=== PATIENT | female | born 1945 | race Caucasian/White ===

== ENCOUNTER 2017-02-03 17:14 | Emergency (ER) | payer OTHER ==
[2017-02-03 17:37] VITALS: BP 121/49; BMI 25.2
[2017-02-03] MEDS ORDERED: NS 1000 ML 500 ML IV ONE (19:00)
--- NOTE | 2017-02-03 19:04 | DR.GIBLEED ---
HPI - Time Seen Time seen: 19:00 - Primary Care Physician Primary Care Physician: jennifer - HPI Comment HPI Comment: Patient had copy of AM labs: Hgb 8.6/24.8/ plts 199;Iron 82 Folate> 20 Ferritin 1047 Transferrin 233 - Complaints Chief Complaint Doctors Comments: Patient denies blood in stool. She is followed by Dr Peace for GI bleed. She reports that she is tired and needs some fluids so she can follow up with Dr Peace tomorrow. She denies blood in stool. Chief Complaint:: weakness, fatique, hgb 8.7 this am, blood in stool Self Treatment fo Chief Complaint: hx of gi bleed - Source History Provided: Patient - Mode of Arrival Mode of Arrival: Ambulatory - Timing Onset of Chief Complaint: 02/02/17 PMH - PMH Past Medical History: Yes Past Medical History: Anemia, Arthritis, Coronary Artery Disease, CVA, Diabetes , Dyslipidemia, GERD, Hypertension, Hypothyroidism, Seizures Past Surgical History: Yes Surgical History: Angioplasty/Stents, CABG/Valve Surgery, Cholecystectomy, Hysterectomy, Tonsillectomy - Family History History of Family Medical Conditions: No Family Medical History: Diabetes Mellitus, Cancer, [place], Coronary Artery Disease, Hypertension - Social History Does patient currently use any type of tobacco product: Yes Have you used tobacco products in the last 12 months: Yes Type of Tobacco Use: Cigarettes How many years tobacco product used: 60 Does any household member use tobacco: No Alcohol Use: Occasionally Do you use any recreational Drugs:: No Lives With: Alone Lives Where: Home - infectious screening In the last 2 months have you had wt loss of >10#?: NO Have you had fever, night sweats or hemotysis?: No Have you traveled outside the country in the last 6 months?: No Isolation: Standard ROS - Review of Systems Eyes: No Symptoms Reported ENTM: No Symptoms Reported Respiratoy: No Symptoms Reported Cardiovascular: No Symptoms Reported Gastrointestinal/Abdominal: No Symptoms Reported Genitourinary: No Symptoms Reported Neurological: No Symptoms Reported Musculoskeletal: No Symptoms Reported Integumentary: No Symptoms Reported Hematologic/Lymphatic: No Symptoms Reported Endocrine: No Symptoms Reported Psychiatric: No Symptoms Reported All Other Systems: Reviewed and Negative PE - Vital Signs Vitals: Temperature 97.8 F Pulse Rate 109 Respiratory Rate 20 Blood Pressure [Right Arm] 130/81 Blood Pressure [Left Arm] 136/49 Blood Pressure [Left Arm] 124/56 Blood Pressure [Right Arm] 128/58 Blood Pressure 121/49 - General Limitations: No Limitations General Appearance: Alert, In No Apparent Distress - Head Head Exam: Normal Inspection, Atraumatic - Eyes Eye exam: Normal Appearance, PERRL, EOMI - ENT ENT Exam: Normal Exam, Normal Oropharynx - Neck Neck Exam: Normal Inspection, Full ROM - Chest Chest Inspection: Normal Inspection - Respiratory Respiratory Exam: Normal Lung Sounds Bilat Respiratory Exam: Bilateral Clear to Auscultation - Cardiovascular Cardiovascular Exam: Regular Rate, Normal Rhythm - Abdominal Exam Abdominal Exam: Normal Inspection, Normal Bowel Sounds Abdominal Tenderness: negative: RUQ, RLQ, LUQ, LLQ, Epigastrium, Suprapubic, Diffuse, Mild, Moderate, Severe, Other - Rectal Rectal Exam: Deferred - Extremities Extremities Exam: Normal Inspection - Back Back Exam: Normal Inspection - Neurologic Neurological Exam: Alert, Oriented X3, CN II-XII Intact - Psychiatric Psychiatric Exam: Normal Affect, Normal Mood - Skin Skin Exam: Warm, Dry, Intact - Diagnosis Discharge Problem: History of anemia - Discharge Plan Condition: Stable - Follow ups/Referrals Follow ups/Referrals: Shayne Tavares [Primary Care Provider] - 3 days - Instructions
[2017-02-03] MEDS ORDERED: NS 1000 ML 1,000 ML ONE (19:07)
== END 2017-02-03 20:43 | disposition home or self-care (01) ==
LOC: ER 17:24
DX: R53.1 Weakness (principal); Z87.19 Personal history of other diseases of the digestive system; D64.9 Anemia, unspecified
CPT/HCPCS: 36415; 82607; 82728; 82746; 83540; 84466; 85025; 96365; 96367; 99282; 99283

== ENCOUNTER → 2017-02-03 | Outpatient (CLI) | payer OTHER ==
[2015-05-04 10:26] VITALS: BP 147/60
[2017-02-03 14:11] LABS: BASOPHILS % (AUTO) 0.6 % (0.2-1.0); EOSINOPHILS # (AUTO) 0.2 x10^3/uL (0.0-0.2); EOSINOPHILS % (AUTO) 2.2 % (0.9-2.9); HEMATOCRIT 24.8 % (36.0-47.0); HEMOGLOBIN 8.6 g/dL (12.0-16.0); LYMPHOCYTES # (AUTO) 2.5 X10^3/uL (1.3-2.9); LYMPHOCYTES % (AUTO) 28.4 % (21.0-51.0); MEAN CORPUSCULAR HEMOGLOBIN 35.4 pg (27.0-34.0); MEAN CORPUSCULAR HGB CONC 34.6 g/dL (33.0-35.0); MEAN CORPUSCULAR VOLUME 102.4 fL (80.0-100.0); MEAN PLATELET VOLUME 8.7 fL (7.4-11.0); MONOCYTES # (AUTO) 0.5 x10^3/uL (0.3-0.8); MONOCYTES % (AUTO) 5.8 % (0.0-13.0); NEUTROPHILS # (AUTO) 5.5 x10^3/uL (2.2-4.8); PLATELET COUNT 199 X10^3/uL (150.0-450.0); RED BLOOD COUNT 2.43 X10^6/uL (3.5-5.4); RED CELL DISTRIBUTION WIDTH 14.4 % (11.6-16.5); WHITE BLOOD COUNT 8.7 X10^3/uL (3.6-10.0)
[2017-02-03 14:52] LABS: IRON 82 ug/dL (50-175); TRANSFERRIN 233 mg/dL (202-364)
== END ==
LOC: LAB 13:23
PROVIDERS: ATTEND Nurse Practitioner Family
DX: D64.9 Anemia, unspecified (principal)
CPT/HCPCS: 36415; 82607; 82728; 82746; 83540; 84466; 85025

== ENCOUNTER 2017-06-03 10:55 | Inpatient (IN) | payer OTHER ==
[2017-06-03] MEDS ORDERED: TUSSIONEX PENNKINETIC SUSP PO PRN (18:01)
[2017-06-03] MEDS ORDERED: LEVAQUIN PREMIX IV 750 MG 750 MG/150 ML BAG IV SCH (18:01)
[2017-06-03 18:37] LABS: BASOPHILS % (AUTO) 0.3 % (0.2-1.0); EOSINOPHILS # (AUTO) 0.1 x10^3/uL (0.0-0.2); EOSINOPHILS % (AUTO) 0.7 % (0.9-2.9); HEMATOCRIT 38.1 % (36.0-47.0); HEMOGLOBIN 12.4 g/dL (12.0-16.0); LYMPHOCYTES # (AUTO) 1.1 X10^3/uL (1.3-2.9); LYMPHOCYTES % (AUTO) 10.5 % (21.0-51.0); MEAN CORPUSCULAR HEMOGLOBIN 29.9 pg (27.0-34.0); MEAN CORPUSCULAR HGB CONC 32.7 g/dL (33.0-35.0); MEAN CORPUSCULAR VOLUME 91.4 fL (80.0-100.0); MEAN PLATELET VOLUME 9.4 fL (7.4-11.0); MONOCYTES # (AUTO) 0.5 x10^3/uL (0.3-0.8); MONOCYTES % (AUTO) 4.4 % (0.0-13.0); NEUTROPHILS # (AUTO) 8.7 x10^3/uL (2.2-4.8); NEUTROPHILS % (AUTO) 84.1 % (42.0-75.0); PLATELET COUNT 170 X10^3/uL (150.0-450.0); RED BLOOD COUNT 4.16 X10^6/uL (3.5-5.4); RED CELL DISTRIBUTION WIDTH 18.6 % (11.6-16.5); WHITE BLOOD COUNT 10.4 X10^3/uL (3.6-10.0)
[2017-06-03 19:38] LABS: ALANINE AMINOTRANSFERASE 15 Units/L (12-78); ALBUMIN 3.8 g/dL (3.4-5.0); ALKALINE PHOSPHATASE 73 Units/L (46-116); ASPARTATE AMINO TRANSFERASE 18 Units/L (15-37); BLOOD UREA NITROGEN 59 mg/dL (7-18); CALCIUM 8.6 mg/dL (8.5-10.1); CARBON DIOXIDE 27.6 mmol/L (21-32); CHLORIDE 100 mmol/L (98-107); COR NA(FOR HYPERGLY) 139 mmol/L (136-145); CREATININE 2.39 mg/dL (0.55-1.02); SODIUM 137 mmol/L (136-145); TOTAL PROTEIN 7.8 g/dL (6.4-8.2); eGFR BLACK RACES 26 (>60); eGFR NON BLACK RACES 21 (>60)
[2017-06-03] MEDS ORDERED: NS 1/2 1000 ML IV 1,000 ML IV ONE (20:16)
[2017-06-03] MEDS: NS 1/2 1000 ML IV 1,000 ML IV SCH (20:22)
[2017-06-03] MEDS: LEVAQUIN PREMIX IV 750 MG 750 MG/150 ML BAG IV SCH (20:23)
[2017-06-03] MEDS: ROBITUSSIN DM PO SCH (20:23)
[2017-06-03] MEDS: TAMIFLU PO SCH (20:23)
[2017-06-03] MEDS: DUONEB 0.5 MG/3 MG NEB SCH (20:32)
[2017-06-03] MEDS ORDERED: TAMIFLU PO SCH (21:00)
--- NOTE | 2017-06-03 22:07 | RAD ---
Chest, PA and lateral Indication: Pneumonia, cough Comparison: 03/04/2014 Findings: Cardiac silhouette size is within normal limits. Postoperative changes of previous CABG are noted with multiple fractured sternal wires. There are mild chronic interstitial changes of the lung s without dense infiltrate or pleural effusion. Impression: No acute chest process. Reported By:
[2017-06-03 23:54] VITALS: BMI 26.7
[2017-06-04] MEDS: DUONEB 0.5 MG/3 MG NEB SCH ×6 (00:35→21:27)
[2017-06-04 06:35] LABS: BASOPHILS % (AUTO) 0.2 % (0.2-1.0); EOSINOPHILS # (AUTO) 0.2 x10^3/uL (0.0-0.2); HEMATOCRIT 33.7 % (36.0-47.0); HEMOGLOBIN 11.2 g/dL (12.0-16.0); LYMPHOCYTES # (AUTO) 1.6 X10^3/uL (1.3-2.9); LYMPHOCYTES % (AUTO) 20.6 % (21.0-51.0); MEAN CORPUSCULAR HEMOGLOBIN 30.2 pg (27.0-34.0); MEAN CORPUSCULAR HGB CONC 33.2 g/dL (33.0-35.0); MEAN PLATELET VOLUME 9.3 fL (7.4-11.0); MONOCYTES # (AUTO) 0.6 x10^3/uL (0.3-0.8); MONOCYTES % (AUTO) 8.2 % (0.0-13.0); NEUTROPHILS # (AUTO) 5.4 x10^3/uL (2.2-4.8); PLATELET COUNT 143 X10^3/uL (150.0-450.0); RED CELL DISTRIBUTION WIDTH 18.9 % (11.6-16.5); WHITE BLOOD COUNT 7.8 X10^3/uL (3.6-10.0)
[2017-06-04 07:21] LABS: CALCIUM 8.1 mg/dL (8.5-10.1); CARBON DIOXIDE 27.8 mmol/L (21-32); COR CA(FOR HYPOALB) 8.9 mg/dL (8.5-10.1); CREATININE 1.81 mg/dL (0.55-1.02); TOTAL PROTEIN 6.6 g/dL (6.4-8.2)
--- NOTE | 2017-06-04 07:22 | RAD ---
HISTORY: Cough Study: Chest AP portable Comparison: 06/03/2017 Findings: The patient is status post median sternotomy and CABG. The heart is upper limits normal in size. No c ongestive heart failure is noted. No acute alveolar infiltrates are identified. Mild chronic intersti tial lung changes are stable. There is some subsegmental atelectasis peripherally in the left lower l obe. IMPRESSION: No acute infiltrates Stable interstitial lung changes Reported By:
[2017-06-04] MEDS: ROBITUSSIN DM PO SCH ×4 (09:46→21:26)
[2017-06-04] MEDS ORDERED: NS 1/2 1000 ML IV 1,000 ML IV ONE ×2 (09:49→23:44)
[2017-06-04] MEDS: NS 1/2 1000 ML IV 1,000 ML IV SCH (10:03)
--- NOTE | 2017-06-04 10:36 | DR.UPDATE ---
H&P Update History and Physical Update: WAS SEEN IN THE OFFICE ON 06/03/16. A H&P WAS COMPLETED PRIOR TO ADMISSION. PATIENT HAS BEEN SEEN AND EXAMINED WITH NO CHANGES NOTED TO H&P. Changes noted: NO Yes with the following:
[2017-06-04] MEDS ORDERED: XANAX PO PRN (11:51)
[2017-06-04] MEDS ORDERED: PATIENT'S HOME MEDICATION (Acetaminophen With Codeine [Acetaminophen-Cod #4 Tablet] 1 TAB) PO PRN (11:51)
[2017-06-04] MEDS ORDERED: AMBIEN PO PRN (11:51)
[2017-06-04] MEDS ORDERED: PATIENT'S HOME MEDICATION (Ropinirole Hcl [Requip] 0.5 MG) PO SCH (12:00)
[2017-06-04] MEDS ORDERED: [UNRECOGNIZED DRUG - OTHER] PO SCH (12:00)
[2017-06-04] MEDS ORDERED: POTASSIUM CHLORIDE 10 MEQ PO SCH (12:00)
[2017-06-04] MEDS ORDERED: VALSARTAN PO SCH (12:00)
[2017-06-04] MEDS ORDERED: CALCIUM CARBONATE PO SCH (12:00)
[2017-06-04] MEDS ORDERED: HYDROCHLOROTHIAZIDE PO SCH (12:00)
[2017-06-04] MEDS ORDERED: PATIENT'S HOME MEDICATION (Folic Acid [Folic Acid] 1 TAB) PO SCH (12:00)
[2017-06-04] MEDS ORDERED: FOLIC ACID PO SCH (12:00)
[2017-06-04] MEDS ORDERED: [UNRECOGNIZED DRUG - OTHER] PO SCH (12:00)
[2017-06-04] MEDS ORDERED: METHYLCELLULOSE PO SCH (12:00)
[2017-06-04] MEDS ORDERED: HumuLIN R SUBCUT PRN (12:01)
[2017-06-04] MEDS ORDERED: ZOLOFT PO ONE (13:43)
[2017-06-04] MEDS: ASPIRIN EC 81 MG PO SCH (14:00)
[2017-06-04] MEDS: COREG TAB 6.25 MG PO SCH ×2 (14:00→21:26)
[2017-06-04] MEDS: PLAVIX PO SCH (14:02)
[2017-06-04] MEDS: MAG-OX TAB PO SCH (14:02)
[2017-06-04] MEDS: NEURONTIN CAP 100 MG PO SCH (14:02)
[2017-06-04] MEDS: ZOLOFT PO SCH (14:03)
[2017-06-04] MEDS: PriLOSEC PO SCH (14:04)
[2017-06-04] MEDS ORDERED: TYLENOL #3 TAB (W/CODEINE) PO PRN (14:26)
[2017-06-04] MEDS: ESTRACE PO SCH (18:05)
[2017-06-04] MEDS: TAB-A-VITE PO SCH (18:05)
[2017-06-04] MEDS: SYNTHROID 112 mcg TAB PO SCH (18:06)
[2017-06-04] MEDS ORDERED: NEURONTIN CAP 100 MG PO SCH (21:00)
[2017-06-04] MEDS: SNACK - Diabetic Appropriate PO SCH (21:24)
[2017-06-04] MEDS: BENADRYL CAP 50 MG PO SCH (21:24)
[2017-06-04] MEDS: CRESTOR TAB 10 MG PO SCH (21:25)
[2017-06-04] MEDS: REQUIP PO SCH (21:25)
[2017-06-04] MEDS: TAMIFLU PO SCH (21:25)
[2017-06-04] MEDS: NEURONTIN CAP 300 MG PO SCH (21:26)
[2017-06-04] MEDS: LEVEMIR SC SCH (21:27)
[2017-06-05] MEDS ORDERED: DUONEB 0.5 MG/3 MG ONE (00:03)
[2017-06-05] MEDS: DUONEB 0.5 MG/3 MG NEB SCH ×6 (00:10→21:35)
[2017-06-05 06:15] LABS: BASOPHILS % (AUTO) 0.3 % (0.2-1.0); EOSINOPHILS # (AUTO) 0.2 x10^3/uL (0.0-0.2); EOSINOPHILS % (AUTO) 3.8 % (0.9-2.9); HEMATOCRIT 34.8 % (36.0-47.0); HEMOGLOBIN 11.6 g/dL (12.0-16.0); LYMPHOCYTES # (AUTO) 1.4 X10^3/uL (1.3-2.9); LYMPHOCYTES % (AUTO) 26.4 % (21.0-51.0); MEAN CORPUSCULAR HGB CONC 33.3 g/dL (33.0-35.0); MEAN CORPUSCULAR VOLUME 90.2 fL (80.0-100.0); MEAN PLATELET VOLUME 9.2 fL (7.4-11.0); MONOCYTES # (AUTO) 0.6 x10^3/uL (0.3-0.8); MONOCYTES % (AUTO) 12.1 % (0.0-13.0); NEUTROPHILS % (AUTO) 57.4 % (42.0-75.0); PLATELET COUNT 143 X10^3/uL (150.0-450.0); RED BLOOD COUNT 3.86 X10^6/uL (3.5-5.4); RED CELL DISTRIBUTION WIDTH 18.1 % (11.6-16.5); WHITE BLOOD COUNT 5.3 X10^3/uL (3.6-10.0)
[2017-06-05 06:19] LABS: ALANINE AMINOTRANSFERASE 14 Units/L (12-78); ALKALINE PHOSPHATASE 59 Units/L (46-116); ASPARTATE AMINO TRANSFERASE 18 Units/L (15-37); BLOOD UREA NITROGEN 29 mg/dL (7-18); CALCIUM 8.7 mg/dL (8.5-10.1); CARBON DIOXIDE 25.5 mmol/L (21-32); CHLORIDE 106 mmol/L (98-107); COR CA(FOR HYPOALB) 9.5 mg/dL (8.5-10.1); SODIUM 138 mmol/L (136-145); TOTAL PROTEIN 6.7 g/dL (6.4-8.2); eGFR BLACK RACES > 60 (>60); eGFR NON BLACK RACES 52 (>60)
--- NOTE | 2017-06-05 07:33 | RAD ---
HISTORY: Cough, pneumonia Study: Chest AP portable Comparison: 06/04/2017 Findings: The patient is status post median sternotomy and CABG. The heart is upper limits normal in size. No c ongestive heart failure is noted. No acute alveolar infiltrates are identified. Minimal chronic inter stitial lung changes are present. There is minimal subsegmental atelectasis peripherally in the left lung base. No pleural effusions are identified. The bony thorax is unremarkable. IMPRESSION: No acute infiltrates Minimal interstitial lung changes, stable Reported By:
[2017-06-05] MEDS ORDERED: ZOLOFT PO ONE (08:41)
[2017-06-05] MEDS: COREG TAB 6.25 MG PO SCH ×2 (08:47→21:07)
[2017-06-05] MEDS: ZOLOFT PO SCH (08:47)
[2017-06-05] MEDS: ASPIRIN EC 81 MG PO SCH (08:47)
[2017-06-05] MEDS: SYNTHROID 112 mcg TAB PO SCH (08:47)
[2017-06-05] MEDS: PriLOSEC PO SCH (08:47)
[2017-06-05] MEDS: FOLIC ACID TAB 1 MG PO SCH (08:47)
[2017-06-05] MEDS: HYDROCHLOROTHIAZIDE 25 MG TAB PO SCH (08:48)
[2017-06-05] MEDS: TAB-A-VITE PO SCH (08:48)
[2017-06-05] MEDS: NEURONTIN CAP 100 MG PO SCH (08:48)
[2017-06-05] MEDS: PLAVIX PO SCH (08:48)
[2017-06-05] MEDS: OSCAL+D or CALTRATE+D PO SCH (08:48)
[2017-06-05] MEDS: ESTRACE PO SCH (08:49)
[2017-06-05] MEDS: DIOVAN TAB 160 MG PO SCH (08:49)
[2017-06-05] MEDS: HEMOCYTE-PLUS PO SCH (08:50)
[2017-06-05] MEDS: ROBITUSSIN DM PO SCH ×4 (08:51→21:13)
[2017-06-05] MEDS: MAG-OX TAB PO SCH (08:57)
[2017-06-05] MEDS ORDERED: MICRO K EXTEN CAP 10 MEQ PO SCH (09:00)
[2017-06-05] MEDS: REQUIP PO SCH ×2 (10:50→21:07)
[2017-06-05] MEDS: NS 1/2 1000 ML IV 1,000 ML IV SCH ×2 (12:56)
--- NOTE | 2017-06-05 19:32 | PCM.PROG ---
Progress Note - Progress Note for Day of Date: 06/04/17 - Subjective Subjective: WAS ADMITTED ON 06/03/2017. SHE IS BEING TREATED FOR BRONCHOPNEUMONIA AND INFLUENZA. TODAY, HE IS ALERT AND ORIENTED, LYING IN BED ON MORNING ROUNDS. TODAY, SHE IS NOTED WITH COMPLAINTS OF SHORNTESS OF BREATH AND PRODUCTIVE COUGH. SHE ALSO COMPLAINS OF PAIN TO THE SECOND DIGIT OF THE LEFT HAND. ON EXAMINATION, SECOND DIGIT OF THE LEFT HAND IS NOTED WITH ERYTHEM AND NOTED TO BE SWOLLEN. NO WOUND OR DRAINAGE NOTED. HEART IS REGULAR IN RATE AND RHYTHM. BIALTERAL LUNGS ARE NOTED WITH EXPIRATORY WHEEZING AND RHONCHI THROUGHOUT. SHE IS CURRENTLY UTILIZING OXYGEN AT 2L/MIN. ABDOMEN IS ROUND, SOFT , AND NON-TENDER WITH NORMAL BOWEL SOUNDS NOTED IN ALL QUADRANTS. THERE IS NORMAL RANGE OF MOTION NOTED TO ALL EXTREMITIES. HER VITALS THIS MORNING ARE 98.3-73-20-93%-141/64. SHE WAS AFEBRILE THROUGHOUT THE NIGHT. LABS WERE OBTAINED. ABNORMAL LAB VALUES INCLUDE THE FOLLOWING: WBC 11.2, HCT 33.7, PLT COUNT 143, BUN 47, CREATININE 1.81, GLUCOSE 111, CALCIUM 8.1, ALBUMIN 3.0. BLOOD AND SPUTUM CULTURES ARE PENDING. CHEST XRAY REPORTS STABLE INTERSTITIAL LUNG CHANGES. SHE CONTINUES ON IV ANTIBIOTICS AND RESPIRATORY TREATMENTS. WE WILL CONTINUE WITH CURRENT PLAN OF CARE TODAY. WE PLAN TO FOLLOW UP WITH AM LABS AND CONTINUE TO MONITOR PATIENT. - Past Medical Family Social History Past Med/Fam/Surg Hx: No changes since H&P Allergies: Allergies Penicillins Allergy (Verified 02/03/17 18:45) - Review of Systems ROS: No change since H&P - Vital Signs and I&O's Vital Signs: Temperature 97.6 F Pulse Rate [Right Brachial] 64 Pulse Rate [Left Brachial] 76 Pulse Rate 70 Respiratory Rate 18 Blood Pressure [Right Arm] 160/58 Blood Pressure [Left Arm] 187/78 Blood Pressure [Left Arm] 124/56 Blood Pressure [Right Arm] 128/58 Blood Pressure 121/49 O2 Sat by Pulse Oximetry 95 Intake and Output: Intake & Output 06/03/17 06/04/17 06/05/17 06/06/17 11:59 11:59 11:59 11:59 Intake Total 2149 2038 1300 Balance 2149 2038 1300 - Physical Exam Oriented: Normal Eyes: Normal. negative: Blurred Vision, Diplopia, Discharge, Pain, Redness, Photophobia, Other Ear: Normal. negative: Right, Left, Swelling, Ecchymosis, Hemotypanum, Abrasion , Laceration Nose: Normal Throat: Normal Respiratory: Right, Left, Generalized, Wheezes, Rhonchi Cardiovascular: Normal. negative: S3, S4, Murmur : Normal Auscultation: Bowel Sounds: Normal Palpation: Normal Tenderness: Normal. negative: Rebound, Guarding, Rigidity Skin: Normal Musculoskeletal: Normal Psychiatric: Normal. negative: Anxiety, Depression, Agitation, Other Mood Description: Calm Affect: Normal Speech Pattern: Clear, Appropriate - Laboratory and Diagnostics Result Diagrams: 06/05/17 05:38 06/05/17 05:38 Labs: 06/03/17 18:24 Blood Blood Culture - Preliminary 06/03/17 18:11 Blood Blood Culture - Preliminary 06/03/17 18:42 Sputum - Expectorated Sputum Sputum Culture - Preliminary 06/03/17 18:42 Sputum - Expectorated Sputum - Final Laboratory WBC 5.3 X10^3/uL (3.6-10.0) 06/05/17 05:38 RBC 3.86 X10^6/uL (3.5-5.4) 06/05/17 05:38 Hgb 11.6 g/dL (12.0-16.0) L 06/05/17 05:38 Hct 34.8 % (36.0-47.0) L 06/05/17 05:38 MCV 90.2 fL (80.0-100.0) 06/05/17 05:38 MCH 30.0 pg (27.0-34.0) 06/05/17 05:38 MCHC 33.3 g/dL (33.0-35.0) 06/05/17 05:38 RDW 18.1 % (11.6-16.5) H 06/05/17 05:38 Plt Count 143 X10^3/uL (150.0-450.0) L 06/05/17 05:38 MPV 9.2 fL (7.4-11.0) 06/05/17 05:38 Neut % 57.4 % (42.0-75.0) 06/05/17 05:38 Lymph % 26.4 % (21.0-51.0) 06/05/17 05:38 [place] % 12.1 % (0.0-13.0) 06/05/17 05:38 Eos % 3.8 % (0.9-2.9) H 06/05/17 05:38 Baso % 0.3 % (0.2-1.0) 06/05/17 05:38 Neut # 3.0 x10^3/uL (2.2-4.8) 06/05/17 05:38 Lymph # 1.4 X10^3/uL (1.3-2.9) 06/05/17 05:38 [place] # 0.6 x10^3/uL (0.3-0.8) 06/05/17 05:38 Eos # 0.2 x10^3/uL (0.0-0.2) 06/05/17 05:38 Baso # 0.0 X10^3/uL (0.0-0.1) 06/05/17 05:38 Absolute Nucleated RBC 0.1 /100WBC 06/05/17 05:38 Sodium 138 mmol/L (136-145) 06/05/17 05:38 Corrected Sodium TNP 06/05/17 05:38 Potassium 4.6 mmol/L (3.5-5.1) 06/05/17 05:38 Chloride 106 mmol/L (98-107) 06/05/17 05:38 Carbon Dioxide 25.5 mmol/L (21-32) 06/05/17 05:38 BUN 29 mg/dL (7-18) H 06/05/17 05:38 Creatinine 1.10 mg/dL (0.55-1.02) H 06/05/17 05:38 Est GFR (MDRD) Af Amer > 60 (>60) 06/05/17 05:38 Est GFR (MDRD) Non-Af 52 (>60) L 06/05/17 05:38 Glucose 100 mg/dL (65-99) H 06/05/17 05:38 POC Glucose (mg/dL) 156 mg/dL (65-99) H 06/05/17 16:44 Calcium 8.7 mg/dL (8.5-10.1) 06/05/17 05:38 Corrected Calcium 9.5 mg/dL (8.5-10.1) 06/05/17 05:38 Total Bilirubin 0.20 mg/dL (0.2-1.0) 06/05/17 05:38 AST 18 Units/L (15-37) 06/05/17 05:38 ALT 14 Units/L (12-78) 06/05/17 05:38 Alkaline Phosphatase 59 Units/L (46-116) 06/05/17 05:38 Total Protein 6.7 g/dL (6.4-8.2) 06/05/17 05:38 Albumin 3.0 g/dL (3.4-5.0) L 06/05/17 05:38 Globulin 3.7 g/dL (2.5-4.5) 06/05/17 05:38 Albumin/Globulin Ratio 0.8 Ratio (1.1-2.1) L 06/05/17 05:38 Influenza Type A (PCR) Negative (NEGATIVE) 06/03/17 18:42 Influenza Type B (PCR) Negative (NEGATIVE) 06/03/17 18:42 - Plan (1) CAP (community acquired pneumonia) Status: Acute Qualifiers: Laterality: unspecified laterality Qualified Code(s): J18.9 - Pneumonia, unspecified organism Plan: PNEUMONIA PROTOCOL, LEVAQUIN 750MG IV Q48H, RESPIRATORY TX, SUPPLEMENTAL OXYGEN, CONTINUE TO MONITOR (2) Influenza Status: Acute Plan: TAMIFLU 75MG PO BID, CONTINUE TO MONITOR
[2017-06-05] MEDS: LEVAQUIN PREMIX IV 750 MG 750 MG/150 ML BAG IV SCH (21:05)
[2017-06-05] MEDS: SNACK - Diabetic Appropriate PO SCH (21:05)
[2017-06-05] MEDS: LEVEMIR SC SCH (21:05)
[2017-06-05] MEDS: NEURONTIN CAP 300 MG PO SCH (21:06)
[2017-06-05] MEDS: TAMIFLU PO SCH (21:07)
[2017-06-05] MEDS: CRESTOR TAB 10 MG PO SCH (21:07)
[2017-06-05] MEDS: BENADRYL CAP 50 MG PO SCH (21:07)
[2017-06-06] MEDS: DUONEB 0.5 MG/3 MG NEB SCH ×4 (01:38→12:20)
[2017-06-06] MEDS ORDERED: NS 1/2 1000 ML IV 1,000 ML IV ONE (02:08)
[2017-06-06] MEDS: NS 1/2 1000 ML IV 1,000 ML IV SCH (02:19)
[2017-06-06 04:24] LABS: BASOPHILS % (AUTO) 0.5 % (0.2-1.0); EOSINOPHILS # (AUTO) 0.1 x10^3/uL (0.0-0.2); HEMOGLOBIN 11.7 g/dL (12.0-16.0); LYMPHOCYTES # (AUTO) 1.2 X10^3/uL (1.3-2.9); LYMPHOCYTES % (AUTO) 24.5 % (21.0-51.0); MEAN CORPUSCULAR HEMOGLOBIN 29.7 pg (27.0-34.0); MEAN CORPUSCULAR HGB CONC 32.5 g/dL (33.0-35.0); MEAN CORPUSCULAR VOLUME 91.4 fL (80.0-100.0); MEAN PLATELET VOLUME 8.8 fL (7.4-11.0); MONOCYTES # (AUTO) 0.5 x10^3/uL (0.3-0.8); MONOCYTES % (AUTO) 10.4 % (0.0-13.0); NEUTROPHILS # (AUTO) 2.9 x10^3/uL (2.2-4.8); NEUTROPHILS % (AUTO) 61.6 % (42.0-75.0); PLATELET COUNT 155 X10^3/uL (150.0-450.0); RED BLOOD COUNT 3.94 X10^6/uL (3.5-5.4); RED CELL DISTRIBUTION WIDTH 18.3 % (11.6-16.5); WHITE BLOOD COUNT 4.7 X10^3/uL (3.6-10.0)
[2017-06-06 04:35] LABS: ALANINE AMINOTRANSFERASE 14 Units/L (12-78); ALBUMIN 2.8 g/dL (3.4-5.0); ALKALINE PHOSPHATASE 53 Units/L (46-116); ASPARTATE AMINO TRANSFERASE 13 Units/L (15-37); BLOOD UREA NITROGEN 21 mg/dL (7-18); CALCIUM 8.6 mg/dL (8.5-10.1); CARBON DIOXIDE 25.8 mmol/L (21-32); CHLORIDE 105 mmol/L (98-107); COR CA(FOR HYPOALB) 9.6 mg/dL (8.5-10.1); CREATININE 0.98 mg/dL (0.55-1.02); SODIUM 136 mmol/L (136-145); TOTAL PROTEIN 6.6 g/dL (6.4-8.2); eGFR BLACK RACES > 60 (>60); eGFR NON BLACK RACES 59 (>60)
--- NOTE | 2017-06-06 07:39 | RAD ---
Examination: AP chest History: Cough and pneumonia Comparison June 05, 2017 Findings: Continued normal heart size with stable linear fibrosis left mid lung. No evidence for pneu monia or pneumothorax. Sternal wires are present, many of them broken with displacement of fragments. Nonacute fracture deformity proximal left humerus. Impression: No change or acute process. See above. Broken and displaced sternal wires are usually ins ignificant but may be associated with mediastinal vascular complication. Reported By:
[2017-06-06] MEDS ORDERED: ZOLOFT PO ONE (09:19)
[2017-06-06] MEDS: ZOLOFT PO SCH ×2 (09:26→09:31)
[2017-06-06] MEDS: ROBITUSSIN DM PO SCH (09:26)
[2017-06-06] MEDS: ASPIRIN EC 81 MG PO SCH (09:27)
[2017-06-06] MEDS: SYNTHROID 112 mcg TAB PO SCH (09:27)
[2017-06-06] MEDS: FOLIC ACID TAB 1 MG PO SCH (09:27)
[2017-06-06] MEDS: NEURONTIN CAP 100 MG PO SCH (09:27)
[2017-06-06] MEDS: PLAVIX PO SCH (09:27)
[2017-06-06] MEDS: COREG TAB 6.25 MG PO SCH (09:27)
[2017-06-06] MEDS: PriLOSEC PO SCH (09:27)
[2017-06-06] MEDS: HYDROCHLOROTHIAZIDE 25 MG TAB PO SCH (09:28)
[2017-06-06] MEDS: DIOVAN TAB 160 MG PO SCH (09:28)
[2017-06-06] MEDS: TAB-A-VITE PO SCH (09:28)
[2017-06-06] MEDS: HEMOCYTE-PLUS PO SCH (09:28)
[2017-06-06] MEDS: OSCAL+D or CALTRATE+D PO SCH (09:28)
[2017-06-06] MEDS: MAG-OX TAB PO SCH (09:31)
[2017-06-06 10:39] VITALS: BP 148/66
[2017-06-06] MEDS: ESTRACE PO SCH (11:00)
[2017-06-06] MEDS: REQUIP PO SCH (11:00)
--- NOTE | 2017-06-08 20:53 | PCM.PROG ---
Progress Note - Progress Note for Day of Date: 06/05/17 - Subjective Subjective: WAS ADMITTED ON 06/03/2017. SHE IS BEING TREATED FOR BRONCHOPNEUMONIA AND INFLUENZA. TODAY, HE IS ALERT AND ORIENTED, LYING IN BED ON MORNING ROUNDS. TODAY, SHE IS NOTED WITH COMPLAINTS OF SHORNTESS OF BREATH AND PRODUCTIVE COUGH. SHE ALSO COMPLAINS OF PAIN TO THE SECOND DIGIT OF THE LEFT HAND. ON EXAMINATION, SECOND DIGIT OF THE LEFT HAND IS NOTED WITH ERYTHEM AND NOTED TO BE SWOLLEN. NO WOUND OR DRAINAGE NOTED. HEART IS REGULAR IN RATE AND RHYTHM. BIALTERAL LUNGS ARE NOTED WITH EXPIRATORY WHEEZING AND RHONCHI THROUGHOUT. SHE IS CURRENTLY UTILIZING OXYGEN AT 2L/MIN. ABDOMEN IS ROUND, SOFT , AND NON-TENDER WITH NORMAL BOWEL SOUNDS NOTED IN ALL QUADRANTS. THERE IS NORMAL RANGE OF MOTION NOTED TO ALL EXTREMITIES. HER VITALS THIS MORNING ARE 98.3-73-20-93%-141/64. SHE WAS AFEBRILE THROUGHOUT THE NIGHT. LABS WERE OBTAINED. ABNORMAL LAB VALUES INCLUDE THE FOLLOWING: WBC 11.2, HCT 33.7, PLT COUNT 143, BUN 47, CREATININE 1.81, GLUCOSE 111, CALCIUM 8.1, ALBUMIN 3.0. BLOOD AND SPUTUM CULTURES ARE PENDING. CHEST XRAY REPORTS STABLE INTERSTITIAL LUNG CHANGES. SHE CONTINUES ON IV ANTIBIOTICS AND RESPIRATORY TREATMENTS. WE WILL CONTINUE WITH CURRENT PLAN OF CARE TODAY. WE PLAN TO FOLLOW UP WITH AM LABS AND CONTINUE TO MONITOR PATIENT. - Past Medical Family Social History Past Med/Fam/Surg Hx: No changes since H&P Allergies: Allergies Penicillins Allergy (Verified 02/03/17 18:45) - Review of Systems ROS: No change since H&P - Vital Signs and I&O's Vital Signs: Temperature 97.3 F Pulse Rate [Right Brachial] 68 Pulse Rate [Left Brachial] 76 Pulse Rate 69 Respiratory Rate 20 Blood Pressure [Right Arm] 148/66 Blood Pressure [Left Arm] 187/78 Blood Pressure [Left Arm] 124/56 Blood Pressure [Right Arm] 128/58 Blood Pressure 121/49 O2 Sat by Pulse Oximetry 100 Intake and Output: Intake & Output 06/06/17 06/07/17 06/08/17 06/09/17 11:59 11:59 11:59 11:59 Intake Total 2893 Balance 2893 - Physical Exam Oriented: Normal Eyes: Normal. negative: Blurred Vision, Diplopia, Discharge, Pain, Redness, Photophobia, Other Ear: Normal. negative: Right, Left, Swelling, Ecchymosis, Hemotypanum, Abrasion , Laceration Nose: Normal Throat: Normal Respiratory: Right, Left, Generalized, Wheezes, Rhonchi Cardiovascular: Normal. negative: S3, S4, Murmur : Normal Auscultation: Bowel Sounds: Normal Palpation: Normal Tenderness: Normal. negative: Rebound, Guarding, Rigidity Skin: Normal Musculoskeletal: Normal Psychiatric: Normal. negative: Anxiety, Depression, Agitation, Other Mood Description: Calm Affect: Normal Speech Pattern: Clear, Appropriate - Laboratory and Diagnostics Result Diagrams: 06/06/17 03:58 06/06/17 03:58 Labs: 06/03/17 18:42 Sputum - Expectorated Sputum Sputum Culture - Final 06/03/17 18:42 Sputum - Expectorated Sputum - Final 06/03/17 18:24 Blood Blood Culture - Preliminary 06/03/17 18:11 Blood Blood Culture - Preliminary Laboratory WBC 4.7 X10^3/uL (3.6-10.0) 06/06/17 03:58 RBC 3.94 X10^6/uL (3.5-5.4) 06/06/17 03:58 Hgb 11.7 g/dL (12.0-16.0) L 06/06/17 03:58 Hct 36.0 % (36.0-47.0) 06/06/17 03:58 MCV 91.4 fL (80.0-100.0) 06/06/17 03:58 MCH 29.7 pg (27.0-34.0) 06/06/17 03:58 MCHC 32.5 g/dL (33.0-35.0) L 06/06/17 03:58 RDW 18.3 % (11.6-16.5) H 06/06/17 03:58 Plt Count 155 X10^3/uL (150.0-450.0) 06/06/17 03:58 MPV 8.8 fL (7.4-11.0) 06/06/17 03:58 Neut % 61.6 % (42.0-75.0) 06/06/17 03:58 Lymph % 24.5 % (21.0-51.0) 06/06/17 03:58 [place] % 10.4 % (0.0-13.0) 06/06/17 03:58 Eos % 3.0 % (0.9-2.9) H 06/06/17 03:58 Baso % 0.5 % (0.2-1.0) 06/06/17 03:58 Neut # 2.9 x10^3/uL (2.2-4.8) 06/06/17 03:58 Lymph # 1.2 X10^3/uL (1.3-2.9) L 06/06/17 03:58 [place] # 0.5 x10^3/uL (0.3-0.8) 06/06/17 03:58 Eos # 0.1 x10^3/uL (0.0-0.2) 06/06/17 03:58 Baso # 0.0 X10^3/uL (0.0-0.1) 06/06/17 03:58 Absolute Nucleated RBC 0.1 /100WBC 06/06/17 03:58 Sodium 136 mmol/L (136-145) 06/06/17 03:58 Corrected Sodium TNP 06/06/17 03:58 Potassium 4.9 mmol/L (3.5-5.1) 06/06/17 03:58 Chloride 105 mmol/L (98-107) 06/06/17 03:58 Carbon Dioxide 25.8 mmol/L (21-32) 06/06/17 03:58 BUN 21 mg/dL (7-18) H 06/06/17 03:58 Creatinine 0.98 mg/dL (0.55-1.02) 06/06/17 03:58 Est GFR (MDRD) Af Amer > 60 (>60) 06/06/17 03:58 Est GFR (MDRD) Non-Af 59 (>60) 06/06/17 03:58 Glucose 109 mg/dL (65-99) H 06/06/17 03:58 POC Glucose (mg/dL) 123 mg/dL (65-99) H 06/06/17 11:22 Calcium 8.6 mg/dL (8.5-10.1) 06/06/17 03:58 Corrected Calcium 9.6 mg/dL (8.5-10.1) 06/06/17 03:58 Total Bilirubin 0.10 mg/dL (0.2-1.0) L 06/06/17 03:58 AST 13 Units/L (15-37) L 06/06/17 03:58 ALT 14 Units/L (12-78) 06/06/17 03:58 Alkaline Phosphatase 53 Units/L (46-116) 06/06/17 03:58 Total Protein 6.6 g/dL (6.4-8.2) 06/06/17 03:58 Albumin 2.8 g/dL (3.4-5.0) L 06/06/17 03:58 Globulin 3.8 g/dL (2.5-4.5) 06/06/17 03:58 Albumin/Globulin Ratio 0.7 Ratio (1.1-2.1) L 06/06/17 03:58 Influenza Type A (PCR) Negative (NEGATIVE) 06/03/17 18:42 Influenza Type B (PCR) Negative (NEGATIVE) 06/03/17 18:42 - Plan (1) CAP (community acquired pneumonia) Status: Acute Qualifiers: Laterality: unspecified laterality Qualified Code(s): J18.9 - Pneumonia, unspecified organism Plan: PNEUMONIA PROTOCOL, LEVAQUIN 750MG IV Q48H, RESPIRATORY TX, SUPPLEMENTAL OXYGEN, CONTINUE TO MONITOR (2) Influenza Status: Acute Plan: TAMIFLU 75MG PO BID, CONTINUE TO MONITOR
== END 2017-06-06 12:15 | disposition home or self-care (01) | DRG 194 ==
LOC: OBS 10:55
PROVIDERS: ADMIT Internal Medicine; ATTEND Internal Medicine
DX: J18.0 Bronchopneumonia, unspecified organism (principal); J11.1 Influenza due to unidentified influenza virus with other respiratory manifestations; E11.65 Type 2 diabetes mellitus with hyperglycemia; E78.2 Mixed hyperlipidemia; I25.10 Atherosclerotic heart disease of native coronary artery without angina pectoris; N18.4 Chronic kidney disease, stage 4 (severe); I12.9 Hypertensive chronic kidney disease with stage 1 through stage 4 chronic kidney disease, or unspecified chronic kidney disease; R06.02 Shortness of breath
CPT/HCPCS: 36415; 71045; 71046; 80053; 85025; 87040; 87070; 87205; 87502; 94640; 94760; A4222; G9035; 1956; J1815; J1956; J7620

== ENCOUNTER 2017-07-02 10:39 | Inpatient (IN) | payer OTHER ==
[2017-07-02 12:28] VITALS: BMI 24.6
[2017-07-02 14:34] LABS: EOSINOPHILS # (AUTO) 0.1 x10^3/uL (0.0-0.2); LYMPHOCYTES % (AUTO) 22.7 % (21.0-51.0); MONOCYTES # (AUTO) 0.4 x10^3/uL (0.3-0.8)
[2017-07-02 14:38] LABS: BASOPHILS % (AUTO) 0.3 % (0.2-1.0); EOSINOPHILS % (AUTO) 1.5 % (0.9-2.9); LYMPHOCYTES # (AUTO) 1.9 X10^3/uL (1.3-2.9); MEAN CORPUSCULAR HEMOGLOBIN 31.8 pg (27.0-34.0); MEAN CORPUSCULAR HGB CONC 33.8 g/dL (33.0-35.0); MEAN CORPUSCULAR VOLUME 94.1 fL (80.0-100.0); MEAN PLATELET VOLUME 8.7 fL (7.4-11.0); MONOCYTES % (AUTO) 4.6 % (0.0-13.0); NEUTROPHILS % (AUTO) 70.9 % (42.0-75.0); PLATELET COUNT 167 X10^3/uL (150.0-450.0); RED BLOOD COUNT 1.76 X10^6/uL (3.5-5.4); RED CELL DISTRIBUTION WIDTH 18.9 % (11.6-16.5); WHITE BLOOD COUNT 8.5 X10^3/uL (3.6-10.0)
[2017-07-02 14:40] LABS: HEMATOCRIT 16.6 % (36.0-47.0); HEMOGLOBIN 5.6 g/dL (12.0-16.0)
[2017-07-02 14:48] LABS: CALCIUM 8.5 mg/dL (8.5-10.1); CARBON DIOXIDE 23.2 mmol/L (21-32); COR CA(FOR HYPOALB) 9.3 mg/dL (8.5-10.1); CREATININE 2.13 mg/dL (0.55-1.02)
[2017-07-02] MEDS: PROTONIX INJ 40 MG VIAL IVP SCH (15:07)
[2017-07-02] MEDS: NS 1000 ML 1,000 ML IV SCH (15:07)
[2017-07-02] MEDS: NS 500 ML IV 500 ML IV ONE (15:08)
[2017-07-02] MEDS: PEPCID 20 MG IV PREMIX* 20 MG/50 ML BAG IV SCH (15:08)
--- NOTE | 2017-07-02 18:37 | DR.CONSULT ---
Consult - Consultation for Day of: Date: 07/02/17 - Chief Complaint Chief Complaint: Patient referred for GI Bleed. Patient with complaints of melena. - Allergies Allergies/Adverse Reactions: Allergies Allergy/AdvReac Type Severity Reaction Status Date / Time Penicillins Allergy Verified 02/03/17 18:45 prednisone Allergy Verified 07/02/17 10:35 - History of Present Illness History of Present Illness: Patient is a 72yo female who was referred for GI Bleed. Patient with complaints of melena and diarrhea that has been going on for weeks. She denies dysphagia, dyspepsia, nausea, vomiting, abdominal pain, constipation, and hematochezia. Last EGD was 02/10/17 which showed erosive gastritis and small hiatal hernia. Last colon was 01/07/13 which showed extensive sigmoid diverticulosis with acute appearing erosiond and internal hemorrhoids. Hgb is 5.6, Hct 16.6, BUN 115, Creatinine 2.13 - Past Medical History Past Medical History: Anemia, Arthritis, Coronary Artery Disease, CVA, Diabetes , Dyslipidemia, GERD, Hypertension, Hypothyroidism, Seizures Additional Medical History: PVD, AVM - Past Surgical History Surgical History: Cholecystectomy, Ortho Surgery, Tonsillectomy Additional Surgical History: Sling on bladder - Family History Family Medical History: Diabetes Mellitus, Cancer, [place], Sudden Cardiac , Hypertension - Social History Does patient currently use any type of tobacco product: Yes Have you used tobacco products in the last 12 months: Yes Type of Tobacco Use: Cigarettes How many years tobacco product used: 12 Alcohol Use: Occasionally Drug Use: None - Review of Systems Constitutional: No Symptoms Reported Eyes: No Symptoms Reported ENT: No Symptoms Reported Respiratory: No Symptoms Reported Cardiovascular: No Symptoms Reported Gastrointestinal: See HPI, Diarrhea, Melena Genitourinary: No Symptoms Reported Musculoskeletal: No Symptoms Reported Skin: No Symptoms Reported Neurological: No Symptoms Reported - Physical Exam Vital Signs: Temperature 98.2 F Pulse Rate [Apical] 71 Respiratory Rate 20 Blood Pressure [Right Arm] 148/66 Blood Pressure [Left Arm] 93/39 Blood Pressure [Left Arm] 124/56 Blood Pressure [Right Arm] 128/58 Blood Pressure 148/66 O2 Sat by Pulse Oximetry 94 Oriented: Normal Eyes: Normal Ear: Normal Nose: Normal Throat: Normal Respiratory: Clear Throughout Cardiovascular: Normal : Normal Auscultation: Bowel Sounds: Normal Palpation: Normal, Other (no distention). negative: Spleen Enlarged, Liver Enlarged, Mass Pulsatile Tenderness: Normal Skin: Normal Musculoskeletal: Normal Psychiatric: Normal Mood Description: Calm Affect: Normal Speech Pattern: Clear - Plan Plan: Assessment. 1. Anemia, Melena r/o GI Bleed. Plan. 1. Cont protonix IV, Monitor Hgb, Hemoccult stool EGD in AM. Plan reviewed with Dr. Peace
[2017-07-03] MEDS: NS 1000 ML 1,000 ML IV SCH ×2 (03:00→16:55)
[2017-07-03] MEDS: PROTONIX INJ 40 MG VIAL IVP SCH ×3 (05:15→21:41)
[2017-07-03] MEDS: PEPCID 20 MG IV PREMIX* 20 MG/50 ML BAG IV SCH ×4 (05:20→21:41)
[2017-07-03 06:53] LABS: ALBUMIN 2.9 g/dL (3.4-5.0); CALCIUM 8.4 mg/dL (8.5-10.1); CARBON DIOXIDE 22.6 mmol/L (21-32); COR CA(FOR HYPOALB) 9.3 mg/dL (8.5-10.1); CREATININE 1.68 mg/dL (0.55-1.02); TOTAL PROTEIN 5.7 g/dL (6.4-8.2)
[2017-07-03 07:17] LABS: BASOPHILS % (AUTO) 0.4 % (0.2-1.0); EOSINOPHILS # (AUTO) 0.1 x10^3/uL (0.0-0.2); EOSINOPHILS % (AUTO) 1.5 % (0.9-2.9); LYMPHOCYTES # (AUTO) 1.4 X10^3/uL (1.3-2.9); LYMPHOCYTES % (AUTO) 24.9 % (21.0-51.0); MEAN CORPUSCULAR HEMOGLOBIN 31.8 pg (27.0-34.0); MEAN CORPUSCULAR HGB CONC 33.5 g/dL (33.0-35.0); MEAN CORPUSCULAR VOLUME 94.9 fL (80.0-100.0); MEAN PLATELET VOLUME 8.7 fL (7.4-11.0); MONOCYTES # (AUTO) 0.4 x10^3/uL (0.3-0.8); MONOCYTES % (AUTO) 7.5 % (0.0-13.0); NEUTROPHILS # (AUTO) 3.7 x10^3/uL (2.2-4.8); NEUTROPHILS % (AUTO) 65.7 % (42.0-75.0); PLATELET COUNT 143 X10^3/uL (150.0-450.0); RED BLOOD COUNT 1.59 X10^6/uL (3.5-5.4); RED CELL DISTRIBUTION WIDTH 19.6 % (11.6-16.5); WHITE BLOOD COUNT 5.7 X10^3/uL (3.6-10.0)
[2017-07-03 07:20] LABS: HEMATOCRIT 15.1 % (36.0-47.0)
[2017-07-03] MEDS ORDERED: PROCRIT or EPOGEN SC NR (09:33)
[2017-07-03 10:23] LABS: BILIRUBIN,URINE NEGATIVE (NEGATIVE); BLOOD/HEMOGLOBIN,URINE NEGATIVE (NEGATIVE); GLUCOSE, URINE NEGATIVE (NEGATIVE); KETONES,URINE NEGATIVE (NEGATIVE); LEUKOCYTE ESTERASE ,URINE NEGATIVE (NEGATIVE); NITRITES,URINE NEGATIVE (NEGATIVE); PROTEIN,URINE NEGATIVE (NEGATIVE); UROBILINOGEN,URINE NORMAL (NORMAL)
[2017-07-03 10:38] LABS: APPEARANCE,URINE CLEAR (CLEAR); BACTERIA,URINE NEGATIVE /HPF (NEGATIVE); COLOR,URINE YELLOW (YELLOW); RBC,URINE 0-2 /HPF (NONE SEEN); SQUAMOUS EPITHELIAL CELL,UR NEGATIVE /HPF (NEGATIVE)
[2017-07-03] MEDS ORDERED: TUSSIONEX PENNKINETIC SUSP PO PRN (10:48)
[2017-07-03] MEDS ORDERED: AMBIEN PO PRN (10:48)
[2017-07-03] MEDS ORDERED: INSULIN LISPRO 1 UNIT SC PRN (10:48)
[2017-07-03] MEDS ORDERED: PATIENT'S HOME MEDICATION (Acetaminophen With Codeine [Acetaminophen-Cod #4 Tablet] 1 TAB) PO PRN (10:48)
[2017-07-03] MEDS ORDERED: XANAX PO PRN (10:48)
[2017-07-03] MEDS ORDERED: TESSALON PERLES PO PRN (10:48)
[2017-07-03] MEDS ORDERED: FOLIC ACID PO SCH (11:00)
[2017-07-03] MEDS ORDERED: PATIENT'S HOME MEDICATION (Ropinirole Hcl [Requip] 0.5 MG) PO SCH (11:00)
[2017-07-03] MEDS ORDERED: PATIENT'S HOME MEDICATION (Folic Acid [Folic Acid] 1 TAB) PO SCH (11:00)
[2017-07-03] MEDS ORDERED: CALCIUM CARBONATE PO SCH (11:00)
[2017-07-03] MEDS ORDERED: [UNRECOGNIZED DRUG - OTHER] PO SCH (11:00)
[2017-07-03] MEDS ORDERED: METHYLCELLULOSE PO SCH (11:00)
--- NOTE | 2017-07-03 12:02 | RAD ---
STUDY: CHEST, ONE VIEW History: Central line placement Comparison: June 06, 2017. Findings: The trachea is midline. The lungs are clear of consolidation, significant infiltrate, effusion, or pn eumothorax. There is a left subclavian central venous catheter in place, tip of which projects over t he right atrium near the cavoatrial junction. Multiple surgical clips are identified overlying the ca rdiac silhouette. The mediastinum and osseous structures are unremarkable. IMPRESSION: 1. New left-sided subclavian central venous catheter in place, the tip of which projects over the ri ght atrium near the cavoatrial junction. Reported By:
[2017-07-03 12:19] LABS: HEMOGLOBIN 4.4 g/dL (12.0-16.0)
--- NOTE | 2017-07-03 12:51 | DR.H&P ---
H&P - History & Physical for Day of: H&P Date: 07/02/17 - Chief Complaint Chief Complaint: GENERALIZED WEAKNESS, UNSTEADY GAIT, ANEMIA - Allergies Allergies/Adverse Reactions: Allergies Allergy/AdvReac Type Severity Reaction Status Date / Time Penicillins Allergy Verified 02/03/17 18:45 prednisone Allergy Verified 07/02/17 10:35 - History of Present Illness History of Present Illness: IS A 72 YEAR OLD PATIENT OF OURS WHO PRESENTED A DIRECT ADMISSION. PATIENT PRESENTED TO [facility] ER TODAY FOR GENERALIZED WEAKNESS AND UNSTEADY GAIT. PATIENT ADMITS TO [facility] FOR SEVERAL DAYS WELL DARK STOOLS. SHE WAS FOUND TO HAVE A HEMOGLOBIN OF 5.9 AND A HEMATOCRIT OF 18.6. PATIENT REFUSED ADMISSION TO [facility]. PATIENT WAS TRANSFERRED TO OUR FACILITY VIA EMS PER PATIENTS REQUEST FOR ADMITTANCE TO THE INTENSIVE CARE UNIT. ON ARRIVAL TO THE INTENSIVE CARE UNIT, VITALS WERE 98.0-94-14-97%-119/57. LABS WERE OBTAINED. ABNORMAL LAB VALUES INCLUDE THE FOLLOWING: RBC 1.76, HGB 5.6, HCT 16.6, BUN 115, CREATININE 2.13, GFR 24, GLUCOSE 276, TOTAL BILI 0.10, AST 12, ALT 10, ALK PHOS 33, TOTAL PROTEIN 6.0, ALBUMIN 3.0. STOOL FOR OCCULT BLOOD IS POSITIVE. BUN/CREATININE IS SIGNIFICANTLY INCREASED COMPARED TO HER PREVIOUS HOSPITALIZATION. IT WAS NOTED TO BE 21/0.98 ON 06/06/2017. WE ORDERED FOR A TYPE AND SCREEN WELL CROSSMATCHED TWO UNITS OF PACKED RED BLOOD CELLS TO BE TRANSFUSED SLOWLY WHEN AVAILABLE. PATIENT WAS STARTED ON PEPCID 20MG IV Q12H AND PROTONIX 40MG IV BID. WE CONSULTED GASTROENTEROLOGY TO EVALUATED PATIENT. WE PLAN TO FOLLOW UP WITH AM LABS AND CONTINUE TO MONITOR PATIENT. - Past Medical History Past Medical History: Anemia, Arthritis, CHF, Coronary Artery Disease, CVA, Depression, Diabetes, Dyslipidemia, GERD, Hypertension, Hypothyroidism, PUD, Seizures Additional Medical History: PVD, AVM, TIA, HX CERVICAL CANCER - Past Surgical History Surgical History: Cholecystectomy, Ortho Surgery, Tonsillectomy Additional Surgical History: Sling on bladder, LEFT ARM AND LEFT LEG STENT, OPEN HEART SURGERY WITH 5 BYPASSES, RIGHT WRIST SURGERY - Family History Family Medical History: Diabetes Mellitus, Cancer, [place], Sudden Cardiac , Hypertension - Social History Does patient currently use any type of tobacco product: Yes Have you used tobacco products in the last 12 months: Yes Type of Tobacco Use: Cigarettes How many years tobacco product used: 12 Alcohol Use: Occasionally Drug Use: None - Review of Systems Constitutional: Weakness Eyes: No Symptoms Reported. denies: See HPI, Pain, Vision Change, Conjunctivae Inflammation, Eyelid Inflammation, Redness, Other ENT: No Symptoms Reported. denies: See HPI, Ear Pain, Ear Discharge, Nose Pain , Nose Discharge, Nose Congestion, Mouth Pain, Mouth Swelling, Throat Pain, Throat Swelling, Other Respiratory: Shortness of Breath. denies: No Symptoms Reported, See HPI, Cough , Dry, Hemoptysis, SOB with Excertion, Pleuritic Pain, Sputum, Wheezing, Other Cardiovascular: Light Headedness Gastrointestinal: See HPI, Abdominal Pain, Melena Genitourinary: No Symptoms Reported. denies: See HPI, Dysuria, Frequency, Incontinence, Hematuria, Retention, Other Musculoskeletal: No Symptoms Reported. denies: See HPI, Shoulder Pain, Arm Pain , Back Pain, Hand Pain, Leg Pain, Foot Pain, Neck Pain, Other Skin: Other (PALE ) Neurological: Weakness - Physical Exam Vital Signs: Temperature 97.8 F Pulse Rate [Apical] 100 Respiratory Rate 15 Blood Pressure [Right Arm] 148/66 Blood Pressure [Left Arm] 118/58 Blood Pressure [Left Arm] 124/56 Blood Pressure [Right Arm] 128/58 Blood Pressure 148/66 O2 Sat by Pulse Oximetry 99 Oriented: Normal Eyes: Normal. negative: Blurred Vision, Diplopia, Discharge, Pain, Redness, Photophobia, Other Ear: Normal. negative: Right, Left, Swelling, Ecchymosis, Hemotypanum, Abrasion , Laceration Nose: Normal. negative: Injected, Discharge, Blood, Other Throat: Normal. negative: Tonsillar Hypertrophy, Red, Exudate, Dry, Other Respiratory: Clear Throughout Cardiovascular: Normal. negative: S3, S4, Murmur : Normal. negative: Dysuria, Hematuria, Frequency, Discharge, Testicular Pain , Bleeding, , Other Auscultation: Bowel Sounds: Normal. negative: Bruit, Absent, Increased, Decreased, High Pitched, Other Palpation: Normal. negative: Spleen Enlarged, Liver Enlarged, Mass Pulsatile, Other Tenderness: Diffuse, Mild. 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
[2017-07-03] MEDS: ZOLOFT PO SCH (14:08)
[2017-07-03] MEDS: ESTRACE PO SCH (14:08)
[2017-07-03] MEDS ORDERED: DIPRIVAN VIAL 0 ML ONE (14:12)
[2017-07-03] MEDS: HumuLIN R SUBCUT PRN ×2 (16:19→21:42)
[2017-07-03] MEDS: NEURONTIN CAP 100 MG PO SCH ×2 (16:20→21:39)
[2017-07-03] MEDS: SYNTHROID 112 mcg TAB PO SCH (16:20)
[2017-07-03] MEDS: TAB-A-VITE PO SCH (16:20)
[2017-07-03 18:25] LABS: HEMOGLOBIN 3.8 g/dL (12.0-16.0)
[2017-07-03 18:26] LABS: HEMATOCRIT 11.3 % (36.0-47.0)
[2017-07-03] MEDS: BENADRYL INJ 50 MG VIAL IVP PRN (18:27)
[2017-07-03] MEDS: TYLENOL 325 MG TAB PO PRN (18:27)
[2017-07-03] MEDS ORDERED: NS 500 ML IV 500 ML IV ONE (18:33)
[2017-07-03] MEDS: NS 500 ML IV 500 ML IV ONE (18:50)
[2017-07-03] MEDS: SNACK - Diabetic Appropriate PO SCH (20:30)
[2017-07-03] MEDS ORDERED: LEVEMIR SC SCH (21:00)
[2017-07-03] MEDS: BENADRYL CAP 50 MG PO SCH (21:39)
[2017-07-03] MEDS: CRESTOR TAB 10 MG PO SCH (21:39)
[2017-07-03] MEDS: REQUIP PO SCH (21:41)
[2017-07-04 02:01] LABS: HEMATOCRIT 21.6 % (36.0-47.0); HEMOGLOBIN 7.5 g/dL (12.0-16.0)
[2017-07-04] MEDS ORDERED: NS 500 ML IV 500 ML IV ONE (02:25)
[2017-07-04] MEDS: TYLENOL 325 MG TAB PO PRN ×2 (06:07→10:50)
[2017-07-04] MEDS: TYLENOL #3 TAB (W/CODEINE) PO PRN (06:20)
[2017-07-04] MEDS: NS 1000 ML 1,000 ML IV SCH ×2 (07:24→18:32)
[2017-07-04 07:30] LABS: BASOPHILS % (AUTO) 0.3 % (0.2-1.0); EOSINOPHILS # (AUTO) 0.2 x10^3/uL (0.0-0.2); EOSINOPHILS % (AUTO) 3.3 % (0.9-2.9); HEMATOCRIT 24.2 % (36.0-47.0); HEMOGLOBIN 8.4 g/dL (12.0-16.0); LYMPHOCYTES # (AUTO) 1.9 X10^3/uL (1.3-2.9); LYMPHOCYTES % (AUTO) 25.5 % (21.0-51.0); MEAN CORPUSCULAR HEMOGLOBIN 29.7 pg (27.0-34.0); MEAN CORPUSCULAR HGB CONC 34.9 g/dL (33.0-35.0); MEAN CORPUSCULAR VOLUME 84.9 fL (80.0-100.0); MEAN PLATELET VOLUME 8.5 fL (7.4-11.0); MONOCYTES # (AUTO) 0.6 x10^3/uL (0.3-0.8); MONOCYTES % (AUTO) 8.7 % (0.0-13.0); NEUTROPHILS # (AUTO) 4.6 x10^3/uL (2.2-4.8); NEUTROPHILS % (AUTO) 62.2 % (42.0-75.0); PLATELET COUNT 101 X10^3/uL (150.0-450.0); RED BLOOD COUNT 2.84 X10^6/uL (3.5-5.4); RED CELL DISTRIBUTION WIDTH 16.2 % (11.6-16.5); WHITE BLOOD COUNT 7.4 X10^3/uL (3.6-10.0)
[2017-07-04 07:53] LABS: ALBUMIN 2.5 g/dL (3.4-5.0); CALCIUM 7.4 mg/dL (8.5-10.1); CARBON DIOXIDE 22.3 mmol/L (21-32); COR CA(FOR HYPOALB) 8.6 mg/dL (8.5-10.1); CREATININE 1.15 mg/dL (0.55-1.02); TOTAL PROTEIN 4.8 g/dL (6.4-8.2)
[2017-07-04] MEDS ORDERED: ZOLOFT PO ONE (08:11)
[2017-07-04] MEDS: OSCAL+D or CALTRATE+D PO SCH (08:20)
[2017-07-04] MEDS: PROTONIX INJ 40 MG VIAL IVP SCH ×2 (08:20→20:42)
[2017-07-04] MEDS: HEMOCYTE-PLUS PO SCH (08:20)
[2017-07-04] MEDS: ESTRACE PO SCH (08:20)
[2017-07-04] MEDS: PEPCID 20 MG IV PREMIX* 20 MG/50 ML BAG IV SCH ×2 (08:20→20:42)
[2017-07-04] MEDS: FOLIC ACID TAB 1 MG PO SCH (08:21)
[2017-07-04] MEDS: NEURONTIN CAP 100 MG PO SCH ×2 (08:21→20:42)
[2017-07-04] MEDS: REQUIP PO SCH ×2 (08:21→20:42)
[2017-07-04] MEDS: ZOLOFT PO SCH (08:21)
[2017-07-04] MEDS: TAB-A-VITE PO SCH (08:21)
[2017-07-04] MEDS: SYNTHROID 112 mcg TAB PO SCH (08:21)
[2017-07-04] MEDS: BENADRYL INJ 50 MG VIAL IVP PRN (10:50)
[2017-07-04] MEDS: HumuLIN R SUBCUT PRN ×2 (12:16→20:42)
[2017-07-04 15:32] LABS: HEMATOCRIT 25.7 % (36.0-47.0); HEMOGLOBIN 8.9 g/dL (12.0-16.0)
[2017-07-04] MEDS: SNACK - Diabetic Appropriate PO SCH (20:25)
[2017-07-04] MEDS: BENADRYL CAP 50 MG PO SCH (20:41)
[2017-07-04] MEDS: CRESTOR TAB 10 MG PO SCH (20:42)
[2017-07-05] MEDS: NS 1000 ML 1,000 ML IV SCH ×3 (04:41→23:47)
[2017-07-05 06:00] LABS: BASOPHILS % (AUTO) 0.2 % (0.2-1.0); EOSINOPHILS # (AUTO) 0.2 x10^3/uL (0.0-0.2); EOSINOPHILS % (AUTO) 2.9 % (0.9-2.9); HEMATOCRIT 23.7 % (36.0-47.0); HEMOGLOBIN 8.3 g/dL (12.0-16.0); LYMPHOCYTES # (AUTO) 1.7 X10^3/uL (1.3-2.9); LYMPHOCYTES % (AUTO) 20.1 % (21.0-51.0); MEAN CORPUSCULAR HEMOGLOBIN 29.2 pg (27.0-34.0); MEAN CORPUSCULAR VOLUME 83.2 fL (80.0-100.0); MEAN PLATELET VOLUME 8.2 fL (7.4-11.0); MONOCYTES # (AUTO) 0.7 x10^3/uL (0.3-0.8); MONOCYTES % (AUTO) 7.9 % (0.0-13.0); NEUTROPHILS # (AUTO) 5.8 x10^3/uL (2.2-4.8); NEUTROPHILS % (AUTO) 68.9 % (42.0-75.0); PLATELET COUNT 93 X10^3/uL (150.0-450.0); RED BLOOD COUNT 2.85 X10^6/uL (3.5-5.4); RED CELL DISTRIBUTION WIDTH 16.8 % (11.6-16.5); WHITE BLOOD COUNT 8.3 X10^3/uL (3.6-10.0)
[2017-07-05 06:16] LABS: ALANINE AMINOTRANSFERASE 14 Units/L (12-78); ALBUMIN 2.4 g/dL (3.4-5.0); ALKALINE PHOSPHATASE 24 Units/L (46-116); ASPARTATE AMINO TRANSFERASE 13 Units/L (15-37); BLOOD UREA NITROGEN 34 mg/dL (7-18); CALCIUM 7.7 mg/dL (8.5-10.1); CARBON DIOXIDE 22.5 mmol/L (21-32); CHLORIDE 111 mmol/L (98-107); COR NA(FOR HYPERGLY) 143 mmol/L (136-145); CREATININE 0.85 mg/dL (0.55-1.02); SODIUM 142 mmol/L (136-145); TOTAL PROTEIN 4.9 g/dL (6.4-8.2); eGFR BLACK RACES > 60 (>60); eGFR NON BLACK RACES > 60 (>60)
[2017-07-05] MEDS ORDERED: ZOLOFT PO ONE (09:22)
[2017-07-05] MEDS: FOLIC ACID TAB 1 MG PO SCH (09:27)
[2017-07-05] MEDS: REQUIP PO SCH ×2 (09:27→21:18)
[2017-07-05] MEDS: SYNTHROID 112 mcg TAB PO SCH ×2 (09:27→09:42)
[2017-07-05] MEDS: OSCAL+D or CALTRATE+D PO SCH (09:27)
[2017-07-05] MEDS: HEMOCYTE-PLUS PO SCH (09:27)
[2017-07-05] MEDS: NEURONTIN CAP 100 MG PO SCH ×2 (09:27→21:17)
[2017-07-05] MEDS: TAB-A-VITE PO SCH (09:27)
[2017-07-05] MEDS: ESTRACE PO SCH (09:27)
[2017-07-05] MEDS: ZOLOFT PO SCH (09:28)
[2017-07-05] MEDS: PROTONIX INJ 40 MG VIAL IVP SCH ×2 (09:28→21:19)
[2017-07-05] MEDS: PEPCID 20 MG IV PREMIX* 20 MG/50 ML BAG IV SCH ×2 (09:28→21:26)
[2017-07-05] MEDS ORDERED: NS 500 ML IV 500 ML IV ONE (10:59)
[2017-07-05] MEDS: TYLENOL #3 TAB (W/CODEINE) PO PRN (14:59)
[2017-07-05 19:33] LABS: HEMATOCRIT 33.2 % (36.0-47.0)
[2017-07-05 19:35] LABS: HEMOGLOBIN 11.4 g/dL (12.0-16.0)
[2017-07-05] MEDS: SNACK - Diabetic Appropriate PO SCH (21:16)
[2017-07-05] MEDS: BENADRYL CAP 50 MG PO SCH (21:16)
[2017-07-05] MEDS: CRESTOR TAB 10 MG PO SCH (21:17)
[2017-07-05] MEDS: HumuLIN R SUBCUT PRN (21:18)
[2017-07-06] MEDS: TYLENOL #3 TAB (W/CODEINE) PO PRN (06:16)
[2017-07-06] MEDS: HumuLIN R SUBCUT PRN ×2 (06:20→21:31)
[2017-07-06 06:42] LABS: BASOPHILS % (AUTO) 0.2 % (0.2-1.0); EOSINOPHILS # (AUTO) 0.3 x10^3/uL (0.0-0.2); EOSINOPHILS % (AUTO) 2.6 % (0.9-2.9); HEMATOCRIT 32.8 % (36.0-47.0); HEMOGLOBIN 11.3 g/dL (12.0-16.0); LYMPHOCYTES # (AUTO) 1.9 X10^3/uL (1.3-2.9); LYMPHOCYTES % (AUTO) 19.1 % (21.0-51.0); MEAN CORPUSCULAR HEMOGLOBIN 27.9 pg (27.0-34.0); MEAN CORPUSCULAR HGB CONC 34.5 g/dL (33.0-35.0); MEAN CORPUSCULAR VOLUME 80.9 fL (80.0-100.0); MEAN PLATELET VOLUME 8.2 fL (7.4-11.0); MONOCYTES # (AUTO) 0.8 x10^3/uL (0.3-0.8); MONOCYTES % (AUTO) 7.7 % (0.0-13.0); NEUTROPHILS # (AUTO) 6.9 x10^3/uL (2.2-4.8); NEUTROPHILS % (AUTO) 70.4 % (42.0-75.0); PLATELET COUNT 93 X10^3/uL (150.0-450.0); RED BLOOD COUNT 4.06 X10^6/uL (3.5-5.4); RED CELL DISTRIBUTION WIDTH 19.4 % (11.6-16.5); WHITE BLOOD COUNT 9.8 X10^3/uL (3.6-10.0)
[2017-07-06 06:53] LABS: ALANINE AMINOTRANSFERASE 15 Units/L (12-78); ALBUMIN 2.7 g/dL (3.4-5.0); ALKALINE PHOSPHATASE 27 Units/L (46-116); ASPARTATE AMINO TRANSFERASE 15 Units/L (15-37); BLOOD UREA NITROGEN 28 mg/dL (7-18); CALCIUM 8.2 mg/dL (8.5-10.1); CARBON DIOXIDE 21.8 mmol/L (21-32); CHLORIDE 108 mmol/L (98-107); COR CA(FOR HYPOALB) 9.2 mg/dL (8.5-10.1); COR NA(FOR HYPERGLY) 143 mmol/L (136-145); CREATININE 0.78 mg/dL (0.55-1.02); SODIUM 141 mmol/L (136-145); TOTAL PROTEIN 5.4 g/dL (6.4-8.2); eGFR BLACK RACES > 60 (>60); eGFR NON BLACK RACES > 60 (>60)
[2017-07-06] MEDS: ESTRACE PO SCH (10:24)
[2017-07-06] MEDS: FOLIC ACID TAB 1 MG PO SCH (10:24)
[2017-07-06] MEDS: OSCAL+D or CALTRATE+D PO SCH (10:25)
[2017-07-06] MEDS: HEMOCYTE-PLUS PO SCH (10:25)
[2017-07-06] MEDS: NEURONTIN CAP 100 MG PO SCH ×2 (10:25→21:14)
[2017-07-06] MEDS: PEPCID 20 MG IV PREMIX* 20 MG/50 ML BAG IV SCH (10:25)
[2017-07-06] MEDS: TAB-A-VITE PO SCH (10:26)
[2017-07-06] MEDS: PROTONIX INJ 40 MG VIAL IVP SCH ×2 (10:26→21:10)
[2017-07-06] MEDS: REQUIP PO SCH ×2 (10:26→21:17)
[2017-07-06] MEDS: SYNTHROID 112 mcg TAB PO SCH (10:26)
[2017-07-06] MEDS: ZOLOFT PO SCH (10:27)
[2017-07-06] MEDS: NS 1000 ML 1,000 ML IV SCH ×2 (16:58→21:06)
[2017-07-06] MEDS: SNACK - Diabetic Appropriate PO SCH (20:30)
[2017-07-06] MEDS: BENADRYL CAP 50 MG PO SCH (21:14)
[2017-07-06] MEDS: CRESTOR TAB 10 MG PO SCH (21:15)
--- NOTE | 2017-07-07 06:15 | PCM.PROG ---
Progress Note - Progress Note for Day of Date: 07/03/17 - Subjective Subjective: IS BEING TREATED FOR ANEMIA AND GI BLEED. TODAY, SHE IS ALERT AND ORIENTED, LYING IN BED ON MORNING ROUNDS. SHE REPORTS SEVERE, GENERALIZED WEAKNESS. SHE ALSO REPORTS THAT SHE CONTINUES WITH DARK, TARRY STOOLS. ON EXAMINATION, HEART IS REGULAR IN RATE AND RHYTHM. BILATERAL LUNGS ARE NOTED WITH DIMINISHED LUNG SOUNDS THROUGHOUT. ABDOMEN IS ROUND, SOFT, AND NOTED WITH MILD, DIFFUSE TENDERNESS. NORMAL BOWEL SOUNDS NOTED IN ALL QUADRANTS. THERE IS NORMAL RANGE OF MOTION NOTED TO ALL EXTREMITIES. HER VITALS THIS MORNING ARE 97.8-93-17-95%-110/50. LABS WERE OBTAINED THIS MORNING. ABNORMAL LAB VALUES INCLUDE THE FOLLOWING: RBC 1.59, HGB 5.0, HCT 15.1, BUN 101 , CRFR 32, GLUCOSE 244, CALCIUM 8.4, AST 11, CREATININE 1.68, GLUCOSE 244, CALCIUM 8.4, AST 11, ALK PHOS 29, TOTAL PROTEIN 5.7, ALBUMIN 2.9. PATIENT IS POSITIVE FOR ANTIBIODIES IN BLOOD. WE ARE AWAITING 4 UNITS OF PRBC TO ARRIVE. WHEN BLOOD ARRIVES, WE WILL SLOWLY TRANSFUSE 4 UNITS. WE CONSULTED GASTROENTEROLOGY. THEY PLAN FOR AN EGD. WE ARE IN AGREEMENT WITH PLAN. OTHERWISE , WE WILL CONTINUE TO MONITOR H&H UNTIL BLOOD ARRIVES. WE WILL FOLLOW UP WITH AM LABS AND CONTINUE TO MONITOR PATIENT. - Past Medical Family Social History Past Med/Fam/Surg Hx: No changes since H&P Allergies: Allergies Penicillins Allergy (Verified 02/03/17 18:45) prednisone Allergy (Verified 07/02/17 10:35) - Review of Systems ROS: No change since H&P - Vital Signs and I&O's Vital Signs: Temperature 99.3 F Pulse Rate [Apical] 80 Respiratory Rate 25 Blood Pressure [Right Arm] 129/60 Blood Pressure [Left Arm] 181/80 Blood Pressure [Left Arm] 124/56 Blood Pressure [Right Arm] 128/58 Blood Pressure 148/66 O2 Sat by Pulse Oximetry 99 Intake and Output: Intake & Output 07/04/17 07/05/17 07/06/17 07/07/17 11:59 11:59 11:59 11:59 Intake Total 3241 3664 3880 2046 Output Total 2550 2900 2650 1700 Balance 371 450 5546 346 - Physical Exam Oriented: Normal Eyes: Normal. negative: Blurred Vision, Diplopia, Discharge, Pain, Redness, Photophobia, Other Ear: Normal. negative: Right, Left, Swelling, Ecchymosis, Hemotypanum, Abrasion , Laceration Nose: Normal. negative: Injected, Discharge, Blood, Other Throat: Normal. negative: Tonsillar Hypertrophy, Red, Exudate, Dry, Other Respiratory: Generalized, Diminished Cardiovascular: Normal. negative: S3, S4, Murmur : Normal. negative: Dysuria, Hematuria, Frequency, Discharge, Testicular Pain , Bleeding, , Other Auscultation: Bowel Sounds: Normal. negative: Bruit, Absent, Increased, Decreased, High Pitched, Other Palpation: Normal Tenderness: Diffuse, Mild. negative: Rebound, Guarding, Rigidity Skin: Decreased Turgur Musculoskeletal: Normal Psychiatric: Normal Mood Description: Calm Affect: Normal Speech Pattern: Clear, Appropriate - Laboratory and Diagnostics Result Diagrams: 07/06/17 05:50 07/06/17 05:50 Labs: Laboratory WBC 9.8 X10^3/uL (3.6-10.0) 07/06/17 05:50 RBC 4.06 X10^6/uL (3.5-5.4) 07/06/17 05:50 Hgb 11.3 g/dL (12.0-16.0) L 07/06/17 05:50 Hct 32.8 % (36.0-47.0) L 07/06/17 05:50 MCV 80.9 fL (80.0-100.0) 07/06/17 05:50 MCH 27.9 pg (27.0-34.0) 07/06/17 05:50 MCHC 34.5 g/dL (33.0-35.0) 07/06/17 05:50 RDW 19.4 % (11.6-16.5) H 07/06/17 05:50 Plt Count 93 X10^3/uL (150.0-450.0) L 07/06/17 05:50 MPV 8.2 fL (7.4-11.0) 07/06/17 05:50 Neut % 70.4 % (42.0-75.0) 07/06/17 05:50 Lymph % 19.1 % (21.0-51.0) L 07/06/17 05:50 [place] % 7.7 % (0.0-13.0) 07/06/17 05:50 Eos % 2.6 % (0.9-2.9) 07/06/17 05:50 Baso % 0.2 % (0.2-1.0) 07/06/17 05:50 Neut # 6.9 x10^3/uL (2.2-4.8) H 07/06/17 05:50 Lymph # 1.9 X10^3/uL (1.3-2.9) 07/06/17 05:50 [place] # 0.8 x10^3/uL (0.3-0.8) 07/06/17 05:50 Eos # 0.3 x10^3/uL (0.0-0.2) H 07/06/17 05:50 Baso # 0.0 X10^3/uL (0.0-0.1) 07/06/17 05:50 Absolute Nucleated RBC 0.2 /100WBC 07/06/17 05:50 INR Target Range - 07/05/17 09:17 INR 1.14 (0.8-1.3) 07/05/17 09:17 PTT 25.6 SECONDS (22.9-36.5) 07/05/17 09:17 PTT Comment - 07/05/17 09:17 Sodium 141 mmol/L (136-145) 07/06/17 05:50 Corrected Sodium 143 mmol/L (136-145) 07/06/17 05:50 Potassium 3.5 mmol/L (3.5-5.1) 07/06/17 05:50 Chloride 108 mmol/L (98-107) H 07/06/17 05:50 Carbon Dioxide 21.8 mmol/L (21-32) 07/06/17 05:50 BUN 28 mg/dL (7-18) H 07/06/17 05:50 Creatinine 0.78 mg/dL (0.55-1.02) 07/06/17 05:50 Est GFR (MDRD) Af Amer > 60 (>60) 07/06/17 05:50 Est GFR (MDRD) Non-Af > 60 (>60) 07/06/17 05:50 Glucose 165 mg/dL (65-99) H 07/06/17 05:50 POC Glucose (mg/dL) 215 mg/dL (65-99) H 07/06/17 21:27 Calcium 8.2 mg/dL (8.5-10.1) L 07/06/17 05:50 Corrected Calcium 9.2 mg/dL (8.5-10.1) 07/06/17 05:50 Total Bilirubin 0.40 mg/dL (0.2-1.0) 07/06/17 05:50 AST 15 Units/L (15-37) 07/06/17 05:50 ALT 15 Units/L (12-78) 07/06/17 05:50 Alkaline Phosphatase 27 Units/L (46-116) L 07/06/17 05:50 Total Protein 5.4 g/dL (6.4-8.2) L 07/06/17 05:50 Albumin 2.7 g/dL (3.4-5.0) L 07/06/17 05:50 Globulin 2.7 g/dL (2.5-4.5) 07/06/17 05:50 Albumin/Globulin Ratio 1.0 Ratio (1.1-2.1) L 07/06/17 05:50 Specimen Type Catherized urine 07/03/17 10:12 Urine Color Yellow (YELLOW) 07/03/17 10:12 Urine Appearance Clear (CLEAR) 07/03/17 10:12 Urine pH 6.0 (5.0 - 8.0) 07/03/17 10:12 Ur Specific [place] 1.010 (1.000-1.030) 07/03/17 10:12 Urine Protein Negative (NEGATIVE) 07/03/17 10:12 Urine Glucose (UA) Negative (NEGATIVE) 07/03/17 10:12 Urine Ketones Negative (NEGATIVE) 07/03/17 10:12 Urine Occult Blood Negative (NEGATIVE) 07/03/17 10:12 Urine Nitrite Negative (NEGATIVE) 07/03/17 10:12 Urine Bilirubin Negative (NEGATIVE) 07/03/17 10:12 Urine Urobilinogen Normal (NORMAL) 07/03/17 10:12 Ur Leukocyte Esterase Negative (NEGATIVE) 07/03/17 10:12 Urine RBC 0-2 /HPF (NONE SEEN) 07/03/17 10:12 Urine WBC 0-2 /HPF (NONE SEEN) 07/03/17 10:12 Ur Squamous Epith Cells Negative /HPF (NEGATIVE) 07/03/17 10:12 Urine Bacteria Negative /HPF (NEGATIVE) 07/03/17 10:12 Ur Culture Indicated? No/not indicated 07/03/17 10:12 Stool Description 100g softformed blk 07/03/17 02:06 Stl Occult Blood (IFOB) Positive (NEGATIVE) A 07/03/17 02:06 Blood Type B POSITIVE 07/05/17 19:17 Antibody Screen Positive 07/05/17 19:17 Crossmatch See Detail 07/05/17 19:17 - Plan (1) Anemia Status: Acute Qualifiers: Anemia type: iron deficiency Iron deficiency anemia type: chronic blood loss Qualified Code(s): D50.0 - Iron deficiency anemia secondary to blood loss (chronic) Plan: TRANSFUSE 4 UNITS PRBC, MONITOR H&H (2) GI bleed Status: Acute Qualifiers: GI bleed type/associated pathology: melena Qualified Code(s): K92.1 - Melena Plan: CONSULT GASTROENTEROLOGY FOR POSSIBLE SCOPE, CONTINUE TO MONITOR
[2017-07-07 06:16] LABS: BASOPHILS % (AUTO) 0.3 % (0.2-1.0); EOSINOPHILS # (AUTO) 0.2 x10^3/uL (0.0-0.2); EOSINOPHILS % (AUTO) 2.4 % (0.9-2.9); HEMATOCRIT 24.3 % (36.0-47.0); LYMPHOCYTES # (AUTO) 1.5 X10^3/uL (1.3-2.9); LYMPHOCYTES % (AUTO) 16.7 % (21.0-51.0); MEAN CORPUSCULAR HEMOGLOBIN 28.6 pg (27.0-34.0); MEAN CORPUSCULAR HGB CONC 34.7 g/dL (33.0-35.0); MEAN CORPUSCULAR VOLUME 82.3 fL (80.0-100.0); MEAN PLATELET VOLUME 8.2 fL (7.4-11.0); MONOCYTES # (AUTO) 0.5 x10^3/uL (0.3-0.8); MONOCYTES % (AUTO) 5.7 % (0.0-13.0); NEUTROPHILS # (AUTO) 6.5 x10^3/uL (2.2-4.8); NEUTROPHILS % (AUTO) 74.9 % (42.0-75.0); PLATELET COUNT 91 X10^3/uL (150.0-450.0); RED BLOOD COUNT 2.95 X10^6/uL (3.5-5.4); RED CELL DISTRIBUTION WIDTH 19.4 % (11.6-16.5); WHITE BLOOD COUNT 8.7 X10^3/uL (3.6-10.0)
[2017-07-07] MEDS: PEPCID 20 MG IV PREMIX* 20 MG/50 ML BAG IV SCH (06:24)
[2017-07-07 06:31] LABS: ALANINE AMINOTRANSFERASE 13 Units/L (12-78); ALBUMIN 2.3 g/dL (3.4-5.0); ALKALINE PHOSPHATASE 24 Units/L (46-116); ASPARTATE AMINO TRANSFERASE 12 Units/L (15-37); BLOOD UREA NITROGEN 26 mg/dL (7-18); CALCIUM 7.9 mg/dL (8.5-10.1); CARBON DIOXIDE 22.4 mmol/L (21-32); CHLORIDE 110 mmol/L (98-107); COR CA(FOR HYPOALB) 9.3 mg/dL (8.5-10.1); COR NA(FOR HYPERGLY) 144 mmol/L (136-145); CREATININE 0.74 mg/dL (0.55-1.02); SODIUM 143 mmol/L (136-145); TOTAL PROTEIN 4.8 g/dL (6.4-8.2); eGFR BLACK RACES > 60 (>60); eGFR NON BLACK RACES > 60 (>60)
[2017-07-07 06:38] LABS: HEMOGLOBIN 8.4 g/dL (12.0-16.0)
[2017-07-07] MEDS ORDERED: POTASSIUM CHL 60 MEQ/NS 0.45% 500 ML IV PRN (06:57)
[2017-07-07] MEDS ORDERED: POTASSIUM CHLORIDE LIQ 20 MEQ UDC PO PRN (06:57)
[2017-07-07] MEDS ORDERED: MAGNESIUM SULFATE 1 GM/100 mL PREMIX 1 GM/100 ML BAG IV PRN (06:57)
[2017-07-07] MEDS ORDERED: K-RIDER 10 MEQ/NS 100 ML 10 MEQ/100 ML BAG IV PRN (06:57)
[2017-07-07] MEDS ORDERED: K-LYTE EFFERVESCENT PO PRN (06:57)
[2017-07-07] MEDS ORDERED: ZOLOFT PO ONE (08:44)
[2017-07-07] MEDS: PROTONIX INJ 40 MG VIAL IVP SCH ×2 (08:52→20:08)
[2017-07-07] MEDS: NS 1000 ML 1,000 ML IV SCH ×2 (08:53→11:22)
[2017-07-07] MEDS: REQUIP PO SCH ×2 (08:54→20:07)
[2017-07-07] MEDS: MAG-OX TAB PO PRN ×2 (08:54→13:15)
[2017-07-07] MEDS: HEMOCYTE-PLUS PO SCH (08:55)
[2017-07-07] MEDS: PEPCID TAB 20 MG PO SCH ×2 (08:55→20:07)
[2017-07-07] MEDS: OSCAL+D or CALTRATE+D PO SCH (08:55)
[2017-07-07] MEDS: SYNTHROID 112 mcg TAB PO SCH (08:56)
[2017-07-07] MEDS: NEURONTIN CAP 100 MG PO SCH ×2 (08:56→20:06)
[2017-07-07] MEDS: ESTRACE PO SCH (08:56)
[2017-07-07] MEDS: FOLIC ACID TAB 1 MG PO SCH (08:56)
[2017-07-07] MEDS: ZOLOFT PO SCH (08:57)
[2017-07-07] MEDS: TAB-A-VITE PO SCH (08:57)
[2017-07-07] MEDS: POTASSIUM CHL 40 MEQ/NS 0.45% 500 ML IV PRN (08:59)
[2017-07-07] MEDS: BENADRYL INJ 50 MG VIAL IVP PRN (10:36)
[2017-07-07] MEDS: TYLENOL 325 MG TAB PO PRN (10:37)
[2017-07-07] MEDS: NS 500 ML IV 500 ML IV SCH (11:15)
[2017-07-07] MEDS: HumuLIN R SUBCUT PRN (11:41)
--- NOTE | 2017-07-07 12:14 | PCM.PROG ---
Progress Note - Progress Note for Day of Date: 07/04/17 - Subjective Subjective: IS BEING TREATED FOR ANEMIA AND GI BLEED. HER HEMOGLOBIN DID FALL TO 3.8 YESTERDAY AFTERNOON. PATIENTS BLOOD ARRIVED LAST NIGHT AND SHE RECEIVED THREE UNITS OF PACKED RED BLOOD CELLS. TODAY, SHE IS ALERT AND ORIENTED , LYING IN BED ON MORNING ROUNDS. SHE CONTINUES WITH GENERALIZED WEAKNESS, BUT REPORTS IMPROVEMENT SINCE RECEIVING BLOOD. SHE ALSO REPORTS THAT SHE CONTINUES WITH DARK, TARRY STOOLS. ON EXAMINATION, HEART IS REGULAR IN RATE AND RHYTHM. BILATERAL LUNGS ARE NOTED WITH DIMINISHED LUNG SOUNDS THROUGHOUT. ABDOMEN IS ROUND, SOFT, AND NOTED WITH MILD, DIFFUSE TENDERNESS. NORMAL BOWEL SOUNDS NOTED IN ALL QUADRANTS. THERE IS NORMAL RANGE OF MOTION NOTED TO ALL EXTREMITIES. HER VITALS THIS MORNING ARE 98.5-72-19-97%-165/72. LABS WERE OBTAINED THIS MORNING. ABNORMAL LAB VALUES INCLUDE THE FOLLOWING: RBC 2.84, HGB 8.4, HCT 24.2, CHLORIDE 109, BUN 60, CREATININE 1.15, GLUCOSE 142, CALCIUM 7.4, AST 14, ALK PHOS 22, TOTAL PROTEIN 4.8, ALBUMIN 2.5. PATIENT IS TO RECEIVE ONE ADDITIONAL UNIT OF PACKED RED BLOOD CELLS TODAY. WE WILL ALSO CROSSMATCH TWO ADDITIONAL UNITS TO HAVE ON HAND. SHE RECEIVED PROCRIT 5,000 UNITS YESTERDAY. ALSO PLACED A CENTRAL LINE AT BEDSIDE.PATIENT TOLERATED WELL. WE OBTAINED AN ECHO YESTERDAY AND IT REPORTED AN EJECTION FRACTION OF 64% AND A PULMONARY ARTERY PRESSURE OF 24.6. CHOSE TO HOLD OFF ON SCOPING THE PATIENT YESTERDAY DUE TO NOT HAVING BLOOD ON HAND. TODAY, WE WILL CONTINUE TO MONITOR H& H AFTER SHE RECEIVES THE 4TH UNIT OF PRBC. WE WILL FOLLOW UP WITH AM LABS AND CONTINUE TO MONITOR PATIENT. - Past Medical Family Social History Past Med/Fam/Surg Hx: No changes since H&P Allergies: Allergies Penicillins Allergy (Verified 02/03/17 18:45) prednisone Allergy (Verified 07/02/17 10:35) - Review of Systems ROS: No change since H&P - Vital Signs and I&O's Vital Signs: Temperature 99.5 F Pulse Rate [Apical] 96 Respiratory Rate 12 Blood Pressure [Right Arm] 113/53 Blood Pressure [Left Arm] 181/80 Blood Pressure [Left Arm] 124/56 Blood Pressure [Right Arm] 128/58 Blood Pressure 148/66 O2 Sat by Pulse Oximetry 98 Intake and Output: Intake & Output 07/05/17 07/06/17 07/07/17 07/08/17 11:59 11:59 11:59 11:59 Intake Total 3664 3880 2916 Output Total 2900 2650 2450 Balance 764 1230 466 - Physical Exam Oriented: Normal Eyes: Normal. negative: Blurred Vision, Diplopia, Discharge, Pain, Redness, Photophobia, Other Ear: Normal. negative: Right, Left, Swelling, Ecchymosis, Hemotypanum, Abrasion , Laceration Nose: Normal. negative: Injected, Discharge, Blood, Other Throat: Normal. negative: Tonsillar Hypertrophy, Red, Exudate, Dry, Other Respiratory: Generalized, Diminished Cardiovascular: Normal. negative: S3, S4, Murmur : Normal. negative: Dysuria, Hematuria, Frequency, Discharge, Testicular Pain , Bleeding, , Other Auscultation: Bowel Sounds: Normal. negative: Bruit, Absent, Increased, Decreased, High Pitched, Other Palpation: Normal Tenderness: Diffuse, Mild. negative: Rebound, Guarding, Rigidity Skin: Decreased Turgur Musculoskeletal: Normal Psychiatric: Normal Mood Description: Calm Affect: Normal Speech Pattern: Clear, Appropriate - Laboratory and Diagnostics Result Diagrams: 07/07/17 05:40 07/07/17 05:40 Labs: Laboratory WBC 8.7 X10^3/uL (3.6-10.0) 07/07/17 05:40 RBC 2.95 X10^6/uL (3.5-5.4) L 07/07/17 05:40 Hgb 8.4 g/dL (12.0-16.0) L D 07/07/17 05:40 Hct 24.3 % (36.0-47.0) L 07/07/17 05:40 MCV 82.3 fL (80.0-100.0) 07/07/17 05:40 MCH 28.6 pg (27.0-34.0) 07/07/17 05:40 MCHC 34.7 g/dL (33.0-35.0) 07/07/17 05:40 RDW 19.4 % (11.6-16.5) H 03/05/18 05:40 Plt Count 91 X10^3/uL (150.0-450.0) L 07/07/17 05:40 MPV 8.2 fL (7.4-11.0) 07/07/17 05:40 Neut % 74.9 % (42.0-75.0) 07/07/17 05:40 Lymph % 16.7 % (21.0-51.0) L 07/07/17 05:40 [place] % 5.7 % (0.0-13.0) 07/07/17 05:40 Eos % 2.4 % (0.9-2.9) 07/07/17 05:40 Baso % 0.3 % (0.2-1.0) 07/07/17 05:40 Neut # 6.5 x10^3/uL (2.2-4.8) H 07/07/17 05:40 Lymph # 1.5 X10^3/uL (1.3-2.9) 07/07/17 05:40 [place] # 0.5 x10^3/uL (0.3-0.8) 07/07/17 05:40 Eos # 0.2 x10^3/uL (0.0-0.2) 07/07/17 05:40 Baso # 0.0 X10^3/uL (0.0-0.1) 07/07/17 05:40 Absolute Nucleated RBC 0.1 /100WBC 07/07/17 05:40 INR Target Range - 07/05/17 09:17 INR 1.14 (0.8-1.3) 07/05/17 09:17 PTT 25.6 SECONDS (22.9-36.5) 07/05/17 09:17 PTT Comment - 07/05/17 09:17 Sodium 143 mmol/L (136-145) 07/07/17 05:40 Corrected Sodium 144 mmol/L (136-145) 07/07/17 05:40 Potassium 3.3 mmol/L (3.5-5.1) L 07/07/17 05:40 Chloride 110 mmol/L (98-107) H 07/07/17 05:40 Carbon Dioxide 22.4 mmol/L (21-32) 07/07/17 05:40 BUN 26 mg/dL (7-18) H 07/07/17 05:40 Creatinine 0.74 mg/dL (0.55-1.02) 07/07/17 05:40 Est GFR (MDRD) Af Amer > 60 (>60) 07/07/17 05:40 Est GFR (MDRD) Non-Af > 60 (>60) 07/07/17 05:40 Glucose 124 mg/dL (65-99) H 07/07/17 05:40 POC Glucose (mg/dL) 180 mg/dL (65-99) H 07/07/17 11:30 Calcium 7.9 mg/dL (8.5-10.1) L 07/07/17 05:40 Corrected Calcium 9.3 mg/dL (8.5-10.1) 07/07/17 05:40 Magnesium 1.2 mg/dL (1.7-2.9) L 07/07/17 05:40 Total Bilirubin 0.30 mg/dL (0.2-1.0) 07/07/17 05:40 AST 12 Units/L (15-37) L 07/07/17 05:40 ALT 13 Units/L (12-78) 07/07/17 05:40 Alkaline Phosphatase 24 Units/L (46-116) L 07/07/17 05:40 Total Protein 4.8 g/dL (6.4-8.2) L 07/07/17 05:40 Albumin 2.3 g/dL (3.4-5.0) L 07/07/17 05:40 Globulin 2.5 g/dL (2.5-4.5) 07/07/17 05:40 Albumin/Globulin Ratio 0.9 Ratio (1.1-2.1) L 07/07/17 05:40 Specimen Type Catherized urine 07/03/17 10:12 Urine Color Yellow (YELLOW) 07/03/17 10:12 Urine Appearance Clear (CLEAR) 07/03/17 10:12 Urine pH 6.0 (5.0 - 8.0) 07/03/17 10:12 Ur Specific [place] 1.010 (1.000-1.030) 07/03/17 10:12 Urine Protein Negative (NEGATIVE) 07/03/17 10:12 Urine Glucose (UA) Negative (NEGATIVE) 07/03/17 10:12 Urine Ketones Negative (NEGATIVE) 07/03/17 10:12 Urine Occult Blood Negative (NEGATIVE) 07/03/17 10:12 Urine Nitrite Negative (NEGATIVE) 07/03/17 10:12 Urine Bilirubin Negative (NEGATIVE) 07/03/17 10:12 Urine Urobilinogen Normal (NORMAL) 07/03/17 10:12 Ur Leukocyte Esterase Negative (NEGATIVE) 07/03/17 10:12 Urine RBC 0-2 /HPF (NONE SEEN) 07/03/17 10:12 Urine WBC 0-2 /HPF (NONE SEEN) 07/03/17 10:12 Ur Squamous Epith Cells Negative /HPF (NEGATIVE) 07/03/17 10:12 Urine Bacteria Negative /HPF (NEGATIVE) 07/03/17 10:12 Ur Culture Indicated? No/not indicated 07/03/17 10:12 Stool Description 100g softformed blk 07/03/17 02:06 Stl Occult Blood (IFOB) Positive (NEGATIVE) A 07/03/17 02:06 Blood Type B POSITIVE 07/05/17 19:17 Antibody Screen Positive 07/05/17 19:17 Antibody Identification Anti-K 07/05/17 19:17 Crossmatch See Detail 07/05/17 19:17 - Plan (1) Anemia Status: Acute Qualifiers: Anemia type: iron deficiency Iron deficiency anemia type: chronic blood loss Qualified Code(s): D50.0 - Iron deficiency anemia secondary to blood loss (chronic) Plan: TRANSFUSE 4 UNITS PRBC, MONITOR H&H (2) GI bleed Status: Acute Qualifiers: GI bleed type/associated pathology: melena Qualified Code(s): K92.1 - Melena Plan: CONSULT GASTROENTEROLOGY FOR POSSIBLE SCOPE, CONTINUE TO MONITOR
[2017-07-07] MEDS: BENADRYL CAP 50 MG PO SCH (20:06)
[2017-07-07] MEDS: CRESTOR TAB 10 MG PO SCH (20:06)
[2017-07-07] MEDS: SNACK - Diabetic Appropriate PO SCH (20:07)
[2017-07-08] MEDS: NS 1000 ML 1,000 ML IV SCH ×2 (05:29→20:29)
[2017-07-08 06:14] LABS: BASOPHILS % (AUTO) 0.3 % (0.2-1.0); EOSINOPHILS # (AUTO) 0.3 x10^3/uL (0.0-0.2); EOSINOPHILS % (AUTO) 3.2 % (0.9-2.9); HEMATOCRIT 27.1 % (36.0-47.0); HEMOGLOBIN 9.4 g/dL (12.0-16.0); LYMPHOCYTES # (AUTO) 1.2 X10^3/uL (1.3-2.9); LYMPHOCYTES % (AUTO) 13.9 % (21.0-51.0); MEAN CORPUSCULAR HEMOGLOBIN 27.2 pg (27.0-34.0); MEAN CORPUSCULAR HGB CONC 34.5 g/dL (33.0-35.0); MEAN CORPUSCULAR VOLUME 78.8 fL (80.0-100.0); MEAN PLATELET VOLUME 8.7 fL (7.4-11.0); MONOCYTES # (AUTO) 0.5 x10^3/uL (0.3-0.8); MONOCYTES % (AUTO) 5.9 % (0.0-13.0); NEUTROPHILS # (AUTO) 6.5 x10^3/uL (2.2-4.8); NEUTROPHILS % (AUTO) 76.7 % (42.0-75.0); PLATELET COUNT 88 X10^3/uL (150.0-450.0); RED BLOOD COUNT 3.44 X10^6/uL (3.5-5.4); RED CELL DISTRIBUTION WIDTH 19.3 % (11.6-16.5); WHITE BLOOD COUNT 8.5 X10^3/uL (3.6-10.0)
[2017-07-08 06:27] LABS: ALANINE AMINOTRANSFERASE 15 Units/L (12-78); ALBUMIN 2.3 g/dL (3.4-5.0); ALKALINE PHOSPHATASE 30 Units/L (46-116); ASPARTATE AMINO TRANSFERASE 13 Units/L (15-37); BLOOD UREA NITROGEN 26 mg/dL (7-18); CALCIUM 7.8 mg/dL (8.5-10.1); CARBON DIOXIDE 22.6 mmol/L (21-32); CHLORIDE 111 mmol/L (98-107); COR CA(FOR HYPOALB) 9.2 mg/dL (8.5-10.1); COR NA(FOR HYPERGLY) 143 mmol/L (136-145); MAGNESIUM 1.5 mg/dL (1.7-2.9); SODIUM 142 mmol/L (136-145); TOTAL PROTEIN 4.8 g/dL (6.4-8.2); eGFR BLACK RACES > 60 (>60); eGFR NON BLACK RACES > 60 (>60)
[2017-07-08] MEDS ORDERED: ZOLOFT PO ONE (08:34)
[2017-07-08] MEDS: PROTONIX INJ 40 MG VIAL IVP SCH ×2 (08:41→20:28)
[2017-07-08] MEDS: FOLIC ACID TAB 1 MG PO SCH (08:42)
[2017-07-08] MEDS: REQUIP PO SCH ×2 (08:42→20:29)
[2017-07-08] MEDS: ESTRACE PO SCH (08:42)
[2017-07-08] MEDS: TAB-A-VITE PO SCH (08:42)
[2017-07-08] MEDS: OSCAL+D or CALTRATE+D PO SCH (08:42)
[2017-07-08] MEDS: SYNTHROID 112 mcg TAB PO SCH (08:43)
[2017-07-08] MEDS: HEMOCYTE-PLUS PO SCH (08:43)
[2017-07-08] MEDS: ZOLOFT PO SCH (08:43)
[2017-07-08] MEDS: PEPCID TAB 20 MG PO SCH ×2 (08:43→20:28)
[2017-07-08] MEDS: NEURONTIN CAP 100 MG PO SCH ×2 (08:43→20:28)
[2017-07-08] MEDS: NS 500 ML IV 500 ML IV SCH (10:22)
--- NOTE | 2017-07-08 12:44 | PCM.PROG ---
Progress Note - Progress Note for Day of Date: 07/05/17 - Subjective Subjective: IS BEING TREATED FOR ANEMIA AND GI BLEED. HER HEMOGLOBIN DID FALL TO 3.8 YESTERDAY AFTERNOON. PATIENTS HAS RECEIVED A TOTAL OF FOUR UNITS OF PACKED RED BLOOD CELLS. TODAY, SHE IS ALERT AND ORIENTED, LYING IN BED ON MORNING ROUNDS. SHE CONTINUES WITH GENERALIZED WEAKNESS AND DARK STOOLS. ON EXAMINATION, HEART IS REGULAR IN RATE AND RHYTHM. BILATERAL LUNGS ARE NOTED WITH DIMINISHED LUNG SOUNDS THROUGHOUT. ABDOMEN IS ROUND, SOFT, AND CONTINUES WITH MILD, DIFFUSE TENDERNESS. NORMAL BOWEL SOUNDS NOTED IN ALL QUADRANTS. THERE IS NORMAL RANGE OF MOTION NOTED TO ALL EXTREMITIES. HER VITALS THIS MORNING ARE 98.7-90-24-100%-179/77. LABS WERE OBTAINED THIS MORNING. ABNORMAL LAB VALUES INCLUDE THE FOLLOWING: RBC 2.85, HGB 8.3, HCT 23.7, PLT COUNT 93, CHLORIDE 111, BUN 34, GLUCOSE 143, CALCIUM 7.7, AST 13, ALK PHOS 24, TOTAL PROTEIN 4.9, ALBUMIN 2.4. DUE TO DROP IN HEMOGLOBIN FROM YESTERDAY MORNING DESPITE TRANSFUSION OF AN ADDITIONAL UNIT, WE WILL TRANSFUSE TWO ADDITIONAL UNITS OF PACKED RED BLOOD CELLS TODAY. TODAY, WE WILL CONTINUE TO MONITOR H&H. OTHERWISE, WE WILL FOLLOW UP WITH AM LABS AND CONTINUE TO MONITOR PATIENT. - Past Medical Family Social History Past Med/Fam/Surg Hx: No changes since H&P Allergies: Allergies Penicillins Allergy (Verified 02/03/17 18:45) prednisone Allergy (Verified 07/02/17 10:35) - Review of Systems ROS: No change since H&P - Vital Signs and I&O's Vital Signs: Temperature 98.0 F Pulse Rate [Apical] 63 Respiratory Rate 17 Blood Pressure [Right Arm] 157/64 Blood Pressure [Left Arm] 181/80 Blood Pressure [Left Arm] 124/56 Blood Pressure [Right Arm] 128/58 Blood Pressure 148/66 O2 Sat by Pulse Oximetry 99 Intake and Output: Intake & Output 07/06/17 07/07/17 07/08/17 07/09/17 11:59 11:59 11:59 11:59 Intake Total 3880 2916 3606 Output Total 2650 2450 1375 Balance 6041 879 5925 - Physical Exam Oriented: Normal Eyes: Normal. negative: Blurred Vision, Diplopia, Discharge, Pain, Redness, Photophobia, Other Ear: Normal. negative: Right, Left, Swelling, Ecchymosis, Hemotypanum, Abrasion , Laceration Nose: Normal. negative: Injected, Discharge, Blood, Other Throat: Normal. negative: Tonsillar Hypertrophy, Red, Exudate, Dry, Other Respiratory: Generalized, Diminished Cardiovascular: Normal. negative: S3, S4, Murmur : Normal. negative: Dysuria, Hematuria, Frequency, Discharge, Testicular Pain , Bleeding, , Other Auscultation: Bowel Sounds: Normal. negative: Bruit, Absent, Increased, Decreased, High Pitched, Other Palpation: Normal Tenderness: Diffuse, Mild. negative: Rebound, Guarding, Rigidity Skin: Decreased Turgur Musculoskeletal: Normal Psychiatric: Normal Mood Description: Calm Affect: Normal Speech Pattern: Clear, Appropriate - Laboratory and Diagnostics Result Diagrams: 07/08/17 05:20 07/08/17 05:20 Labs: Laboratory WBC 8.5 X10^3/uL (3.6-10.0) 07/08/17 05:20 RBC 3.44 X10^6/uL (3.5-5.4) L 07/08/17 05:20 Hgb 9.4 g/dL (12.0-16.0) L 07/08/17 05:20 Hct 27.1 % (36.0-47.0) L 07/08/17 05:20 MCV 78.8 fL (80.0-100.0) L 07/08/17 05:20 MCH 27.2 pg (27.0-34.0) 07/08/17 05:20 MCHC 34.5 g/dL (33.0-35.0) 07/08/17 05:20 RDW 19.3 % (11.6-16.5) H 07/08/17 05:20 Plt Count 88 X10^3/uL (150.0-450.0) L 07/08/17 05:20 MPV 8.7 fL (7.4-11.0) 07/08/17 05:20 Neut % 76.7 % (42.0-75.0) H 07/08/17 05:20 Lymph % 13.9 % (21.0-51.0) L 07/08/17 05:20 [place] % 5.9 % (0.0-13.0) 07/08/17 05:20 Eos % 3.2 % (0.9-2.9) H 07/08/17 05:20 Baso % 0.3 % (0.2-1.0) 07/08/17 05:20 Neut # 6.5 x10^3/uL (2.2-4.8) H 07/08/17 05:20 Lymph # 1.2 X10^3/uL (1.3-2.9) L 07/08/17 05:20 [place] # 0.5 x10^3/uL (0.3-0.8) 07/08/17 05:20 Eos # 0.3 x10^3/uL (0.0-0.2) H 07/08/17 05:20 Baso # 0.0 X10^3/uL (0.0-0.1) 07/08/17 05:20 Absolute Nucleated RBC 0.0 /100WBC 07/08/17 05:20 INR Target Range - 07/05/17 09:17 INR 1.14 (0.8-1.3) 07/05/17 09:17 PTT 25.6 SECONDS (22.9-36.5) 07/05/17 09:17 PTT Comment - 07/05/17 09:17 Sodium 142 mmol/L (136-145) 07/08/17 05:20 Corrected Sodium 143 mmol/L (136-145) 07/08/17 05:20 Potassium 3.8 mmol/L (3.5-5.1) 07/08/17 05:20 Chloride 111 mmol/L (98-107) H 07/08/17 05:20 Carbon Dioxide 22.6 mmol/L (21-32) 07/08/17 05:20 BUN 26 mg/dL (7-18) H 07/08/17 05:20 Creatinine 0.80 mg/dL (0.55-1.02) 07/08/17 05:20 Est GFR (MDRD) Af Amer > 60 (>60) 07/08/17 05:20 Est GFR (MDRD) Non-Af > 60 (>60) 07/08/17 05:20 Glucose 139 mg/dL (65-99) H 07/08/17 05:20 POC Glucose (mg/dL) 132 mg/dL (65-99) H 07/08/17 10:45 Calcium 7.8 mg/dL (8.5-10.1) L 07/08/17 05:20 Corrected Calcium 9.2 mg/dL (8.5-10.1) 07/08/17 05:20 Magnesium 1.5 mg/dL (1.7-2.9) L 07/08/17 05:20 Total Bilirubin 0.30 mg/dL (0.2-1.0) 07/08/17 05:20 AST 13 Units/L (15-37) L 07/08/17 05:20 ALT 15 Units/L (12-78) 07/08/17 05:20 Alkaline Phosphatase 30 Units/L (46-116) L 07/08/17 05:20 Total Protein 4.8 g/dL (6.4-8.2) L 07/08/17 05:20 Albumin 2.3 g/dL (3.4-5.0) L 07/08/17 05:20 Globulin 2.5 g/dL (2.5-4.5) 07/08/17 05:20 Albumin/Globulin Ratio 0.9 Ratio (1.1-2.1) L 07/08/17 05:20 Specimen Type Catherized urine 07/03/17 10:12 Urine Color Yellow (YELLOW) 07/03/17 10:12 Urine Appearance Clear (CLEAR) 07/03/17 10:12 Urine pH 6.0 (5.0 - 8.0) 07/03/17 10:12 Ur Specific [place] 1.010 (1.000-1.030) 07/03/17 10:12 Urine Protein Negative (NEGATIVE) 07/03/17 10:12 Urine Glucose (UA) Negative (NEGATIVE) 07/03/17 10:12 Urine Ketones Negative (NEGATIVE) 07/03/17 10:12 Urine Occult Blood Negative (NEGATIVE) 07/03/17 10:12 Urine Nitrite Negative (NEGATIVE) 07/03/17 10:12 Urine Bilirubin Negative (NEGATIVE) 07/03/17 10:12 Urine Urobilinogen Normal (NORMAL) 07/03/17 10:12 Ur Leukocyte Esterase Negative (NEGATIVE) 07/03/17 10:12 Urine RBC 0-2 /HPF (NONE SEEN) 07/03/17 10:12 Urine WBC 0-2 /HPF (NONE SEEN) 07/03/17 10:12 Ur Squamous Epith Cells Negative /HPF (NEGATIVE) 07/03/17 10:12 Urine Bacteria Negative /HPF (NEGATIVE) 07/03/17 10:12 Ur Culture Indicated? 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) Plan: TRANSFUSE 4 UNITS PRBC, MONITOR H&H (2) GI bleed Status: Acute Qualifiers: GI bleed type/associated pathology: melena Qualified Code(s): K92.1 - Melena Plan: CONSULT GASTROENTEROLOGY FOR POSSIBLE SCOPE, CONTINUE TO MONITOR (3) Anxiety Status: Chronic Plan: CONTINUE XANAX, CONTINUE TO MONITOR (4) Depression Status: Chronic Qualifiers: Depression Type: major depressive disorder Major depression recurrence: recurrent Active/Remission status: remission status unspecified Qualified Code(s): F33.9 - Major depressive disorder, recurrent, unspecified Plan: CONTINUE ZOLOFT, CONTINUE TO MONITOR (5) Gastroesophageal reflux disease Status: Chronic Plan: CONTINUE PEPCID, CONTINUE PROTONIX, CONTINUE TO MONITOR (6) Hyperlipidemia Status: Chronic Plan: CONTINUE CRESTOR (7) Hypothyroidism Status: Chronic Plan: CONTINUE SYNTHROID
--- NOTE | 2017-07-08 13:02 | PCM.PROG ---
Progress Note - Progress Note for Day of Date: 07/06/17 - Subjective Subjective: IS BEING TREATED FOR ANEMIA AND GI BLEED. PATIENTS HAS RECEIVED A TOTAL OF SIX UNITS OF PACKED RED BLOOD CELLS SINCE ADMISSION. TODAY, SHE IS ALERT AND ORIENTED, LYING IN BED ON MORNING ROUNDS. SHE CONTINUES WITH GENERALIZED WEAKNESS, BUT REPORTS MARKED IMPROVEMENT SINCE ADMISSION. ON EXAMINATION, HEART IS REGULAR IN RATE AND RHYTHM. BILATERAL LUNGS ARE NOTED WITH DIMINISHED LUNG SOUNDS THROUGHOUT. ABDOMEN IS ROUND, SOFT, AND CONTINUES WITH MILD, DIFFUSE TENDERNESS. NORMAL BOWEL SOUNDS NOTED IN ALL QUADRANTS. THERE IS NORMAL RANGE OF MOTION NOTED TO ALL EXTREMITIES. HER VITALS THIS MORNING ARE 98.4-80-22-97%-182/79. LABS WERE OBTAINED THIS MORNING. HGB HAS INCREASED TO 11.3, HCT 32.8, TOTAL PROTEIN 5.4, ALBUMIN 2.7. TODAY, WE WILL CONTINUE TO MONITOR H&H AND TRANSFUSE ADDITIONAL UNITS OF PRBC IF NECESSARY. OTHERWISE, WE WILL FOLLOW UP WITH AM LABS AND CONTINUE TO MONITOR PATIENT. - Past Medical Family Social History Past Med/Fam/Surg Hx: No changes since H&P Allergies: Allergies Penicillins Allergy (Verified 02/03/17 18:45) prednisone Allergy (Verified 07/02/17 10:35) - Review of Systems ROS: No change since H&P - Vital Signs and I&O's Vital Signs: Temperature 98.0 F Pulse Rate [Apical] 59 Respiratory Rate 17 Blood Pressure [Right Arm] 126/58 Blood Pressure [Left Arm] 181/80 Blood Pressure [Left Arm] 124/56 Blood Pressure [Right Arm] 128/58 Blood Pressure 148/66 O2 Sat by Pulse Oximetry 100 Intake and Output: Intake & Output 07/06/17 07/07/17 07/08/17 07/09/17 11:59 11:59 11:59 11:59 Intake Total 3880 2916 3606 Output Total 2650 2450 1375 Balance 9052 602 8185 - Physical Exam Oriented: Normal Eyes: Normal. negative: Blurred Vision, Diplopia, Discharge, Pain, Redness, Photophobia, Other Ear: Normal. negative: Right, Left, Swelling, Ecchymosis, Hemotypanum, Abrasion , Laceration Nose: Normal. negative: Injected, Discharge, Blood, Other Throat: Normal. negative: Tonsillar Hypertrophy, Red, Exudate, Dry, Other Respiratory: Generalized, Diminished Cardiovascular: Normal. negative: S3, S4, Murmur : Normal. negative: Dysuria, Hematuria, Frequency, Discharge, Testicular Pain , Bleeding, , Other Auscultation: Bowel Sounds: Normal. negative: Bruit, Absent, Increased, Decreased, High Pitched, Other Palpation: Normal Tenderness: Diffuse, Mild. negative: Rebound, Guarding, Rigidity Skin: Decreased Turgur Musculoskeletal: Normal Psychiatric: Normal Mood Description: Calm Affect: Normal Speech Pattern: Clear, Appropriate - Laboratory and Diagnostics Result Diagrams: 07/08/17 05:20 07/08/17 05:20 Labs: Laboratory WBC 8.5 X10^3/uL (3.6-10.0) 07/08/17 05:20 RBC 3.44 X10^6/uL (3.5-5.4) L 07/08/17 05:20 Hgb 9.4 g/dL (12.0-16.0) L 07/08/17 05:20 Hct 27.1 % (36.0-47.0) L 07/08/17 05:20 MCV 78.8 fL (80.0-100.0) L 07/08/17 05:20 MCH 27.2 pg (27.0-34.0) 07/08/17 05:20 MCHC 34.5 g/dL (33.0-35.0) 07/08/17 05:20 RDW 19.3 % (11.6-16.5) H 07/08/17 05:20 Plt Count 88 X10^3/uL (150.0-450.0) L 07/08/17 05:20 MPV 8.7 fL (7.4-11.0) 07/08/17 05:20 Neut % 76.7 % (42.0-75.0) H 07/08/17 05:20 Lymph % 13.9 % (21.0-51.0) L 07/08/17 05:20 [place] % 5.9 % (0.0-13.0) 07/08/17 05:20 Eos % 3.2 % (0.9-2.9) H 07/08/17 05:20 Baso % 0.3 % (0.2-1.0) 07/08/17 05:20 Neut # 6.5 x10^3/uL (2.2-4.8) H 07/08/17 05:20 Lymph # 1.2 X10^3/uL (1.3-2.9) L 07/08/17 05:20 [place] # 0.5 x10^3/uL (0.3-0.8) 07/08/17 05:20 Eos # 0.3 x10^3/uL (0.0-0.2) H 07/08/17 05:20 Baso # 0.0 X10^3/uL (0.0-0.1) 07/08/17 05:20 Absolute Nucleated RBC 0.0 /100WBC 07/08/17 05:20 INR Target Range - 07/05/17 09:17 INR 1.14 (0.8-1.3) 07/05/17 09:17 PTT 25.6 SECONDS (22.9-36.5) 07/05/17 09:17 PTT Comment - 07/05/17 09:17 Sodium 142 mmol/L (136-145) 07/08/17 05:20 Corrected Sodium 143 mmol/L (136-145) 07/08/17 05:20 Potassium 3.8 mmol/L (3.5-5.1) 07/08/17 05:20 Chloride 111 mmol/L (98-107) H 07/08/17 05:20 Carbon Dioxide 22.6 mmol/L (21-32) 07/08/17 05:20 BUN 26 mg/dL (7-18) H 07/08/17 05:20 Creatinine 0.80 mg/dL (0.55-1.02) 07/08/17 05:20 Est GFR (MDRD) Af Amer > 60 (>60) 07/08/17 05:20 Est GFR (MDRD) Non-Af > 60 (>60) 07/08/17 05:20 Glucose 139 mg/dL (65-99) H 07/08/17 05:20 POC Glucose (mg/dL) 132 mg/dL (65-99) H 07/08/17 10:45 Calcium 7.8 mg/dL (8.5-10.1) L 07/08/17 05:20 Corrected Calcium 9.2 mg/dL (8.5-10.1) 07/08/17 05:20 Magnesium 1.5 mg/dL (1.7-2.9) L 07/08/17 05:20 Total Bilirubin 0.30 mg/dL (0.2-1.0) 07/08/17 05:20 AST 13 Units/L (15-37) L 07/08/17 05:20 ALT 15 Units/L (12-78) 07/08/17 05:20 Alkaline Phosphatase 30 Units/L (46-116) L 07/08/17 05:20 Total Protein 4.8 g/dL (6.4-8.2) L 07/08/17 05:20 Albumin 2.3 g/dL (3.4-5.0) L 07/08/17 05:20 Globulin 2.5 g/dL (2.5-4.5) 07/08/17 05:20 Albumin/Globulin Ratio 0.9 Ratio (1.1-2.1) L 07/08/17 05:20 Specimen Type Catherized urine 07/03/17 10:12 Urine Color Yellow (YELLOW) 07/03/17 10:12 Urine Appearance Clear (CLEAR) 07/03/17 10:12 Urine pH 6.0 (5.0 - 8.0) 07/03/17 10:12 Ur Specific [place] 1.010 (1.000-1.030) 07/03/17 10:12 Urine Protein Negative (NEGATIVE) 07/03/17 10:12 Urine Glucose (UA) Negative (NEGATIVE) 07/03/17 10:12 Urine Ketones Negative (NEGATIVE) 07/03/17 10:12 Urine Occult Blood Negative (NEGATIVE) 07/03/17 10:12 Urine Nitrite Negative (NEGATIVE) 07/03/17 10:12 Urine Bilirubin Negative (NEGATIVE) 07/03/17 10:12 Urine Urobilinogen Normal (NORMAL) 07/03/17 10:12 Ur Leukocyte Esterase Negative (NEGATIVE) 07/03/17 10:12 Urine RBC 0-2 /HPF (NONE SEEN) 07/03/17 10:12 Urine WBC 0-2 /HPF (NONE SEEN) 07/03/17 10:12 Ur Squamous Epith Cells Negative /HPF (NEGATIVE) 07/03/17 10:12 Urine Bacteria Negative /HPF (NEGATIVE) 07/03/17 10:12 Ur Culture Indicated? 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) Plan: MONITOR H&H (2) GI bleed Status: Acute Qualifiers: GI bleed type/associated pathology: melena Qualified Code(s): K92.1 - Melena Plan: CONSULT GASTROENTEROLOGY FOR POSSIBLE SCOPE, CONTINUE TO MONITOR (3) Anxiety Status: Chronic Plan: CONTINUE XANAX, CONTINUE TO MONITOR (4) Depression Status: Chronic Qualifiers: Depression Type: major depressive disorder Major depression recurrence: recurrent Active/Remission status: remission status unspecified Qualified Code(s): F33.9 - Major depressive disorder, recurrent, unspecified Plan: CONTINUE ZOLOFT, CONTINUE TO MONITOR (5) Gastroesophageal reflux disease Status: Chronic Plan: CONTINUE PEPCID, CONTINUE PROTONIX, CONTINUE TO MONITOR (6) Hyperlipidemia Status: Chronic Plan: CONTINUE CRESTOR (7) Hypothyroidism Status: Chronic Plan: CONTINUE SYNTHROID
[2017-07-08] MEDS ORDERED: LR 1000 ML IV 1,000 ML IV ONE (13:12)
[2017-07-08] MEDS ORDERED: DIPRIVAN VIAL 20 ML ONE (13:31)
[2017-07-08] MEDS: BENADRYL CAP 50 MG PO SCH (20:28)
[2017-07-08] MEDS: CRESTOR TAB 10 MG PO SCH (20:28)
[2017-07-08] MEDS: SNACK - Diabetic Appropriate PO SCH (20:29)
[2017-07-09] MEDS: NS 1000 ML 1,000 ML IV SCH ×2 (05:10→19:00)
[2017-07-09 06:16] LABS: BASOPHILS % (AUTO) 0.5 % (0.2-1.0); EOSINOPHILS # (AUTO) 0.2 x10^3/uL (0.0-0.2); EOSINOPHILS % (AUTO) 3.9 % (0.9-2.9); HEMATOCRIT 27.4 % (36.0-47.0); HEMOGLOBIN 9.4 g/dL (12.0-16.0); LYMPHOCYTES % (AUTO) 15.5 % (21.0-51.0); MEAN CORPUSCULAR HEMOGLOBIN 27.5 pg (27.0-34.0); MEAN CORPUSCULAR HGB CONC 34.3 g/dL (33.0-35.0); MEAN CORPUSCULAR VOLUME 80.2 fL (80.0-100.0); MONOCYTES # (AUTO) 0.4 x10^3/uL (0.3-0.8); MONOCYTES % (AUTO) 6.4 % (0.0-13.0); NEUTROPHILS # (AUTO) 4.7 x10^3/uL (2.2-4.8); NEUTROPHILS % (AUTO) 73.7 % (42.0-75.0); PLATELET COUNT 99 X10^3/uL (150.0-450.0); RED BLOOD COUNT 3.42 X10^6/uL (3.5-5.4); RED CELL DISTRIBUTION WIDTH 19.9 % (11.6-16.5); WHITE BLOOD COUNT 6.4 X10^3/uL (3.6-10.0)
[2017-07-09 06:37] LABS: ALANINE AMINOTRANSFERASE 18 Units/L (12-78); ALBUMIN 2.5 g/dL (3.4-5.0); ALKALINE PHOSPHATASE 35 Units/L (46-116); ASPARTATE AMINO TRANSFERASE 16 Units/L (15-37); BLOOD UREA NITROGEN 12 mg/dL (7-18); CALCIUM 7.8 mg/dL (8.5-10.1); CARBON DIOXIDE 23.5 mmol/L (21-32); CHLORIDE 108 mmol/L (98-107); COR NA(FOR HYPERGLY) 143 mmol/L (136-145); CREATININE 0.68 mg/dL (0.55-1.02); SODIUM 141 mmol/L (136-145); TOTAL PROTEIN 5.1 g/dL (6.4-8.2); eGFR BLACK RACES > 60 (>60); eGFR NON BLACK RACES > 60 (>60)
[2017-07-09] MEDS: HEMOCYTE-PLUS PO SCH (08:38)
[2017-07-09] MEDS: TAB-A-VITE PO SCH (08:38)
[2017-07-09] MEDS: OSCAL+D or CALTRATE+D PO SCH (08:38)
[2017-07-09] MEDS: REQUIP PO SCH ×2 (08:38→21:30)
[2017-07-09] MEDS: PEPCID TAB 20 MG PO SCH ×2 (08:38→21:30)
[2017-07-09] MEDS: NEURONTIN CAP 100 MG PO SCH ×2 (08:38→21:29)
[2017-07-09] MEDS: PROTONIX INJ 40 MG VIAL IVP SCH ×2 (08:38→21:30)
[2017-07-09] MEDS: SYNTHROID 112 mcg TAB PO SCH (08:39)
[2017-07-09] MEDS: FOLIC ACID TAB 1 MG PO SCH (08:39)
[2017-07-09] MEDS: ZOLOFT PO SCH (08:39)
[2017-07-09] MEDS: ESTRACE PO SCH (08:39)
[2017-07-09] MEDS ORDERED: MIRALAX POWDER (255 GM BTL) PO NR (14:00)
[2017-07-09] MEDS ORDERED: DULCOLAX TAB EC 5 MG PO ONE (18:00)
[2017-07-09] MEDS: TYLENOL 325 MG TAB PO PRN (19:34)
[2017-07-09] MEDS: NS 500 ML IV 500 ML IV SCH (19:38)
[2017-07-09] MEDS: POTASSIUM CHL 40 MEQ/NS 0.45% 500 ML IV PRN (20:09)
--- NOTE | 2017-07-09 21:08 | PCM.PROG ---
Progress Note - Progress Note for Day of Date: 07/07/17 - Subjective Subjective: IS BEING TREATED FOR ANEMIA AND GI BLEED. TODAY, SHE IS ALERT AND ORIENTED, LYING IN BED ON MORNING ROUNDS. SHE REPORTS INCREASED GENERALIZED WEAKNESS SINCE YESTERDAY. ON EXAMINATION, SHE IS SLIGHTLY TACHYCARDIC WITH HEART RATE NOTED TO BE 102. BILATERAL LUNGS CONTINUE NOTED WITH DIMINISHED LUNG SOUNDS THROUGHOUT. ABDOMEN IS ROUND, SOFT, AND CONTINUES WITH MILD, DIFFUSE TENDERNESS. NORMAL BOWEL SOUNDS NOTED IN ALL QUADRANTS. THERE IS NORMAL RANGE OF MOTION NOTED TO ALL EXTREMITIES. HER VITALS THIS MORNING ARE 98.1-102-20-98%-146/64. LABS WERE OBTAINED THIS MORNING. HGB HAS DECREASED FROM 11.3 YESTERDAY TO 8.4 TODAY. HCT 24.3, POTASSIUM 3.3, CHLORIDE 110, BUN 26, GLUCOSE 124, CALCIUM 7.9, MAGNESIUM 1.2, AST 12, ALK PHOS 24, TOTAL PROTEIN 4.8, ALBUMIN 2.3. GASTROENTEROLOGY PLANS TO TAKE PATIENT TO OR FOR AN EGD TOMORROW. TODAY, WE WILL TRANSFUSE PATIENT WITH TWO UNITS OF PACKED RED BLOOD CELLS. WE WILL THEN CONTINUE TO MONITOR H&H. OTHERWISE, WE WILL FOLLOW UP WITH AM LABS AND CONTINUE TO MONITOR PATIENT. - Past Medical Family Social History Past Med/Fam/Surg Hx: No changes since H&P Allergies: Allergies Penicillins Allergy (Verified 02/03/17 18:45) prednisone Allergy (Verified 07/02/17 10:35) - Review of Systems ROS: No change since H&P - Vital Signs and I&O's Vital Signs: Temperature 97.9 F Pulse Rate [Apical] 59 Respiratory Rate 21 Blood Pressure [Right Arm] 164/71 Blood Pressure [Left Arm] 181/80 Blood Pressure [Left Arm] 124/56 Blood Pressure [Right Arm] 128/58 Blood Pressure 148/66 O2 Sat by Pulse Oximetry 100 Intake and Output: Intake & Output 07/07/17 07/08/17 07/09/17 07/10/17 11:59 11:59 11:59 11:59 Intake Total 2916 3606 1950 1360 Output Total 2450 1375 Balance 466 2231 1950 1360 - Physical Exam Oriented: Normal Eyes: Normal. negative: Blurred Vision, Diplopia, Discharge, Pain, Redness, Photophobia, Other Ear: Normal. negative: Right, Left, Swelling, Ecchymosis, Hemotypanum, Abrasion , Laceration Nose: Normal. negative: Injected, Discharge, Blood, Other Throat: Normal. negative: Tonsillar Hypertrophy, Red, Exudate, Dry, Other Respiratory: Generalized, Diminished Cardiovascular: Normal. negative: S3, S4, Murmur : Normal. negative: Dysuria, Hematuria, Frequency, Discharge, Testicular Pain , Bleeding, , Other Auscultation: Bowel Sounds: Normal. negative: Bruit, Absent, Increased, Decreased, High Pitched, Other Palpation: Normal Tenderness: Diffuse, Mild. negative: Rebound, Guarding, Rigidity Skin: Decreased Turgur Musculoskeletal: Normal Psychiatric: Normal Mood Description: Calm Affect: Normal Speech Pattern: Clear, Appropriate - Laboratory and Diagnostics Result Diagrams: 07/09/17 05:25 07/09/17 05:25 Labs: Laboratory WBC 6.4 X10^3/uL (3.6-10.0) 07/09/17 05:25 RBC 3.42 X10^6/uL (3.5-5.4) L 07/09/17 05:25 Hgb 9.4 g/dL (12.0-16.0) L 07/09/17 05:25 Hct 27.4 % (36.0-47.0) L 07/09/17 05:25 MCV 80.2 fL (80.0-100.0) 07/09/17 05:25 MCH 27.5 pg (27.0-34.0) 07/09/17 05:25 MCHC 34.3 g/dL (33.0-35.0) 07/09/17 05:25 RDW 19.9 % (11.6-16.5) H 07/09/17 05:25 Plt Count 99 X10^3/uL (150.0-450.0) L 07/09/17 05:25 MPV 9.0 fL (7.4-11.0) 07/09/17 05:25 Neut % 73.7 % (42.0-75.0) 07/09/17 05:25 Lymph % 15.5 % (21.0-51.0) L 07/09/17 05:25 [place] % 6.4 % (0.0-13.0) 07/09/17 05:25 Eos % 3.9 % (0.9-2.9) H 07/09/17 05:25 Baso % 0.5 % (0.2-1.0) 07/09/17 05:25 Neut # 4.7 x10^3/uL (2.2-4.8) 07/09/17 05:25 Lymph # 1.0 X10^3/uL (1.3-2.9) L 07/09/17 05:25 [place] # 0.4 x10^3/uL (0.3-0.8) 07/09/17 05:25 Eos # 0.2 x10^3/uL (0.0-0.2) 07/09/17 05:25 Baso # 0.0 X10^3/uL (0.0-0.1) 07/09/17 05:25 Absolute Nucleated RBC 0.0 /100WBC 07/09/17 05:25 INR Target Range - 07/05/17 09:17 INR 1.14 (0.8-1.3) 07/05/17 09:17 PTT 25.6 SECONDS (22.9-36.5) 07/05/17 09:17 PTT Comment - 07/05/17 09:17 Sodium 141 mmol/L (136-145) 07/09/17 05:25 Corrected Sodium 143 mmol/L (136-145) 07/09/17 05:25 Potassium 3.3 mmol/L (3.5-5.1) L 07/09/17 05:25 Chloride 108 mmol/L (98-107) H 07/09/17 05:25 Carbon Dioxide 23.5 mmol/L (21-32) 07/09/17 05:25 BUN 12 mg/dL (7-18) 07/09/17 05:25 Creatinine 0.68 mg/dL (0.55-1.02) 07/09/17 05:25 Est GFR (MDRD) Af Amer > 60 (>60) 07/09/17 05:25 Est GFR (MDRD) Non-Af > 60 (>60) 07/09/17 05:25 Glucose 192 mg/dL (65-99) H 07/09/17 05:25 POC Glucose (mg/dL) 129 mg/dL (65-99) H 07/09/17 20:36 Calcium 7.8 mg/dL (8.5-10.1) L 07/09/17 05:25 Corrected Calcium 9.0 mg/dL (8.5-10.1) 07/09/17 05:25 Magnesium 1.5 mg/dL (1.7-2.9) L 07/09/17 05:25 Total Bilirubin 0.40 mg/dL (0.2-1.0) 07/09/17 05:25 AST 16 Units/L (15-37) 07/09/17 05:25 ALT 18 Units/L (12-78) 07/09/17 05:25 Alkaline Phosphatase 35 Units/L (46-116) L 07/09/17 05:25 Total Protein 5.1 g/dL (6.4-8.2) L 07/09/17 05:25 Albumin 2.5 g/dL (3.4-5.0) L 07/09/17 05:25 Globulin 2.6 g/dL (2.5-4.5) 07/09/17 05:25 Albumin/Globulin Ratio 1.0 Ratio (1.1-2.1) L 07/09/17 05:25 Specimen Type Catherized urine 07/03/17 10:12 Urine Color Yellow (YELLOW) 07/03/17 10:12 Urine Appearance Clear (CLEAR) 07/03/17 10:12 Urine pH 6.0 (5.0 - 8.0) 07/03/17 10:12 Ur Specific [place] 1.010 (1.000-1.030) 07/03/17 10:12 Urine Protein Negative (NEGATIVE) 07/03/17 10:12 Urine Glucose (UA) Negative (NEGATIVE) 07/03/17 10:12 Urine Ketones Negative (NEGATIVE) 07/03/17 10:12 Urine Occult Blood Negative (NEGATIVE) 07/03/17 10:12 Urine Nitrite Negative (NEGATIVE) 07/03/17 10:12 Urine Bilirubin Negative (NEGATIVE) 07/03/17 10:12 Urine Urobilinogen Normal (NORMAL) 07/03/17 10:12 Ur Leukocyte Esterase Negative (NEGATIVE) 07/03/17 10:12 Urine RBC 0-2 /HPF (NONE SEEN) 07/03/17 10:12 Urine WBC 0-2 /HPF (NONE SEEN) 07/03/17 10:12 Ur Squamous Epith Cells Negative /HPF (NEGATIVE) 07/03/17 10:12 Urine Bacteria Negative /HPF (NEGATIVE) 07/03/17 10:12 Ur Culture Indicated? No/not indicated 07/03/17 10:12 Stool Description 100g softformed blk 07/03/17 02:06 Stl Occult Blood (IFOB) Positive (NEGATIVE) A 07/03/17 02:06 Tissue Pathology To follow 07/08/17 13:38 Blood Type B POSITIVE 07/08/17 09:45 Antibody Screen Positive 07/08/17 09:45 Antibody Identification Anti-K 07/08/17 09:45 Crossmatch See Detail 07/08/17 09:45 - Plan (1) Anemia Status: Acute Qualifiers: Anemia type: iron deficiency Iron deficiency anemia type: chronic blood loss Qualified Code(s): D50.0 - Iron deficiency anemia secondary to blood loss (chronic) Plan: TRANSFUSE 2 UNITS PACKED RED BLOOD CELLS, CONTINUE TO MONITOR H&H (2) GI bleed Status: Acute Qualifiers: GI bleed type/associated pathology: melena Qualified Code(s): K92.1 - Melena Plan: EGD TOMORROW, CONTINUE TO MONITOR (3) Anxiety Status: Chronic Plan: CONTINUE XANAX, CONTINUE TO MONITOR (4) Depression Status: Chronic Qualifiers: Depression Type: major depressive disorder Major depression recurrence: recurrent Active/Remission status: remission status unspecified Qualified Code(s): F33.9 - Major depressive disorder, recurrent, unspecified Plan: CONTINUE ZOLOFT, CONTINUE TO MONITOR (5) Gastroesophageal reflux disease Status: Chronic Plan: CONTINUE PEPCID, CONTINUE PROTONIX, CONTINUE TO MONITOR (6) Hyperlipidemia Status: Chronic Plan: CONTINUE CRESTOR (7) Hypothyroidism Status: Chronic Plan: CONTINUE SYNTHROID
[2017-07-09] MEDS: SNACK - Diabetic Appropriate PO SCH (21:27)
[2017-07-09] MEDS: BENADRYL CAP 50 MG PO SCH (21:29)
[2017-07-09] MEDS: CRESTOR TAB 10 MG PO SCH (21:29)
[2017-07-09] MEDS: MAG-OX TAB PO PRN (21:33)
[2017-07-09] MEDS: RESTORIL CAP 15 MG PO PRN (21:35)
[2017-07-10] MEDS: NS 1000 ML 1,000 ML IV SCH ×3 (04:10→18:13)
[2017-07-10 06:16] LABS: BASOPHILS % (AUTO) 0.6 % (0.2-1.0); EOSINOPHILS # (AUTO) 0.3 x10^3/uL (0.0-0.2); HEMATOCRIT 29.2 % (36.0-47.0); LYMPHOCYTES # (AUTO) 1.2 X10^3/uL (1.3-2.9); LYMPHOCYTES % (AUTO) 18.6 % (21.0-51.0); MEAN CORPUSCULAR HEMOGLOBIN 27.7 pg (27.0-34.0); MEAN CORPUSCULAR HGB CONC 34.1 g/dL (33.0-35.0); MEAN CORPUSCULAR VOLUME 81.1 fL (80.0-100.0); MONOCYTES # (AUTO) 0.5 x10^3/uL (0.3-0.8); MONOCYTES % (AUTO) 7.6 % (0.0-13.0); NEUTROPHILS # (AUTO) 4.6 x10^3/uL (2.2-4.8); NEUTROPHILS % (AUTO) 69.2 % (42.0-75.0); PLATELET COUNT 126 X10^3/uL (150.0-450.0); RED CELL DISTRIBUTION WIDTH 19.8 % (11.6-16.5); WHITE BLOOD COUNT 6.6 X10^3/uL (3.6-10.0)
[2017-07-10 06:26] LABS: ALANINE AMINOTRANSFERASE 27 Units/L (12-78); ALBUMIN 2.9 g/dL (3.4-5.0); ALKALINE PHOSPHATASE 47 Units/L (46-116); ASPARTATE AMINO TRANSFERASE 23 Units/L (15-37); BLOOD UREA NITROGEN 6 mg/dL (7-18); CALCIUM 8.3 mg/dL (8.5-10.1); CHLORIDE 107 mmol/L (98-107); COR CA(FOR HYPOALB) 9.2 mg/dL (8.5-10.1); SODIUM 139 mmol/L (136-145); TOTAL PROTEIN 5.9 g/dL (6.4-8.2); eGFR BLACK RACES > 60 (>60); eGFR NON BLACK RACES > 60 (>60)
[2017-07-10] MEDS ORDERED: DIPRIVAN VIAL 20 ML ONE (08:08)
[2017-07-10] MEDS ORDERED: DIPRIVAN VIAL 10 ML ONE (08:41)
[2017-07-10] MEDS: NEURONTIN CAP 100 MG PO SCH ×2 (09:53→21:12)
[2017-07-10] MEDS: SYNTHROID 112 mcg TAB PO SCH (09:53)
[2017-07-10] MEDS: PROTONIX INJ 40 MG VIAL IVP SCH ×2 (09:53→21:13)
[2017-07-10] MEDS: REQUIP PO SCH ×2 (09:53→21:13)
[2017-07-10] MEDS: OSCAL+D or CALTRATE+D PO SCH (09:53)
[2017-07-10] MEDS: PEPCID TAB 20 MG PO SCH ×2 (09:53→21:13)
[2017-07-10] MEDS: TAB-A-VITE PO SCH (09:53)
[2017-07-10] MEDS: HEMOCYTE-PLUS PO SCH (09:53)
[2017-07-10] MEDS: FOLIC ACID TAB 1 MG PO SCH (09:54)
[2017-07-10] MEDS: ESTRACE PO SCH (09:54)
[2017-07-10] MEDS: ZOLOFT PO SCH (09:54)
[2017-07-10 11:37] LABS: HEMATOCRIT 25.9 % (36.0-47.0); HEMOGLOBIN 8.9 g/dL (12.0-16.0)
[2017-07-10] MEDS: SNACK - Diabetic Appropriate PO SCH (20:05)
[2017-07-10] MEDS: BENADRYL CAP 50 MG PO SCH (21:11)
[2017-07-10] MEDS: CRESTOR TAB 10 MG PO SCH (21:12)
[2017-07-10] MEDS: RESTORIL CAP 15 MG PO PRN (21:13)
[2017-07-11] MEDS: NS 1000 ML 1,000 ML IV SCH (05:06)
[2017-07-11] MEDS: TYLENOL #3 TAB (W/CODEINE) PO PRN (05:22)
[2017-07-11 06:08] LABS: BASOPHILS % (AUTO) 0.5 % (0.2-1.0); EOSINOPHILS # (AUTO) 0.2 x10^3/uL (0.0-0.2); EOSINOPHILS % (AUTO) 2.9 % (0.9-2.9); HEMATOCRIT 25.7 % (36.0-47.0); HEMOGLOBIN 8.7 g/dL (12.0-16.0); LYMPHOCYTES % (AUTO) 19.2 % (21.0-51.0); MEAN CORPUSCULAR VOLUME 82.4 fL (80.0-100.0); MEAN PLATELET VOLUME 8.7 fL (7.4-11.0); MONOCYTES # (AUTO) 0.4 x10^3/uL (0.3-0.8); MONOCYTES % (AUTO) 7.9 % (0.0-13.0); NEUTROPHILS # (AUTO) 3.6 x10^3/uL (2.2-4.8); NEUTROPHILS % (AUTO) 69.5 % (42.0-75.0); PLATELET COUNT 127 X10^3/uL (150.0-450.0); RED BLOOD COUNT 3.12 X10^6/uL (3.5-5.4); RED CELL DISTRIBUTION WIDTH 21.1 % (11.6-16.5); WHITE BLOOD COUNT 5.2 X10^3/uL (3.6-10.0)
[2017-07-11 06:26] LABS: ALANINE AMINOTRANSFERASE 22 Units/L (12-78); ALBUMIN 2.5 g/dL (3.4-5.0); ALKALINE PHOSPHATASE 44 Units/L (46-116); ASPARTATE AMINO TRANSFERASE 13 Units/L (15-37); BLOOD UREA NITROGEN 5 mg/dL (7-18); CALCIUM 7.9 mg/dL (8.5-10.1); CARBON DIOXIDE 24.5 mmol/L (21-32); CHLORIDE 112 mmol/L (98-107); COR CA(FOR HYPOALB) 9.1 mg/dL (8.5-10.1); COR NA(FOR HYPERGLY) 146 mmol/L (136-145); CREATININE 0.81 mg/dL (0.55-1.02); MAGNESIUM 1.5 mg/dL (1.7-2.9); SODIUM 145 mmol/L (136-145); TOTAL PROTEIN 5.1 g/dL (6.4-8.2); eGFR BLACK RACES > 60 (>60); eGFR NON BLACK RACES > 60 (>60)
[2017-07-11 06:28] LABS: PLATELET MORPHOLOGY COMMENT NORMAL (NORMAL)
[2017-07-11 06:29] LABS: ANISOCYTOSIS 1+
[2017-07-11] MEDS: ESTRACE PO SCH (08:27)
[2017-07-11] MEDS: OSCAL+D or CALTRATE+D PO SCH (08:27)
[2017-07-11] MEDS: HEMOCYTE-PLUS PO SCH (08:28)
[2017-07-11] MEDS: NEURONTIN CAP 100 MG PO SCH (08:28)
[2017-07-11] MEDS: FOLIC ACID TAB 1 MG PO SCH (08:28)
[2017-07-11] MEDS: TAB-A-VITE PO SCH (08:29)
[2017-07-11] MEDS: SYNTHROID 112 mcg TAB PO SCH (08:29)
[2017-07-11] MEDS: PEPCID TAB 20 MG PO SCH (08:29)
[2017-07-11] MEDS: PROTONIX INJ 40 MG VIAL IVP SCH (08:30)
[2017-07-11] MEDS: ZOLOFT PO SCH (08:30)
[2017-07-11] MEDS: REQUIP PO SCH (08:30)
[2017-07-11 12:53] VITALS: BP 181/76
== END 2017-07-11 11:25 | disposition home or self-care (01) | DRG 812 ==
LOC: ICU 10:39
PROVIDERS: ADMIT Internal Medicine; ATTEND Internal Medicine
PROC: 05H633Z Insertion of Infusion Device into Left Subclavian Vein, Percutaneous Approach (ICD-10-PCS; 2017-07-03)
PROC: 30233N1 Transfusion of Nonautologous Red Blood Cells into Peripheral Vein, Percutaneous Approach (ICD-10-PCS; 2017-07-03)
PROC: 30233N1 Transfusion of Nonautologous Red Blood Cells into Peripheral Vein, Percutaneous Approach (ICD-10-PCS; 2017-07-03)
PROC: 30233N1 Transfusion of Nonautologous Red Blood Cells into Peripheral Vein, Percutaneous Approach (ICD-10-PCS; 2017-07-04)
PROC: 30233N1 Transfusion of Nonautologous Red Blood Cells into Peripheral Vein, Percutaneous Approach (ICD-10-PCS; 2017-07-04)
PROC: 30233N1 Transfusion of Nonautologous Red Blood Cells into Peripheral Vein, Percutaneous Approach (ICD-10-PCS; 2017-07-05)
PROC: 30233N1 Transfusion of Nonautologous Red Blood Cells into Peripheral Vein, Percutaneous Approach (ICD-10-PCS; 2017-07-05)
PROC: 30233N1 Transfusion of Nonautologous Red Blood Cells into Peripheral Vein, Percutaneous Approach (ICD-10-PCS; 2017-07-07)
PROC: 30233N1 Transfusion of Nonautologous Red Blood Cells into Peripheral Vein, Percutaneous Approach (ICD-10-PCS; 2017-07-07)
PROC: 0DB88ZX Excision of Small Intestine, Via Natural or Artificial Opening Endoscopic, Diagnostic (ICD-10-PCS; 2017-07-08)
PROC: 0DB68ZX Excision of Stomach, Via Natural or Artificial Opening Endoscopic, Diagnostic (ICD-10-PCS; principal; 2017-07-08 13:00)
PROC: 0DJD8ZZ Inspection of Lower Intestinal Tract, Via Natural or Artificial Opening Endoscopic (ICD-10-PCS; 2017-07-10)
PROC: 0DBL7ZX Excision of Transverse Colon, Via Natural or Artificial Opening, Diagnostic (ICD-10-PCS; 2017-07-10)
DX: D50.0 Iron deficiency anemia secondary to blood loss (chronic) (principal); K92.1 Melena; N17.8 Other acute kidney failure; R26.89 Other abnormalities of gait and mobility; R53.1 Weakness; R94.4 Abnormal results of kidney function studies; I25.10 Atherosclerotic heart disease of native coronary artery without angina pectoris; E78.2 Mixed hyperlipidemia; K21.9 Gastro-esophageal reflux disease without esophagitis; I12.9 Hypertensive chronic kidney disease with stage 1 through stage 4 chronic kidney disease, or unspecified chronic kidney disease; E03.8 Other specified hypothyroidism; E11.65 Type 2 diabetes mellitus with hyperglycemia; I73.89 Other specified peripheral vascular diseases; K29.60 Other gastritis without bleeding; K20.8 Other esophagitis; K44.9 Diaphragmatic hernia without obstruction or gangrene; K57.30 Diverticulosis of large intestine without perforation or abscess without bleeding; K64.8 Other hemorrhoids; Z86.010 Personal history of colon polyps
CPT/HCPCS: 36415; 36430; 36556; 71045; 80053; 81001; 82274; 83735; 85014; 85018; 85025; 85610; 85730; 86850; 86870; 86880; 86885; 86900; 86901; 86902; 86906; 86921; 86922; 86970; 88305; 88342; 93306; 99100; A4216; A4222; C9113; P9016; S0028; A4217; J0885; J1200; J1815; J3490; J7120

== ENCOUNTER → 2017-07-31 | Outpatient (CLI) | payer OTHER ==
[2017-07-11 12:53] VITALS: BP 181/76
--- NOTE | 2017-07-31 10:56 | CT ---
HISTORY: Cerebral infarction. Study: CT brain without contrast. Comparison: 05/21/2016. Technique: Multiple axial images of the brain were obtained from the skull base to the vertex without administra tion of IV contrast. Findings: Encephalomalacia of the right frontal lobe compatible with an old large right frontal lobe infarct is unchanged. No acute intraparenchymal hemorrhage or mass can be identified. No extra-axia l fluid collections are seen. No alteration in the attenuation of the brain parenchyma can be identi fied to suggest acute or subacute ischemic change. The ventricular system is symmetric and nondilate d. The extracranial structures are grossly unremarkable. IMPRESSION: Old right frontal lobe infarct without acute intracranial process or concerning change compared with 05/21/2016. Reported By:
== END ==
LOC: RAD 10:07
PROVIDERS: ATTEND Internal Medicine
DX: I63.8 Other cerebral infarction (principal)
CPT/HCPCS: 70450

== ENCOUNTER 2017-09-02 11:09 | Inpatient (IN) | payer OTHER ==
[2017-09-02] MEDS ORDERED: NS 500 ML IV 500 ML IV ONE (12:35)
[2017-09-02 13:18] LABS: BASOPHILS # (AUTO) 0.1 X10^3/uL (0.0-0.1); BASOPHILS % (AUTO) 0.9 % (0.2-1.0); EOSINOPHILS # (AUTO) 0.2 x10^3/uL (0.0-0.2); EOSINOPHILS % (AUTO) 2.6 % (0.9-2.9); LYMPHOCYTES # (AUTO) 0.9 X10^3/uL (1.3-2.9); LYMPHOCYTES % (AUTO) 12.5 % (21.0-51.0); MEAN CORPUSCULAR HEMOGLOBIN 26.1 pg (27.0-34.0); MEAN CORPUSCULAR HGB CONC 31.3 g/dL (33.0-35.0); MEAN CORPUSCULAR VOLUME 83.5 fL (80.0-100.0); MEAN PLATELET VOLUME 8.4 fL (7.4-11.0); MONOCYTES # (AUTO) 0.4 x10^3/uL (0.3-0.8); MONOCYTES % (AUTO) 5.1 % (0.0-13.0); NEUTROPHILS # (AUTO) 5.8 x10^3/uL (2.2-4.8); NEUTROPHILS % (AUTO) 78.9 % (42.0-75.0); PLATELET COUNT 209 X10^3/uL (150.0-450.0); RED BLOOD COUNT 2.52 X10^6/uL (3.5-5.4); RED CELL DISTRIBUTION WIDTH 21.5 % (11.6-16.5); WHITE BLOOD COUNT 7.4 X10^3/uL (3.6-10.0)
[2017-09-02 13:24] LABS: ALANINE AMINOTRANSFERASE 15 Units/L (12-78); ALBUMIN 3.6 g/dL (3.4-5.0); ALKALINE PHOSPHATASE 62 Units/L (46-116); ASPARTATE AMINO TRANSFERASE 10 Units/L (15-37); BLOOD UREA NITROGEN 41 mg/dL (7-18); CALCIUM 8.6 mg/dL (8.5-10.1); CARBON DIOXIDE 28.3 mmol/L (21-32); CHLORIDE 99 mmol/L (98-107); COR NA(FOR HYPERGLY) 140 mmol/L (136-145); CREATININE 1.99 mg/dL (0.55-1.02); SODIUM 135 mmol/L (136-145); TOTAL PROTEIN 7.1 g/dL (6.4-8.2); eGFR BLACK RACES 32 (>60); eGFR NON BLACK RACES 26 (>60)
[2017-09-02 13:26] LABS: HEMOGLOBIN 6.6 g/dL (12.0-16.0)
[2017-09-02] MEDS: PROTONIX INJ 40 MG VIAL IVP SCH ×2 (13:34→20:48)
[2017-09-02] MEDS: NS 1000 ML 1,000 ML IV SCH (13:34)
[2017-09-02] MEDS: PEPCID 20 MG IV PREMIX* 20 MG/50 ML BAG IV SCH ×2 (13:35→20:48)
[2017-09-02 13:45] LABS: PLATELET MORPHOLOGY COMMENT NORMAL (NORMAL)
[2017-09-02 13:46] LABS: ANISOCYTOSIS 2+; HYPOCHROMASIA SLIGHT; MICROCYTOSIS SLIGHT
[2017-09-02 13:55] LABS: IRON 19 ug/dL (50-175); TOTAL IRON BINDING CAPACITY 376 ug/dL (250-450)
[2017-09-02 14:24] VITALS: BMI 23.8
[2017-09-02] MEDS ORDERED: MILK OF MAGNESIA PO PRN (15:02)
[2017-09-02] MEDS: COLACE CAP 100 MG PO SCH ×2 (15:34→20:48)
[2017-09-02] MEDS: NORCO 10/325 TAB PO PRN (15:42)
[2017-09-03] MEDS: NS 1000 ML 1,000 ML IV SCH ×3 (02:24→14:49)
[2017-09-03 06:04] LABS: ALBUMIN 2.8 g/dL (3.4-5.0); CALCIUM 7.9 mg/dL (8.5-10.1); CARBON DIOXIDE 26.3 mmol/L (21-32); COR CA(FOR HYPOALB) 8.9 mg/dL (8.5-10.1); CREATININE 1.29 mg/dL (0.55-1.02)
[2017-09-03 07:10] LABS: BASOPHILS % (AUTO) 0.7 % (0.2-1.0); EOSINOPHILS # (AUTO) 0.1 x10^3/uL (0.0-0.2); EOSINOPHILS % (AUTO) 1.8 % (0.9-2.9); LYMPHOCYTES # (AUTO) 1.3 X10^3/uL (1.3-2.9); LYMPHOCYTES % (AUTO) 23.9 % (21.0-51.0); MEAN CORPUSCULAR HEMOGLOBIN 25.9 pg (27.0-34.0); MEAN CORPUSCULAR HGB CONC 31.7 g/dL (33.0-35.0); MEAN CORPUSCULAR VOLUME 81.7 fL (80.0-100.0); MEAN PLATELET VOLUME 8.2 fL (7.4-11.0); MONOCYTES # (AUTO) 0.4 x10^3/uL (0.3-0.8); MONOCYTES % (AUTO) 7.6 % (0.0-13.0); NEUTROPHILS # (AUTO) 3.6 x10^3/uL (2.2-4.8); PLATELET COUNT 169 X10^3/uL (150.0-450.0); RED BLOOD COUNT 2.31 X10^6/uL (3.5-5.4); WHITE BLOOD COUNT 5.5 X10^3/uL (3.6-10.0)
[2017-09-03 07:14] LABS: HEMATOCRIT 18.9 % (36.0-47.0)
[2017-09-03] MEDS: PROTONIX INJ 40 MG VIAL IVP SCH ×2 (08:37→20:58)
[2017-09-03] MEDS: PEPCID 20 MG IV PREMIX* 20 MG/50 ML BAG IV SCH ×2 (08:37→20:58)
--- NOTE | 2017-09-03 17:30 | PCM.PROG ---
Progress Note - Progress Note for Day of Date: 09/03/17 - Subjective Subjective: WAS ADMITTED FOR ANEMIA AND GENERALIZED WEAKNESS. TODAY, SHE IS ALERT AND ORIENTED, LYING IN BED ON MORNING ROUNDS. SHE CONTINUES WITH COMPLAINTS OF GENERALIZED WEAKNESS. HER VITALS THIS MORNING ARE 98.8-67-20-94%- 144/62. LABS WERE OBTAINED. ABNORMAL LAB VALUES INCLUDE THE FOLLOWING: RBC 2.31 , HGB 6.0, HCT 18.9, BUN 34, CREATININE 1.29, GLUCOSE 199, CALCIUM 7.9, TOTAL BILI 0.10, TOTAL PROTEIN 6.0, ALBUMIN 2.8. STOOLS ARE NEGATIVE FOR OCCULT BLOOD. PATIENTS BLOOD WAS POSITIVE FOR ANTIBODIES. TODAY, WE WILL CROSSMATCH TWO ADDITIONAL UNITS AND TRANSFUSE A TOTAL OF FOUR UNITS WHEN AVAILABLE. OTHERWISE, WE WILL CONTINUE WITH CURRENT PLAN OF CARE AND CONTINUE TO MONITOR PATIENT. - Past Medical Family Social History Past Med/Fam/Surg Hx: No changes since H&P Allergies: Allergies Penicillins Allergy (Verified 02/03/17 18:45) prednisone Allergy (Verified 07/02/17 10:35) - Review of Systems ROS: No change since H&P - Vital Signs and I&O's Vital Signs: Temperature 98.5 F Pulse Rate [Right Brachial] 68 Respiratory Rate 20 Blood Pressure [Right Arm] 184/76 Blood Pressure [Left Arm] 142/65 Blood Pressure [Left Arm] 124/56 Blood Pressure [Right Arm] 128/58 Blood Pressure 181/76 O2 Sat by Pulse Oximetry 97 Intake and Output: Intake & Output 09/01/17 09/02/17 09/03/17 09/04/17 11:59 11:59 11:59 11:59 Intake Total 1931 1120 Balance 1931 1120 - Physical Exam Oriented: Normal Eyes: Normal Ear: Normal Nose: Normal Throat: Normal Respiratory: Normal Cardiovascular: Normal : Normal Auscultation: Bowel Sounds: Normal Palpation: Normal Tenderness: Normal Skin: Normal Musculoskeletal: Normal Psychiatric: Normal Mood Description: Calm Affect: Normal Speech Pattern: Clear, Appropriate - Laboratory and Diagnostics Result Diagrams: 09/03/17 06:58 09/03/17 05:17 Labs: Laboratory WBC 5.5 X10^3/uL (3.6-10.0) 09/03/17 06:58 RBC 2.31 X10^6/uL (3.5-5.4) L 09/03/17 06:58 Hgb 6.0 g/dL (12.0-16.0) L* 09/03/17 06:58 Hct 18.9 % (36.0-47.0) L* 09/03/17 06:58 MCV 81.7 fL (80.0-100.0) 09/03/17 06:58 MCH 25.9 pg (27.0-34.0) L 09/03/17 06:58 MCHC 31.7 g/dL (33.0-35.0) L 09/03/17 06:58 RDW 21.0 % (11.6-16.5) H 09/03/17 06:58 Plt Count 169 X10^3/uL (150.0-450.0) 09/03/17 06:58 Plt Count Comment Adequate (ADEQUATE) 09/02/17 12:55 MPV 8.2 fL (7.4-11.0) 09/03/17 06:58 Neut % (Auto) 66.0 % (42.0-75.0) 09/03/17 06:58 Lymph % (Auto) 23.9 % (21.0-51.0) 09/03/17 06:58 [place] % (Auto) 7.6 % (0.0-13.0) 09/03/17 06:58 Eos % (Auto) 1.8 % (0.9-2.9) 09/03/17 06:58 Baso % (Auto) 0.7 % (0.2-1.0) 09/03/17 06:58 Neut # (Auto) 3.6 x10^3/uL (2.2-4.8) 09/03/17 06:58 Lymph # (Auto) 1.3 X10^3/uL (1.3-2.9) 09/03/17 06:58 [place] # (Auto) 0.4 x10^3/uL (0.3-0.8) 09/03/17 06:58 Eos # (Auto) 0.1 x10^3/uL (0.0-0.2) 09/03/17 06:58 Baso # (Auto) 0.0 X10^3/uL (0.0-0.1) 09/03/17 06:58 Absolute Nucleated RBC 0.0 /100WBC 09/03/17 06:58 Plt Morphology Comment Normal (NORMAL) 09/02/17 12:55 RBC Morphology Abnormal (NORMAL) A 09/02/17 12:55 Hypochromasia Slight A 09/02/17 12:55 Anisocytosis 2+ A 09/02/17 12:55 Microcytosis Slight A 09/02/17 12:55 Sodium 138 mmol/L (136-145) 09/03/17 05:17 Corrected Sodium 140 mmol/L (136-145) 09/03/17 05:17 Potassium 4.5 mmol/L (3.5-5.1) 09/03/17 05:17 Chloride 106 mmol/L (98-107) 09/03/17 05:17 Carbon Dioxide 26.3 mmol/L (21-32) 09/03/17 05:17 BUN 34 mg/dL (7-18) H 09/03/17 05:17 Creatinine 1.29 mg/dL (0.55-1.02) H 09/03/17 05:17 Est GFR (MDRD) Af Amer 52 (>60) L 09/03/17 05:17 Est GFR (MDRD) Non-Af 43 (>60) L 09/03/17 05:17 Glucose 199 mg/dL (65-99) H 09/03/17 05:17 Calcium 7.9 mg/dL (8.5-10.1) L 09/03/17 05:17 Corrected Calcium 8.9 mg/dL (8.5-10.1) 09/03/17 05:17 Iron 19 ug/dL (50-175) L 09/02/17 12:55 TIBC 376 ug/dL (250-450) 09/02/17 12:55 Total Bilirubin 0.10 mg/dL (0.2-1.0) L 09/03/17 05:17 AST 16 Units/L (15-37) 09/03/17 05:17 ALT 14 Units/L (12-78) 09/03/17 05:17 Alkaline Phosphatase 51 Units/L (46-116) 09/03/17 05:17 Total Protein 6.0 g/dL (6.4-8.2) L 09/03/17 05:17 Albumin 2.8 g/dL (3.4-5.0) L 09/03/17 05:17 Globulin 3.2 g/dL (2.5-4.5) 09/03/17 05:17 Albumin/Globulin Ratio 0.9 Ratio (1.1-2.1) L 09/03/17 05:17 Vitamin B12 1094 pg/mL (193-986) H 09/02/17 12:55 Folate > 20.0 ng/mL (>8.6) 09/02/17 12:55 Stool Description Fob tube 09/03/17 11:52 Stl Occult Blood (IFOB) Negative (NEGATIVE) 09/03/17 11:52 Blood Type B POSITIVE 09/02/17 12:55 Antibody Screen Positive 09/02/17 12:55 Crossmatch See Detail 09/02/17 12:55 - Plan (1) Anemia Status: Acute Qualifiers: Iron deficiency anemia type: chronic blood loss Plan: TRANSFUSE 4 UNITS PACKED RED BLOOD CELLS WHEN AVAILABLE, CONTINUE TO MONITOR
[2017-09-03 18:03] LABS: HEMOGLOBIN 6.7 g/dL (12.0-16.0)
[2017-09-03 18:06] LABS: HEMATOCRIT 21.1 % (36.0-47.0)
[2017-09-03] MEDS: COLACE CAP 100 MG PO SCH (20:59)
[2017-09-03] MEDS: NORCO 10/325 TAB PO PRN (20:59)
[2017-09-03] MEDS: RESTORIL CAP 15 MG PO PRN (21:28)
[2017-09-04] MEDS: NS 1000 ML 1,000 ML IV SCH ×2 (03:02→15:37)
[2017-09-04 07:21] LABS: ALANINE AMINOTRANSFERASE 12 Units/L (12-78); ALBUMIN 2.8 g/dL (3.4-5.0); ALKALINE PHOSPHATASE 50 Units/L (46-116); ASPARTATE AMINO TRANSFERASE 12 Units/L (15-37); BLOOD UREA NITROGEN 18 mg/dL (7-18); CALCIUM 8.1 mg/dL (8.5-10.1); CARBON DIOXIDE 23.8 mmol/L (21-32); CHLORIDE 108 mmol/L (98-107); COR CA(FOR HYPOALB) 9.1 mg/dL (8.5-10.1); COR NA(FOR HYPERGLY) 142 mmol/L (136-145); SODIUM 141 mmol/L (136-145); TOTAL PROTEIN 5.9 g/dL (6.4-8.2); eGFR BLACK RACES > 60 (>60); eGFR NON BLACK RACES > 60 (>60)
[2017-09-04 08:13] LABS: BASOPHILS % (AUTO) 0.4 % (0.2-1.0); EOSINOPHILS # (AUTO) 0.1 x10^3/uL (0.0-0.2); EOSINOPHILS % (AUTO) 1.5 % (0.9-2.9); LYMPHOCYTES % (AUTO) 13.2 % (21.0-51.0); MEAN CORPUSCULAR HEMOGLOBIN 26.1 pg (27.0-34.0); MEAN CORPUSCULAR HGB CONC 32.1 g/dL (33.0-35.0); MEAN CORPUSCULAR VOLUME 81.3 fL (80.0-100.0); MEAN PLATELET VOLUME 8.6 fL (7.4-11.0); MONOCYTES # (AUTO) 0.5 x10^3/uL (0.3-0.8); NEUTROPHILS # (AUTO) 6.1 x10^3/uL (2.2-4.8); NEUTROPHILS % (AUTO) 78.9 % (42.0-75.0); PLATELET COUNT 172 X10^3/uL (150.0-450.0); RED BLOOD COUNT 2.39 X10^6/uL (3.5-5.4); RED CELL DISTRIBUTION WIDTH 21.2 % (11.6-16.5); WHITE BLOOD COUNT 7.7 X10^3/uL (3.6-10.0)
[2017-09-04 08:16] LABS: HEMOGLOBIN 6.2 g/dL (12.0-16.0)
[2017-09-04 08:17] LABS: HEMATOCRIT 19.4 % (36.0-47.0)
[2017-09-04] MEDS: PEPCID 20 MG IV PREMIX* 20 MG/50 ML BAG IV SCH ×2 (08:52→21:06)
[2017-09-04] MEDS: PROTONIX INJ 40 MG VIAL IVP SCH ×2 (08:52→21:06)
--- NOTE | 2017-09-04 09:51 | DR.UPDATE ---
H&P Update History and Physical Update: WAS SEEN IN THE OFFICE ON 08/28/2017 FOR GENERALIZED WEAKNESS. SHE RETURNED THE FOLLOWING DAY FOR ROUTINE LABS TO BE DRAWN. UPON REVIEW OF THE LABS , HER HEMOGLOBIN WAS NOTED TO DECREASED AT 7.3 g/dL. PATIENT WAS ADMITTED TO TRANSFUSE PACKED RED BLOOD CELLS. A H&P WAS COMPLETED PRIOR TO ADMISSION. PATIENT HAS BEEN SEEN AND EXAMINED. WITH NO OTHER CHANGES NOTED TO H&P. Changes noted: NO Yes with the following:
[2017-09-04] MEDS: SYNTHROID 100 mcg TAB PO SCH (15:33)
[2017-09-04] MEDS: XANAX PO SCH (15:33)
[2017-09-04] MEDS: NICOTINE PATCH TD SCH (15:45)
[2017-09-04] MEDS: TYLENOL 325 MG TAB PO PRN (17:56)
[2017-09-04] MEDS: BENADRYL INJ 50 MG VIAL IVP PRN (17:56)
[2017-09-04] MEDS ORDERED: NS 500 ML IV 500 ML IV ONE (17:59)
[2017-09-04] MEDS: CHECK PATCH XX SCH (21:06)
[2017-09-04] MEDS: COLACE CAP 100 MG PO SCH (21:06)
[2017-09-05] MEDS: XANAX PO SCH ×3 (00:28→21:41)
[2017-09-05 00:39] LABS: BILIRUBIN,URINE NEGATIVE (NEGATIVE); BLOOD/HEMOGLOBIN,URINE NEGATIVE (NEGATIVE); GLUCOSE, URINE 4+ (NEGATIVE); KETONES,URINE NEGATIVE (NEGATIVE); LEUKOCYTE ESTERASE ,URINE NEGATIVE (NEGATIVE); NITRITES,URINE NEGATIVE (NEGATIVE); PROTEIN,URINE 1+ (NEGATIVE); UROBILINOGEN,URINE NORMAL (NORMAL)
[2017-09-05 00:57] LABS: APPEARANCE,URINE HAZY (CLEAR); BACTERIA,URINE 1+ /HPF (NEGATIVE); COLOR,URINE YELLOW (YELLOW); RBC,URINE 0-2 /HPF (NONE SEEN); SQUAMOUS EPITHELIAL CELL,UR NUMEROUS /HPF (NEGATIVE)
[2017-09-05 06:23] LABS: BASOPHILS % (AUTO) 0.7 % (0.2-1.0); EOSINOPHILS # (AUTO) 0.1 x10^3/uL (0.0-0.2); EOSINOPHILS % (AUTO) 2.5 % (0.9-2.9); LYMPHOCYTES # (AUTO) 1.3 X10^3/uL (1.3-2.9); LYMPHOCYTES % (AUTO) 28.1 % (21.0-51.0); MEAN CORPUSCULAR VOLUME 81.9 fL (80.0-100.0); MEAN PLATELET VOLUME 8.8 fL (7.4-11.0); MONOCYTES # (AUTO) 0.4 x10^3/uL (0.3-0.8); MONOCYTES % (AUTO) 8.3 % (0.0-13.0); NEUTROPHILS # (AUTO) 2.7 x10^3/uL (2.2-4.8); NEUTROPHILS % (AUTO) 60.4 % (42.0-75.0); PLATELET COUNT 154 X10^3/uL (150.0-450.0); RED BLOOD COUNT 2.38 X10^6/uL (3.5-5.4); RED CELL DISTRIBUTION WIDTH 19.3 % (11.6-16.5); WHITE BLOOD COUNT 4.5 X10^3/uL (3.6-10.0)
[2017-09-05 06:35] LABS: HEMOGLOBIN 6.4 g/dL (12.0-16.0)
[2017-09-05 06:37] LABS: HEMATOCRIT 19.5 % (36.0-47.0)
[2017-09-05 06:43] LABS: ALANINE AMINOTRANSFERASE 13 Units/L (12-78); ALBUMIN 2.7 g/dL (3.4-5.0); ALKALINE PHOSPHATASE 51 Units/L (46-116); ASPARTATE AMINO TRANSFERASE 14 Units/L (15-37); BLOOD UREA NITROGEN 14 mg/dL (7-18); CARBON DIOXIDE 20.8 mmol/L (21-32); CHLORIDE 107 mmol/L (98-107); COR NA(FOR HYPERGLY) 140 mmol/L (136-145); CREATININE 0.79 mg/dL (0.55-1.02); SODIUM 138 mmol/L (136-145); eGFR BLACK RACES > 60 (>60); eGFR NON BLACK RACES > 60 (>60)
[2017-09-05] MEDS: NICOTINE PATCH TD SCH (09:33)
[2017-09-05] MEDS: PEPCID 20 MG IV PREMIX* 20 MG/50 ML BAG IV SCH ×2 (09:34→21:41)
[2017-09-05] MEDS: PROTONIX INJ 40 MG VIAL IVP SCH ×2 (09:34→21:41)
[2017-09-05] MEDS: SYNTHROID 100 mcg TAB PO SCH (09:34)
[2017-09-05] MEDS: HEMOCYTE-PLUS PO SCH (09:34)
[2017-09-05] MEDS: CHECK PATCH XX SCH ×2 (09:35→21:41)
[2017-09-05] MEDS ORDERED: NS 250 ML IV 250 ML IV ONE (10:35)
[2017-09-05] MEDS: TYLENOL 325 MG TAB PO PRN (10:38)
[2017-09-05] MEDS: BENADRYL INJ 50 MG VIAL IVP PRN (10:39)
[2017-09-05] MEDS: RESTORIL CAP 15 MG PO PRN (21:41)
[2017-09-05] MEDS: COLACE CAP 100 MG PO SCH (21:41)
[2017-09-06] MEDS: NS 1000 ML 1,000 ML IV SCH (00:09)
[2017-09-06] MEDS: NORCO 10/325 TAB PO PRN (04:37)
[2017-09-06 06:06] LABS: BASOPHILS % (AUTO) 0.6 % (0.2-1.0); EOSINOPHILS # (AUTO) 0.2 x10^3/uL (0.0-0.2); EOSINOPHILS % (AUTO) 2.5 % (0.9-2.9); HEMATOCRIT 29.6 % (36.0-47.0); HEMOGLOBIN 9.9 g/dL (12.0-16.0); LYMPHOCYTES # (AUTO) 1.3 X10^3/uL (1.3-2.9); LYMPHOCYTES % (AUTO) 20.8 % (21.0-51.0); MEAN CORPUSCULAR HEMOGLOBIN 27.1 pg (27.0-34.0); MEAN CORPUSCULAR HGB CONC 33.5 g/dL (33.0-35.0); MONOCYTES # (AUTO) 0.4 x10^3/uL (0.3-0.8); MONOCYTES % (AUTO) 6.9 % (0.0-13.0); NEUTROPHILS # (AUTO) 4.3 x10^3/uL (2.2-4.8); NEUTROPHILS % (AUTO) 69.2 % (42.0-75.0); PLATELET COUNT 160 X10^3/uL (150.0-450.0); RED BLOOD COUNT 3.66 X10^6/uL (3.5-5.4); RED CELL DISTRIBUTION WIDTH 17.7 % (11.6-16.5); WHITE BLOOD COUNT 6.2 X10^3/uL (3.6-10.0)
[2017-09-06 06:20] LABS: ALANINE AMINOTRANSFERASE 15 Units/L (12-78); ALBUMIN 2.7 g/dL (3.4-5.0); ALKALINE PHOSPHATASE 54 Units/L (46-116); ASPARTATE AMINO TRANSFERASE 12 Units/L (15-37); BLOOD UREA NITROGEN 16 mg/dL (7-18); CALCIUM 8.4 mg/dL (8.5-10.1); CARBON DIOXIDE 21.5 mmol/L (21-32); CHLORIDE 109 mmol/L (98-107); COR CA(FOR HYPOALB) 9.4 mg/dL (8.5-10.1); COR NA(FOR HYPERGLY) 142 mmol/L (136-145); CREATININE 0.84 mg/dL (0.55-1.02); SODIUM 140 mmol/L (136-145); TOTAL PROTEIN 6.2 g/dL (6.4-8.2); eGFR BLACK RACES > 60 (>60); eGFR NON BLACK RACES > 60 (>60)
[2017-09-06] MEDS: XANAX PO SCH ×2 (09:55→09:56)
[2017-09-06] MEDS: CHECK PATCH XX SCH (09:56)
[2017-09-06] MEDS: PROTONIX INJ 40 MG VIAL IVP SCH (09:56)
[2017-09-06] MEDS: SYNTHROID 100 mcg TAB PO SCH (09:56)
[2017-09-06] MEDS: PEPCID 20 MG IV PREMIX* 20 MG/50 ML BAG IV SCH (09:56)
[2017-09-06] MEDS: HEMOCYTE-PLUS PO SCH (09:57)
[2017-09-06] MEDS: NICOTINE PATCH TD SCH (09:57)
[2017-09-06] MEDS ORDERED: ROBITUSSIN DM PO PRN (10:05)
[2017-09-06 12:10] VITALS: BP 170/70
--- NOTE | 2017-09-09 13:17 | PCM.PROG ---
Progress Note - Progress Note for Day of Date: 09/04/17 - Subjective Subjective: WAS ADMITTED FOR ANEMIA AND GENERALIZED WEAKNESS. TODAY, SHE IS ALERT AND ORIENTED, LYING IN BED ON MORNING ROUNDS. SHE CONTINUES WITH COMPLAINTS OF GENERALIZED WEAKNESS. HER VITALS THIS MORNING ARE 98.8-78-18-92%- 146/65. LABS WERE OBTAINED. HER HEMOGLOBIN HAS FELL TO 6.2, HCT 19.4 TODAY, OTHERWISE, SHE IS HEMODYNAMICALLY STABLE. STOOLS ARE NEGATIVE FOR OCCULT BLOOD. PATIENTS BLOOD WAS POSITIVE FOR ANTIBODIES. WE ARE AWAITING HER BLOOD TODAY AND PLAN TO TRANSFUSE WHEN IT ARRIVES. OTHERWISE, WE WILL CONTINUE WITH CURRENT PLAN OF CARE AND CONTINUE TO MONITOR PATIENT. - Past Medical Family Social History Past Med/Fam/Surg Hx: No changes since H&P Allergies: Allergies Penicillins Allergy (Verified 02/03/17 18:45) prednisone Allergy (Verified 07/02/17 10:35) - Review of Systems ROS: No change since H&P - Vital Signs and I&O's Vital Signs: Temperature 97.7 F Pulse Rate [Right Posterior 58 Tibial] Pulse Rate [Right Brachial] 66 Respiratory Rate 20 Blood Pressure [Right Calf] 170/70 Blood Pressure [Right Arm] 150/65 Blood Pressure [Left Arm] 142/65 Blood Pressure [Left Arm] 124/56 Blood Pressure [Right Arm] 128/58 Blood Pressure 181/76 O2 Sat by Pulse Oximetry 94 - Physical Exam Oriented: Normal Eyes: Normal Ear: Normal Nose: Normal Throat: Normal Respiratory: Normal Cardiovascular: Normal : Normal Auscultation: Bowel Sounds: Normal Palpation: Normal Tenderness: Normal Skin: Normal Musculoskeletal: Normal Psychiatric: Normal Mood Description: Calm Affect: Normal Speech Pattern: Clear, Appropriate - Laboratory and Diagnostics Result Diagrams: 09/06/17 04:40 09/06/17 04:40 Labs: Laboratory WBC 6.2 X10^3/uL (3.6-10.0) 09/06/17 04:40 RBC 3.66 X10^6/uL (3.5-5.4) 09/06/17 04:40 Hgb 9.9 g/dL (12.0-16.0) L D 09/06/17 04:40 Hct 29.6 % (36.0-47.0) L 09/06/17 04:40 MCV 81.0 fL (80.0-100.0) 09/06/17 04:40 MCH 27.1 pg (27.0-34.0) 09/06/17 04:40 MCHC 33.5 g/dL (33.0-35.0) 09/06/17 04:40 RDW 17.7 % (11.6-16.5) H 09/06/17 04:40 Plt Count 160 X10^3/uL (150.0-450.0) 09/06/17 04:40 Plt Count Comment Adequate (ADEQUATE) 09/02/17 12:55 MPV 9.0 fL (7.4-11.0) 09/06/17 04:40 Neut % (Auto) 69.2 % (42.0-75.0) 09/06/17 04:40 Lymph % (Auto) 20.8 % (21.0-51.0) L 09/06/17 04:40 [place] % (Auto) 6.9 % (0.0-13.0) 09/06/17 04:40 Eos % (Auto) 2.5 % (0.9-2.9) 09/06/17 04:40 Baso % (Auto) 0.6 % (0.2-1.0) 09/06/17 04:40 Neut # (Auto) 4.3 x10^3/uL (2.2-4.8) 09/06/17 04:40 Lymph # (Auto) 1.3 X10^3/uL (1.3-2.9) 09/06/17 04:40 [place] # (Auto) 0.4 x10^3/uL (0.3-0.8) 09/06/17 04:40 Eos # (Auto) 0.2 x10^3/uL (0.0-0.2) 09/06/17 04:40 Baso # (Auto) 0.0 X10^3/uL (0.0-0.1) 09/06/17 04:40 Absolute Nucleated RBC 0.0 /100WBC 09/06/17 04:40 Plt Morphology Comment Normal (NORMAL) 09/02/17 12:55 RBC Morphology Abnormal (NORMAL) A 09/02/17 12:55 Hypochromasia Slight A 05/01/18 12:55 Anisocytosis 2+ A 09/02/17 12:55 Microcytosis Slight A 09/02/17 12:55 Sodium 140 mmol/L (136-145) 09/06/17 04:40 Corrected Sodium 142 mmol/L (136-145) 09/06/17 04:40 Potassium 3.6 mmol/L (3.5-5.1) 09/06/17 04:40 Chloride 109 mmol/L (98-107) H 09/06/17 04:40 Carbon Dioxide 21.5 mmol/L (21-32) 09/06/17 04:40 BUN 16 mg/dL (7-18) 09/06/17 04:40 Creatinine 0.84 mg/dL (0.55-1.02) 09/06/17 04:40 Est GFR (MDRD) Af Amer > 60 (>60) 09/06/17 04:40 Est GFR (MDRD) Non-Af > 60 (>60) 09/06/17 04:40 Glucose 182 mg/dL (65-99) H 09/06/17 04:40 Calcium 8.4 mg/dL (8.5-10.1) L 09/06/17 04:40 Corrected Calcium 9.4 mg/dL (8.5-10.1) 09/06/17 04:40 Iron 19 ug/dL (50-175) L 09/02/17 12:55 TIBC 376 ug/dL (250-450) 09/02/17 12:55 Total Bilirubin 0.50 mg/dL (0.2-1.0) 09/06/17 04:40 AST 12 Units/L (15-37) L 09/06/17 04:40 ALT 15 Units/L (12-78) 09/06/17 04:40 Alkaline Phosphatase 54 Units/L (46-116) 09/06/17 04:40 Total Protein 6.2 g/dL (6.4-8.2) L 09/06/17 04:40 Albumin 2.7 g/dL (3.4-5.0) L 09/06/17 04:40 Globulin 3.5 g/dL (2.5-4.5) 09/06/17 04:40 Albumin/Globulin Ratio 0.8 Ratio (1.1-2.1) L 09/06/17 04:40 Vitamin B12 1094 pg/mL (193-986) H 09/02/17 12:55 Folate > 20.0 ng/mL (>8.6) 09/02/17 12:55 Specimen Type Clean catch urine 09/05/17 00:15 Urine Color Yellow (YELLOW) 09/05/17 00:15 Urine Appearance Hazy (CLEAR) 09/05/17 00:15 Urine pH 6.0 (5.0 - 8.0) 09/05/17 00:15 Ur Specific [place] 1.015 (1.000-1.030) 09/05/17 00:15 Urine Protein 1+ (NEGATIVE) 09/05/17 00:15 Urine Glucose (UA) 4+ (NEGATIVE) 09/05/17 00:15 Urine Ketones Negative (NEGATIVE) 09/05/17 00:15 Urine Occult Blood Negative (NEGATIVE) 09/05/17 00:15 Urine Nitrite Negative (NEGATIVE) 09/05/17 00:15 Urine Bilirubin Negative (NEGATIVE) 09/05/17 00:15 Urine Urobilinogen Normal (NORMAL) 09/05/17 00:15 Ur Leukocyte Esterase Negative (NEGATIVE) 09/05/17 00:15 Urine RBC 0-2 /HPF (NONE SEEN) 09/05/17 00:15 Urine WBC 0-2 /HPF (NONE SEEN) 09/05/17 00:15 Ur Squamous Epith Cells Numerous /HPF (NEGATIVE) 09/05/17 00:15 Urine Bacteria 1+ /HPF (NEGATIVE) 09/05/17 00:15 Ur Culture Indicated? No/not indicated 09/05/17 00:15 Stool Description Fob tube 09/03/17 11:52 Stl Occult Blood (IFOB) Negative (NEGATIVE) 09/03/17 11:52 Blood Type B POSITIVE 09/04/17 20:47 Antibody Screen Positive 09/02/17 12:55 Antibody Identification Anti-K 09/02/17 12:55 Crossmatch See Detail 09/02/17 12:55 Tx React Prelim Eval No evidence of htr 09/04/17 20:47 Tx React Symptoms Change in bp 09/04/17 20:47 Reaction Path Interpret No evidence of htr 09/04/17 20:47 Reaction Pathol Consult Elbert pennington md 09/04/17 20:47 Blood Bank Comment Halinadahlia valadez P2 09/04/17 20:47 - Plan (1) Anemia Status: Acute Qualifiers: Iron deficiency anemia type: chronic blood loss Plan: TRANSFUSE 4 UNITS PACKED RED BLOOD CELLS WHEN AVAILABLE, CONTINUE TO MONITOR
--- NOTE | 2017-09-09 13:21 | PCM.PROG ---
Progress Note - Progress Note for Day of Date: 09/05/17 - Subjective Subjective: WAS ADMITTED FOR ANEMIA AND GENERALIZED WEAKNESS. BLOOD PRODUCTS ARRIVED YESTERDAY. PATIENT STARTED RECEIVING 1ST UNIT OF PACKED RED BLOOD CELLS, HOWEVER, TRANSFUSION WAS STOPPED DUE TO POSSIBLE TRANSFUSION REACTION. TODAY, SHE IS ALERT AND ORIENTED, LYING IN BED ON MORNING ROUNDS. SHE CONTINUES WITH COMPLAINTS OF GENERALIZED WEAKNESS. HER VITALS THIS MORNING ARE 98.5-87-20-98%-145/56. LABS WERE OBTAINED. HER HEMOGLOBIN HAS IS 6.4, HCT 19.5. OTHERWISE, SHE IS HEMODYNAMICALLY STABLE. AFTER RECEIVING CLEARANCE FROM THE LAB , WE WILL TRANSFUSE ADDITIONAL UNITS OF PACKED RED BLOOD CELLS. OTHERWISE, WE WILL CONTINUE WITH CURRENT PLAN OF CARE AND CONTINUE TO MONITOR PATIENT. - Past Medical Family Social History Past Med/Fam/Surg Hx: No changes since H&P Allergies: Allergies Penicillins Allergy (Verified 02/03/17 18:45) prednisone Allergy (Verified 07/02/17 10:35) - Review of Systems ROS: No change since H&P - Vital Signs and I&O's Vital Signs: Temperature 97.7 F Pulse Rate [Right Posterior 58 Tibial] Pulse Rate [Right Brachial] 66 Respiratory Rate 20 Blood Pressure [Right Calf] 170/70 Blood Pressure [Right Arm] 150/65 Blood Pressure [Left Arm] 142/65 Blood Pressure [Left Arm] 124/56 Blood Pressure [Right Arm] 128/58 Blood Pressure 181/76 O2 Sat by Pulse Oximetry 94 - Physical Exam Oriented: Normal Eyes: Normal Ear: Normal Nose: Normal Throat: Normal Respiratory: Normal Cardiovascular: Normal : Normal Auscultation: Bowel Sounds: Normal Palpation: Normal Tenderness: Normal Skin: Normal Musculoskeletal: Normal Psychiatric: Normal Mood Description: Calm Affect: Normal Speech Pattern: Clear, Appropriate - Laboratory and Diagnostics Result Diagrams: 09/06/17 04:40 09/06/17 04:40 Labs: Laboratory WBC 6.2 X10^3/uL (3.6-10.0) 09/06/17 04:40 RBC 3.66 X10^6/uL (3.5-5.4) 09/06/17 04:40 Hgb 9.9 g/dL (12.0-16.0) L D 09/06/17 04:40 Hct 29.6 % (36.0-47.0) L 09/06/17 04:40 MCV 81.0 fL (80.0-100.0) 09/06/17 04:40 MCH 27.1 pg (27.0-34.0) 09/06/17 04:40 MCHC 33.5 g/dL (33.0-35.0) 09/06/17 04:40 RDW 17.7 % (11.6-16.5) H 09/06/17 04:40 Plt Count 160 X10^3/uL (150.0-450.0) 09/06/17 04:40 Plt Count Comment Adequate (ADEQUATE) 09/02/17 12:55 MPV 9.0 fL (7.4-11.0) 09/06/17 04:40 Neut % (Auto) 69.2 % (42.0-75.0) 09/06/17 04:40 Lymph % (Auto) 20.8 % (21.0-51.0) L 09/06/17 04:40 [place] % (Auto) 6.9 % (0.0-13.0) 09/06/17 04:40 Eos % (Auto) 2.5 % (0.9-2.9) 09/06/17 04:40 Baso % (Auto) 0.6 % (0.2-1.0) 09/06/17 04:40 Neut # (Auto) 4.3 x10^3/uL (2.2-4.8) 09/06/17 04:40 Lymph # (Auto) 1.3 X10^3/uL (1.3-2.9) 09/06/17 04:40 [place] # (Auto) 0.4 x10^3/uL (0.3-0.8) 09/06/17 04:40 Eos # (Auto) 0.2 x10^3/uL (0.0-0.2) 09/06/17 04:40 Baso # (Auto) 0.0 X10^3/uL (0.0-0.1) 09/06/17 04:40 Absolute Nucleated RBC 0.0 /100WBC 09/06/17 04:40 Plt Morphology Comment Normal (NORMAL) 09/02/17 12:55 RBC Morphology Abnormal (NORMAL) A 05/01/18 12:55 Hypochromasia Slight A 09/02/17 12:55 Anisocytosis 2+ A 09/02/17 12:55 Microcytosis Slight A 09/02/17 12:55 Sodium 140 mmol/L (136-145) 09/06/17 04:40 Corrected Sodium 142 mmol/L (136-145) 09/06/17 04:40 Potassium 3.6 mmol/L (3.5-5.1) 09/06/17 04:40 Chloride 109 mmol/L (98-107) H 09/06/17 04:40 Carbon Dioxide 21.5 mmol/L (21-32) 09/06/17 04:40 BUN 16 mg/dL (7-18) 09/06/17 04:40 Creatinine 0.84 mg/dL (0.55-1.02) 09/06/17 04:40 Est GFR (MDRD) Af Amer > 60 (>60) 09/06/17 04:40 Est GFR (MDRD) Non-Af > 60 (>60) 09/06/17 04:40 Glucose 182 mg/dL (65-99) H 09/06/17 04:40 Calcium 8.4 mg/dL (8.5-10.1) L 09/06/17 04:40 Corrected Calcium 9.4 mg/dL (8.5-10.1) 09/06/17 04:40 Iron 19 ug/dL (50-175) L 09/02/17 12:55 TIBC 376 ug/dL (250-450) 09/02/17 12:55 Total Bilirubin 0.50 mg/dL (0.2-1.0) 09/06/17 04:40 AST 12 Units/L (15-37) L 09/06/17 04:40 ALT 15 Units/L (12-78) 09/06/17 04:40 Alkaline Phosphatase 54 Units/L (46-116) 09/06/17 04:40 Total Protein 6.2 g/dL (6.4-8.2) L 09/06/17 04:40 Albumin 2.7 g/dL (3.4-5.0) L 09/06/17 04:40 Globulin 3.5 g/dL (2.5-4.5) 09/06/17 04:40 Albumin/Globulin Ratio 0.8 Ratio (1.1-2.1) L 09/06/17 04:40 Vitamin B12 1094 pg/mL (193-986) H 09/02/17 12:55 Folate > 20.0 ng/mL (>8.6) 09/02/17 12:55 Specimen Type Clean catch urine 09/05/17 00:15 Urine Color Yellow (YELLOW) 09/05/17 00:15 Urine Appearance Hazy (CLEAR) 09/05/17 00:15 Urine pH 6.0 (5.0 - 8.0) 09/05/17 00:15 Ur Specific [place] 1.015 (1.000-1.030) 09/05/17 00:15 Urine Protein 1+ (NEGATIVE) 09/05/17 00:15 Urine Glucose (UA) 4+ (NEGATIVE) 09/05/17 00:15 Urine Ketones Negative (NEGATIVE) 09/05/17 00:15 Urine Occult Blood Negative (NEGATIVE) 09/05/17 00:15 Urine Nitrite Negative (NEGATIVE) 09/05/17 00:15 Urine Bilirubin Negative (NEGATIVE) 09/05/17 00:15 Urine Urobilinogen Normal (NORMAL) 09/05/17 00:15 Ur Leukocyte Esterase Negative (NEGATIVE) 09/05/17 00:15 Urine RBC 0-2 /HPF (NONE SEEN) 09/05/17 00:15 Urine WBC 0-2 /HPF (NONE SEEN) 09/05/17 00:15 Ur Squamous Epith Cells Numerous /HPF (NEGATIVE) 09/05/17 00:15 Urine Bacteria 1+ /HPF (NEGATIVE) 09/05/17 00:15 Ur Culture Indicated? No/not indicated 09/05/17 00:15 Stool Description Fob tube 09/03/17 11:52 Stl Occult Blood (IFOB) Negative (NEGATIVE) 09/03/17 11:52 Blood Type B POSITIVE 09/04/17 20:47 Antibody Screen Positive 09/02/17 12:55 Antibody Identification Anti-K 09/02/17 12:55 Crossmatch See Detail 09/02/17 12:55 Tx React Prelim Eval No evidence of htr 09/04/17 20:47 Tx React Symptoms Change in bp 09/04/17 20:47 Reaction Path Interpret No evidence of htr 09/04/17 20:47 Reaction Pathol Consult Elbert pennington md 09/04/17 20:47 Blood Bank Comment Halina valadez P2 09/04/17 20:47 - Plan (1) Anemia Status: Acute Qualifiers: Iron deficiency anemia type: chronic blood loss Plan: TRANSFUSE 3 UNITS PACKED RED BLOOD CELLS WHEN AVAILABLE, CONTINUE TO MONITOR
== END 2017-09-06 12:30 | disposition home or self-care (01) | DRG 812 ==
LOC: MED/SURG 11:09
PROVIDERS: ADMIT Internal Medicine; ATTEND Internal Medicine
PROC: 30233N1 Transfusion of Nonautologous Red Blood Cells into Peripheral Vein, Percutaneous Approach (ICD-10-PCS; principal; 2017-09-04)
PROC: 30233N1 Transfusion of Nonautologous Red Blood Cells into Peripheral Vein, Percutaneous Approach (ICD-10-PCS; 2017-09-05)
DX: D63.1 Anemia in chronic kidney disease (principal); R53.1 Weakness; I10 Essential (primary) hypertension; E78.5 Hyperlipidemia, unspecified; E55.9 Vitamin D deficiency, unspecified; E03.8 Other specified hypothyroidism; F41.1 Generalized anxiety disorder; J44.9 Chronic obstructive pulmonary disease, unspecified; G89.29 Other chronic pain
CPT/HCPCS: 36415; 36430; 80053; 81001; 82274; 82607; 82746; 83540; 83550; 85014; 85018; 85025; 86850; 86870; 86880; 86885; 86900; 86901; 86904; 86921; 86922; 86970; 86971; 94760; A4222; C9113; P9016; S0028; J1200

== ENCOUNTER 2019-01-12 08:40 | Inpatient (IN) ==
[2019-01-12] MEDS ORDERED: BENADRYL INJ 50 MG VIAL IVP PRN (09:26)
[2019-01-12] MEDS ORDERED: TYLENOL 325 MG TAB PO PRN (09:26)
[2019-01-12] MEDS ORDERED: NS 500 ML IV 500 ML IV ONE (09:26)
[2019-01-12 10:40] LABS: ALANINE AMINOTRANSFERASE 13 Units/L (12-78); ALBUMIN 3.5 g/dL (3.4-5.0); ALKALINE PHOSPHATASE 58 Units/L (46-116); ASPARTATE AMINO TRANSFERASE 12 Units/L (15-37); BLOOD UREA NITROGEN 57 mg/dL (7-18); CALCIUM 9.2 mg/dL (8.5-10.1); CARBON DIOXIDE 22.1 mmol/L (21-32); CHLORIDE 103 mmol/L (98-107); COR NA(FOR HYPERGLY) 143 mmol/L (136-145); CREATININE 1.21 mg/dL (0.55-1.02); SODIUM 138 mmol/L (136-145); TOTAL PROTEIN 6.6 g/dL (6.4-8.2); eGFR NON BLACK RACES 46 (>60)
[2019-01-12 10:43] VITALS: BMI 24.3
[2019-01-12] MEDS: NS 1000 ML 1,000 ML IV SCH ×2 (10:54→23:01)
[2019-01-12 11:03] LABS: BASOPHILS # (AUTO) 0.1 X10^3/uL (0.0-0.1); BASOPHILS % (AUTO) 0.7 % (0.2-1.0); EOSINOPHILS % (AUTO) 0.4 % (0.9-2.9); LYMPHOCYTES # (AUTO) 0.8 X10^3/uL (1.3-2.9); LYMPHOCYTES % (AUTO) 11.3 % (21.0-51.0); MEAN CORPUSCULAR HEMOGLOBIN 34.7 pg (27.0-34.0); MEAN CORPUSCULAR HGB CONC 34.4 g/dL (33.0-35.0); MEAN CORPUSCULAR VOLUME 100.9 fL (80.0-100.0); MEAN PLATELET VOLUME 9.1 fL (7.4-11.0); MONOCYTES # (AUTO) 0.3 x10^3/uL (0.3-0.8); MONOCYTES % (AUTO) 4.2 % (0.0-13.0); NEUTROPHILS # (AUTO) 6.2 x10^3/uL (2.2-4.8); NEUTROPHILS % (AUTO) 83.4 % (42.0-75.0); PLATELET COUNT 169 X10^3/uL (150.0-450.0); RED BLOOD COUNT 1.67 X10^6/uL (3.5-5.4); RED CELL DISTRIBUTION WIDTH 15.3 % (11.6-16.5); WHITE BLOOD COUNT 7.5 X10^3/uL (3.6-10.0)
[2019-01-12 11:06] LABS: HEMOGLOBIN 5.8 g/dL (12.0-16.0)
[2019-01-12 11:07] LABS: HEMATOCRIT 16.9 % (36.0-47.0)
[2019-01-12] MEDS ORDERED: ZOFRAN INJ 4 MG VIAL IVP PRN (11:30)
[2019-01-12] MEDS ORDERED: RESTORIL CAP 15 MG PO PRN (14:17)
[2019-01-12] MEDS: NORCO 5/325 MG TAB PO PRN ×2 (15:20→20:53)
[2019-01-12] MEDS: HumuLIN R SUBCUT PRN (16:40)
[2019-01-12] MEDS: SNACK - Diabetic Appropriate PO SCH (21:02)
[2019-01-12] MEDS: REQUIP PO PRN (21:53)
[2019-01-13] MEDS: NORCO 5/325 MG TAB PO PRN ×3 (03:55→15:10)
[2019-01-13 05:08] LABS: BASOPHILS % (AUTO) 0.7 % (0.2-1.0); EOSINOPHILS # (AUTO) 0.1 x10^3/uL (0.0-0.2); EOSINOPHILS % (AUTO) 2.2 % (0.9-2.9); LYMPHOCYTES # (AUTO) 1.4 X10^3/uL (1.3-2.9); LYMPHOCYTES % (AUTO) 20.9 % (21.0-51.0); MEAN CORPUSCULAR HEMOGLOBIN 35.2 pg (27.0-34.0); MEAN CORPUSCULAR HGB CONC 34.1 g/dL (33.0-35.0); MEAN CORPUSCULAR VOLUME 103.3 fL (80.0-100.0); MEAN PLATELET VOLUME 9.4 fL (7.4-11.0); MONOCYTES # (AUTO) 0.4 x10^3/uL (0.3-0.8); MONOCYTES % (AUTO) 6.5 % (0.0-13.0); NEUTROPHILS # (AUTO) 4.5 x10^3/uL (2.2-4.8); NEUTROPHILS % (AUTO) 69.7 % (42.0-75.0); PLATELET COUNT 169 X10^3/uL (150.0-450.0); RED BLOOD COUNT 1.46 X10^6/uL (3.5-5.4); RED CELL DISTRIBUTION WIDTH 15.5 % (11.6-16.5); WHITE BLOOD COUNT 6.5 X10^3/uL (3.6-10.0)
[2019-01-13 05:20] LABS: ALANINE AMINOTRANSFERASE 14 Units/L (12-78); ALKALINE PHOSPHATASE 51 Units/L (46-116); ASPARTATE AMINO TRANSFERASE 15 Units/L (15-37); BLOOD UREA NITROGEN 34 mg/dL (7-18); CALCIUM 8.5 mg/dL (8.5-10.1); CARBON DIOXIDE 23.9 mmol/L (21-32); CHLORIDE 107 mmol/L (98-107); COR CA(FOR HYPOALB) 9.3 mg/dL (8.5-10.1); COR NA(FOR HYPERGLY) 145 mmol/L (136-145); CREATININE 1.11 mg/dL (0.55-1.02); SODIUM 141 mmol/L (136-145); TOTAL PROTEIN 5.8 g/dL (6.4-8.2); eGFR NON BLACK RACES 51 (>60)
[2019-01-13 05:29] LABS: HEMOGLOBIN 5.1 g/dL (12.0-16.0)
[2019-01-13] MEDS: HumuLIN R SUBCUT PRN ×4 (06:35→22:40)
[2019-01-13] MEDS ORDERED: PHARMACY CONSULT - DOSE _____ XX SCH (09:00)
[2019-01-13] MEDS: REQUIP PO PRN (09:43)
[2019-01-13] MEDS ORDERED: PROCRIT or EPOGEN SC NR (10:42)
[2019-01-13] MEDS ORDERED: PROCRIT or EPOGEN ONE (11:09)
[2019-01-13] MEDS ORDERED: LASIX PO PRN (11:18)
[2019-01-13] MEDS ORDERED: FIORICET TAB PO PRN (11:26)
[2019-01-13] MEDS: NS 1000 ML 1,000 ML IV SCH (11:52)
[2019-01-13] MEDS: XANAX PO SCH ×2 (12:11→22:40)
[2019-01-13] MEDS: MICRO K EXTEN CAP 10 MEQ PO SCH (12:12)
[2019-01-13] MEDS: NEURONTIN CAP 100 MG PO SCH ×2 (12:12→22:40)
[2019-01-13] MEDS: SYNTHROID 100 mcg TAB PO SCH (12:12)
[2019-01-13] MEDS: PROTONIX TAB 40 MG PO SCH ×2 (12:12→22:40)
[2019-01-13] MEDS: COREG TAB 6.25 MG PO SCH ×2 (12:13→22:40)
[2019-01-13 12:29] LABS: IRON 42 ug/dL (50-175)
[2019-01-13] MEDS ORDERED: NS 500 ML IV 500 ML IV ONE (16:27)
[2019-01-13] MEDS: AZILSARTAN MED CHLORTHALIDONE PO SCH (17:23)
--- NOTE | 2019-01-13 18:31 | DR.UPDATE ---
H&P Update History and Physical Update: History and Physical reviewed and patient examined. Changes noted: Yes with the following: WAS SEEN IN THE OFFICE FOR COMPLAINTS OF GENERALIZED WEAKNESS AND FATIGUE. OUTPATIENT LABS WERE OBTAINED AND REVEALED A HEMOGLOBIN OF 7.4. WE ADMITTED PATIENT FOR FURTHER EVALUATION AND TREATMENT OF ANEMIA. ON ADMISSION, WE WILL TYPE AND SCREEN FOR 4 UNITS OF PACKED RED BLOOD CELLS AND TRANSFUSE WHEN AVAILABLE. OTHERWISE, WE WILL FOLLOW UP WITH AM LABS AND CONTINUE TO MONITOR. Prescription drug monitoring program results: PDMP was not reviewed
[2019-01-13] MEDS: SNACK - Diabetic Appropriate PO SCH (20:00)
[2019-01-13] MEDS: NORVASC TAB 10 MG PO SCH (22:40)
[2019-01-13] MEDS: AMBIEN PO SCH (22:40)
[2019-01-13] MEDS: CRESTOR TAB 10 MG PO SCH (22:40)
[2019-01-14 00:58] LABS: HEMATOCRIT 26.4 % (36.0-47.0)
[2019-01-14 01:01] LABS: HEMOGLOBIN 9.2 g/dL (12.0-16.0)
[2019-01-14] MEDS: NS 1000 ML 1,000 ML IV SCH ×2 (01:26→07:57)
[2019-01-14 05:17] LABS: BASOPHILS % (AUTO) 0.5 % (0.2-1.0); EOSINOPHILS # (AUTO) 0.2 x10^3/uL (0.0-0.2); EOSINOPHILS % (AUTO) 2.3 % (0.9-2.9); HEMATOCRIT 25.5 % (36.0-47.0); LYMPHOCYTES # (AUTO) 1.6 X10^3/uL (1.3-2.9); LYMPHOCYTES % (AUTO) 23.7 % (21.0-51.0); MEAN CORPUSCULAR HEMOGLOBIN 31.3 pg (27.0-34.0); MEAN CORPUSCULAR HGB CONC 35.4 g/dL (33.0-35.0); MEAN CORPUSCULAR VOLUME 88.5 fL (80.0-100.0); MEAN PLATELET VOLUME 8.5 fL (7.4-11.0); MONOCYTES # (AUTO) 0.3 x10^3/uL (0.3-0.8); MONOCYTES % (AUTO) 4.6 % (0.0-13.0); NEUTROPHILS # (AUTO) 4.6 x10^3/uL (2.2-4.8); NEUTROPHILS % (AUTO) 68.9 % (42.0-75.0); PLATELET COUNT 151 X10^3/uL (150.0-450.0); RED BLOOD COUNT 2.88 X10^6/uL (3.5-5.4); RED CELL DISTRIBUTION WIDTH 21.5 % (11.6-16.5); WHITE BLOOD COUNT 6.7 X10^3/uL (3.6-10.0)
[2019-01-14 05:28] LABS: ALANINE AMINOTRANSFERASE 13 Units/L (12-78); ALBUMIN 2.8 g/dL (3.4-5.0); ALKALINE PHOSPHATASE 47 Units/L (46-116); ASPARTATE AMINO TRANSFERASE 14 Units/L (15-37); BLOOD UREA NITROGEN 18 mg/dL (7-18); CALCIUM 8.6 mg/dL (8.5-10.1); CARBON DIOXIDE 24.3 mmol/L (21-32); CHLORIDE 111 mmol/L (98-107); COR CA(FOR HYPOALB) 9.6 mg/dL (8.5-10.1); COR NA(FOR HYPERGLY) 145 mmol/L (136-145); CREATININE 0.75 mg/dL (0.55-1.02); SODIUM 144 mmol/L (136-145); TOTAL PROTEIN 5.3 g/dL (6.4-8.2); eGFR NON BLACK RACES > 60 (>60)
[2019-01-14 05:41] LABS: ANISOCYTOSIS SLIGHT; PLATELET MORPHOLOGY COMMENT NORMAL (NORMAL)
[2019-01-14 08:57] LABS: HEMATOCRIT 28.2 % (36.0-47.0); HEMOGLOBIN 9.8 g/dL (12.0-16.0)
[2019-01-14] MEDS: COREG TAB 6.25 MG PO SCH ×2 (09:25→21:56)
[2019-01-14] MEDS: XANAX PO SCH ×2 (09:25→21:56)
[2019-01-14] MEDS: MICRO K EXTEN CAP 10 MEQ PO SCH (09:25)
[2019-01-14] MEDS: PROTONIX TAB 40 MG PO SCH ×2 (09:25→21:56)
[2019-01-14] MEDS: NEURONTIN CAP 100 MG PO SCH ×2 (09:26→21:56)
[2019-01-14] MEDS: SYNTHROID 100 mcg TAB PO SCH (09:26)
[2019-01-14] MEDS: AZILSARTAN MED CHLORTHALIDONE PO SCH (09:27)
[2019-01-14] MEDS ORDERED: NS 500 ML IV 500 ML IV ONE (09:33)
[2019-01-14] MEDS: HumuLIN R SUBCUT PRN ×2 (13:10→22:58)
[2019-01-14 14:39] LABS: HEMATOCRIT 31.6 % (36.0-47.0); HEMOGLOBIN 10.9 g/dL (12.0-16.0)
[2019-01-14 19:35] LABS: HEMATOCRIT 35.5 % (36.0-47.0); HEMOGLOBIN 12.6 g/dL (12.0-16.0)
[2019-01-14] MEDS: SNACK - Diabetic Appropriate PO SCH (20:00)
--- NOTE | 2019-01-14 21:18 | PCM.PROG ---
Progress Note - Progress Note for Day of Date of Exam: 01/13/19 - Subjective Subjective: WAS ADMITTED FOR TREATMENT OF ANEMIA. ON ADMISSION, SHE WAS TYPED AND SCREENED. SHE HAS ANTIBODIES IN HER BLOOD, THEREFORE, HER BLOOD WILL NOT BE AVAILABLE UNTIL SOMETIME TODAY. HEMOGLOBIN WAS NOTED TO BE 5.8 ON ADMISSION. TODAY, SHE IS ALERT AND ORIENTED, LYING IN BED ON MORNING ROUNDS. SHE IS NOTED WITH COMPLAINTS OF GENERALIZED WEAKNESS. ON EXAMINATION, SHE IS NOTED TO BE PALE IN COLOR. HEART IS REGULAR IN RATE AND RHYTHM. BILATERAL LUNGS ARE NOTED WITH DIMINISHED LUNG SOUNDS THROUGHOUT. ABDOMEN IS ROUND, SOFT, AND NON- TENDER WITH NORMAL BOWEL SOUNDS NOTED IN ALL QUADRANTS. HER VITALS THIS MORNING ARE: 98.3-67-21-98%-134/62. LABS WERE OBTAINED. ABNROMAL LAB VALUES INCLUDE THE FOLLOWING: RBC 1.46, HGB 5.1, HCT 15.0, BUN 34, CREATININE 1.11, GLUCOSE 264, TOTAL BILI 0.10, TOTAL BILI 5.8, ALBUMIN 3.0, IRON 42, TRANSFERRIN 171. SHE IS CURRENTLY RECEIVING IV FLUIDS AND HOME MEDICATIONS WERE RESUMED. TODAY, WE WILL TRANSFUSE 4 UNITS OF PRBC WHEN IT IS AVAILABLE. OTHERWISE, WE WILL FOLLOW UP WITH AM LABS AND CONTINUE TO MONITOR. - Past Medical Family Social History Past Med/Fam/Surg Hx: No changes since H&P Allergies: Allergies Penicillins Allergy (Verified 02/03/17 18:45) prednisone Allergy (Verified 07/02/17 10:35) tramadol Allergy (Verified 01/12/19 18:45) - Review of Systems ROS: No change since H&P - Vital Signs and I&O's Vital Signs: Temperature 98.1 F Pulse Rate [Apical] 67 Respiratory Rate 23 Blood Pressure [Right Calf] 170/70 Blood Pressure [Right Arm] 150/65 Blood Pressure [Left Arm] 144/67 Blood Pressure [Left Arm] 124/56 Blood Pressure [Right Arm] 128/58 Blood Pressure 170/70 O2 Sat by Pulse Oximetry 99 Intake and Output: Intake & Output 01/12/19 01/13/19 01/14/19 01/15/19 11:59 11:59 11:59 11:59 Intake Total 890 / 890 2690 / 2690 2169 / 2169 Output Total 700 / 700 Balance 890 / 890 2690 / 2690 1469 / 1469 - Physical Exam Oriented: Normal Eyes: Normal Ear: Normal Nose: Normal Throat: Normal Respiratory: Normal, Generalized, Diminished Cardiovascular: Normal : Normal Auscultation: Bowel Sounds: Normal Palpation: Normal Tenderness: Normal Skin: Normal Musculoskeletal: Normal Psychiatric: Normal Mood Description: Calm Affect: Normal Speech Pattern: Clear, Appropriate - Laboratory and Diagnostics Result Diagrams: 01/14/19 19:18 01/14/19 04:13 Labs: Laboratory WBC 6.7 X10^3/uL (3.6-10.0) 01/14/19 04:13 RBC 2.88 X10^6/uL (3.5-5.4) L 01/14/19 04:13 Hgb 12.6 g/dL (12.0-16.0) 01/14/19 19:18 Hct 35.5 % (36.0-47.0) L 01/14/19 19:18 MCV 88.5 fL (80.0-100.0) 01/14/19 04:13 MCH 31.3 pg (27.0-34.0) 01/14/19 04:13 MCHC 35.4 g/dL (33.0-35.0) H 01/14/19 04:13 RDW 21.5 % (11.6-16.5) H 01/14/19 04:13 Plt Count 151 X10^3/uL (150.0-450.0) 01/14/19 04:13 Plt Count Comment Adequate (ADEQUATE) 01/14/19 04:13 MPV 8.5 fL (7.4-11.0) 01/14/19 04:13 Neut % (Auto) 68.9 % (42.0-75.0) 01/14/19 04:13 Lymph % (Auto) 23.7 % (21.0-51.0) 01/14/19 04:13 [place] % (Auto) 4.6 % (0.0-13.0) 01/14/19 04:13 Eos % (Auto) 2.3 % (0.9-2.9) 01/14/19 04:13 Baso % (Auto) 0.5 % (0.2-1.0) 01/14/19 04:13 Neut # (Auto) 4.6 x10^3/uL (2.2-4.8) 01/14/19 04:13 Lymph # (Auto) 1.6 X10^3/uL (1.3-2.9) 01/14/19 04:13 [place] # (Auto) 0.3 x10^3/uL (0.3-0.8) 01/14/19 04:13 Eos # (Auto) 0.2 x10^3/uL (0.0-0.2) 01/14/19 04:13 Baso # (Auto) 0.0 X10^3/uL (0.0-0.1) 01/14/19 04:13 Absolute Nucleated RBC 0.3 /100WBC 01/14/19 04:13 Plt Morphology Comment Normal (NORMAL) 01/14/19 04:13 RBC Morphology Abnormal (NORMAL) A 01/14/19 04:13 Anisocytosis Slight A 01/14/19 04:13 Sodium 144 mmol/L (136-145) 01/14/19 04:13 Corrected Sodium 145 mmol/L (136-145) 01/14/19 04:13 Potassium 3.7 mmol/L (3.5-5.1) 01/14/19 04:13 Chloride 111 mmol/L (98-107) H 01/14/19 04:13 Carbon Dioxide 24.3 mmol/L (21-32) 01/14/19 04:13 BUN 18 mg/dL (7-18) 01/14/19 04:13 Creatinine 0.75 mg/dL (0.55-1.02) 01/14/19 04:13 Est GFR (MDRD) Af Amer > 60 (>60) 01/14/19 04:13 Est GFR (MDRD) Non-Af > 60 (>60) 01/14/19 04:13 Glucose 151 mg/dL (65-99) H 01/14/19 04:13 POC Glucose (mg/dL) 190 mg/dL (65-99) H 01/14/19 20:14 Calcium 8.6 mg/dL (8.5-10.1) 01/14/19 04:13 Corrected Calcium 9.6 mg/dL (8.5-10.1) 01/14/19 04:13 Iron 42 ug/dL (50-175) L 01/13/19 11:26 Transferrin 171 mg/dL (202-364) L 01/13/19 11:26 Ferritin 55 ng/mL (8-252) 01/13/19 11:26 Total Bilirubin 0.40 mg/dL (0.2-1.0) 01/14/19 04:13 AST 14 Units/L (15-37) L 01/14/19 04:13 ALT 13 Units/L (12-78) 01/14/19 04:13 Alkaline Phosphatase 47 Units/L (46-116) 01/14/19 04:13 Total Protein 5.3 g/dL (6.4-8.2) L 01/14/19 04:13 Albumin 2.8 g/dL (3.4-5.0) L 01/14/19 04:13 Globulin 2.5 g/dL (2.5-4.5) 01/14/19 04:13 Albumin/Globulin Ratio 1.1 Ratio (1.1-2.1) 01/14/19 04:13 Vitamin B12 700 pg/mL (193-986) 01/13/19 11:26 Folate > 20.0 ng/mL (>8.6) 01/13/19 11:26 Blood Type B POSITIVE 01/12/19 09:48 Antibody Screen Positive 01/12/19 09:48 Antibody Identification Anti-K 01/12/19 09:48 Crossmatch See Detail 01/12/19 09:48 - Plan (1) Anemia Status: Acute Qualifiers: Anemia type: iron deficiency Iron deficiency anemia type: chronic blood loss Qualified Code(s): D50.0 - Iron deficiency anemia secondary to blood loss (chronic) Plan: TRANSFUSE 4 UNITS PRBC, MONITOR H&H, CONTINUE TO MONITOR
[2019-01-14] MEDS: CRESTOR TAB 10 MG PO SCH (21:56)
[2019-01-14] MEDS: NORVASC TAB 10 MG PO SCH (21:56)
[2019-01-14] MEDS: AMBIEN PO SCH (21:56)
[2019-01-15] MEDS: NORCO 5/325 MG TAB PO PRN (00:42)
[2019-01-15] MEDS: NS 1000 ML 1,000 ML IV SCH ×2 (04:15)
[2019-01-15] MEDS: HumuLIN R SUBCUT PRN (05:53)
[2019-01-15 06:37] LABS: ALANINE AMINOTRANSFERASE 19 Units/L (12-78); ALBUMIN 2.5 g/dL (3.4-5.0); ALKALINE PHOSPHATASE 57 Units/L (46-116); ASPARTATE AMINO TRANSFERASE 21 Units/L (15-37); BLOOD UREA NITROGEN 15 mg/dL (7-18); CALCIUM 8.2 mg/dL (8.5-10.1); CHLORIDE 110 mmol/L (98-107); COR CA(FOR HYPOALB) 9.4 mg/dL (8.5-10.1); COR NA(FOR HYPERGLY) 143 mmol/L (136-145); CREATININE 0.84 mg/dL (0.55-1.02); SODIUM 141 mmol/L (136-145); TOTAL PROTEIN 5.2 g/dL (6.4-8.2); eGFR NON BLACK RACES > 60 (>60)
[2019-01-15 06:39] LABS: BASOPHILS % (AUTO) 0.4 % (0.2-1.0); EOSINOPHILS # (AUTO) 0.2 x10^3/uL (0.0-0.2); EOSINOPHILS % (AUTO) 2.7 % (0.9-2.9); HEMATOCRIT 34.2 % (36.0-47.0); HEMOGLOBIN 12.1 g/dL (12.0-16.0); LYMPHOCYTES # (AUTO) 1.1 X10^3/uL (1.3-2.9); LYMPHOCYTES % (AUTO) 14.1 % (21.0-51.0); MEAN CORPUSCULAR HEMOGLOBIN 31.2 pg (27.0-34.0); MEAN CORPUSCULAR HGB CONC 35.3 g/dL (33.0-35.0); MEAN CORPUSCULAR VOLUME 88.4 fL (80.0-100.0); MEAN PLATELET VOLUME 8.8 fL (7.4-11.0); MONOCYTES # (AUTO) 0.4 x10^3/uL (0.3-0.8); MONOCYTES % (AUTO) 4.4 % (0.0-13.0); NEUTROPHILS # (AUTO) 6.3 x10^3/uL (2.2-4.8); NEUTROPHILS % (AUTO) 78.4 % (42.0-75.0); PLATELET COUNT 158 X10^3/uL (150.0-450.0); RED BLOOD COUNT 3.87 X10^6/uL (3.5-5.4); RED CELL DISTRIBUTION WIDTH 18.7 % (11.6-16.5)
[2019-01-15] MEDS: SYNTHROID 100 mcg TAB PO SCH (09:24)
[2019-01-15] MEDS: PROTONIX TAB 40 MG PO SCH (09:24)
[2019-01-15] MEDS: XANAX PO SCH (09:24)
[2019-01-15] MEDS: MICRO K EXTEN CAP 10 MEQ PO SCH (09:24)
[2019-01-15] MEDS: COREG TAB 6.25 MG PO SCH (09:24)
[2019-01-15 11:18] VITALS: BP 130/68
== END 2019-01-15 13:22 | disposition home or self-care (01) | DRG 812 ==
LOC: ICU 08:43
PROVIDERS: ADMIT Internal Medicine; ATTEND Internal Medicine
DX: R53.1 Weakness; D50.0 Iron deficiency anemia secondary to blood loss (chronic); R53.83 Other fatigue
CPT/HCPCS: 36415; 36430; 80053; 82607; 82728; 82746; 83540; 83735; 84466; 85014; 85018; 85025; 86850; 86870; 86880; 86900; 86901; 86902; 86904; 86920; 86922; A4222; P9016; J0885; J1200; J1815; J3490; J7030; J7040

== ENCOUNTER 2019-02-03 17:47 | Inpatient (IN) ==
[2019-02-03 18:06] VITALS: BMI 25.1
--- NOTE | 2019-02-03 18:42 | DR.GENAD ---
HPI Time Seen Time Seen by Provider: 02/03/19 18:41 PCP Primary Care Physician: taya HPI Comment HPI Comment: PATIENT IS 74YR OLD FEMALE IN ER WITH GI BLEEDING. PATIENT IS PASSING TARRY STOOL WITH CLOTS. IS BEING PROGRESSIVE AND WORSE PAST ONE WEEK. HAVE SIMILAR GI BLEEDING IN THE PAST REQUIRING BLOOD TRANFUSION. RECENTLY IN HOSPITAL FOR GI BLEEDING. HAVE COLONOSCOPY AND EGD DONE PREVIOUSLY WITH SMALL ULCER FINDING. NO FEVER OR DYSURIA. PATIENT IS ON ASA AND PLAVIX. Complaint/Symptoms Chief Complaint Doctors Comments: GASTROINTESTINAL BLEEDING. Chief Complaint:: vag bleeding x 1 day, pt states she is passing blood clots Self Treatment fo Chief Complaint: n/a Nurses notes reviewed Nurses Notes Review: Yes Source History Provided: Patient Mode of Arrival Mode of Arrival: Ambulatory Timing Onset of Chief Complaint: 02/02/19 Came on: Gradually Duration Duration: Constant Duration: Days Location Location: GENERALIZED WEAKNESS. Severity Severity: Moderate Modifying Factors Worsens:: EXERTION. Improves:: RESTING. Associated Signs and Symptoms Associated Signs and Symptoms: WEAKNESS. Other History Other History: HISTORY GI BLEED AND ANEMIA. PMH PMH Past Medical History: Yes Past Medical History: Anemia, Diabetes and Hypertension Past Medical History Comment: arthritis, nose bleeds Past Surgical History: Yes Surgical History: CABG/Valve Surgery, Carotid Endarterectomy, Cholecystectomy, Hysterectomy, Tonsillectomy and Lithotripsy Past Surgical History Comment: cervical ca Family History History of Family Medical Conditions: No Family Medical History: Diabetes Mellitus, Cancer, [place], Sudden Cardiac and Hypertension Social History Does patient currently use any type of tobacco product: Yes Have you used tobacco products in the last 12 months: Yes Type of Tobacco Use: Cigarettes Does any household member use tobacco: Yes Alcohol Use: None Do you use any recreational Drugs:: No Lives With: Family Lives Where: Home infectious screening In the last 2 months have you had wt loss of >10#?: NO Have you had fever, night sweats or hemotysis?: No Have you traveled outside the country in the last 6 months?: No Isolation: Standard ROS Review of Systems Constitutional: See HPI, Weakness and Fatigue; negative Chills and Fever Eyes: No Symptoms Reported and See HPI; negative Eye Pain, Tearing and Discharge ENTM: No Symptoms Reported and See HPI; negative Ear Pain, Nose Discharge, Nose Congestion and Throat Pain Respiratoy: See HPI and Short of Breath; negative Moist Cough and Wheezing Cardiovascular: No Symptoms Reported and See HPI; negative Edema and Palpit ations Gastrointestinal/Abdominal: No Symptoms Reported, See HPI and Other (GI BLEEDING.); negative Nausea Genitourinary: No Symptoms Reported and See HPI; negative Dysuria, Frequency and Hematuria Neurological: See HPI, Weakness and Dizziness; negative Headache Musculoskeletal: No Symptoms Reported and See HPI; negative Back Pain and Muscle Pain Integumentary: No Symptoms Reported and See HPI; negative Change in Color, Rash and Juandice Hematologic/Lymphatic: See HPI, Anemia, Easy Bleeding and Easy Bruising; negative Swollen Glands Endocrine: No Symptoms Reported and See HPI; negative Increased Thirst and Increased Urine Psychiatric: No Symptoms Reported and See HPI All Other Systems: Reviewed and Negative PE Vital Signs Vitals: Temperature 97.3 F Pulse Rate [Left] 90 Pulse Rate 87 Respiratory Rate 20 Blood Pressure [Right Calf] 170/70 Blood Pressure [Right Arm] 107/53 Blood Pressure [Left Arm] 146/65 Blood Pressure [Left Arm] 124/56 Blood Pressure [Right Arm] 128/58 Blood Pressure 94/51 O2 Sat by Pulse Oximetry 98 General Limitations: No Limitations General Appearance: Alert and In No Apparent Distress Head Head Exam: Normal Inspection and Atraumatic Eyes Eye exam: Normal Appearance and PERRL; negative Scleral Icterus and Conjunctival Injection (CONJUNCTIVA PALE.) ENT ENT Exam: Normal Exam, Normal Oropharynx, Normal External Ear Exam and TM's Normal Bilaterally External Ear Exam: Normal External Inspection; negative Mastoid Tenderness, Pain with Movement and External Tenderness TM/Canal Exam: Bilateral: Normal Nose Exam: Normal Nose Exam; negative Sinus Tenderness, Nasal Deviation and Septal Hematoma Mouth Exam: Normal Inspection; negative Lip Swelling and Tongue Swelling Throat Exam: Normal Inspection; negative Tonsillar Erythema, Tonsillomegaly and Tonsillar Exudate Neck Neck Exam: Normal Inspection; negative Trachea Midline, Tenderness and Lymphadenopathy Chest Chest Inspection: Normal Inspection and Symmetric Chest Wall Rise; negative Tenderness Respiratory Respiratory Exam: Normal Lung Sounds Bilat; negative Accessory Muscle Use, Chest Wall Tenderness and Respiratory Distress Respiratory Exam: Bilateral: Clear to Auscultation Cardiovascular Cardiovascular Exam: Regular Rate, Normal Rhythm and Normal Heart Sounds; negative Systolic Murmur and Diastolic Murmur Abdominal Exam Abdominal Exam: Normal Inspection, Normal Bowel Sounds and Soft; negative Tenderness Extremities Extremities Exam: Normal Inspection and Normal Capillary Refill; negative Tenderness, Edema and Calf Tenderness Back Back Exam: Normal Inspection; negative Tenderness, (R) CVA Tenderness, (L) CVA Tenderness, Paraspinal Tenderness and Vertebral Tenderness Neurologic Neurological Exam: Alert, Oriented X3 and CN II-XII Intact; negative Motor Sensory Deficit Psychiatric Psychiatric Exam: Normal Affect and Normal Mood Skin Skin Exam: Warm, Dry, Intact and Normal Color MDM Differential Diagnosis Differential Diagnosis: GI BLEEDING, ANEMIA, HYPOTENSION, GENERALIZED WEAKNESS. COURSE Treatment Treatment: SEE ORDERS. PATIENT SIG OUT TO DR. PIÑA 20:10PM. Education/Counseling Education/Counseling: Patient Educated On: Diagnosis ROR Labs Reviewed Result Diagrams: 02/03/19 19:22 02/03/19 19: Laboratory: WBC 10.2 X10^3/uL (3.6-10.0) H 02/03/19: RBC 3.06 X10^6/uL (3.5-5.4) L 02/03/19: Hgb 9.6 g/dL (12.0-16.0) L 02/03/19: Hct 27.9 % (36.0-47.0) L 02/03/19 19: MCV 91.2 fL (80.0-100.0) 02/03/19: MCH 31.2 pg (27.0-34.0) 02/03/19 19: MCHC 34.2 g/dL (33.0-35.0) 02/03/19 19: RDW 17.7 % (11.6-16.5) H 02/03/19: Plt Count 230 X10^3/uL (150.0-450.0) 02/03/19: MPV 8.5 fL (7.4-11.0) 02/03/19 19: Neut % (Auto) 81.9 % (42.0-75.0) H 02/03/19: Lymph % (Auto) 13.6 % (21.0-51.0) L 02/03/19: [place] % (Auto) 3.4 % (0.0-13.0) 02/03/19 19: Eos % (Auto) 0.9 % (0.9-2.9) 02/03/19:22 Baso % (Auto) 0.2 % (0.2-1.0) 02/03/19 19:22 Neut # (Auto) 8.4 x10^3/uL (2.2-4.8) H 02/03/19 19:22 Lymph # (Auto) 1.4 X10^3/uL (1.3-2.9) 02/03/19 19:22 [place] # (Auto) 0.3 x10^3/uL (0.3-0.8) 02/03/19 19:22 Eos # (Auto) 0.1 x10^3/uL (0.0-0.2) 02/03/19 19:22 Baso # (Auto) 0.0 X10^3/uL (0.0-0.1) 02/03/19 19:22 Absolute Nucleated RBC 0.0 /100WBC 02/03/19 19:22 Sodium 133 mmol/L (136-145) L 02/03/19 19:22 Corrected Sodium 140 mmol/L (136-145) 02/03/19 19:22 Potassium 5.1 mmol/L (3.5-5.1) 02/03/19:22 Chloride 102 mmol/L (98-107) 02/03/19 19:22 Carbon Dioxide 21.7 mmol/L (21-32) 02/03/19 19:22 BUN 91 mg/dL (7-18) H 02/03/19:22 Creatinine 1.59 mg/dL (0.55-1.02) H 02/03/19 19:22 Est GFR (MDRD) Af Amer 41 (>60) L 02/03/19 19:22 Est GFR (MDRD) Non-Af 34 (>60) L 02/03/19 19:22 Glucose 407 mg/dL (65-99) H 02/03/19:22 Calcium 9.5 mg/dL (8.5-10.1) 02/03/19:22 Corrected Calcium 10.2 mg/dL (8.5-10.1) H 02/03/19 19:22 Total Bilirubin 0.10 mg/dL (0.2-1.0) L 02/03/19 19:22 AST 10 Units/L (15-37) L 02/03/19 19:22 ALT 20 Units/L (12-78) 02/03/19 19:22 Alkaline Phosphatase 69 Units/L (46-116) 02/03/19 19:22 Total Protein 6.3 g/dL (6.4-8.2) L 02/03/19 19:22 Albumin 3.1 g/dL (3.4-5.0) L 02/03/19 19:22 Globulin 3.2 g/dL (2.5-4.5) 02/03/19 19:22 Albumin/Globulin Ratio 1.0 Ratio (1.1-2.1) L 02/03/19 19:22 Amylase 25 Units/L (25-115) 02/03/19 19:22 Lipase 127 Units/L (73-393) 02/03/19 19:22 Specimen Type Catherized urine 02/03/19 19:24 Urine Color Yellow (YELLOW) 02/03/19 19:24 Urine Appearance Slightly hazy (CLEAR) 02/03/19 19:24 Urine pH 5.0 (5.0 - 8.0) 02/03/19 19:24 Ur Specific [place] 1.015 (1.000-1.030) 02/03/19 19:24 Urine Protein Negative (NEGATIVE) 02/03/19 19:24 Urine Glucose (UA) 2+ (NEGATIVE) 02/03/19 19:24 Urine Ketones Negative (NEGATIVE) 02/03/19 19:24 Urine Occult Blood Negative (NEGATIVE) 02/03/19 19:24 Urine Nitrite Negative (NEGATIVE) 02/03/19 19:24 Urine Bilirubin Negative (NEGATIVE) 02/03/19 19:24 Urine Urobilinogen Normal (NORMAL) 02/03/19 19:24 Ur Leukocyte Esterase 2+ (NEGATIVE) 02/03/19 19:24 Urine RBC 0-2 /HPF (0-3) 02/03/19 19:24 Urine WBC 5-10 /HPF (0-5) A 02/03/19 19:24 Ur Squamous Epith Cells Negative /HPF (NEGATIVE) 02/03/19 19:24 Urine Bacteria 1+ /HPF (NEGATIVE) 02/03/19 19:24 Ur Culture Indicated? Yes/culture set up 02/03/19 19:24 Stool Description Fob tube 02/03/19 19:24 Stl Occult Blood (IFOB) Negative (NEGATIVE) 02/03/19 19:24 Opioid Opioid Risk Tool Age (Esequiel box if 16-45): No History of Preadolescent Sexual Abuse: No Total: 0 Total Score Risk Category: Low Risk Copyright: Brice BAEZA predicting aberrant behaviors Diagnosis Discharge Problem: GI bleed Qualifiers: GI bleed type/associated pathology: anorectal hemorrhage Qualified Code(s): K62.5 - Hemorrhage of anus and rectum Anemia Qualifiers: Anemia type: iron deficiency Iron deficiency anemia type: chronic blood loss Qualified Code(s): D50.0 - Iron deficiency anemia secondary to blood loss (chronic) Hypotension Qualifiers: Hypotension type: idiopathic hypotension Qualified Code(s): I95.0 - Idiopathic hypotension
[2019-02-03 19:34] LABS: BASOPHILS % (AUTO) 0.2 % (0.2-1.0); EOSINOPHILS # (AUTO) 0.1 x10^3/uL (0.0-0.2); EOSINOPHILS % (AUTO) 0.9 % (0.9-2.9); HEMATOCRIT 27.9 % (36.0-47.0); HEMOGLOBIN 9.6 g/dL (12.0-16.0); LYMPHOCYTES # (AUTO) 1.4 X10^3/uL (1.3-2.9); LYMPHOCYTES % (AUTO) 13.6 % (21.0-51.0); MEAN CORPUSCULAR HEMOGLOBIN 31.2 pg (27.0-34.0); MEAN CORPUSCULAR HGB CONC 34.2 g/dL (33.0-35.0); MEAN CORPUSCULAR VOLUME 91.2 fL (80.0-100.0); MEAN PLATELET VOLUME 8.5 fL (7.4-11.0); MONOCYTES # (AUTO) 0.3 x10^3/uL (0.3-0.8); MONOCYTES % (AUTO) 3.4 % (0.0-13.0); NEUTROPHILS # (AUTO) 8.4 x10^3/uL (2.2-4.8); NEUTROPHILS % (AUTO) 81.9 % (42.0-75.0); PLATELET COUNT 230 X10^3/uL (150.0-450.0); RED BLOOD COUNT 3.06 X10^6/uL (3.5-5.4); RED CELL DISTRIBUTION WIDTH 17.7 % (11.6-16.5); WHITE BLOOD COUNT 10.2 X10^3/uL (3.6-10.0)
[2019-02-03 19:45] LABS: ALBUMIN 3.1 g/dL (3.4-5.0); CALCIUM 9.5 mg/dL (8.5-10.1); CARBON DIOXIDE 21.7 mmol/L (21-32); COR CA(FOR HYPOALB) 10.2 mg/dL (8.5-10.1); CREATININE 1.59 mg/dL (0.55-1.02); TOTAL PROTEIN 6.3 g/dL (6.4-8.2)
[2019-02-03 19:50] LABS: BILIRUBIN,URINE NEGATIVE (NEGATIVE); BLOOD/HEMOGLOBIN,URINE NEGATIVE (NEGATIVE); GLUCOSE, URINE 2+ (NEGATIVE); KETONES,URINE NEGATIVE (NEGATIVE); LEUKOCYTE ESTERASE ,URINE 2+ (NEGATIVE); NITRITES,URINE NEGATIVE (NEGATIVE); PROTEIN,URINE NEGATIVE (NEGATIVE); UROBILINOGEN,URINE NORMAL (NORMAL)
[2019-02-03 19:58] LABS: APPEARANCE,URINE SLIGHTLY HAZY (CLEAR); BACTERIA,URINE 1+ /HPF (NEGATIVE); COLOR,URINE YELLOW (YELLOW); RBC,URINE 0-2 /HPF (0-3); SQUAMOUS EPITHELIAL CELL,UR NEGATIVE /HPF (NEGATIVE)
--- NOTE | 2019-02-03 22:46 | DR.GENAD ---
HPI - PCP Primary Care Physician: taya - HPI Comment HPI Comment: Pt with rectal bleeding w/clots x one day; see Dr Lynn's note. - Complaint/Symptoms Chief Complaint:: vag bleeding x 1 day, pt states she is passing blood clots Self Treatment fo Chief Complaint: n/a - Source History Provided: Patient - Mode of Arrival Mode of Arrival: Ambulatory - Timing Onset of Chief Complaint: 02/02/19 PMH - PMH Past Medical History: Yes Past Medical History: Hypertension, Diabetes, Anemia Past Medical History Comment: arthritis, nose bleeds Past Surgical History: Yes Surgical History: CABG/Valve Surgery, Carotid Endarterectomy, Cholecystectomy, Hysterectomy, Lithotripsy, Tonsillectomy Past Surgical History Comment: cervical ca - Family History History of Family Medical Conditions: No Family Medical History: Diabetes Mellitus, Cancer, [place], Sudden Cardiac , Hypertension - Social History Does patient currently use any type of tobacco product: Yes Have you used tobacco products in the last 12 months: Yes Type of Tobacco Use: Cigarettes Does any household member use tobacco: Yes Alcohol Use: None Do you use any recreational Drugs:: No Lives With: Family Lives Where: Home - infectious screening In the last 2 months have you had wt loss of >10#?: NO Have you had fever, night sweats or hemotysis?: No Have you traveled outside the country in the last 6 months?: No Isolation: Standard ROS - Review of Systems Constitutional: Malaise, Other (see Dr Lynn's note) Eyes: No Symptoms Reported ENTM: No Symptoms Reported Gastrointestinal/Abdominal: See HPI PE - General Limitations: No Limitations General Appearance: Alert, In No Apparent Distress - Head Head Exam: Normal Inspection, Atraumatic - Eyes Eye exam: Normal Appearance, PERRL - Neck Neck Exam: Normal Inspection, Full ROM - Chest Chest Inspection: Normal Inspection - Respiratory Respiratory Exam: Normal Lung Sounds Bilat Respiratory Exam: Bilateral Clear to Auscultation - Cardiovascular Cardiovascular Exam: Regular Rate, Normal Rhythm - Abdominal Exam Abdominal Exam: Normal Inspection, Normal Bowel Sounds, Soft - Neurologic Neurological Exam: Alert, Oriented X3 - Psychiatric Psychiatric Exam: Normal Affect, Normal Mood - Skin Skin Exam: Warm - Vital Signs Vitals: Temperature 97.3 F Pulse Rate [Left] 90 Pulse Rate 88 Respiratory Rate 20 Blood Pressure [Right Calf] 170/70 Blood Pressure [Right Arm] 107/53 Blood Pressure [Left Arm] 146/65 Blood Pressure [Left Arm] 124/56 Blood Pressure [Right Arm] 128/58 Blood Pressure 107/53 O2 Sat by Pulse Oximetry 99 Course - Consultation Call Returned: 22:15 (Dr Bang accepts pt) ROR - Labs Reviewed Laboratory Results Reviewed?: Yes Result Diagrams: 02/03/19 19:22 02/03/19 19:22 - Labs Reviewed Laboratory: WBC 10.2 X10^3/uL (3.6-10.0) H 02/03/19 19: RBC 3.06 X10^6/uL (3.5-5.4) L 02/03/19 19: Hgb 9.6 g/dL (12.0-16.0) L 02/03/19: Hct 27.9 % (36.0-47.0) L 02/03/19 19: MCV 91.2 fL (80.0-100.0) 02/03/19 19: MCH 31.2 pg (27.0-34.0) 02/03/19: MCHC 34.2 g/dL (33.0-35.0) 02/03/19: RDW 17.7 % (11.6-16.5) H 02/03/19: Plt Count 230 X10^3/uL (150.0-450.0) 02/03/19 19: MPV 8.5 fL (7.4-11.0) 02/03/19 19: Neut % (Auto) 81.9 % (42.0-75.0) H 02/03/19: Lymph % (Auto) 13.6 % (21.0-51.0) L 02/03/19:22 [place] % (Auto) 3.4 % (0.0-13.0) 02/03/19: Eos % (Auto) 0.9 % (0.9-2.9) 02/03/19 19: Baso % (Auto) 0.2 % (0.2-1.0) 02/03/19 19: Neut # (Auto) 8.4 x10^3/uL (2.2-4.8) H 10/02/19 19:22 Lymph # (Auto) 1.4 X10^3/uL (1.3-2.9) 02/03/19 19:22 [place] # (Auto) 0.3 x10^3/uL (0.3-0.8) 02/03/19 19:22 Eos # (Auto) 0.1 x10^3/uL (0.0-0.2) 02/03/19 19:22 Baso # (Auto) 0.0 X10^3/uL (0.0-0.1) 02/03/19 19:22 Absolute Nucleated RBC 0.0 /100WBC 02/03/19 19:22 Sodium 133 mmol/L (136-145) L 02/03/19:22 Corrected Sodium 140 mmol/L (136-145) 02/03/19 19:22 Potassium 5.1 mmol/L (3.5-5.1) 02/03/19:22 Chloride 102 mmol/L (98-107) 02/03/19 19:22 Carbon Dioxide 21.7 mmol/L (21-32) 02/03/19 19:22 BUN 91 mg/dL (7-18) H 02/03/19 19:22 Creatinine 1.59 mg/dL (0.55-1.02) H 02/03/19 19:22 Est GFR (MDRD) Af Amer 41 (>60) L 02/03/19 19:22 Est GFR (MDRD) Non-Af 34 (>60) L 02/03/19 19:22 Glucose 407 mg/dL (65-99) H 02/03/19 19:22 Calcium 9.5 mg/dL (8.5-10.1) 02/03/19 19:22 Corrected Calcium 10.2 mg/dL (8.5-10.1) H 02/03/19 19:22 Total Bilirubin 0.10 mg/dL (0.2-1.0) L 02/03/19 19:22 AST 10 Units/L (15-37) L 02/03/19 19:22 ALT 20 Units/L (12-78) 02/03/19 19:22 Alkaline Phosphatase 69 Units/L (46-116) 02/03/19 19:22 Total Protein 6.3 g/dL (6.4-8.2) L 02/03/19 19:22 Albumin 3.1 g/dL (3.4-5.0) L 02/03/19 19:22 Globulin 3.2 g/dL (2.5-4.5) 02/03/19 19:22 Albumin/Globulin Ratio 1.0 Ratio (1.1-2.1) L 02/03/19 19:22 Amylase 25 Units/L (25-115) 02/03/19 19: Lipase 127 Units/L (73-393) 02/03/19 19:22 Specimen Type Catherized urine 02/03/19 19:24 Urine Color Yellow (YELLOW) 02/03/19 19:24 Urine Appearance Slightly hazy (CLEAR) 02/03/19 19:24 Urine pH 5.0 (5.0 - 8.0) 02/03/19 19:24 Ur Specific [place] 1.015 (1.000-1.030) 02/03/19 19:24 Urine Protein Negative (NEGATIVE) 02/03/19 19:24 Urine Glucose (UA) 2+ (NEGATIVE) 02/03/19 19:24 Urine Ketones Negative (NEGATIVE) 02/03/19 19:24 Urine Occult Blood Negative (NEGATIVE) 02/03/19 19:24 Urine Nitrite Negative (NEGATIVE) 02/03/19 19:24 Urine Bilirubin Negative (NEGATIVE) 02/03/19 19:24 Urine Urobilinogen Normal (NORMAL) 02/03/19 19:24 Ur Leukocyte Esterase 2+ (NEGATIVE) 02/03/19 19:24 Urine RBC 0-2 /HPF (0-3) 02/03/19 19:24 Urine WBC 5-10 /HPF (0-5) A 02/03/19 19:24 Ur Squamous Epith Cells Negative /HPF (NEGATIVE) 02/03/19 19:24 Urine Bacteria 1+ /HPF (NEGATIVE) 02/03/19 19:24 Ur Culture Indicated? Yes/culture set up 02/03/19 19:24 Stool Description Fob tube 02/03/19 19:24 Stl Occult Blood (IFOB) Negative (NEGATIVE) 02/03/19 19:24 Opioid - Opioid Risk Tool Age (Esequiel box if 16-45): No History of Preadolescent Sexual Abuse: No Total: 0 Total Score Risk Category: Low Risk - Diagnosis Discharge Problem: GI bleed Qualifiers: GI bleed type/associated pathology: anorectal hemorrhage Qualified Code(s): K62.5 - Hemorrhage of anus and rectum Anemia Qualifiers: Anemia type: iron deficiency Iron deficiency anemia type: chronic blood loss Qualified Code(s): D50.0 - Iron deficiency anemia secondary to blood loss (chronic) Hypotension Qualifiers: Hypotension type: idiopathic hypotension Qualified Code(s): I95.0 - Idiopathic hypotension - Discharge Plan Disposition: 09 ADMITTED INPATIENT Condition: Stable
[2019-02-03] MEDS ORDERED: HumuLIN R IV ONE (23:09)
[2019-02-03] MEDS ORDERED: HumuLIN R ONE (23:14)
[2019-02-03] MEDS ORDERED: ZOFRAN INJ 4 MG VIAL IV PRN (23:48)
[2019-02-03] MEDS: NS 1000 ML 1,000 ML IV SCH (23:51)
[2019-02-04 02:00] LABS: BASOPHILS % (AUTO) 0.5 % (0.2-1.0); HEMATOCRIT 25.9 % (36.0-47.0); HEMOGLOBIN 8.9 g/dL (12.0-16.0); MEAN CORPUSCULAR HGB CONC 34.5 g/dL (33.0-35.0); MEAN PLATELET VOLUME 8.6 fL (7.4-11.0); MONOCYTES # (AUTO) 0.4 x10^3/uL (0.3-0.8); RED CELL DISTRIBUTION WIDTH 18.1 % (11.6-16.5)
[2019-02-04 02:04] LABS: EOSINOPHILS # (AUTO) 0.2 x10^3/uL (0.0-0.2); EOSINOPHILS % (AUTO) 2.2 % (0.9-2.9); LYMPHOCYTES % (AUTO) 25.6 % (21.0-51.0); MEAN CORPUSCULAR HEMOGLOBIN 31.1 pg (27.0-34.0); MEAN CORPUSCULAR VOLUME 90.2 fL (80.0-100.0); MONOCYTES % (AUTO) 5.7 % (0.0-13.0); NEUTROPHILS # (AUTO) 5.1 x10^3/uL (2.2-4.8); PLATELET COUNT 219 X10^3/uL (150.0-450.0); RED BLOOD COUNT 2.87 X10^6/uL (3.5-5.4); WHITE BLOOD COUNT 7.7 X10^3/uL (3.6-10.0)
[2019-02-04] MEDS ORDERED: PROTONIX INJ 40 MG VIAL ONE (04:20)
[2019-02-04] MEDS: PROTONIX INJ 40 MG VIAL IVP SCH ×2 (04:26→20:51)
[2019-02-04] MEDS: TYLENOL 500 MG TAB EXTRA STRENGTH PO PRN (04:26)
[2019-02-04 06:23] LABS: BASOPHILS % (AUTO) 0.5 % (0.2-1.0); EOSINOPHILS # (AUTO) 0.1 x10^3/uL (0.0-0.2); EOSINOPHILS % (AUTO) 1.9 % (0.9-2.9); HEMATOCRIT 23.9 % (36.0-47.0); HEMOGLOBIN 8.4 g/dL (12.0-16.0); LYMPHOCYTES % (AUTO) 25.7 % (21.0-51.0); MEAN CORPUSCULAR HEMOGLOBIN 31.2 pg (27.0-34.0); MEAN CORPUSCULAR HGB CONC 35.1 g/dL (33.0-35.0); MEAN CORPUSCULAR VOLUME 88.8 fL (80.0-100.0); MONOCYTES # (AUTO) 0.4 x10^3/uL (0.3-0.8); MONOCYTES % (AUTO) 5.4 % (0.0-13.0); NEUTROPHILS # (AUTO) 5.1 x10^3/uL (2.2-4.8); NEUTROPHILS % (AUTO) 66.5 % (42.0-75.0); PLATELET COUNT 205 X10^3/uL (150.0-450.0); RED CELL DISTRIBUTION WIDTH 17.7 % (11.6-16.5); WHITE BLOOD COUNT 7.7 X10^3/uL (3.6-10.0)
[2019-02-04 06:32] LABS: ALBUMIN 2.9 g/dL (3.4-5.0); CALCIUM 8.9 mg/dL (8.5-10.1); CARBON DIOXIDE 20.5 mmol/L (21-32); COR CA(FOR HYPOALB) 9.8 mg/dL (8.5-10.1); CREATININE 1.21 mg/dL (0.55-1.02); TOTAL PROTEIN 5.9 g/dL (6.4-8.2)
[2019-02-04] MEDS: HumuLIN R SUBCUT PRN ×4 (06:43→21:59)
[2019-02-04] MEDS: NS 1000 ML 1,000 ML IV SCH ×3 (09:11→19:00)
[2019-02-04] MEDS ORDERED: PHARMACY CONSULT - DOSE _____ XX SCH (10:00)
[2019-02-04] MEDS ORDERED: BUTALBITAL ACETAMINOPHEN PO PRN (10:05)
[2019-02-04] MEDS ORDERED: REQUIP PO PRN (10:05)
[2019-02-04 10:24] LABS: BASOPHILS % (AUTO) 0.4 % (0.2-1.0); EOSINOPHILS # (AUTO) 0.1 x10^3/uL (0.0-0.2); EOSINOPHILS % (AUTO) 1.8 % (0.9-2.9); HEMATOCRIT 24.2 % (36.0-47.0); HEMOGLOBIN 8.4 g/dL (12.0-16.0); LYMPHOCYTES # (AUTO) 1.7 X10^3/uL (1.3-2.9); LYMPHOCYTES % (AUTO) 20.1 % (21.0-51.0); MEAN CORPUSCULAR HEMOGLOBIN 31.3 pg (27.0-34.0); MEAN CORPUSCULAR HGB CONC 34.8 g/dL (33.0-35.0); MEAN PLATELET VOLUME 8.6 fL (7.4-11.0); MONOCYTES # (AUTO) 0.4 x10^3/uL (0.3-0.8); MONOCYTES % (AUTO) 4.9 % (0.0-13.0); NEUTROPHILS % (AUTO) 72.8 % (42.0-75.0); PLATELET COUNT 206 X10^3/uL (150.0-450.0); RED BLOOD COUNT 2.69 X10^6/uL (3.5-5.4); RED CELL DISTRIBUTION WIDTH 18.1 % (11.6-16.5); WHITE BLOOD COUNT 8.2 X10^3/uL (3.6-10.0)
--- NOTE | 2019-02-04 10:45 | DR.H&P ---
H&P - History & Physical for Day of: H&P Date: 02/04/19 - Chief Complaint Chief Complaint: RECTAL BLEEDING - History of Present Illness History of Present Illness: IS A 74 YEAR OLD PATIENT OF OURS WHO PRESENTED TO THE ER WITH COMPLAINTS OF RECTAL BLEEDING. SHE REPORTS DARK, TARRY STOOL WITH CLOTS. SHE REPORTS THAT SYMPTOMS STARTED APPROXIMATELY ONE WEEK AGO AND HAVE PROGRESSIVELY GOTTEN WORSE. SHE WAS RECENTLY HOSPITALIZED FOR SIMILAR SYMPTOMS. AT THAT TIME, SHE RECEIVED FOUR UNITS OF PACKED RED BLOOD CELLS. ON ARRIVAL TODAY, VITALS WERE 97.5-989-72-100%-126/75. LABS WERE OBTAINED. ABNORMAL LAB VALUES INCLUDE THE FOLLOWING: WBC 10.2, RBC 3.06, HGB 9.6, HCT 27.9, SODIUM 133, BUN 91, CREATININE 1.59, GLUCOSE 407, TOTAL BILI 0.10, AST 10, TOTAL PROTEIN 6.3, ALBUMIN 3.1. URINALYSIS WAS OBTAINED AND REVEALED: WBC 5-10, RBC 0-2, LEUKOCYTES 2+, BACTERAIA 1+. OCCULT BLOOD NEGATIVE. URINE CULTURE IS PENDING. SHE WAS ADMITTED FOR FURTHER EVALUATION AND TREATMENT OF RECTAL BLEEDING, ANEMIA, DEHYDRATION, UTI, AND HYPOTENSION. SHE WAS STARED ON NORMAL SALINE AT 100ML/HR, PROTONIX 40MG PO BID, HUMULIN R SLIDING SCALE, AND HOME MEDICATIONS WERE RESUMED. WE WILL MONITOR H&H. WE WILL TYPE AND SCREEN AND CROSSMATCH FOUR UNITS OF PACKED RED BLOOD CELLS. OTHERWISE, WE PLAN TO FOLLOW UP WITH AM LABS AND CONTINUE TO MONITOR. - Past Medical History Past Medical History: Hypertension, Diabetes, Anemia Additional Medical History: PVD, AVM, TIA, HX CERVICAL CANCER - Past Surgical History Surgical History: CABG/Valve Surgery, Carotid Endarterectomy, Cholecystectomy, Hysterectomy, Lithotripsy, Tonsillectomy Additional Surgical History: Sling on bladder, LEFT ARM AND LEFT LEG STENT, OPEN HEART SURGERY WITH 5 BYPASSES, RIGHT WRIST SURGERY - Family History Family Medical History: Diabetes Mellitus, Cancer, [place], Sudden Cardiac , Hypertension - Social History Does patient currently use any type of tobacco product: Yes Have you used tobacco products in the last 12 months: Yes Type of Tobacco Use: Cigarettes Does any household member use tobacco: Yes Alcohol Use: Rarely Drug Use: Prescription Drugs - Medications Home Medications: Penicillins Allergy (Verified 02/03/17 18:45) prednisone Allergy (Verified 07/02/17 10:35) tramadol Allergy (Verified 01/12/19 18:45) CONTINUE taking the following medications calcium carbonate-vitamin D3 [Calcium 500 + D (D3)] 1 tab PO DAILY 02/03/19 [History] ciprofloxacin HCl [Cipro] 250 mg PO BID 02/03/19 [History] ferrous sulfate [iron] 325 mg PO DAILY 02/03/19 [History] folic acid 800 mcg PO DAILY 02/03/19 [History] magnesium oxide 400 mg PO BID 02/03/19 [History] methylcellulose (laxative) 500 mg PO PRN PRN 02/03/19 [History] omeprazole 20 mg PO DAILY 02/03/19 [History] alprazolam [Xanax] 0.5 mg PO BID 02/04/19 [History] amlodipine 5 mg PO HS 02/04/19 [History] - Review of Systems Constitutional: Weakness Eyes: No Symptoms Reported ENT: No Symptoms Reported Respiratory: No Symptoms Reported Cardiovascular: No Symptoms Reported Gastrointestinal: Abdominal Pain, Melena, Hematochezia Genitourinary: No Symptoms Reported Musculoskeletal: No Symptoms Reported Skin: No Symptoms Reported Neurological: Weakness - Physical Exam Vital Signs: Temperature 97.8 F Pulse Rate [Left] 92 Pulse Rate 87 Respiratory Rate 18 Blood Pressure [Right Calf] 170/70 Blood Pressure [Right Arm] 107/53 Blood Pressure [Left Arm] 100/55 Blood Pressure [Left Arm] 124/56 Blood Pressure [Right Arm] 128/58 Blood Pressure 106/55 O2 Sat by Pulse Oximetry 95 Oriented: Normal Eyes: Normal Ear: Normal Nose: Normal Throat: Normal Respiratory: Diminished Throughout Cardiovascular: Tachycardia. negative: S3, S4, Murmur : Normal Auscultation: Bowel Sounds: Normal Palpation: Normal Tenderness: Diffuse, Mild. negative: Rebound, Guarding, Rigidity Skin: Normal Musculoskeletal: Normal Psychiatric: Normal Mood Description: Calm Affect: Normal Speech Pattern: Clear - Assessment/Plan (1) GI bleed Qualifiers: GI bleed type/associated pathology: anorectal hemorrhage Qualified Code(s): K62.5 - Hemorrhage of anus and rectum Status: Acute Plan: ADMIT, PEPCID IV, PROTONIX IV, NORMAL SALINE, MONITOR H&H (2) Urinary tract infection Qualifiers: Urinary tract infection type: acute cystitis Status: Acute Plan: CIPRO 250MG PO BID, CONTINUE TO MONITOR (3) Anemia Qualifiers: Anemia type: iron deficiency Iron deficiency anemia type: chronic blood loss Qualified Code(s): D50.0 - Iron deficiency anemia secondary to blood loss (chronic) Status: Acute Plan: CROSSMATCH 4 UNITS PRBC, CONTINUE TO MONITOR (4) Hypotension Qualifiers: Hypotension type: idiopathic hypotension Qualified Code(s): I95.0 - Idiopathic hypotension Status: Acute Plan: NORMAL SALINE AT 100ML/HR, CONTINUE TO MONITOR (5) Acute renal failure (ARF) Qualifiers: Acute renal failure type: unspecified Qualified Code(s): N17.9 - Acute k idney failure, unspecified Status: Acute Plan: NORMAL SALINE AT 100ML/HR, CONTINUE TO MONITOR - Allergies Allergies/Adverse Reactions: Allergies Allergy/AdvReac Type Severity Reaction Status Date / Time Penicillins Allergy Verified 02/03/17 18:45 prednisone Allergy Verified 07/02/17 10:35 tramadol Allergy Verified 01/12/19 18:45
[2019-02-04] MEDS: FOLIC ACID TAB 1 MG PO SCH (10:53)
[2019-02-04] MEDS: NEURONTIN CAP 100 MG PO SCH (10:54)
[2019-02-04] MEDS: MAG-OX TAB PO SCH ×2 (10:54→20:45)
[2019-02-04] MEDS: HEMOCYTE-PLUS PO SCH (10:54)
[2019-02-04] MEDS: XANAX PO SCH ×2 (10:54→20:45)
[2019-02-04] MEDS: DITROPAN TAB 5 MG PO SCH (10:54)
[2019-02-04] MEDS: CIPRO TAB 500 MG PO SCH ×2 (10:54→20:46)
[2019-02-04] MEDS: SYNTHROID 100 mcg TAB PO SCH (10:55)
[2019-02-04] MEDS: OSCAL+D or CALTRATE+D PO SCH (10:55)
[2019-02-04] MEDS: GENTAMICIN TOPICAL OINT TOP SCH ×2 (10:55→20:50)
[2019-02-04] MEDS: AZILSARTAN MED CHLORTHALIDONE PO SCH (10:59)
[2019-02-04] MEDS ORDERED: PriLOSEC PO SCH (11:00)
[2019-02-04 14:50] LABS: BASOPHILS % (AUTO) 0.4 % (0.2-1.0); EOSINOPHILS # (AUTO) 0.1 x10^3/uL (0.0-0.2); EOSINOPHILS % (AUTO) 1.8 % (0.9-2.9); HEMATOCRIT 20.9 % (36.0-47.0); HEMOGLOBIN 7.3 g/dL (12.0-16.0); LYMPHOCYTES # (AUTO) 1.1 X10^3/uL (1.3-2.9); LYMPHOCYTES % (AUTO) 21.2 % (21.0-51.0); MEAN CORPUSCULAR HEMOGLOBIN 31.3 pg (27.0-34.0); MEAN CORPUSCULAR HGB CONC 34.8 g/dL (33.0-35.0); MEAN CORPUSCULAR VOLUME 90.1 fL (80.0-100.0); MEAN PLATELET VOLUME 8.6 fL (7.4-11.0); MONOCYTES # (AUTO) 0.3 x10^3/uL (0.3-0.8); MONOCYTES % (AUTO) 5.1 % (0.0-13.0); NEUTROPHILS # (AUTO) 3.7 x10^3/uL (2.2-4.8); NEUTROPHILS % (AUTO) 71.5 % (42.0-75.0); PLATELET COUNT 177 X10^3/uL (150.0-450.0); RED BLOOD COUNT 2.32 X10^6/uL (3.5-5.4); RED CELL DISTRIBUTION WIDTH 18.1 % (11.6-16.5); WHITE BLOOD COUNT 5.2 X10^3/uL (3.6-10.0)
[2019-02-04 14:57] LABS: PLATELET MORPHOLOGY COMMENT NORMAL (NORMAL)
[2019-02-04 15:01] LABS: ANISOCYTOSIS SLIGHT
[2019-02-04 18:12] LABS: BASOPHILS # (AUTO) 0.1 X10^3/uL (0.0-0.1); BASOPHILS % (AUTO) 0.9 % (0.2-1.0); EOSINOPHILS # (AUTO) 0.1 x10^3/uL (0.0-0.2); EOSINOPHILS % (AUTO) 2.2 % (0.9-2.9); HEMATOCRIT 21.5 % (36.0-47.0); HEMOGLOBIN 7.5 g/dL (12.0-16.0); LYMPHOCYTES # (AUTO) 1.4 X10^3/uL (1.3-2.9); LYMPHOCYTES % (AUTO) 23.9 % (21.0-51.0); MEAN CORPUSCULAR HEMOGLOBIN 31.2 pg (27.0-34.0); MEAN CORPUSCULAR HGB CONC 34.7 g/dL (33.0-35.0); MEAN CORPUSCULAR VOLUME 89.9 fL (80.0-100.0); MEAN PLATELET VOLUME 8.5 fL (7.4-11.0); MONOCYTES # (AUTO) 0.3 x10^3/uL (0.3-0.8); MONOCYTES % (AUTO) 5.1 % (0.0-13.0); NEUTROPHILS % (AUTO) 67.9 % (42.0-75.0); PLATELET COUNT 191 X10^3/uL (150.0-450.0); RED BLOOD COUNT 2.39 X10^6/uL (3.5-5.4); RED CELL DISTRIBUTION WIDTH 17.6 % (11.6-16.5); WHITE BLOOD COUNT 5.8 X10^3/uL (3.6-10.0)
[2019-02-04 18:29] LABS: ANISOCYTOSIS SLIGHT; PLATELET MORPHOLOGY COMMENT NORMAL (NORMAL)
[2019-02-04] MEDS ORDERED: SNACK - Diabetic Appropriate PO SCH (20:00)
[2019-02-04] MEDS: CRESTOR TAB 10 MG PO SCH (20:45)
[2019-02-04] MEDS: AMBIEN PO SCH (20:45)
[2019-02-04] MEDS: SNACK - Diabetic Appropriate PO SCH (20:48)
[2019-02-04] MEDS ORDERED: NEURONTIN CAP 100 MG PO SCH (21:00)
[2019-02-04 22:21] LABS: BASOPHILS % (AUTO) 0.5 % (0.2-1.0); EOSINOPHILS # (AUTO) 0.1 x10^3/uL (0.0-0.2); EOSINOPHILS % (AUTO) 2.2 % (0.9-2.9); LYMPHOCYTES # (AUTO) 1.1 X10^3/uL (1.3-2.9); LYMPHOCYTES % (AUTO) 23.7 % (21.0-51.0); MEAN CORPUSCULAR HGB CONC 34.2 g/dL (33.0-35.0); MEAN CORPUSCULAR VOLUME 90.6 fL (80.0-100.0); MEAN PLATELET VOLUME 9.2 fL (7.4-11.0); MONOCYTES # (AUTO) 0.3 x10^3/uL (0.3-0.8); MONOCYTES % (AUTO) 5.9 % (0.0-13.0); NEUTROPHILS # (AUTO) 3.2 x10^3/uL (2.2-4.8); NEUTROPHILS % (AUTO) 67.7 % (42.0-75.0); PLATELET COUNT 161 X10^3/uL (150.0-450.0); RED CELL DISTRIBUTION WIDTH 18.1 % (11.6-16.5); WHITE BLOOD COUNT 4.8 X10^3/uL (3.6-10.0)
[2019-02-04 22:23] LABS: HEMATOCRIT 19.1 % (36.0-47.0); HEMOGLOBIN 6.5 g/dL (12.0-16.0)
[2019-02-05] MEDS: NS 1000 ML 1,000 ML IV SCH ×4 (02:40→21:04)
[2019-02-05 03:05] LABS: BASOPHILS % (AUTO) 0.3 % (0.2-1.0); EOSINOPHILS # (AUTO) 0.1 x10^3/uL (0.0-0.2); EOSINOPHILS % (AUTO) 2.4 % (0.9-2.9); LYMPHOCYTES # (AUTO) 1.5 X10^3/uL (1.3-2.9); LYMPHOCYTES % (AUTO) 26.6 % (21.0-51.0); MEAN CORPUSCULAR HEMOGLOBIN 31.1 pg (27.0-34.0); MEAN CORPUSCULAR HGB CONC 34.4 g/dL (33.0-35.0); MEAN CORPUSCULAR VOLUME 90.4 fL (80.0-100.0); MEAN PLATELET VOLUME 9.2 fL (7.4-11.0); MONOCYTES # (AUTO) 0.3 x10^3/uL (0.3-0.8); NEUTROPHILS # (AUTO) 3.6 x10^3/uL (2.2-4.8); NEUTROPHILS % (AUTO) 64.7 % (42.0-75.0); PLATELET COUNT 158 X10^3/uL (150.0-450.0); RED BLOOD COUNT 1.96 X10^6/uL (3.5-5.4); RED CELL DISTRIBUTION WIDTH 18.2 % (11.6-16.5); WHITE BLOOD COUNT 5.5 X10^3/uL (3.6-10.0)
[2019-02-05 03:09] LABS: HEMOGLOBIN 6.1 g/dL (12.0-16.0)
[2019-02-05 03:10] LABS: HEMATOCRIT 17.7 % (36.0-47.0)
[2019-02-05] MEDS: TYLENOL 500 MG TAB EXTRA STRENGTH PO PRN (03:25)
[2019-02-05] MEDS: HumuLIN R SUBCUT PRN ×4 (05:54→21:10)
[2019-02-05 06:10] LABS: BASOPHILS % (AUTO) 0.3 % (0.2-1.0); EOSINOPHILS # (AUTO) 0.1 x10^3/uL (0.0-0.2); EOSINOPHILS % (AUTO) 1.9 % (0.9-2.9); LYMPHOCYTES # (AUTO) 1.3 X10^3/uL (1.3-2.9); LYMPHOCYTES % (AUTO) 20.7 % (21.0-51.0); MEAN CORPUSCULAR HEMOGLOBIN 31.5 pg (27.0-34.0); MEAN CORPUSCULAR HGB CONC 35.2 g/dL (33.0-35.0); MEAN CORPUSCULAR VOLUME 89.4 fL (80.0-100.0); MEAN PLATELET VOLUME 8.6 fL (7.4-11.0); MONOCYTES # (AUTO) 0.3 x10^3/uL (0.3-0.8); MONOCYTES % (AUTO) 4.9 % (0.0-13.0); NEUTROPHILS # (AUTO) 4.4 x10^3/uL (2.2-4.8); NEUTROPHILS % (AUTO) 72.2 % (42.0-75.0); PLATELET COUNT 152 X10^3/uL (150.0-450.0); RED CELL DISTRIBUTION WIDTH 18.2 % (11.6-16.5); WHITE BLOOD COUNT 6.1 X10^3/uL (3.6-10.0)
[2019-02-05 06:21] LABS: ALANINE AMINOTRANSFERASE 19 Units/L (12-78); ALBUMIN 2.4 g/dL (3.4-5.0); ALKALINE PHOSPHATASE 52 Units/L (46-116); ASPARTATE AMINO TRANSFERASE 18 Units/L (15-37); BLOOD UREA NITROGEN 57 mg/dL (7-18); CALCIUM 8.5 mg/dL (8.5-10.1); CARBON DIOXIDE 18.8 mmol/L (21-32); CHLORIDE 111 mmol/L (98-107); COR CA(FOR HYPOALB) 9.8 mg/dL (8.5-10.1); COR NA(FOR HYPERGLY) 142 mmol/L (136-145); CREATININE 0.98 mg/dL (0.55-1.02); SODIUM 139 mmol/L (136-145); eGFR NON BLACK RACES 59 (>60)
[2019-02-05] MEDS ORDERED: NS 500 ML IV 500 ML IV ONE (08:22)
[2019-02-05] MEDS ORDERED: BENADRYL INJ 50 MG VIAL IVP PRN (08:22)
[2019-02-05] MEDS ORDERED: TYLENOL 325 MG TAB PO PRN (08:22)
[2019-02-05] MEDS: PROTONIX INJ 40 MG VIAL IVP SCH ×2 (08:48→21:09)
[2019-02-05] MEDS: MAG-OX TAB PO SCH ×2 (08:50→21:07)
[2019-02-05] MEDS: OSCAL+D or CALTRATE+D PO SCH (08:50)
[2019-02-05] MEDS: XANAX PO SCH ×2 (08:50→21:06)
[2019-02-05] MEDS: DITROPAN TAB 5 MG PO SCH (08:50)
[2019-02-05] MEDS: SYNTHROID 100 mcg TAB PO SCH (08:50)
[2019-02-05] MEDS: NEURONTIN CAP 100 MG PO SCH (08:50)
[2019-02-05] MEDS: HEMOCYTE-PLUS PO SCH (08:50)
[2019-02-05] MEDS: FOLIC ACID TAB 1 MG PO SCH (08:50)
[2019-02-05] MEDS: MICRO K EXTEN CAP 10 MEQ PO SCH (08:50)
[2019-02-05] MEDS: CIPRO TAB 500 MG PO SCH ×2 (08:51→21:07)
[2019-02-05] MEDS: AZILSARTAN MED CHLORTHALIDONE PO SCH (08:51)
[2019-02-05] MEDS: GENTAMICIN TOPICAL OINT TOP SCH ×2 (08:52→21:09)
[2019-02-05 10:32] LABS: BASOPHILS % (AUTO) 0.4 % (0.2-1.0); EOSINOPHILS # (AUTO) 0.1 x10^3/uL (0.0-0.2); LYMPHOCYTES # (AUTO) 1.1 X10^3/uL (1.3-2.9); LYMPHOCYTES % (AUTO) 19.8 % (21.0-51.0); MEAN CORPUSCULAR HEMOGLOBIN 31.3 pg (27.0-34.0); MEAN CORPUSCULAR HGB CONC 34.2 g/dL (33.0-35.0); MEAN CORPUSCULAR VOLUME 91.4 fL (80.0-100.0); MEAN PLATELET VOLUME 9.3 fL (7.4-11.0); MONOCYTES # (AUTO) 0.3 x10^3/uL (0.3-0.8); MONOCYTES % (AUTO) 5.9 % (0.0-13.0); NEUTROPHILS # (AUTO) 4.1 x10^3/uL (2.2-4.8); NEUTROPHILS % (AUTO) 71.9 % (42.0-75.0); PLATELET COUNT 152 X10^3/uL (150.0-450.0); RED BLOOD COUNT 1.86 X10^6/uL (3.5-5.4); RED CELL DISTRIBUTION WIDTH 18.2 % (11.6-16.5); WHITE BLOOD COUNT 5.7 X10^3/uL (3.6-10.0)
[2019-02-05 10:35] LABS: HEMOGLOBIN 5.8 g/dL (12.0-16.0)
--- NOTE | 2019-02-05 16:02 | RAD ---
Examination: AP chest History: Central line placement Comparison 11/04/2017 Findings: Continued normal heart size with sternal wires. Some of the sternal wires are broken and displaced. There is a chronic coarsening of the interstitial pulmonary pattern. There is a left subclavian catheter extending to the right atrium. No pleural fluid or pneumothorax is seen. Impression: Status post sternotomy. Chronic interstitial process consistent with peribronchial thickening. Central line position as described. Reported By:
[2019-02-05 19:10] LABS: HEMATOCRIT 25.5 % (36.0-47.0)
[2019-02-05 19:12] LABS: HEMOGLOBIN 8.9 g/dL (12.0-16.0)
[2019-02-05] MEDS: SNACK - Diabetic Appropriate PO SCH (20:24)
[2019-02-05] MEDS: CRESTOR TAB 10 MG PO SCH (21:06)
[2019-02-05] MEDS: NEURONTIN CAP 300 MG PO SCH (21:07)
[2019-02-05] MEDS: AMBIEN PO SCH (21:07)
[2019-02-06] MEDS: NS 1000 ML 1,000 ML IV SCH ×3 (03:43→20:36)
[2019-02-06] MEDS: TYLENOL 500 MG TAB EXTRA STRENGTH PO PRN (03:44)
[2019-02-06 05:11] LABS: BASOPHILS % (AUTO) 0.5 % (0.2-1.0); EOSINOPHILS # (AUTO) 0.2 x10^3/uL (0.0-0.2); EOSINOPHILS % (AUTO) 2.7 % (0.9-2.9); HEMATOCRIT 24.2 % (36.0-47.0); HEMOGLOBIN 8.4 g/dL (12.0-16.0); LYMPHOCYTES # (AUTO) 1.2 X10^3/uL (1.3-2.9); LYMPHOCYTES % (AUTO) 19.5 % (21.0-51.0); MEAN CORPUSCULAR HEMOGLOBIN 31.3 pg (27.0-34.0); MEAN CORPUSCULAR HGB CONC 34.9 g/dL (33.0-35.0); MEAN CORPUSCULAR VOLUME 89.8 fL (80.0-100.0); MONOCYTES # (AUTO) 0.4 x10^3/uL (0.3-0.8); MONOCYTES % (AUTO) 5.8 % (0.0-13.0); NEUTROPHILS # (AUTO) 4.3 x10^3/uL (2.2-4.8); NEUTROPHILS % (AUTO) 71.5 % (42.0-75.0); PLATELET COUNT 140 X10^3/uL (150.0-450.0); RED CELL DISTRIBUTION WIDTH 16.5 % (11.6-16.5); WHITE BLOOD COUNT 6.1 X10^3/uL (3.6-10.0)
[2019-02-06 05:23] LABS: ALANINE AMINOTRANSFERASE 25 Units/L (12-78); ALBUMIN 2.3 g/dL (3.4-5.0); ALKALINE PHOSPHATASE 55 Units/L (46-116); ASPARTATE AMINO TRANSFERASE 19 Units/L (15-37); BLOOD UREA NITROGEN 30 mg/dL (7-18); CALCIUM 8.2 mg/dL (8.5-10.1); CARBON DIOXIDE 23.3 mmol/L (21-32); CHLORIDE 112 mmol/L (98-107); COR CA(FOR HYPOALB) 9.6 mg/dL (8.5-10.1); COR NA(FOR HYPERGLY) 144 mmol/L (136-145); CREATININE 0.74 mg/dL (0.55-1.02); SODIUM 142 mmol/L (136-145); TOTAL PROTEIN 4.9 g/dL (6.4-8.2); eGFR NON BLACK RACES > 60 (>60)
[2019-02-06] MEDS: HumuLIN R SUBCUT PRN ×3 (05:50→21:48)
[2019-02-06] MEDS ORDERED: BENADRYL INJ 50 MG VIAL IVP ONE (09:21)
[2019-02-06] MEDS ORDERED: TYLENOL 325 MG TAB PO ONE (09:22)
[2019-02-06] MEDS ORDERED: NS 500 ML IV 500 ML IV ONE ×2 (09:23→09:40)
[2019-02-06] MEDS: PROTONIX INJ 40 MG VIAL IVP SCH ×2 (09:28→20:38)
[2019-02-06] MEDS: DITROPAN TAB 5 MG PO SCH (09:29)
[2019-02-06] MEDS: SYNTHROID 100 mcg TAB PO SCH (09:29)
[2019-02-06] MEDS: OSCAL+D or CALTRATE+D PO SCH (09:29)
[2019-02-06] MEDS: MICRO K EXTEN CAP 10 MEQ PO SCH (09:29)
[2019-02-06] MEDS: CIPRO TAB 500 MG PO SCH ×2 (09:29→20:36)
[2019-02-06] MEDS: MAG-OX TAB PO SCH ×2 (09:30→20:36)
[2019-02-06] MEDS: HEMOCYTE-PLUS PO SCH (09:30)
[2019-02-06] MEDS: FOLIC ACID TAB 1 MG PO SCH (09:30)
[2019-02-06] MEDS: XANAX PO SCH ×2 (09:30→20:36)
[2019-02-06] MEDS: GENTAMICIN TOPICAL OINT TOP SCH ×2 (09:32→20:37)
[2019-02-06] MEDS: AZILSARTAN MED CHLORTHALIDONE PO SCH (09:33)
[2019-02-06] MEDS: NEURONTIN CAP 100 MG PO SCH (09:37)
[2019-02-06 19:21] LABS: HEMATOCRIT 33.9 % (36.0-47.0)
[2019-02-06 19:27] LABS: HEMOGLOBIN 11.6 g/dL (12.0-16.0)
[2019-02-06] MEDS: AMBIEN PO SCH (20:36)
[2019-02-06] MEDS: NEURONTIN CAP 300 MG PO SCH (20:36)
[2019-02-06] MEDS: CRESTOR TAB 10 MG PO SCH (20:37)
[2019-02-06] MEDS: SNACK - Diabetic Appropriate PO SCH (20:37)
[2019-02-07] MEDS: TYLENOL 500 MG TAB EXTRA STRENGTH PO PRN ×2 (01:22→16:56)
[2019-02-07 05:25] LABS: BASOPHILS % (AUTO) 0.5 % (0.2-1.0); EOSINOPHILS # (AUTO) 0.2 x10^3/uL (0.0-0.2); EOSINOPHILS % (AUTO) 2.8 % (0.9-2.9); HEMATOCRIT 35.4 % (36.0-47.0); LYMPHOCYTES # (AUTO) 1.4 X10^3/uL (1.3-2.9); LYMPHOCYTES % (AUTO) 18.5 % (21.0-51.0); MEAN CORPUSCULAR HEMOGLOBIN 30.2 pg (27.0-34.0); MEAN CORPUSCULAR HGB CONC 33.8 g/dL (33.0-35.0); MEAN CORPUSCULAR VOLUME 89.3 fL (80.0-100.0); MEAN PLATELET VOLUME 8.9 fL (7.4-11.0); MONOCYTES # (AUTO) 0.5 x10^3/uL (0.3-0.8); MONOCYTES % (AUTO) 6.7 % (0.0-13.0); NEUTROPHILS # (AUTO) 5.4 x10^3/uL (2.2-4.8); NEUTROPHILS % (AUTO) 71.5 % (42.0-75.0); PLATELET COUNT 144 X10^3/uL (150.0-450.0); RED BLOOD COUNT 3.96 X10^6/uL (3.5-5.4); RED CELL DISTRIBUTION WIDTH 15.5 % (11.6-16.5); WHITE BLOOD COUNT 7.5 X10^3/uL (3.6-10.0)
[2019-02-07 05:41] LABS: ALANINE AMINOTRANSFERASE 25 Units/L (12-78); ALBUMIN 2.5 g/dL (3.4-5.0); ALKALINE PHOSPHATASE 59 Units/L (46-116); ASPARTATE AMINO TRANSFERASE 17 Units/L (15-37); BLOOD UREA NITROGEN 19 mg/dL (7-18); CALCIUM 8.4 mg/dL (8.5-10.1); CARBON DIOXIDE 22.9 mmol/L (21-32); CHLORIDE 111 mmol/L (98-107); COR CA(FOR HYPOALB) 9.6 mg/dL (8.5-10.1); COR NA(FOR HYPERGLY) 144 mmol/L (136-145); CREATININE 0.65 mg/dL (0.55-1.02); SODIUM 143 mmol/L (136-145); TOTAL PROTEIN 5.3 g/dL (6.4-8.2); eGFR NON BLACK RACES > 60 (>60)
[2019-02-07] MEDS: NS 1000 ML 1,000 ML IV SCH ×2 (05:46→21:12)
[2019-02-07] MEDS: HumuLIN R SUBCUT PRN ×3 (05:47→21:17)
[2019-02-07] MEDS: OSCAL+D or CALTRATE+D PO SCH (08:34)
[2019-02-07] MEDS: MAG-OX TAB PO SCH ×2 (08:35→21:13)
[2019-02-07] MEDS: MICRO K EXTEN CAP 10 MEQ PO SCH (08:35)
[2019-02-07] MEDS: NEURONTIN CAP 100 MG PO SCH (08:36)
[2019-02-07] MEDS: SYNTHROID 100 mcg TAB PO SCH (08:37)
[2019-02-07] MEDS: DITROPAN TAB 5 MG PO SCH (08:38)
[2019-02-07] MEDS: HEMOCYTE-PLUS PO SCH (08:38)
[2019-02-07] MEDS: FOLIC ACID TAB 1 MG PO SCH (08:38)
[2019-02-07] MEDS: XANAX PO SCH ×2 (08:38→22:20)
[2019-02-07] MEDS: PROTONIX INJ 40 MG VIAL IVP SCH ×2 (08:39→21:24)
[2019-02-07] MEDS: CIPRO TAB 500 MG PO SCH ×2 (08:43→21:15)
[2019-02-07] MEDS: AZILSARTAN MED CHLORTHALIDONE PO SCH (11:31)
[2019-02-07] MEDS: GENTAMICIN TOPICAL OINT TOP SCH ×2 (11:32→21:16)
--- NOTE | 2019-02-07 20:40 | PCM.PROG ---
Progress Note - Progress Note for Day of Date of Exam: 02/05/19 - Subjective Subjective: IS BEING TREATED FOR GI BLEED, ANEMIA, DEHYDRATION, ACUTE RENAL FAILURE, UTI, AND HYPOTENSION. TODAY, SHE IS ALERT AND ORIENTED, LYING IN BED ON MORNING ROUNDS. SHE COMPLAINS OF WEAKNESS AND MILD ABDOMINAL PAIN TODAY. SHE DENIES A BOWEL MOVEMENT SINCE ADMISSION. ON EXAMINATION, HEART IS REGULAR IN RATE AND RHYTHM. BILATERAL LUNGS ARE NOTED WITH DIMINISHED LUNG SOUNDS THROUGHOUT. ABDOMEN IS ROUND, SOFT, AND NOTED WITH MILD, DIFFUSE TENDERNESS. HER VITALS THIS MORNING ARE: 98.0-69-18-99%-88/51. LABS WERE OBTAINED. ABNORMAL LAB VALUES INCLUDE THE FOLLOWING: RBC 1.90, HGB 6.0, HCT 17.0, CHLORIDE 111, CARBON DIOXIDE 18.8, BUN 57, GLUCOSE 219, TOTAL BILI 0.10, TOTAL PROTEIN 5.0, ALBUMIN 2.4. SHE IS CURRENTLY RECEIVING: NORMAL SALINE AT 100ML/HR, PROTONIX 40MG PO BID, HUMULIN R SLIDING SCALE, AND HOME MEDICATIONS WERE RESUMED. WE HAVE ORDERED 4 UNITS OF PACKED RED BLOOD CELLS. WHEN THEY ARE AVAILABLE, WE WILL TRANSFUSE ALL 4. WE WILL CONSULT FOR A CENTRAL LINE TODAY. OTHERWISE, WE WILL FOLLOW UP WITH AM LABS AND CONTINUE TO MONITOR. - Past Medical Family Social History Past Med/Fam/Surg Hx: No changes since H&P Allergies: Allergies Penicillins Allergy (Verified 02/03/17 18:45) prednisone Allergy (Verified 07/02/17 10:35) tramadol Allergy (Verified 01/12/19 18:45) - Review of Systems ROS: No change since H&P - Vital Signs and I&O's Vital Signs: Temperature 97.6 F Pulse Rate [Right Brachial] 69 Pulse Rate [Left] 68 Pulse Rate 87 Respiratory Rate 20 Blood Pressure [Right Calf] 170/70 Blood Pressure [Right Arm] 88/51 Blood Pressure [Left Arm] 152/78 Blood Pressure [Left Arm] 124/56 Blood Pressure [Right Arm] 128/58 Blood Pressure 106/55 O2 Sat by Pulse Oximetry 96 Intake and Output: Intake & Output 02/05/19 02/06/19 02/07/19 02/08/19 11:59 11:59 11:59 11:59 Intake Total 3706 / 3706 2147 / 2147 3567 / 3567 1768 / 1768 Balance 3706 / 3706 2147 / 2147 356 / 3567 176 / 1768 - Physical Exam Oriented: Normal Eyes: Normal Ear: Normal Nose: Normal Throat: Normal Respiratory: Generalized, Diminished Cardiovascular: Normal. negative: S3, S4, Murmur : Normal Auscultation: Bowel Sounds: Normal Palpation: Normal Tenderness: Diffuse, Mild. negative: Rebound, Guarding, Rigidity Skin: Normal Musculoskeletal: Normal Psychiatric: Normal Mood Description: Calm Affect: Normal Speech Pattern: Clear - Laboratory and Diagnostics Result Diagrams: 02/07/19 05:10 02/07/19 05:10 Labs: 02/06/19 11:00 Buttock Gram Stain - Final 02/06/19 11:00 Buttock Wound Culture - Preliminary 02/03/19 19:24 Urine,Catheterized Urine Culture - Final Escherichia Coli Escherichia Coli#2 Laboratory WBC 7.5 X10^3/uL (3.6-10.0) 02/07/19 05:10 RBC 3.96 X10^6/uL (3.5-5.4) 02/07/19 05:10 Hgb 12.0 g/dL (12.0-16.0) 02/07/19 05:10 Hct 35.4 % (36.0-47.0) L 02/07/19 05:10 MCV 89.3 fL (80.0-100.0) 02/07/19 05:10 MCH 30.2 pg (27.0-34.0) 02/07/19 05:10 MCHC 33.8 g/dL (33.0-35.0) 02/07/19 05:10 RDW 15.5 % (11.6-16.5) 02/07/19 05:10 Plt Count 144 X10^3/uL (150.0-450.0) L 02/07/19 05:10 Plt Count Comment Adequate (ADEQUATE) 02/04/19 18:04 MPV 8.9 fL (7.4-11.0) 02/07/19 05:10 Neut % (Auto) 71.5 % (42.0-75.0) 02/07/19 05:10 Lymph % (Auto) 18.5 % (21.0-51.0) L 02/07/19 05:10 [place] % (Auto) 6.7 % (0.0-13.0) 02/07/19 05:10 Eos % (Auto) 2.8 % (0.9-2.9) 02/07/19 05:10 Baso % (Auto) 0.5 % (0.2-1.0) 02/07/19 05:10 Neut # (Auto) 5.4 x10^3/uL (2.2-4.8) H 02/07/19 05:10 Lymph # (Auto) 1.4 X10^3/uL (1.3-2.9) 02/07/19 05:10 [place] # (Auto) 0.5 x10^3/uL (0.3-0.8) 02/07/19 05:10 Eos # (Auto) 0.2 x10^3/uL (0.0-0.2) 02/07/19 05:10 Baso # (Auto) 0.0 X10^3/uL (0.0-0.1) 02/07/19 05:10 Absolute Nucleated RBC 0.0 /100WBC 02/07/19 05:10 Plt Morphology Comment Normal (NORMAL) 02/04/19 18:04 RBC Morphology Abnormal (NORMAL) A 02/04/19 18:04 Anisocytosis Slight A 02/04/19 18:04 Sodium 143 mmol/L (136-145) 02/07/19 05:10 Corrected Sodium 144 mmol/L (136-145) 02/07/19 05:10 Potassium 3.8 mmol/L (3.5-5.1) 02/07/19 05:10 Chloride 111 mmol/L (98-107) H 02/07/19 05:10 Carbon Dioxide 22.9 mmol/L (21-32) 02/07/19 05:10 BUN 19 mg/dL (7-18) H 02/07/19 05:10 Creatinine 0.65 mg/dL (0.55-1.02) 02/07/19 05:10 Est GFR (MDRD) Af Amer > 60 (>60) 02/07/19 05:10 Est GFR (MDRD) Non-Af > 60 (>60) 02/07/19 05:10 Glucose 160 mg/dL (65-99) H 02/07/19 05:10 POC Glucose (mg/dL) 258 mg/dL (65-99) H 02/07/19 20:29 Calcium 8.4 mg/dL (8.5-10.1) L 02/07/19 05:10 Corrected Calcium 9.6 mg/dL (8.5-10.1) 02/07/19 05:10 Total Bilirubin 0.20 mg/dL (0.2-1.0) 02/07/19 05:10 AST 17 Units/L (15-37) 02/07/19 05:10 ALT 25 Units/L (12-78) 02/07/19 05:10 Alkaline Phosphatase 59 Units/L (46-116) 02/07/19 05:10 Total Protein 5.3 g/dL (6.4-8.2) L 02/07/19 05:10 Albumin 2.5 g/dL (3.4-5.0) L 02/07/19 05:10 Globulin 2.8 g/dL (2.5-4.5) 02/07/19 05:10 Albumin/Globulin Ratio 0.9 Ratio (1.1-2.1) L 02/07/19 05:10 Amylase 25 Units/L (25-115) 02/03/19 19:22 Lipase 127 Units/L (73-393) 02/03/19 19:22 Specimen Type Catherized urine 02/03/19 19:24 Urine Color Yellow (YELLOW) 02/03/19 19:24 Urine Appearance Slightly hazy (CLEAR) 02/03/19 19:24 Urine pH 5.0 (5.0 - 8.0) 02/03/19 19:24 Ur Specific [place] 1.015 (1.000-1.030) 02/03/19 19:24 Urine Protein Negative (NEGATIVE) 02/03/19 19:24 Urine Glucose (UA) 2+ (NEGATIVE) 02/03/19 19:24 Urine Ketones Negative (NEGATIVE) 02/03/19 19:24 Urine Occult Blood Negative (NEGATIVE) 02/03/19 19:24 Urine Nitrite Negative (NEGATIVE) 02/03/19 19:24 Urine Bilirubin Negative (NEGATIVE) 02/03/19 19:24 Urine Urobilinogen Normal (NORMAL) 02/03/19 19:24 Ur Leukocyte Esterase 2+ (NEGATIVE) 02/03/19 19:24 Urine RBC 0-2 /HPF (0-3) 02/03/19 19:24 Urine WBC 5-10 /HPF (0-5) A 02/03/19 19:24 Ur Squamous Epith Cells Negative /HPF (NEGATIVE) 02/03/19 19:24 Urine Bacteria 1+ /HPF (NEGATIVE) 02/03/19 19:24 Ur Culture Indicated? Yes/culture set up 02/03/19 19:24 Stool Description Fob tube 02/03/19 19:24 Stl Occult Blood (IFOB) Negative (NEGATIVE) 02/03/19 19:24 Blood Type B POSITIVE 02/03/19 19:22 Antibody Screen Positive 02/03/19 19:22 Crossmatch See Detail 02/03/19 19:22 - Plan (1) GI bleed Status: Acute Qualifiers: GI bleed type/associated pathology: anorectal hemorrhage Qualified Code(s): K62.5 - Hemorrhage of anus and rectum Plan: PEPCID IV, PROTONIX IV, NORMAL SALINE, MONITOR H&H (2) Urinary tract infection Status: Acute Qualifiers: Urinary tract infection type: acute cystitis Plan: CIPRO 250MG PO BID, CONTINUE TO MONITOR (3) Anemia Status: Acute Qualifiers: Anemia type: iron deficiency Iron deficiency anemia type: chronic blood lo ss Qualified Code(s): D50.0 - Iron deficiency anemia secondary to blood loss (chronic) Plan: CROSSMATCH 4 UNITS PRBC AND TRANSFUSE WHEN AVAILABLE, CONTINUE TO MONITOR (4) Hypotension Status: Acute Qualifiers: Hypotension type: idiopathic hypotension Qualified Code(s): I95.0 - Idiopathic hypotension Plan: NORMAL SALINE AT 100ML/HR, CONTINUE TO MONITOR (5) Acute renal failure (ARF) Status: Acute Qualifiers: Acute renal failure type: unspecified Qualified Code(s): N17.9 - Acute kidney failure, unspecified Plan: NORMAL SALINE AT 100ML/HR, CONTINUE TO MONITOR
[2019-02-07] MEDS: CRESTOR TAB 10 MG PO SCH (21:13)
[2019-02-07] MEDS: NEURONTIN CAP 300 MG PO SCH (21:14)
[2019-02-07] MEDS: AMBIEN PO SCH (21:15)
[2019-02-07] MEDS: SNACK - Diabetic Appropriate PO SCH (21:30)
[2019-02-08] MEDS: TobraDEX OPHTH OPHTH 1 DOSE EACHEYE SCH ×2 (01:45→08:20)
[2019-02-08 05:14] LABS: BASOPHILS % (AUTO) 0.5 % (0.2-1.0); EOSINOPHILS # (AUTO) 0.2 x10^3/uL (0.0-0.2); EOSINOPHILS % (AUTO) 2.6 % (0.9-2.9); HEMATOCRIT 32.6 % (36.0-47.0); HEMOGLOBIN 11.3 g/dL (12.0-16.0); LYMPHOCYTES # (AUTO) 1.3 X10^3/uL (1.3-2.9); LYMPHOCYTES % (AUTO) 16.2 % (21.0-51.0); MEAN CORPUSCULAR HEMOGLOBIN 30.7 pg (27.0-34.0); MEAN CORPUSCULAR HGB CONC 34.6 g/dL (33.0-35.0); MEAN CORPUSCULAR VOLUME 88.9 fL (80.0-100.0); MEAN PLATELET VOLUME 8.9 fL (7.4-11.0); MONOCYTES # (AUTO) 0.5 x10^3/uL (0.3-0.8); MONOCYTES % (AUTO) 6.7 % (0.0-13.0); NEUTROPHILS # (AUTO) 5.8 x10^3/uL (2.2-4.8); PLATELET COUNT 155 X10^3/uL (150.0-450.0); RED BLOOD COUNT 3.67 X10^6/uL (3.5-5.4); RED CELL DISTRIBUTION WIDTH 15.5 % (11.6-16.5); WHITE BLOOD COUNT 7.9 X10^3/uL (3.6-10.0)
[2019-02-08 05:24] LABS: ALANINE AMINOTRANSFERASE 31 Units/L (12-78); ALBUMIN 2.3 g/dL (3.4-5.0); ALKALINE PHOSPHATASE 63 Units/L (46-116); ASPARTATE AMINO TRANSFERASE 24 Units/L (15-37); BLOOD UREA NITROGEN 16 mg/dL (7-18); CALCIUM 8.2 mg/dL (8.5-10.1); CARBON DIOXIDE 23.3 mmol/L (21-32); CHLORIDE 112 mmol/L (98-107); COR CA(FOR HYPOALB) 9.6 mg/dL (8.5-10.1); COR NA(FOR HYPERGLY) 143 mmol/L (136-145); CREATININE 0.68 mg/dL (0.55-1.02); SODIUM 143 mmol/L (136-145); TOTAL PROTEIN 5.1 g/dL (6.4-8.2); eGFR NON BLACK RACES > 60 (>60)
[2019-02-08] MEDS: NS 1000 ML 1,000 ML IV SCH ×2 (06:31→08:21)
[2019-02-08] MEDS ORDERED: K-DUR TAB 20 MEQ PO ONE (07:26)
[2019-02-08] MEDS: CIPRO TAB 500 MG PO SCH (08:16)
[2019-02-08] MEDS: FOLIC ACID TAB 1 MG PO SCH (08:17)
[2019-02-08] MEDS: MICRO K EXTEN CAP 10 MEQ PO SCH (08:17)
[2019-02-08] MEDS: OSCAL+D or CALTRATE+D PO SCH (08:17)
[2019-02-08] MEDS: DITROPAN TAB 5 MG PO SCH (08:17)
[2019-02-08] MEDS: MAG-OX TAB PO SCH (08:18)
[2019-02-08] MEDS: NEURONTIN CAP 100 MG PO SCH (08:18)
[2019-02-08] MEDS: HEMOCYTE-PLUS PO SCH (08:18)
[2019-02-08] MEDS: PROTONIX INJ 40 MG VIAL IVP SCH (08:18)
[2019-02-08] MEDS: XANAX PO SCH (08:18)
[2019-02-08] MEDS: SYNTHROID 100 mcg TAB PO SCH (08:18)
[2019-02-08] MEDS: GENTAMICIN TOPICAL OINT TOP SCH (08:20)
[2019-02-08] MEDS: AZILSARTAN MED CHLORTHALIDONE PO SCH (08:20)
--- NOTE | 2019-02-08 08:38 | PCM.PROG ---
Progress Note - Progress Note for Day of Date of Exam: 02/06/19 - Subjective Subjective: IS BEING TREATED FOR GI BLEED, ANEMIA, DEHYDRATION, ACUTE RENAL FAILURE, UTI, AND HYPOTENSION. SHE RECEIVED TWO UNITS OF PACKED RED BLOOD CELLS YESTERDAY. TODAY, SHE IS ALERT AND ORIENTED, LYING IN BED ON MORNING ROUNDS. SHE COMPLAINS OF WEAKNESS AND MILD ABDOMINAL PAIN TODAY. SHE DENIES A BOWEL MOVEMENT SINCE ADMISSION. ON EXAMINATION, HEART IS REGULAR IN RATE AND RHYTHM. BILATERAL LUNGS ARE NOTED WITH DIMINISHED LUNG SOUNDS THROUGHOUT. ABDOMEN IS ROUND, SOFT, AND NOTED WITH MILD, DIFFUSE TENDERNESS. HER VITALS THIS MORNING ARE: 97.9-68-20-95%-131/61. LABS WERE OBTAINED. ABNORMAL LAB VALUES INCLUDE THE FOLLOWING: RBC 2.70, HGB 8.4, HCT 24.2, CHLORIDE 112, BUN 30, GLUCOSE 202, CALCIUM 8.2, TOTAL BILI 0.10, TOTAL PROTEIN 4.9, ALBUMIN 2.3. SHE IS CURRENTLY RECEIVING: NORMAL SALINE AT 100ML/HR, PROTONIX 40MG PO BID, HUMULIN R SLIDING SCALE, AND HOME MEDICATIONS WERE RESUMED. SHE WILL RECEIVE TWO ADDITIONAL UNITS OF BLOOD TODAY. OTHERWISE, WE WILL FOLLOW UP WITH AM LABS AND CONTINUE TO MONITOR. - Past Medical Family Social History Past Med/Fam/Surg Hx: No changes since H&P Allergies: Allergies Penicillins Allergy (Verified 02/03/17 18:45) prednisone Allergy (Verified 07/02/17 10:35) tramadol Allergy (Verified 01/12/19 18:45) - Review of Systems ROS: No change since H&P - Vital Signs and I&O's Vital Signs: Temperature 98.6 F Pulse Rate [Right Brachial] 69 Pulse Rate [Left] 68 Pulse Rate 87 Respiratory Rate 18 Blood Pressure [Right Calf] 170/70 Blood Pressure [Right Arm] 88/51 Blood Pressure [Left Arm] 167/74 Blood Pressure [Left Arm] 124/56 Blood Pressure [Right Arm] 128/58 Blood Pressure 106/55 O2 Sat by Pulse Oximetry 97 Intake and Output: Intake & Output 02/05/19 02/06/19 02/07/19 02/08/19 11:59 11:59 11:59 11:59 Intake Total 3706 / 3706 2147 / 2147 3567 / 3567 3907 / 3907 Balance 3706 / 3706 2147 / 2147 3567 / 3567 3907 / 3907 - Physical Exam Oriented: Normal Eyes: Normal Ear: Normal Nose: Normal Throat: Normal Respiratory: Generalized, Diminished Cardiovascular: Normal. negative: S3, S4, Murmur : Normal Auscultation: Bowel Sounds: Normal Palpation: Normal Tenderness: Diffuse, Mild. negative: Rebound, Guarding, Rigidity Skin: Normal Musculoskeletal: Normal Psychiatric: Normal Mood Description: Calm Affect: Normal Speech Pattern: Clear - Laboratory and Diagnostics Result Diagrams: 02/08/19 04:47 02/08/19 04:47 Labs: 02/06/19 11:00 Buttock Gram Stain - Final 02/06/19 11:00 Buttock Wound Culture - Preliminary 02/03/19 19:24 Urine,Catheterized Urine Culture - Final Escherichia Coli Escherichia Coli#2 Laboratory WBC 7.9 X10^3/uL (3.6-10.0) 02/08/19 04:47 RBC 3.67 X10^6/uL (3.5-5.4) 02/08/19 04:47 Hgb 11.3 g/dL (12.0-16.0) L 02/08/19 04:47 Hct 32.6 % (36.0-47.0) L 02/08/19 04:47 MCV 88.9 fL (80.0-100.0) 02/08/19 04:47 MCH 30.7 pg (27.0-34.0) 02/08/19 04:47 MCHC 34.6 g/dL (33.0-35.0) 02/08/19 04:47 RDW 15.5 % (11.6-16.5) 02/08/19 04:47 Plt Count 155 X10^3/uL (150.0-450.0) 02/08/19 04:47 Plt Count Comment Adequate (ADEQUATE) 02/04/19 18:04 MPV 8.9 fL (7.4-11.0) 02/08/19 04:47 Neut % (Auto) 74.0 % (42.0-75.0) 02/08/19 04:47 Lymph % (Auto) 16.2 % (21.0-51.0) L 02/08/19 04:47 [place] % (Auto) 6.7 % (0.0-13.0) 02/08/19 04:47 Eos % (Auto) 2.6 % (0.9-2.9) 02/08/19 04:47 Baso % (Auto) 0.5 % (0.2-1.0) 02/08/19 04:47 Neut # (Auto) 5.8 x10^3/uL (2.2-4.8) H 02/08/19 04:47 Lymph # (Auto) 1.3 X10^3/uL (1.3-2.9) 02/08/19 04:47 [place] # (Auto) 0.5 x10^3/uL (0.3-0.8) 02/08/19 04:47 Eos # (Auto) 0.2 x10^3/uL (0.0-0.2) 02/08/19 04:47 Baso # (Auto) 0.0 X10^3/uL (0.0-0.1) 02/08/19 04:47 Absolute Nucleated RBC 0.0 /100WBC 02/08/19 04:47 Plt Morphology Comment Normal (NORMAL) 02/04/19 18:04 RBC Morphology Abnormal (NORMAL) A 02/04/19 18:04 Anisocytosis Slight A 02/04/19 18:04 Sodium 143 mmol/L (136-145) 02/08/19 04:47 Corrected Sodium 143 mmol/L (136-145) 02/08/19 04:47 Potassium 3.6 mmol/L (3.5-5.1) 02/08/19 04:47 Chloride 112 mmol/L (98-107) H 02/08/19 04:47 Carbon Dioxide 23.3 mmol/L (21-32) 02/08/19 04:47 BUN 16 mg/dL (7-18) 02/08/19 04:47 Creatinine 0.68 mg/dL (0.55-1.02) 02/08/19 04:47 Est GFR (MDRD) Af Amer > 60 (>60) 02/08/19 04:47 Est GFR (MDRD) Non-Af > 60 (>60) 02/08/19 04:47 Glucose 120 mg/dL (65-99) H 02/08/19 04:47 POC Glucose (mg/dL) 127 mg/dL (65-99) H 02/08/19 05:17 Calcium 8.2 mg/dL (8.5-10.1) L 02/08/19 04:47 Corrected Calcium 9.6 mg/dL (8.5-10.1) 02/08/19 04:47 Total Bilirubin 0.20 mg/dL (0.2-1.0) 02/08/19 04:47 AST 24 Units/L (15-37) 02/08/19 04:47 ALT 31 Units/L (12-78) 02/08/19 04:47 Alkaline Phosphatase 63 Units/L (46-116) 02/08/19 04:47 Total Protein 5.1 g/dL (6.4-8.2) L 02/08/19 04:47 Albumin 2.3 g/dL (3.4-5.0) L 02/08/19 04:47 Globulin 2.8 g/dL (2.5-4.5) 02/08/19 04:47 Albumin/Globulin Ratio 0.8 Ratio (1.1-2.1) L 02/08/19 04:47 Amylase 25 Units/L (25-115) 02/03/19 19:22 Lipase 127 Units/L (73-393) 02/03/19 19:22 Specimen Type Catherized urine 02/03/19 19:24 Urine Color Yellow (YELLOW) 02/03/19 19:24 Urine Appearance Slightly hazy (CLEAR) 02/03/19 19:24 Urine pH 5.0 (5.0 - 8.0) 02/03/19 19:24 Ur Specific [place] 1.015 (1.000-1.030) 02/03/19 19:24 Urine Protein Negative (NEGATIVE) 02/03/19 19:24 Urine Glucose (UA) 2+ (NEGATIVE) 02/03/19 19:24 Urine Ketones Negative (NEGATIVE) 02/03/19 19:24 Urine Occult Blood Negative (NEGATIVE) 02/03/19 19:24 Urine Nitrite Negative (NEGATIVE) 02/03/19 19:24 Urine Bilirubin Negative (NEGATIVE) 02/03/19 19:24 Urine Urobilinogen Normal (NORMAL) 02/03/19 19:24 Ur Leukocyte Esterase 2+ (NEGATIVE) 02/03/19 19:24 Urine RBC 0-2 /HPF (0-3) 02/03/19 19:24 Urine WBC 5-10 /HPF (0-5) A 02/03/19 19:24 Ur Squamous Epith Cells Negative /HPF (NEGATIVE) 02/03/19 19:24 Urine Bacteria 1+ /HPF (NEGATIVE) 02/03/19 19:24 Ur Culture Indicated? Yes/culture set up 02/03/19 19:24 Stool Description Fob tube 02/03/19 19:24 Stl Occult Blood (IFOB) Negative (NEGATIVE) 02/03/19 19:24 Blood Type B POSITIVE 02/03/19 19:22 Antibody Screen Positive 02/03/19 19:22 Crossmatch See Detail 02/03/19 19:22 - Plan (1) GI bleed Status: Acute Qualifiers: GI bleed type/associated pathology: anorectal hemorrhage Qualified Code(s): K62.5 - Hemorrhage of anus and rectum Plan: PEPCID IV, PROTONIX IV, NORMAL SALINE, MONITOR H&H (2) Urinary tract infection Status: Acute Qualifiers: Urinary tract infection type: acute cystitis Plan: CIPRO 250MG PO BID, CONTINUE TO MONITOR (3) Anemia Status: Acute Qualifiers: Anemia type: iron deficiency Iron deficiency anemia type: chronic blood loss Qualified Code(s): D50.0 - Iron deficiency anemia secondary to blood loss (chronic) Plan: TRANSFUSE 2 ADDITIONAL UNITS OF BLOOD TODAY, CONTINUE TO MONITOR (4) Hypotension Status: Acute Qualifiers: Hypotension type: idiopathic hypotension Qualified Code(s): I95.0 - Idiopathic hypotension Plan: NORMAL SALINE AT 100ML/HR, CONTINUE TO MONITOR (5) Acute renal failure (ARF) Status: Acute Qualifiers: Acute renal failure type: unspecified Qualified Code(s): N17.9 - Acute kidney failure, unspecified Plan: NORMAL SALINE AT 100ML/HR, CONTINUE TO MONITOR
[2019-02-08 12:05] VITALS: BP 172/69
== END 2019-02-08 12:40 | disposition home or self-care (01) | DRG 378 ==
LOC: ER 17:53 → MED/SURG 22:46 → OBSVTOIN 22:46 → INTOOBSV 22:46 → MED/SURG 23:58
PROVIDERS: ADMIT Internal Medicine; ATTEND Internal Medicine
DX: K62.5 Hemorrhage of anus and rectum; B95.62 Methicillin resistant Staphylococcus aureus infection as the cause of diseases classified elsewhere; I87.2 Venous insufficiency (chronic) (peripheral); R94.31 Abnormal electrocardiogram [ECG] [EKG]; N17.8 Other acute kidney failure; N39.0 Urinary tract infection, site not specified; I10 Essential (primary) hypertension; B96.29 Other Escherichia coli [E. coli] as the cause of diseases classified elsewhere; I95.0 Idiopathic hypotension; E86.0 Dehydration; R26.89 Other abnormalities of gait and mobility; E11.65 Type 2 diabetes mellitus with hyperglycemia; D50.0 Iron deficiency anemia secondary to blood loss (chronic)
CPT/HCPCS: 36415; 36430; 36556; 51701; 71010; 71045; 80053; 81001; 82150; 82270; 83690; 85014; 85018; 85025; 86850; 86870; 86880; 86885; 86900; 86901; 86902; 86920; 86922; 86970; 87070; 87075; 87077; 87086; 87088; 87186; 87205; 93005; 96365; 97162; 97165; 99284; A4222; C9113; P9016; J1200; J1815; J3490; J7030; J7040

== ENCOUNTER 2019-03-01 11:35 | Inpatient (IN) ==
[2019-03-01] MEDS ORDERED: PROTONIX INJ 40 MG VIAL IVP ONE (11:49)
[2019-03-01 11:51] VITALS: BMI 25.1
--- NOTE | 2019-03-01 11:51 | DR.GIBLEED ---
HPI Time Seen Time Seen by Provider: 03/01/19 11:49 Complaints Chief Complaint:: Patient is a 74 year old female who comes to the [facility] for complaint of GI bleed. PMHx: Several blood transfusions, gastric ulcers, cardiac bypass , and insulin dependent diabetes. She states that over the past couple days she's had dark tarry stool. Today she had an episode of fecal incontinence. She came to the Ed due to this issue and the fact that her chest was pounding last night. She denies chest pain Or shortness of breath. She states she does feel fatigued. PMH PMH Past Medical History: Anemia, Diabetes and Hypertension Past Surgical History: Yes Surgical History: CABG/Valve Surgery, Carotid Endarterectomy, Cholecystectomy, Hysterectomy, Tonsillectomy and Lithotripsy Family History Family Medical History: Diabetes Mellitus, Cancer, PR, Sudden Cardiac and Hypertension Social History Do you use any recreational Drugs:: No infectious screening Isolation: Standard ROS Review of Systems Constitutional: No Symptoms Reported and Fatigue Eyes: No Symptoms Reported ENTM: No Symptoms Reported Respiratoy: No Symptoms Reported Cardiovascular: No Symptoms Reported Gastrointestinal/Abdominal: No Symptoms Reported and Other (dark stool and fecal incontinence ) Genitourinary: No Symptoms Reported Neurological: No Symptoms Reported Musculoskeletal: No Symptoms Reported Integumentary: No Symptoms Reported Hematologic/Lymphatic: No Symptoms Reported Endocrine: No Symptoms Reported Psychiatric: No Symptoms Reported All Other Systems: Reviewed and Negative PE Vital Signs Vitals: Temperature 97.7 F Pulse Rate 109 Respiratory Rate 8 Blood Pressure [Right Calf] 170/70 Blood Pressure [Right Arm] 88/51 Blood Pressure [Left Arm] 172/69 Blood Pressure 126/56 O2 Sat by Pulse Oximetry 99 General General Appearance: Alert and In No Apparent Distress Head Head Exam: Normal Inspection, Atraumatic and Normocephalic Eyes Eye exam: Normal Appearance, PERRL and EOMI ENT ENT Exam: Normal Exam Neck Neck Exam: Normal Inspection and Full ROM Chest Chest Inspection: Normal Inspection and Symmetric Chest Wall Rise Respiratory Respiratory Exam: Normal Lung Sounds Bilat Respiratory Exam: Bilateral: Clear to Auscultation Cardiovascular Cardiovascular Exam: Regular Rate and Normal Rhythm Abdominal Exam Abdominal Exam: Normal Inspection, Normal Bowel Sounds and Soft Extremities Extremities Exam: Normal Inspection and Full ROM Back Back Exam: Normal Inspection and Full ROM Neurologic Neurological Exam: Alert and Oriented X3 DIFFERENTIAL DIAGNOSIS Additional Information Obtained Additional Information Obtained From: Old Records Differential Diagnosis Differential Diagnosis: Esophageal varicies and PUD Differential Diagnosis Comment: lower GI bleed. COURSE Reevaluation 1st: Unchanged (12:50 discussed labs with patient, she is resting. ) 2nd: Unchanged (13:30 pt is resting in bed. ) 3rd: Unchanged (14;[address] Hamlin ) Consultation Consultation Comments: Dr. Hamlin advised pt need scope and will preform today. Dr. Tavares called 15:00 and accepted for admission. Education/Counseling Education/Counseling: Patient, Family, Education and Counseling Educated On: Treatment, Diagnosis, Prognosis and Needs for Follow Up ROR Labs Reviewed Laboratory Results Reviewed?: Yes (please initial H&H below ) Result Diagrams: 03/02/19 04:11 03/02/19 04:11 Laboratory: WBC 7.1 X10^3/uL (3.6-10.0) 03/01/19 12:06 RBC 3.22 X10^6/uL (3.5-5.4) L 03/01/19 12:06 Hgb 10.0 g/dL (12.0-16.0) L 03/01/19 12:06 Hct 29.8 % (36.0-47.0) L 03/01/19 12:06 MCV 92.6 fL (80.0-100.0) 03/01/19 12:06 MCH 31.2 pg (27.0-34.0) 03/01/19 12:06 MCHC 33.7 g/dL (33.0-35.0) 03/01/19 12:06 RDW 18.4 % (11.6-16.5) H 03/01/19 12:06 Plt Count 254 X10^3/uL (150.0-450.0) 03/01/19 12:06 MPV 7.9 fL (7.4-11.0) 03/01/19 12:06 Neut % (Auto) 71.4 % (42.0-75.0) 03/01/19 12:06 Lymph % (Auto) 23.0 % (21.0-51.0) 03/01/19 12:06 [place] % (Auto) 3.7 % (0.0-13.0) 03/01/19 12:06 Eos % (Auto) 1.3 % (0.9-2.9) 03/01/19 12:06 Baso % (Auto) 0.6 % (0.2-1.0) 03/01/19 12:06 Neut # (Auto) 5.1 x10^3/uL (2.2-4.8) H 03/01/19 12:06 Lymph # (Auto) 1.6 X10^3/uL (1.3-2.9) 03/01/19 12:06 [place] # (Auto) 0.3 x10^3/uL (0.3-0.8) 03/01/19 12:06 Eos # (Auto) 0.1 x10^3/uL (0.0-0.2) 03/01/19 12:06 Baso # (Auto) 0.0 X10^3/uL (0.0-0.1) 03/01/19 12:06 Absolute Nucleated RBC 0.0 /100WBC 03/01/19 12:06 Sodium 135 mmol/L (136-145) L 03/01/19 12:06 Corrected Sodium 140 mmol/L (136-145) 03/01/19 12:06 Potassium 4.3 mmol/L (3.5-5.1) 03/01/19 12:06 Chloride 103 mmol/L (98-107) 03/01/19 12:06 Carbon Dioxide 15.5 mmol/L (21-32) L 03/01/19 12:06 BUN 103 mg/dL (7-18) H 03/01/19 12:06 Creatinine 1.44 mg/dL (0.55-1.02) H 03/01/19 12:06 Est GFR (MDRD) Af Amer 46 (>60) L 03/01/19 12:06 Est GFR (MDRD) Non-Af 38 (>60) L 03/01/19 12:06 Glucose 301 mg/dL (65-99) H 03/01/19 12:06 Calcium 9.9 mg/dL (8.5-10.1) 03/01/19 12:06 Corrected Calcium TNP 03/01/19 12:06 Total Bilirubin 0.20 mg/dL (0.2-1.0) 03/01/19 12:06 AST 15 Units/L (15-37) 03/01/19 12:06 ALT 23 Units/L (12-78) 03/01/19 12:06 Alkaline Phosphatase 64 Units/L (46-116) 03/01/19 12:06 Creatine Kinase 20 Units/L (26-192) L 03/01/19 12:06 CK-MB (CK-2) 1.5 ng/mL (0-4.0) 03/01/19 12:06 CK/CKMB % Calc 7.5 % (<4) 03/01/19 12:06 Troponin I < 0.02 ng/mL (0-1.5) 03/01/19 12:06 Total Protein 7.3 g/dL (6.4-8.2) 03/01/19 12:06 Albumin 3.7 g/dL (3.4-5.0) 03/01/19 12:06 Globulin 3.6 g/dL (2.5-4.5) 03/01/19 12:06 Albumin/Globulin Ratio 1.0 Ratio (1.1-2.1) L 03/01/19 12:06 Stool Description Fob tube 03/01/19 13:03 Stl Occult Blood (IFOB) Positive (NEGATIVE) A 03/01/19 13:03 Blood Type B POSITIVE 03/01/19 12:06 Antibody Screen Positive 03/01/19 12:06 EKG Compared to prior EKG Dated: 02/04/19 (no Afib on this new EKG, p waves clearly seen in v-v6) Rate: 116 [place]: Normal Rhythm: NSR Block: None Hypertrophy: None ST: Old, Lat and Nonsp Opioid Opioid Risk Tool Age (Esequiel box if 16-45): No History of Preadolescent Sexual Abuse: No Total: 0 Total Score Risk Category: Low Risk Copyright: Narvaez ARYAN predicting aberrant behaviors Diagnosis Discharge Problem: Acute lower gastrointestinal bleeding, HEATHER (acute kidney injury) Narrative Support Text: Admitted to hospitalist Dr. Tavares and Dr. Hamlin.
[2019-03-01] MEDS ORDERED: PROTONIX INJ 40 MG VIAL ONE (11:58)
[2019-03-01] MEDS ORDERED: NS 1000 ML 1,000 ML IV SCH (12:00)
[2019-03-01 12:18] LABS: BASOPHILS % (AUTO) 0.6 % (0.2-1.0); EOSINOPHILS # (AUTO) 0.1 x10^3/uL (0.0-0.2); EOSINOPHILS % (AUTO) 1.3 % (0.9-2.9); HEMATOCRIT 29.8 % (36.0-47.0); LYMPHOCYTES # (AUTO) 1.6 X10^3/uL (1.3-2.9); MEAN CORPUSCULAR HEMOGLOBIN 31.2 pg (27.0-34.0); MEAN CORPUSCULAR HGB CONC 33.7 g/dL (33.0-35.0); MEAN CORPUSCULAR VOLUME 92.6 fL (80.0-100.0); MEAN PLATELET VOLUME 7.9 fL (7.4-11.0); MONOCYTES # (AUTO) 0.3 x10^3/uL (0.3-0.8); MONOCYTES % (AUTO) 3.7 % (0.0-13.0); NEUTROPHILS # (AUTO) 5.1 x10^3/uL (2.2-4.8); NEUTROPHILS % (AUTO) 71.4 % (42.0-75.0); PLATELET COUNT 254 X10^3/uL (150.0-450.0); RED BLOOD COUNT 3.22 X10^6/uL (3.5-5.4); RED CELL DISTRIBUTION WIDTH 18.4 % (11.6-16.5); WHITE BLOOD COUNT 7.1 X10^3/uL (3.6-10.0)
[2019-03-01 12:26] LABS: BLOOD UREA NITROGEN 103 mg/dL (7-18); CALCIUM 9.9 mg/dL (8.5-10.1); CARBON DIOXIDE 15.5 mmol/L (21-32); CHLORIDE 103 mmol/L (98-107); COR NA(FOR HYPERGLY) 140 mmol/L (136-145); CREATININE 1.44 mg/dL (0.55-1.02); SODIUM 135 mmol/L (136-145); eGFR NON BLACK RACES 38 (>60)
[2019-03-01 12:30] LABS: ALANINE AMINOTRANSFERASE 23 Units/L (12-78); ALBUMIN 3.7 g/dL (3.4-5.0); ALKALINE PHOSPHATASE 64 Units/L (46-116); ASPARTATE AMINO TRANSFERASE 15 Units/L (15-37); TOTAL PROTEIN 7.3 g/dL (6.4-8.2)
[2019-03-01 12:39] LABS: CKMB % 7.5 % (<4); CREATINE KINASE 20 Units/L (26-192); CREATINE KINASE MB 1.5 ng/mL (0-4.0); TROPONIN I < 0.02 ng/mL (0-1.5)
[2019-03-01] MEDS ORDERED: DIPRIVAN VIAL ONE (14:08)
[2019-03-01] MEDS ORDERED: DIPRIVAN VIAL 20 ML ONE (15:25)
[2019-03-01] MEDS: NS 1000 ML 1,000 ML IV SCH (15:59)
[2019-03-01] MEDS ORDERED: REQUIP PO PRN (18:21)
[2019-03-01] MEDS ORDERED: FIORICET TAB PO PRN (18:21)
[2019-03-01] MEDS ORDERED: METHYLCELLULOSE 500 MG PO PRN (18:21)
[2019-03-01] MEDS: NORVASC TAB 5 MG PO SCH (20:59)
[2019-03-01] MEDS: XANAX PO SCH (20:59)
[2019-03-01] MEDS: CRESTOR TAB 10 MG PO SCH (20:59)
[2019-03-01] MEDS: AMBIEN PO SCH (20:59)
[2019-03-01] MEDS: COREG TAB 6.25 MG PO SCH (20:59)
[2019-03-01] MEDS: MAG-OX TAB PO SCH (21:00)
[2019-03-01] MEDS: NEURONTIN CAP 100 MG PO SCH (21:00)
[2019-03-01] MEDS: PROTONIX INJ 40 MG VIAL IVP SCH (21:00)
[2019-03-01] MEDS: HumuLIN R SUBCUT PRN (21:09)
[2019-03-01] MEDS: SNACK - Diabetic Appropriate PO SCH (21:31)
[2019-03-02] MEDS: NS 1000 ML 1,000 ML IV SCH ×3 (01:16→20:18)
[2019-03-02 05:02] LABS: BASOPHILS % (AUTO) 0.6 % (0.2-1.0); EOSINOPHILS # (AUTO) 0.2 x10^3/uL (0.0-0.2); EOSINOPHILS % (AUTO) 3.1 % (0.9-2.9); HEMATOCRIT 21.3 % (36.0-47.0); LYMPHOCYTES % (AUTO) 35.9 % (21.0-51.0); MEAN CORPUSCULAR HEMOGLOBIN 31.9 pg (27.0-34.0); MEAN CORPUSCULAR HGB CONC 34.7 g/dL (33.0-35.0); MEAN CORPUSCULAR VOLUME 92.1 fL (80.0-100.0); MEAN PLATELET VOLUME 8.1 fL (7.4-11.0); MONOCYTES # (AUTO) 0.4 x10^3/uL (0.3-0.8); MONOCYTES % (AUTO) 6.3 % (0.0-13.0); NEUTROPHILS # (AUTO) 3.1 x10^3/uL (2.2-4.8); NEUTROPHILS % (AUTO) 54.1 % (42.0-75.0); PLATELET COUNT 176 X10^3/uL (150.0-450.0); RED BLOOD COUNT 2.32 X10^6/uL (3.5-5.4); RED CELL DISTRIBUTION WIDTH 18.6 % (11.6-16.5); WHITE BLOOD COUNT 5.7 X10^3/uL (3.6-10.0)
[2019-03-02 05:04] LABS: ALANINE AMINOTRANSFERASE 17 Units/L (12-78); ALBUMIN 2.9 g/dL (3.4-5.0); ALKALINE PHOSPHATASE 49 Units/L (46-116); ASPARTATE AMINO TRANSFERASE 14 Units/L (15-37); BLOOD UREA NITROGEN 77 mg/dL (7-18); CALCIUM 8.8 mg/dL (8.5-10.1); CARBON DIOXIDE 21.7 mmol/L (21-32); CHLORIDE 109 mmol/L (98-107); COR CA(FOR HYPOALB) 9.7 mg/dL (8.5-10.1); CREATININE 1.06 mg/dL (0.55-1.02); SODIUM 140 mmol/L (136-145); TOTAL PROTEIN 5.7 g/dL (6.4-8.2); eGFR NON BLACK RACES 54 (>60)
[2019-03-02 05:32] LABS: HEMOGLOBIN 7.4 g/dL (12.0-16.0)
[2019-03-02 05:33] LABS: ANISOCYTOSIS SLIGHT; PLATELET MORPHOLOGY COMMENT NORMAL (NORMAL)
[2019-03-02] MEDS ORDERED: POTASSIUM CHL 40 MEQ/NS 0.45% 500 ML IV PRN (06:10)
[2019-03-02] MEDS ORDERED: MICRO K EXTEN CAP 10 MEQ PO PRN (06:10)
[2019-03-02] MEDS ORDERED: POTASSIUM CHL 60 MEQ/NS 0.45% 500 ML IV PRN (06:10)
[2019-03-02] MEDS ORDERED: KLOR-CON PO PRN (06:10)
[2019-03-02] MEDS ORDERED: POTASSIUM CHLORIDE LIQ 20 MEQ UDC PO PRN (06:10)
[2019-03-02] MEDS ORDERED: K-RIDER 10 MEQ/NS 100 ML 10 MEQ/100 ML BAG IV PRN (06:10)
[2019-03-02] MEDS: K-DUR TAB 20 MEQ PO PRN (06:36)
[2019-03-02] MEDS: AZILSARTAN MED CHLORTHALIDONE PO SCH (08:14)
[2019-03-02] MEDS: FOLIC ACID 800 MCG PO SCH (08:15)
[2019-03-02] MEDS: DITROPAN TAB 5 MG PO SCH (08:15)
[2019-03-02] MEDS: PROTONIX INJ 40 MG VIAL IVP SCH ×2 (08:15→20:10)
[2019-03-02] MEDS: XANAX PO SCH ×2 (08:15→20:10)
[2019-03-02] MEDS: MICRO K EXTEN CAP 10 MEQ PO SCH (08:15)
[2019-03-02] MEDS: OSCAL+D or CALTRATE+D PO SCH (08:16)
[2019-03-02] MEDS: COREG TAB 6.25 MG PO SCH ×2 (08:16→20:10)
[2019-03-02] MEDS: MAG-OX TAB PO SCH ×2 (08:16→20:09)
[2019-03-02] MEDS: SYNTHROID 100 mcg TAB PO SCH (08:16)
[2019-03-02] MEDS: HEMOCYTE-PLUS PO SCH (08:16)
[2019-03-02] MEDS: HumuLIN R SUBCUT PRN (11:37)
[2019-03-02] MEDS ORDERED: NULYTELY or GO-LYTELY PO SCH (12:00)
--- NOTE | 2019-03-02 13:06 | DR.UPDATE ---
H&P Update History and Physical Update: History and Physical reviewed and patient examined. Changes noted: Yes with the following: H&P WAS COMPLETED WITH HER LAST VISIT ON 02/04/19. SHE RETURNED TO THE ER WITH COMPLAINTS OF PERSISTENT RECTAL BLEEDING. SHE ALSO REPORTS FECAL INCONTINENCE TODAY WELL INCREASED HEART RATE AN FATIGUE. ON ARRIVAL, VITALS WERE 97.8-148-15-100%-115/62. LABS WERE OBTAINED. ABNORMAL LAB VALUES INCLUDE THE FOLLOWING: RBC 3.22, HGB 10.0, HCT 29.8, SODIUM 135, CARBON DIOXIDE 15.5, BUN 103, CREATININE 1.44, GLUCOSE 301. STOOL IS POSITIVE FOR OCCULT BLOOD. EKG REVEALED SINUS TACHYCARDIA WITH HR 116. WAS CONSULTED AND PLANNED FOR AN EGD AFTER ADMISSION. PATIENT WAS ADMITTED FOR FURTHER EVALUATION AND TREATMENT OF ACUTE RENAL FAILURE AND GI BLEED. SHE WAS STARTED ON NORMAL SALINE AT 75ML/HR, PROTONIX 40MG IV BID, AND HOME MEDICATIONS WERE RESUMED. WILL PERFORM AN EGD TODAY. OTHERWISE, WE PLAN TO FOLLOW UP WITH AM LABS AND CONTINUE TO MONITOR.
[2019-03-02] MEDS: NEURONTIN CAP 100 MG PO SCH ×2 (13:19→20:10)
--- NOTE | 2019-03-02 17:45 | DR.PROGNOT ---
Hospital Progress Notes - Progress Note for Day of: Progress Note Date: 03/02/19 - Chief Complaint Chief Complaint: c/o moderate epigastric pain and mild nausea . still having black stool . - Past Medical Family Social History Past Med/Fam/Surg Hx: No changes since H&P Allergies: Allergies Penicillins Allergy (Verified 02/03/17 18:45) prednisone Allergy (Verified 07/02/17 10:35) tramadol Allergy (Verified 01/12/19 18:45) - Review Of Systems ROS: No change since H&P - Vital Signs Vital Signs: Temperature 97.5 F Pulse Rate [Left Brachial] 80 Pulse Rate 117 Respiratory Rate 20 Blood Pressure [Right Calf] 170/70 Blood Pressure [Right Arm] 106/54 Blood Pressure [Left Arm] 112/47 Blood Pressure 112/71 O2 Sat by Pulse Oximetry 98 - Physical Exam Oriented: Normal Eyes: Normal Nose: Normal Throat: Normal Respiratory: Normal Cardiovascular: Normal : Normal GI:Auscultation: Normal GI:Palpation: Normal GI: Tenderness: Diffuse, Epigastric Skin: Normal Speech Pattern: Clear, Appropriate - Laboratory and Diagnostics Result Diagrams: 03/02/19 04:11 03/02/19 04:11 Labs: Laboratory WBC 5.7 X10^3/uL (3.6-10.0) 03/02/19 04:11 RBC 2.32 X10^6/uL (3.5-5.4) L 03/02/19 04:11 Hgb 7.4 g/dL (12.0-16.0) L D 03/02/19 04:11 Hct 21.3 % (36.0-47.0) L 03/02/19 04:11 MCV 92.1 fL (80.0-100.0) 03/02/19 04:11 MCH 31.9 pg (27.0-34.0) 03/02/19 04:11 MCHC 34.7 g/dL (33.0-35.0) 03/02/19 04:11 RDW 18.6 % (11.6-16.5) H 03/02/19 04:11 Plt Count 176 X10^3/uL (150.0-450.0) 03/02/19 04:11 Plt Count Comment Adequate (ADEQUATE) 03/02/19 04:11 MPV 8.1 fL (7.4-11.0) 03/02/19 04:11 Neut % (Auto) 54.1 % (42.0-75.0) 03/02/19 04:11 Lymph % (Auto) 35.9 % (21.0-51.0) 03/02/19 04:11 [place] % (Auto) 6.3 % (0.0-13.0) 03/02/19 04:11 Eos % (Auto) 3.1 % (0.9-2.9) H 03/02/19 04:11 Baso % (Auto) 0.6 % (0.2-1.0) 03/02/19 04:11 Neut # (Auto) 3.1 x10^3/uL (2.2-4.8) 03/02/19 04:11 Lymph # (Auto) 2.0 X10^3/uL (1.3-2.9) 03/02/19 04:11 [place] # (Auto) 0.4 x10^3/uL (0.3-0.8) 03/02/19 04:11 Eos # (Auto) 0.2 x10^3/uL (0.0-0.2) 03/02/19 04:11 Baso # (Auto) 0.0 X10^3/uL (0.0-0.1) 03/02/19 04:11 Absolute Nucleated RBC 0.0 /100WBC 03/02/19 04:11 Plt Morphology Comment Normal (NORMAL) 03/02/19 04:11 RBC Morphology Abnormal (NORMAL) A 03/02/19 04:11 Anisocytosis Slight A 03/02/19 04:11 Sodium 140 mmol/L (136-145) 03/02/19 04:11 Corrected Sodium TNP 03/02/19 04:11 Potassium 3.5 mmol/L (3.5-5.1) 03/02/19 04:11 Chloride 109 mmol/L (98-107) H 03/02/19 04:11 Carbon Dioxide 21.7 mmol/L (21-32) 03/02/19 04:11 BUN 77 mg/dL (7-18) H 03/02/19 04:11 Creatinine 1.06 mg/dL (0.55-1.02) H 03/02/19 04:11 Est GFR (MDRD) Af Amer > 60 (>60) 03/02/19 04:11 Est GFR (MDRD) Non-Af 54 (>60) L 03/02/19 04:11 Glucose 93 mg/dL (65-99) 03/02/19 04:11 POC Glucose (mg/dL) 140 mg/dL (65-99) H 03/02/19 16:14 Calcium 8.8 mg/dL (8.5-10.1) 03/02/19 04:11 Corrected Calcium 9.7 mg/dL (8.5-10.1) 03/02/19 04:11 Magnesium 2.0 mg/dL (1.7-2.9) 03/02/19 04:11 Total Bilirubin 0.10 mg/dL (0.2-1.0) L 03/02/19 04:11 AST 14 Units/L (15-37) L 03/02/19 04:11 ALT 17 Units/L (12-78) 03/02/19 04:11 Alkaline Phosphatase 49 Units/L (46-116) 03/02/19 04:11 Creatine Kinase 20 Units/L (26-192) L 03/01/19 12:06 CK-MB (CK-2) 1.5 ng/mL (0-4.0) 03/01/19 12:06 CK/CKMB % Calc 7.5 % (<4) 03/01/19 12:06 Troponin I < 0.02 ng/mL (0-1.5) 03/01/19 12:06 Total Protein 5.7 g/dL (6.4-8.2) L 03/02/19 04:11 Albumin 2.9 g/dL (3.4-5.0) L 03/02/19 04:11 Globulin 2.8 g/dL (2.5-4.5) 03/02/19 04:11 Albumin/Globulin Ratio 1.0 Ratio (1.1-2.1) L 03/02/19 04:11 Stool Description Fob tube 03/01/19 13:03 Stl Occult Blood (IFOB) Positive (NEGATIVE) A 03/01/19 13:03 Tissue Pathology To follow 03/01/19 15:30 Blood Type B POSITIVE 03/01/19 12:06 Antibody Screen Positive 03/01/19 12:06 Crossmatch See Detail 03/01/19 12:06 - Assessment and Plan 1: GI bleeding . anemia . for colonoscopy in am . - Problem Patient Problems: Patient Problems Acute lower gastrointestinal bleeding (Acute) K92.2 HEATHER (acute kidney injury) (Acute) N17.9
[2019-03-02] MEDS: CRESTOR TAB 10 MG PO SCH (20:10)
[2019-03-02] MEDS: AMBIEN PO SCH (20:10)
[2019-03-02] MEDS: NORVASC TAB 5 MG PO SCH (20:10)
[2019-03-02] MEDS: SNACK - Diabetic Appropriate PO SCH (21:22)
--- NOTE | 2019-03-02 22:02 | PCM.PROG ---
Progress Note - Progress Note for Day of Date of Exam: 03/02/19 - Subjective Subjective: WAS ADMITTED FOR ACUTE RENAL FAILURE AND A GI BLEED. TODAY, SHE IS ALERT AND ORIENTED, LYING IN BED ON MORNING ROUNDS. SHE CONTINUES WITH COMPLAINTS OF WEAKNESS AND DARK, TARRY STOOLS. ON EXAMINATION, HEART IS REGULAR IN RATE AND RHYTHM. BILATERAL LUNGS ARE NOTED WITH DIMINISHED LUNG SOUNDS THROUGHOUT. ABDOMEN IS ROUND, SOFT, AND NOTED WITH MILD EPIGASTRIC PAIN. WITH NORMAL BOWEL SOUNDS NOTED IN ALL QUADRANTS. HER VITALS THIS MORNING ARE: 98.4-78-18-100%-113/42. LABS WERE OBTAINED. ABNORMAL LAB VALUES INCLUDE THE FOLLOWING: RBC 3.22, HGB 10.0, HCT 29.8, CHLORIDE 109, BUN 77, CREATININE 1.06, TOTAL BILI 0.10, AST 14, TOTAL PROTEIN 5.7, ALBUMIN 2.9. AN EGD WAS PERFORMED YESTERDAY AND REVEALED: GASTRIC ULCERS IN THE DISTAL STOMACH WITHOUT ACTIVE BLEEDING. HIATAL HERNIA WITHOUT ESOPHAGITIS. SHE IS CURRENTLY RECEIVING NORMAL SALINE AT 75ML/HR, IV PROTONIX, AND HOME MEDICATIONS WERE RESUMED. WE WILL REPLACE HER POTASSIUM PER THE PROTOCOL TODAY. WE WILL CROSSMATCH 2 UNITS OF PRBC. SHE IS POSITIVE FOR ANTIBODIES. OTHERWISE, WE WILL CONTINUE WITH CURRENT PLAN OF CARE TODAY. WE WILL FOLLOW UP WITH AM LABS AND CONTINUE TO MONITOR. - Past Medical Family Social History Past Med/Fam/Surg Hx: No changes since H&P Allergies: Allergies Penicillins Allergy (Verified 02/03/17 18:45) prednisone Allergy (Verified 07/02/17 10:35) tramadol Allergy (Verified 01/12/19 18:45) - Review of Systems ROS: No change since H&P - Vital Signs and I&O's Vital Signs: Temperature 97.5 F Pulse Rate [Left Brachial] 73 Pulse Rate 117 Respiratory Rate 20 Blood Pressure [Right Calf] 170/70 Blood Pressure [Right Arm] 106/54 Blood Pressure [Left Arm] 121/50 Blood Pressure 112/71 O2 Sat by Pulse Oximetry 99 Intake and Output: Intake & Output 02/28/19 03/01/19 03/02/19 03/03/19 11:59 11:59 11:59 11:59 Intake Total 1079 / 1080 1890 / 1890 Balance 1080 / 1080 189 / 189 - Physical Exam Oriented: Normal Eyes: Normal Ear: Normal Nose: Normal Throat: Normal Respiratory: Normal Cardiovascular: Normal : Normal Auscultation: Bowel Sounds: Normal Palpation: Normal Tenderness: Epigastric Skin: Normal Musculoskeletal: Normal Psychiatric: Normal Mood Description: Calm Affect: Normal Speech Pattern: Clear, Appropriate - Laboratory and Diagnostics Result Diagrams: 03/02/19 04:11 03/02/19 04:11 Labs: Laboratory WBC 5.7 X10^3/uL (3.6-10.0) 03/02/19 04:11 RBC 2.32 X10^6/uL (3.5-5.4) L 03/02/19 04:11 Hgb 7.4 g/dL (12.0-16.0) L D 03/02/19 04:11 Hct 21.3 % (36.0-47.0) L 03/02/19 04:11 MCV 92.1 fL (80.0-100.0) 03/02/19 04:11 MCH 31.9 pg (27.0-34.0) 03/02/19 04:11 MCHC 34.7 g/dL (33.0-35.0) 03/02/19 04:11 RDW 18.6 % (11.6-16.5) H 03/02/19 04:11 Plt Count 176 X10^3/uL (150.0-450.0) 03/02/19 04:11 Plt Count Comment Adequate (ADEQUATE) 03/02/19 04:11 MPV 8.1 fL (7.4-11.0) 03/02/19 04:11 Neut % (Auto) 54.1 % (42.0-75.0) 03/02/19 04:11 Lymph % (Auto) 35.9 % (21.0-51.0) 03/02/19 04:11 [place] % (Auto) 6.3 % (0.0-13.0) 03/02/19 04:11 Eos % (Auto) 3.1 % (0.9-2.9) H 03/02/19 04:11 Baso % (Auto) 0.6 % (0.2-1.0) 03/02/19 04:11 Neut # (Auto) 3.1 x10^3/uL (2.2-4.8) 03/02/19 04:11 Lymph # (Auto) 2.0 X10^3/uL (1.3-2.9) 03/02/19 04:11 [place] # (Auto) 0.4 x10^3/uL (0.3-0.8) 03/02/19 04:11 Eos # (Auto) 0.2 x10^3/uL (0.0-0.2) 03/02/19 04:11 Baso # (Auto) 0.0 X10^3/uL (0.0-0.1) 03/02/19 04:11 Absolute Nucleated RBC 0.0 /100WBC 03/02/19 04:11 Plt Morphology Comment Normal (NORMAL) 03/02/19 04:11 RBC Morphology Abnormal (NORMAL) A 03/02/19 04:11 Anisocytosis Slight A 03/02/19 04:11 Sodium 140 mmol/L (136-145) 03/02/19 04:11 Corrected Sodium TNP 03/02/19 04:11 Potassium 3.5 mmol/L (3.5-5.1) 03/02/19 04:11 Chloride 109 mmol/L (98-107) H 03/02/19 04:11 Carbon Dioxide 21.7 mmol/L (21-32) 03/02/19 04:11 BUN 77 mg/dL (7-18) H 03/02/19 04:11 Creatinine 1.06 mg/dL (0.55-1.02) H 03/02/19 04:11 Est GFR (MDRD) Af Amer > 60 (>60) 03/02/19 04:11 Est GFR (MDRD) Non-Af 54 (>60) L 03/02/19 04:11 Glucose 93 mg/dL (65-99) 03/02/19 04:11 POC Glucose (mg/dL) 106 mg/dL (65-99) H 03/02/19 20:01 Calcium 8.8 mg/dL (8.5-10.1) 03/02/19 04:11 Corrected Calcium 9.7 mg/dL (8.5-10.1) 03/02/19 04:11 Magnesium 2.0 mg/dL (1.7-2.9) 03/02/19 04:11 Total Bilirubin 0.10 mg/dL (0.2-1.0) L 03/02/19 04:11 AST 14 Units/L (15-37) L 03/02/19 04:11 ALT 17 Units/L (12-78) 03/02/19 04:11 Alkaline Phosphatase 49 Units/L (46-116) 03/02/19 04:11 Creatine Kinase 20 Units/L (26-192) L 03/01/19 12:06 CK-MB (CK-2) 1.5 ng/mL (0-4.0) 03/01/19 12:06 CK/CKMB % Calc 7.5 % (<4) 03/01/19 12:06 Troponin I < 0.02 ng/mL (0-1.5) 03/01/19 12:06 Total Protein 5.7 g/dL (6.4-8.2) L 03/02/19 04:11 Albumin 2.9 g/dL (3.4-5.0) L 03/02/19 04:11 Globulin 2.8 g/dL (2.5-4.5) 03/02/19 04:11 Albumin/Globulin Ratio 1.0 Ratio (1.1-2.1) L 03/02/19 04:11 Stool Description Fob tube 03/01/19 13:03 Stl Occult Blood (IFOB) Positive (NEGATIVE) A 03/01/19 13:03 Tissue Pathology To follow 03/01/19 15:30 Blood Type B POSITIVE 03/01/19 12:06 Antibody Screen Positive 03/01/19 12:06 Crossmatch See Detail 03/01/19 12:06 - Plan (1) GI bleed Status: Acute Qualifiers: GI bleed type/associated pathology: anorectal hemorrhage Qualified Code(s): K62.5 - Hemorrhage of anus and rectum Plan: ADMIT, IV PROTONIX, GI CONSULT, CONTINUE TO MONITOR H&H (2) Anemia Status: Acute Qualifiers: Anemia type: iron deficiency Iron deficiency anemia type: chronic blood loss Qualified Code(s): D50.0 - Iron deficiency anemia secondary to blood loss (chronic) Plan: TRANSFUSE 2 UNITS PRBC WHEN AVAILABLE, CONTINUE TO MONITOR (3) Acute renal failure (ARF) Status: Acute Qualifiers: Acute renal failure type: unspecified Qualified Code(s): N17.9 - Acute kidney failure, unspecified Plan: CONTINUE IV FLUIDS
[2019-03-03 05:34] LABS: BASOPHILS % (AUTO) 0.3 % (0.2-1.0); EOSINOPHILS # (AUTO) 0.2 x10^3/uL (0.0-0.2); EOSINOPHILS % (AUTO) 4.2 % (0.9-2.9); LYMPHOCYTES # (AUTO) 1.4 X10^3/uL (1.3-2.9); LYMPHOCYTES % (AUTO) 26.3 % (21.0-51.0); MEAN CORPUSCULAR HEMOGLOBIN 32.3 pg (27.0-34.0); MEAN CORPUSCULAR HGB CONC 34.7 g/dL (33.0-35.0); MEAN CORPUSCULAR VOLUME 93.1 fL (80.0-100.0); MEAN PLATELET VOLUME 8.2 fL (7.4-11.0); MONOCYTES # (AUTO) 0.4 x10^3/uL (0.3-0.8); MONOCYTES % (AUTO) 6.9 % (0.0-13.0); NEUTROPHILS # (AUTO) 3.2 x10^3/uL (2.2-4.8); NEUTROPHILS % (AUTO) 62.3 % (42.0-75.0); PLATELET COUNT 147 X10^3/uL (150.0-450.0); RED BLOOD COUNT 1.88 X10^6/uL (3.5-5.4); RED CELL DISTRIBUTION WIDTH 19.5 % (11.6-16.5); WHITE BLOOD COUNT 5.2 X10^3/uL (3.6-10.0)
[2019-03-03 05:51] LABS: ALANINE AMINOTRANSFERASE 26 Units/L (12-78); ALBUMIN 2.8 g/dL (3.4-5.0); ALKALINE PHOSPHATASE 47 Units/L (46-116); ASPARTATE AMINO TRANSFERASE 25 Units/L (15-37); BLOOD UREA NITROGEN 38 mg/dL (7-18); CALCIUM 8.3 mg/dL (8.5-10.1); CARBON DIOXIDE 21.3 mmol/L (21-32); CHLORIDE 109 mmol/L (98-107); COR CA(FOR HYPOALB) 9.3 mg/dL (8.5-10.1); COR NA(FOR HYPERGLY) 141 mmol/L (136-145); CREATININE 0.75 mg/dL (0.55-1.02); SODIUM 139 mmol/L (136-145); TOTAL PROTEIN 5.2 g/dL (6.4-8.2); eGFR NON BLACK RACES > 60 (>60)
[2019-03-03 05:54] LABS: HEMATOCRIT 17.5 % (36.0-47.0); HEMOGLOBIN 6.1 g/dL (12.0-16.0)
[2019-03-03] MEDS: NS 1000 ML 1,000 ML IV SCH ×2 (06:46→14:50)
[2019-03-03] MEDS: XANAX PO SCH ×3 (09:03→21:15)
[2019-03-03] MEDS: SYNTHROID 100 mcg TAB PO SCH ×2 (09:03→13:45)
[2019-03-03] MEDS: AZILSARTAN MED CHLORTHALIDONE PO SCH (09:03)
[2019-03-03] MEDS: NEURONTIN CAP 100 MG PO SCH ×3 (09:09→20:09)
[2019-03-03] MEDS: OSCAL+D or CALTRATE+D PO SCH ×2 (09:09→13:45)
[2019-03-03] MEDS: MICRO K EXTEN CAP 10 MEQ PO SCH (09:09)
[2019-03-03] MEDS: PROTONIX INJ 40 MG VIAL IVP SCH ×3 (09:09→21:16)
[2019-03-03] MEDS: DITROPAN TAB 5 MG PO SCH ×2 (09:10→13:45)
[2019-03-03] MEDS: HEMOCYTE-PLUS PO SCH ×2 (09:10→13:46)
[2019-03-03] MEDS: FOLIC ACID 800 MCG PO SCH (09:10)
[2019-03-03] MEDS: MAG-OX TAB PO SCH ×2 (09:10→20:09)
[2019-03-03] MEDS: COREG TAB 6.25 MG PO SCH ×3 (09:10→21:15)
[2019-03-03] MEDS ORDERED: STERILE WATER IRRIGATION IR ONE (09:32)
[2019-03-03] MEDS ORDERED: DIPRIVAN VIAL 20 ML ONE (10:34)
--- NOTE | 2019-03-03 11:10 | OR.IMMED ---
Immediate Post-Op Note - Immediate Post-Op Note Pre-Op Diagnosis: rectal bleeding . severe anemia. Post-Op Diagnosis: diverticulosis . no active bleeding in the colon ., no inflamatory changes , ischemia or neoplasms . diverticylosis . bowel prep was not satisfactory Procedure: colonoscopy to the cecum. Surgeon/Retail Manager: Boubacar Drains: NONE Condition: Stable (will transfuse as needed ,)
[2019-03-03] MEDS ORDERED: METHYLCELLULOSE 500 MG PO PRN (14:00)
[2019-03-03] MEDS ORDERED: DIPRIVAN VIAL ONE (14:12)
[2019-03-03] MEDS ORDERED: BENADRYL INJ 50 MG VIAL IVP PRN (14:39)
[2019-03-03] MEDS ORDERED: NS 500 ML IV 500 ML IV ONE ×2 (14:39→15:20)
[2019-03-03] MEDS ORDERED: BENADRYL INJ 50 MG VIAL ONE (14:55)
[2019-03-03] MEDS ORDERED: TYLENOL 325 MG TAB PO ONE (14:56)
[2019-03-03] MEDS: TYLENOL 325 MG TAB PO PRN ×2 (15:01→15:03)
[2019-03-03] MEDS: CRESTOR TAB 10 MG PO SCH (20:09)
--- NOTE | 2019-03-03 20:30 | PCM.PROG ---
Progress Note - Progress Note for Day of Date of Exam: 03/03/19 - Subjective Subjective: WAS ADMITTED FOR ACUTE RENAL FAILURE AND A GI BLEED. TODAY, SHE IS ALERT AND ORIENTED, LYING IN BED ON MORNING ROUNDS. SHE CONTINUES WITH COMPLAINTS OF WEAKNESS. ON EXAMINATION, HEART IS REGULAR IN RATE AND RHYTHM. BILATERAL LUNGS ARE NOTED WITH DIMINISHED LUNG SOUNDS THROUGHOUT. AB DOMEN IS ROUND, SOFT, AND NOTED WITH MILD EPIGASTRIC PAIN. NORMAL BOWEL SOUNDS NOTED IN ALL QUADRANTS. HER VITALS THIS MORNING ARE: 98.1-72-20-100%-97/41. LABS WERE OBTAINED. ABNORMAL LAB VALUES INCLUDE THE FOLLOWING: RBC 1.88, HGB 6.1, HCT 17.5, PLT COUNT 147, CHLORIDE 109, BUN 38, GLUCOSE 181, CALCIUM 8.3, TOTAL BILI 0.10, TOTAL PROTEIN 5.2, ALBUMIN 2.8. AN EGD WAS PERFORMED FRIDAY AND REVEALED: GASTRIC ULCERS IN THE DISTAL STOMACH WITHOUT ACTIVE BLEEDING. HIATAL HERNIA WITHOUT ESOPHAGITIS. SHE IS CURRENTLY RECEIVING NORMAL SALINE AT 75ML/HR, IV PROTONIX, AND HOME MEDICATIONS WERE RESUMED. WE HAVE ORDERED FOUR UNITS OF PRBC AND WILL TRANSFUSE WHEN IT IS AVAILABLE. WILL PERFORM A COLONOSCOPY TODAY. OTHERWISE, WE WILL CONTINUE WITH CURRENT PLAN OF CARE. WE WILL FOLLOW UP WITH AM LABS AND CONTINUE TO MONITOR. - Past Medical Family Social History Past Med/Fam/Surg Hx: No changes since H&P Allergies: Allergies Penicillins Allergy (Verified 02/03/17 18:45) prednisone Allergy (Verified 07/02/17 10:35) tramadol Allergy (Verified 01/12/19 18:45) - Review of Systems ROS: No change since H&P - Vital Signs and I&O's Vital Signs: Temperature 98.2 F Pulse Rate [Right Brachial] 91 Pulse Rate [Left Brachial] 72 Pulse Rate 70 Respiratory Rate 18 Blood Pressure [Right Calf] 170/70 Blood Pressure [Right Arm] 127/61 Blood Pressure [Left Arm] 89/45 Blood Pressure 115/62 O2 Sat by Pulse Oximetry 98 Intake and Output: Intake & Output 03/01/19 03/02/19 03/03/19 03/04/19 11:59 11:59 11:59 11:59 Intake Total 1080 / 1080 5490 / 5490 460 / 460 Balance 1080 / 1080 5490 / 5490 460 / 460 - Physical Exam Oriented: Normal Eyes: Normal Ear: Normal Nose: Normal Throat: Normal Respiratory: Normal Cardiovascular: Normal : Normal Auscultation: Bowel Sounds: Normal Palpation: Normal Tenderness: Epigastric Skin: Normal Musculoskeletal: Normal Psychiatric: Normal Mood Description: Calm Affect: Normal Speech Pattern: Clear, Appropriate - Laboratory and Diagnostics Result Diagrams: 03/03/19 05:13 03/03/19 05:13 Labs: Laboratory WBC 5.2 X10^3/uL (3.6-10.0) 03/03/19 05:13 RBC 1.88 X10^6/uL (3.5-5.4) L 03/03/19 05:13 Hgb 6.1 g/dL (12.0-16.0) L* 03/03/19 05:13 Hct 17.5 % (36.0-47.0) L* 03/03/19 05:13 MCV 93.1 fL (80.0-100.0) 03/03/19 05:13 MCH 32.3 pg (27.0-34.0) 03/03/19 05:13 MCHC 34.7 g/dL (33.0-35.0) 03/03/19 05:13 RDW 19.5 % (11.6-16.5) H 03/03/19 05:13 Plt Count 147 X10^3/uL (150.0-450.0) L 03/03/19 05:13 Plt Count Comment Adequate (ADEQUATE) 03/02/19 04:11 MPV 8.2 fL (7.4-11.0) 03/03/19 05:13 Neut % (Auto) 62.3 % (42.0-75.0) 03/03/19 05:13 Lymph % (Auto) 26.3 % (21.0-51.0) 03/03/19 05:13 [place] % (Auto) 6.9 % (0.0-13.0) 03/03/19 05:13 Eos % (Auto) 4.2 % (0.9-2.9) H 03/03/19 05:13 Baso % (Auto) 0.3 % (0.2-1.0) 03/03/19 05:13 Neut # (Auto) 3.2 x10^3/uL (2.2-4.8) 03/03/19 05:13 Lymph # (Auto) 1.4 X10^3/uL (1.3-2.9) 03/03/19 05:13 [place] # (Auto) 0.4 x10^3/uL (0.3-0.8) 03/03/19 05:13 Eos # (Auto) 0.2 x10^3/uL (0.0-0.2) 03/03/19 05:13 Baso # (Auto) 0.0 X10^3/uL (0.0-0.1) 03/03/19 05:13 Absolute Nucleated RBC 0.1 /100WBC 03/03/19 05:13 Plt Morphology Comment Normal (NORMAL) 03/02/19 04:11 RBC Morphology Abnormal (NORMAL) A 03/02/19 04:11 Anisocytosis Slight A 03/02/19 04:11 Sodium 139 mmol/L (136-145) 03/03/19 05:13 Corrected Sodium 141 mmol/L (136-145) 03/03/19 05:13 Potassium 4.1 mmol/L (3.5-5.1) 03/03/19 05:13 Chloride 109 mmol/L (98-107) H 03/03/19 05:13 Carbon Dioxide 21.3 mmol/L (21-32) 03/03/19 05:13 BUN 38 mg/dL (7-18) H 03/03/19 05:13 Creatinine 0.75 mg/dL (0.55-1.02) 03/03/19 05:13 Est GFR (MDRD) Af Amer > 60 (>60) 03/03/19 05:13 Est GFR (MDRD) Non-Af > 60 (>60) 03/03/19 05:13 Glucose 181 mg/dL (65-99) H 03/03/19 05:13 POC Glucose (mg/dL) 230 mg/dL (65-99) H 03/03/19 20:21 Calcium 8.3 mg/dL (8.5-10.1) L 03/03/19 05:13 Corrected Calcium 9.3 mg/dL (8.5-10.1) 03/03/19 05:13 Magnesium 2.0 mg/dL (1.7-2.9) 03/02/19 04:11 Total Bilirubin 0.10 mg/dL (0.2-1.0) L 03/03/19 05:13 AST 25 Units/L (15-37) 03/03/19 05:13 ALT 26 Units/L (12-78) 03/03/19 05:13 Alkaline Phosphatase 47 Units/L (46-116) 03/03/19 05:13 Creatine Kinase 20 Units/L (26-192) L 03/01/19 12:06 CK-MB (CK-2) 1.5 ng/mL (0-4.0) 03/01/19 12:06 CK/CKMB % Calc 7.5 % (<4) 03/01/19 12:06 Troponin I < 0.02 ng/mL (0-1.5) 03/01/19 12:06 Total Protein 5.2 g/dL (6.4-8.2) L 03/03/19 05:13 Albumin 2.8 g/dL (3.4-5.0) L 03/03/19 05:13 Globulin 2.4 g/dL (2.5-4.5) L 03/03/19 05:13 Albumin/Globulin Ratio 1.2 Ratio (1.1-2.1) 03/03/19 05:13 Stool Description Fob tube 03/01/19 13:03 Stl Occult Blood (IFOB) Positive (NEGATIVE) A 03/01/19 13:03 Tissue Pathology To follow 03/01/19 15:30 Blood Type B POSITIVE 03/01/19 12:06 Antibody Screen Positive 03/01/19 12:06 Antibody Identification Anti-K 03/01/19 12:06 Crossmatch See Detail 03/01/19 12:06 - Plan (1) GI bleed Status: Acute Qualifiers: GI bleed type/associated pathology: anorectal hemorrhage Qualified Code(s): K62.5 - Hemorrhage of anus and rectum Plan: COLONOSCOPY TODAY, IV PROTONIX, CONTINUE TO MONITOR H&H (2) Anemia Status: Acute Qualifiers: Anemia type: iron deficiency Iron deficiency anemia type: chronic blood loss Qualified Code(s): D50.0 - Iron deficiency anemia secondary to blood loss (chronic) Plan: TRANSFUSE 4 UNITS PRBC WHEN AVAILABLE, CONTINUE TO MONITOR (3) Acute renal failure (ARF) Status: Acute Qualifiers: Acute renal failure type: unspecified Qualified Code(s): N17.9 - Acute kidney failure, unspecified Plan: CONTINUE IV FLUIDS
[2019-03-03] MEDS: HumuLIN R SUBCUT PRN ×2 (21:05→21:07)
[2019-03-03] MEDS: SNACK - Diabetic Appropriate PO SCH (21:06)
[2019-03-03] MEDS: NORVASC TAB 5 MG PO SCH (21:15)
[2019-03-03] MEDS: AMBIEN PO SCH (21:15)
[2019-03-04 05:28] LABS: BASOPHILS % (AUTO) 0.2 % (0.2-1.0); EOSINOPHILS # (AUTO) 0.2 x10^3/uL (0.0-0.2); EOSINOPHILS % (AUTO) 2.3 % (0.9-2.9); LYMPHOCYTES # (AUTO) 1.3 X10^3/uL (1.3-2.9); LYMPHOCYTES % (AUTO) 19.1 % (21.0-51.0); MEAN CORPUSCULAR HEMOGLOBIN 30.4 pg (27.0-34.0); MEAN CORPUSCULAR HGB CONC 33.9 g/dL (33.0-35.0); MEAN CORPUSCULAR VOLUME 89.8 fL (80.0-100.0); MEAN PLATELET VOLUME 8.4 fL (7.4-11.0); MONOCYTES # (AUTO) 0.3 x10^3/uL (0.3-0.8); MONOCYTES % (AUTO) 4.6 % (0.0-13.0); NEUTROPHILS # (AUTO) 5.1 x10^3/uL (2.2-4.8); NEUTROPHILS % (AUTO) 73.8 % (42.0-75.0); PLATELET COUNT 111 X10^3/uL (150.0-450.0); RED BLOOD COUNT 4.01 X10^6/uL (3.5-5.4); RED CELL DISTRIBUTION WIDTH 15.8 % (11.6-16.5)
[2019-03-04 05:35] LABS: HEMOGLOBIN 12.2 g/dL (12.0-16.0)
[2019-03-04 05:49] LABS: ALANINE AMINOTRANSFERASE 33 Units/L (12-78); ALBUMIN 2.4 g/dL (3.4-5.0); ALKALINE PHOSPHATASE 44 Units/L (46-116); ASPARTATE AMINO TRANSFERASE 30 Units/L (15-37); BLOOD UREA NITROGEN 17 mg/dL (7-18); CALCIUM 7.4 mg/dL (8.5-10.1); CARBON DIOXIDE 19.2 mmol/L (21-32); COR CA(FOR HYPOALB) 8.7 mg/dL (8.5-10.1); COR NA(FOR HYPERGLY) 145 mmol/L (136-145); CREATININE 0.55 mg/dL (0.55-1.02); SODIUM 144 mmol/L (136-145); TOTAL PROTEIN 4.7 g/dL (6.4-8.2); eGFR NON BLACK RACES > 60 (>60)
[2019-03-04 05:52] LABS: CHLORIDE 114 mmol/L (98-107)
[2019-03-04] MEDS: K-DUR TAB 20 MEQ PO PRN (06:34)
[2019-03-04] MEDS ORDERED: FOLIC ACID TAB 1 MG PO SCH (09:00)
[2019-03-04] MEDS: MICRO K EXTEN CAP 10 MEQ PO SCH (09:36)
[2019-03-04] MEDS: COREG TAB 6.25 MG PO SCH (09:37)
[2019-03-04] MEDS: DITROPAN TAB 5 MG PO SCH (09:37)
[2019-03-04] MEDS: OSCAL+D or CALTRATE+D PO SCH (09:37)
[2019-03-04] MEDS: MAG-OX TAB PO SCH (09:37)
[2019-03-04] MEDS: SYNTHROID 100 mcg TAB PO SCH (09:37)
[2019-03-04] MEDS: NEURONTIN CAP 100 MG PO SCH (09:37)
[2019-03-04] MEDS: PROTONIX INJ 40 MG VIAL IVP SCH (09:38)
[2019-03-04] MEDS: HEMOCYTE-PLUS PO SCH (09:38)
[2019-03-04] MEDS: XANAX PO SCH (09:43)
[2019-03-04 12:09] VITALS: BP 153/91
[2019-03-04 12:47] LABS: HEMATOCRIT 39.3 % (36.0-47.0); HEMOGLOBIN 13.3 g/dL (12.0-16.0)
== END 2019-03-04 13:25 | disposition home health service (06) | DRG 683 ==
LOC: ER 11:35 → MED/SURG 14:46
PROVIDERS: ADMIT Internal Medicine; ATTEND Internal Medicine
DX: D50.0 Iron deficiency anemia secondary to blood loss (chronic); N17.8 Other acute kidney failure; K92.2 Gastrointestinal hemorrhage, unspecified; E11.65 Type 2 diabetes mellitus with hyperglycemia; K44.9 Diaphragmatic hernia without obstruction or gangrene; R94.31 Abnormal electrocardiogram [ECG] [EKG]
CPT/HCPCS: 36415; 80053; 82270; 82550; 82553; 83735; 84132; 84484; 85014; 85018; 85025; 86850; 86870; 86880; 86900; 86901; 86902; 86920; 86922; 86970; 88305; 93005; 96365; 96374; 99100; 99284; A4217; A4222; C9113; P9016; J1200; J1815; J2704; J3490; J7030; J7040

== ENCOUNTER 2019-09-20 18:32 | Inpatient (IN) ==
[2019-09-20 20:10] VITALS: BMI 21.3
[2019-09-20] MEDS: NICOTINE PATCH TD SCH (21:00)
[2019-09-20 21:04] LABS: BASOPHILS % (AUTO) 0.6 % (0.2-1.0); EOSINOPHILS # (AUTO) 0.1 x10^3/uL (0.0-0.2); EOSINOPHILS % (AUTO) 1.4 % (0.9-2.9); HEMATOCRIT 20.9 % (36.0-47.0); LYMPHOCYTES # (AUTO) 1.6 X10^3/uL (1.3-2.9); LYMPHOCYTES % (AUTO) 24.9 % (21.0-51.0); MEAN CORPUSCULAR HEMOGLOBIN 31.4 pg (27.0-34.0); MEAN CORPUSCULAR HGB CONC 33.4 g/dL (33.0-35.0); MEAN PLATELET VOLUME 8.4 fL (7.4-11.0); MONOCYTES # (AUTO) 0.4 x10^3/uL (0.3-0.8); MONOCYTES % (AUTO) 5.7 % (0.0-13.0); NEUTROPHILS # (AUTO) 4.3 x10^3/uL (2.2-4.8); NEUTROPHILS % (AUTO) 67.4 % (42.0-75.0); PLATELET COUNT 206 X10^3/uL (150.0-450.0); RED BLOOD COUNT 2.22 X10^6/uL (3.5-5.4); RED CELL DISTRIBUTION WIDTH 15.3 % (11.6-16.5); WHITE BLOOD COUNT 6.4 X10^3/uL (3.6-10.0)
[2019-09-20 21:12] LABS: ALBUMIN 3.2 g/dL (3.4-5.0); CARBON DIOXIDE 22.4 mmol/L (21-32); COR CA(FOR HYPOALB) 9.6 mg/dL (8.5-10.1); CREATININE 1.75 mg/dL (0.55-1.02); TOTAL PROTEIN 6.1 g/dL (6.4-8.2)
[2019-09-20 21:24] LABS: PLATELET MORPHOLOGY COMMENT NORMAL (NORMAL)
[2019-09-20 21:25] LABS: ANISOCYTOSIS 1+; HYPOCHROMASIA 1+
[2019-09-20] MEDS: NS 1000 ML 1,000 ML IV SCH (22:00)
[2019-09-20] MEDS: HumuLIN R SUBCUT PRN (22:00)
[2019-09-20] MEDS ORDERED: BUTALBITAL ACETAMINOPHEN PO PRN (22:52)
[2019-09-20] MEDS ORDERED: TESSALON PERLES PO PRN (22:52)
[2019-09-20] MEDS ORDERED: OXYCODONE 7.5 MG PO PRN (22:52)
[2019-09-21] MEDS: DESYREL PO SCH ×2 (01:41→20:26)
[2019-09-21 05:15] LABS: EOSINOPHILS # (AUTO) 0.1 x10^3/uL (0.0-0.2); LYMPHOCYTES # (AUTO) 2.2 X10^3/uL (1.3-2.9); MONOCYTES # (AUTO) 0.5 x10^3/uL (0.3-0.8)
[2019-09-21 05:25] LABS: BASOPHILS # (AUTO) 0.1 X10^3/uL (0.0-0.1); BASOPHILS % (AUTO) 0.9 % (0.2-1.0); EOSINOPHILS % (AUTO) 1.7 % (0.9-2.9); LYMPHOCYTES % (AUTO) 35.5 % (21.0-51.0); MEAN CORPUSCULAR HEMOGLOBIN 31.7 pg (27.0-34.0); MEAN CORPUSCULAR HGB CONC 33.5 g/dL (33.0-35.0); MEAN CORPUSCULAR VOLUME 94.5 fL (80.0-100.0); MONOCYTES % (AUTO) 7.8 % (0.0-13.0); NEUTROPHILS # (AUTO) 3.3 x10^3/uL (2.2-4.8); NEUTROPHILS % (AUTO) 54.1 % (42.0-75.0); PLATELET COUNT 192 X10^3/uL (150.0-450.0); RED BLOOD COUNT 1.92 X10^6/uL (3.5-5.4); RED CELL DISTRIBUTION WIDTH 15.4 % (11.6-16.5); WHITE BLOOD COUNT 6.1 X10^3/uL (3.6-10.0)
[2019-09-21 05:28] LABS: CALCIUM 8.6 mg/dL (8.5-10.1); COR CA(FOR HYPOALB) 9.4 mg/dL (8.5-10.1); CREATININE 1.41 mg/dL (0.55-1.02); MAGNESIUM 1.8 mg/dL (1.7-2.9); TOTAL PROTEIN 5.7 g/dL (6.4-8.2)
[2019-09-21 05:36] LABS: HEMATOCRIT 18.1 % (36.0-47.0); HEMOGLOBIN 6.1 g/dL (12.0-16.0)
[2019-09-21 09:40] LABS: APPEARANCE,URINE CLEAR (CLEAR); BACTERIA,URINE TRACE /HPF (NEGATIVE); BILIRUBIN,URINE NEGATIVE (NEGATIVE); BLOOD/HEMOGLOBIN,URINE 3+ (NEGATIVE); COLOR,URINE YELLOW (YELLOW); GLUCOSE, URINE NEGATIVE (NEGATIVE); KETONES,URINE 2+ (NEGATIVE); LEUKOCYTE ESTERASE ,URINE 2+ (NEGATIVE); NITRITES,URINE POSITIVE (NEGATIVE); PROTEIN,URINE NEGATIVE (NEGATIVE); RBC,URINE 0-2 /HPF (0-3); SQUAMOUS EPITHELIAL CELL,UR MODERATE /HPF (NEGATIVE); UROBILINOGEN,URINE NORMAL (NORMAL)
[2019-09-21] MEDS: PROTONIX INJ 40 MG VIAL IVP SCH ×2 (09:56→20:27)
[2019-09-21] MEDS: MICRO K EXTEN CAP 10 MEQ PO SCH (09:57)
[2019-09-21] MEDS: DITROPAN TAB 5 MG PO SCH (09:57)
[2019-09-21] MEDS: NICOTINE PATCH TD SCH (09:57)
[2019-09-21] MEDS: ZYLOPRIM PO SCH (09:57)
[2019-09-21] MEDS: VITAMIN C PO SCH (09:57)
[2019-09-21] MEDS: SYNTHROID 100 mcg TAB PO SCH (09:57)
[2019-09-21] MEDS: PEPCID 20 MG IV PREMIX* 20 MG/50 ML BAG IV SCH (09:57)
[2019-09-21] MEDS: CALCIUM CARBONATE VITAMIN D3 PO SCH (10:07)
[2019-09-21] MEDS: HumuLIN R SUBCUT PRN ×2 (11:41→20:27)
[2019-09-21 12:19] LABS: HEMATOCRIT 16.6 % (36.0-47.0); HEMOGLOBIN 5.6 g/dL (12.0-16.0)
[2019-09-21] MEDS: REQUIP PO PRN (14:07)
--- NOTE | 2019-09-21 14:40 | DR.H&P ---
H&P - History & Physical for Day of: H&P Date: 09/20/19 - Chief Complaint Chief Complaint: RECTAL BLEEDING - History of Present Illness History of Present Illness: IS A 74 YEAR OLD PATIENT OF OURS WHO PRESENTED TO THE HOSPITAL A DIRECT ADMISSION DUE TO COMPLAINTS OF BRIGHT RED RECTAL BLEEDING X 2 DAYS AND WEAKNESS. SHE HAS BEEN HOSPITALIZED IN THE PAST FOR THE SAME COMPLAINTS. A COLONOSCOPY OBTAINED 02/2020 REVEALED EXTENSIVE DIVERTICULOSIS OF THE SIGMOID COLON WITHOUT ACTIVE BLEEDING. EGD REVEALED GASTRIC ULCERS IN THE DISTAL STOMACH WITHOUT ACTIVE BLEEDING. AT THAT TIME, SHE RECEIVED FOUR UNITS OF PACKED RED BLOOD CELLS. PMH INCLUDES: TIA, SEIZURES, CAD, CHF, HYPERLIPIDEMIA, HTN, CABG, PUD, UTIs, AVMs, DMII, ANEMIA, CERVICAL CANCER, AND MULTIPLE SURGERIES. ON ARRIVAL TO THE HOSPITAL, VITALS WERE 98.3-108-24-96%-103/61. LABS WERE OBTAINED. ABNORMAL LAB VALUES INCLUDE THE FOLLOWING: RBC 2.22, HGB 7.0, HCT 20.9, BUN 65, CREATININE 1.75, GLUCOSE 241, IRON 42, AST 11, TOTAL PROTEIN 6.1, ALBUMIN 3.2, VITAMIN B12 1221. URINALYSIS WAS OBTAINED AND REVEALED: WBC 0-2, RBC 0-2, LEUKOCYTES 2+, BACTERIA TRACE, OCCULT BLOOD 3+, KETONES 2+. SHE WAS STARED ON NORMAL SALINE AT 50ML/HR, PROTONIX 40MG IV BID, PEPCID 20MG IV BID, HUMULIN R SLIDING SCALE, AND HOME MEDICATIONS WERE RESUMED WITH THE EXCEPTION OF THE ASPIRIN AND PLAVIX. WE WILL MONITOR H&H. WE WILL TYPE AND SCREEN AND CROSSMATCH FOUR UNITS OF PACKED RED BLOOD CELLS AND TRANSFUSE WHEN AVAILABLE. PATIENT IS KNOWN TO HAVE ANTIBODIES IN HER BLOOD, SO UNITS MAY NOT BE AVAILABLE UNTIL TOMORROW. OTHERWISE, WE PLAN TO FOLLOW UP WITH AM LABS AND CONTINUE TO MONITOR. - Past Medical History Past Medical History: Anemia, CHF, Diabetes, Dyslipidemia, Hypertension, PUD Additional Medical History: PVD, AVM, TIA, HX CERVICAL CANCER - Past Surgical History Surgical History: CABG/Valve Surgery, Carotid Endarterectomy, Cholecystectomy, Hysterectomy, Tonsillectomy, Lithotripsy Additional Surgical History: Sling on bladder, LEFT ARM AND LEFT LEG STENT, OPEN HEART SURGERY WITH 5 BYPASSES, RIGHT WRIST SURGERY - Family History Family Medical History: Diabetes Mellitus, Sudden Cardiac , Hypertension - Social History Does patient currently use any type of tobacco product: Yes Have you used tobacco products in the last 12 months: Yes Type of Tobacco Use: Cigarettes Alcohol Use: None Drug Use: None - Medications Home Medications: Penicillins Allergy (Verified 09/20/19 19:42) prednisone Allergy (Verified 09/20/19 19:42) tramadol Allergy (Verified 09/20/19 19:42) CONTINUE taking the following medications allopurinol 100 mg PO DAILY 09/20/19 [History] ascorbic acid (vitamin C) [Vitamin C] 500 mg PO DAILY 09/20/19 [History] benzonatate 200 mg PO TID PRN 09/20/19 [History] benzonatate [Tessalon Perles] 200 mg PO BID PRN 09/20/19 [History] carvedilol 6.25 mg PO BID 09/20/19 [History] insulin detemir U-100 [Levemir FlexTouch U-100 Insuln] 14 unit SUBCUT HS 09/20/19 [History] insulin lispro [Humalog KwikPen Insulin] 1 unit SUBCUT PRN PRN 09/20/19 [History] oxycodone 7.5 mg PO QID PRN 09/20/19 [History] trazodone 100 mg PO QHS 09/20/19 [History] - Review of Systems Constitutional: See HPI, Weakness Eyes: No Symptoms Reported ENT: No Symptoms Reported Respiratory: No Symptoms Reported Cardiovascular: No Symptoms Reported Gastrointestinal: See HPI, Hematochezia Genitourinary: No Symptoms Reported Musculoskeletal: No Symptoms Reported Skin: No Symptoms Reported Neurological: Weakness - Physical Exam Vital Signs: Temperature 99.0 F Pulse Rate [Brachial] 88 Respiratory Rate 18 Blood Pressure [Right Calf] 170/70 Blood Pressure [Right Arm] 170/79 Blood Pressure [Left Arm] 104/49 Blood Pressure [Left Arm] 124/56 Blood Pressure [Right Arm] 128/58 Blood Pressure 112/59 O2 Sat by Pulse Oximetry 97 Oriented: Normal Eyes: Normal Ear: Normal Nose: Normal Throat: Normal Respiratory: Diminished Throughout Cardiovascular: Normal : Normal Auscultation: Bowel Sounds: Normal Palpation: Normal Tenderness: Normal Skin: Normal Musculoskeletal: Normal Psychiatric: Normal Mood Description: Calm Affect: Normal Speech Pattern: Clear - Assessment/Plan (1) GI bleed Qualifiers: GI bleed type/associated pathology: anorectal hemorrhage Qualified Code(s): K62.5 - Hemorrhage of anus and rectum Status: Acute Plan: NORMAL SALINE AT 50ML/HR, PROTONIX 40MG IV BID, PEPCID 20MG IV BID, HUMULIN R SLIDING SCALE, AND HOME MEDICATIONS WERE RESUMED WITH THE EXCEPTION OF THE ASPIRIN AND PLAVIX. TYPE AND SCREEN/CROSSMATCH/TRANSFUSE 4 UNITS PRBC, CONTINUE TO MONITOR (2) Anemia Qualifiers: Anemia type: iron deficiency Iron deficiency anemia type: chronic blood loss Qualified Code(s): D50.0 - Iron deficiency anemia secondary to blood loss (chronic) Status: Acute - Allergies Allergies/Adverse Reactions: Allergies Allergy/AdvReac Type Severity Reaction Status Date / Time Penicillins Allergy Verified 09/20/19 19:42 prednisone Allergy Verified 09/20/19 19:42 tramadol Allergy Verified 09/20/19 19:42
[2019-09-21] MEDS: NS 1000 ML 1,000 ML IV SCH (18:41)
[2019-09-21 19:38] LABS: HEMOGLOBIN 5.5 g/dL (12.0-16.0)
[2019-09-21 19:39] LABS: HEMATOCRIT 16.4 % (36.0-47.0)
[2019-09-21] MEDS: SNACK - Diabetic Appropriate PO SCH (20:26)
[2019-09-21] MEDS: CRESTOR TAB 10 MG PO SCH (20:26)
[2019-09-21] MEDS: LEVEMIR SC SCH (20:26)
[2019-09-21] MEDS: ROXICODONE TAB 5 MG PO PRN (20:28)
[2019-09-21] MEDS ORDERED: INSULIN DETEMIR U SUBCUT SCH (21:00)
[2019-09-21] MEDS ORDERED: BENADRYL INJ 50 MG VIAL IVP ONE (23:49)
[2019-09-21] MEDS ORDERED: TYLENOL 325 MG TAB PO ONE (23:49)
[2019-09-21] MEDS ORDERED: NS 250 ML IV 250 ML IV ONE (23:50)
[2019-09-22] MEDS ORDERED: NS 250 ML IV 250 ML IV ONE (03:49)
[2019-09-22] MEDS: NS 1000 ML 1,000 ML IV SCH ×2 (06:14→20:45)
[2019-09-22] MEDS: ROXICODONE TAB 5 MG PO PRN ×2 (06:23→22:00)
[2019-09-22 07:49] LABS: BASOPHILS % (AUTO) 0.6 % (0.2-1.0); EOSINOPHILS # (AUTO) 0.2 x10^3/uL (0.0-0.2); EOSINOPHILS % (AUTO) 2.5 % (0.9-2.9); HEMATOCRIT 27.2 % (36.0-47.0); LYMPHOCYTES # (AUTO) 1.8 X10^3/uL (1.3-2.9); LYMPHOCYTES % (AUTO) 22.1 % (21.0-51.0); MEAN CORPUSCULAR HEMOGLOBIN 30.9 pg (27.0-34.0); MEAN CORPUSCULAR HGB CONC 34.7 g/dL (33.0-35.0); MEAN CORPUSCULAR VOLUME 89.1 fL (80.0-100.0); MEAN PLATELET VOLUME 8.1 fL (7.4-11.0); MONOCYTES # (AUTO) 0.6 x10^3/uL (0.3-0.8); MONOCYTES % (AUTO) 7.1 % (0.0-13.0); NEUTROPHILS # (AUTO) 5.6 x10^3/uL (2.2-4.8); NEUTROPHILS % (AUTO) 67.7 % (42.0-75.0); PLATELET COUNT 144 X10^3/uL (150.0-450.0); RED BLOOD COUNT 3.05 X10^6/uL (3.5-5.4); RED CELL DISTRIBUTION WIDTH 16.2 % (11.6-16.5); WHITE BLOOD COUNT 8.2 X10^3/uL (3.6-10.0)
[2019-09-22 07:54] LABS: HEMOGLOBIN 9.4 g/dL (12.0-16.0)
[2019-09-22 07:57] LABS: ALANINE AMINOTRANSFERASE 11 Units/L (12-78); ALKALINE PHOSPHATASE 51 Units/L (46-116); ASPARTATE AMINO TRANSFERASE 14 Units/L (15-37); BLOOD UREA NITROGEN 33 mg/dL (7-18); CALCIUM 8.7 mg/dL (8.5-10.1); CHLORIDE 106 mmol/L (98-107); COR CA(FOR HYPOALB) 9.5 mg/dL (8.5-10.1); SODIUM 140 mmol/L (136-145); TOTAL PROTEIN 5.7 g/dL (6.4-8.2); eGFR NON BLACK RACES 57 (>60)
[2019-09-22] MEDS: DITROPAN TAB 5 MG PO SCH (09:42)
[2019-09-22] MEDS: VITAMIN C PO SCH (09:42)
[2019-09-22] MEDS: CALCIUM CARBONATE VITAMIN D3 PO SCH (09:42)
[2019-09-22] MEDS: MICRO K EXTEN CAP 10 MEQ PO SCH (09:42)
[2019-09-22] MEDS: PROTONIX INJ 40 MG VIAL IVP SCH ×2 (09:42→21:00)
[2019-09-22] MEDS: SYNTHROID 100 mcg TAB PO SCH (09:42)
[2019-09-22] MEDS: ZYLOPRIM PO SCH (09:42)
[2019-09-22] MEDS: NICOTINE PATCH TD SCH (09:43)
[2019-09-22] MEDS: PEPCID 20 MG IV PREMIX* 20 MG/50 ML BAG IV SCH (09:43)
[2019-09-22 14:33] LABS: HEMATOCRIT 25.6 % (36.0-47.0); HEMOGLOBIN 8.7 g/dL (12.0-16.0)
[2019-09-22] MEDS: HumuLIN R SUBCUT PRN (17:42)
[2019-09-22] MEDS ORDERED: POTASSIUM CHL 40 MEQ/NS 0.45% 500 ML IV PRN (19:33)
[2019-09-22] MEDS ORDERED: K-DUR TAB 20 MEQ PO PRN (19:33)
[2019-09-22] MEDS ORDERED: POTASSIUM CHL 60 MEQ/NS 0.45% 500 ML IV PRN (19:33)
[2019-09-22] MEDS ORDERED: MICRO K EXTEN CAP 10 MEQ PO PRN (19:33)
[2019-09-22] MEDS ORDERED: K-RIDER 10 MEQ/NS 100 ML 10 MEQ/100 ML BAG IV PRN (19:33)
[2019-09-22] MEDS ORDERED: KLOR-CON PO PRN (19:33)
[2019-09-22] MEDS ORDERED: POTASSIUM CHLORIDE LIQ 20 MEQ UDC PO PRN (19:33)
[2019-09-22] MEDS: SNACK - Diabetic Appropriate PO SCH (20:46)
[2019-09-22 21:00] LABS: HEMATOCRIT 24.6 % (36.0-47.0); HEMOGLOBIN 8.5 g/dL (12.0-16.0)
[2019-09-22] MEDS: MAGNESIUM SULFATE 1 GRAM/100 mL PREMIX 1 GM/100 ML BAG IV PRN ×2 (21:00→22:00)
[2019-09-22] MEDS: CRESTOR TAB 10 MG PO SCH (21:00)
[2019-09-22] MEDS: DESYREL PO SCH (21:00)
[2019-09-23 01:25] LABS: HEMATOCRIT 26.7 % (36.0-47.0); HEMOGLOBIN 9.2 g/dL (12.0-16.0)
[2019-09-23] MEDS: LEVEMIR SC SCH ×2 (02:00→20:52)
[2019-09-23 06:36] LABS: BASOPHILS % (AUTO) 0.3 % (0.2-1.0); EOSINOPHILS # (AUTO) 0.3 x10^3/uL (0.0-0.2); EOSINOPHILS % (AUTO) 3.9 % (0.9-2.9); HEMATOCRIT 23.7 % (36.0-47.0); HEMOGLOBIN 8.3 g/dL (12.0-16.0); LYMPHOCYTES # (AUTO) 1.3 X10^3/uL (1.3-2.9); LYMPHOCYTES % (AUTO) 17.8 % (21.0-51.0); MEAN CORPUSCULAR HEMOGLOBIN 31.3 pg (27.0-34.0); MEAN CORPUSCULAR HGB CONC 35.2 g/dL (33.0-35.0); MEAN CORPUSCULAR VOLUME 88.9 fL (80.0-100.0); MEAN PLATELET VOLUME 8.3 fL (7.4-11.0); MONOCYTES # (AUTO) 0.5 x10^3/uL (0.3-0.8); MONOCYTES % (AUTO) 7.3 % (0.0-13.0); NEUTROPHILS # (AUTO) 5.3 x10^3/uL (2.2-4.8); NEUTROPHILS % (AUTO) 70.7 % (42.0-75.0); PLATELET COUNT 147 X10^3/uL (150.0-450.0); RED BLOOD COUNT 2.67 X10^6/uL (3.5-5.4); WHITE BLOOD COUNT 7.5 X10^3/uL (3.6-10.0)
[2019-09-23 06:40] LABS: ALANINE AMINOTRANSFERASE 9 Units/L (12-78); ALBUMIN 2.6 g/dL (3.4-5.0); ALKALINE PHOSPHATASE 50 Units/L (46-116); ASPARTATE AMINO TRANSFERASE 12 Units/L (15-37); BLOOD UREA NITROGEN 18 mg/dL (7-18); CALCIUM 8.2 mg/dL (8.5-10.1); CARBON DIOXIDE 24.1 mmol/L (21-32); CHLORIDE 106 mmol/L (98-107); COR CA(FOR HYPOALB) 9.3 mg/dL (8.5-10.1); COR NA(FOR HYPERGLY) 140 mmol/L (136-145); CREATININE 0.83 mg/dL (0.55-1.02); SODIUM 138 mmol/L (136-145); TOTAL PROTEIN 5.2 g/dL (6.4-8.2); eGFR NON BLACK RACES > 60 (>60)
[2019-09-23] MEDS: NS 1000 ML 1,000 ML IV SCH ×3 (06:46→20:00)
[2019-09-23] MEDS: PROTONIX INJ 40 MG VIAL IVP SCH ×2 (09:54→20:50)
[2019-09-23] MEDS: SYNTHROID 100 mcg TAB PO SCH (09:54)
[2019-09-23] MEDS: ZYLOPRIM PO SCH (09:54)
[2019-09-23] MEDS: MICRO K EXTEN CAP 10 MEQ PO SCH (09:54)
[2019-09-23] MEDS: VITAMIN C PO SCH (09:54)
[2019-09-23] MEDS: PEPCID 20 MG IV PREMIX* 20 MG/50 ML BAG IV SCH (09:55)
[2019-09-23] MEDS: NICOTINE PATCH TD SCH (09:55)
[2019-09-23] MEDS: DITROPAN TAB 5 MG PO SCH (09:55)
[2019-09-23] MEDS: CALCIUM CARBONATE VITAMIN D3 PO SCH (10:03)
--- NOTE | 2019-09-23 11:51 | PCM.PROG ---
Progress Note - Progress Note for Day of Date of Exam: 09/22/19 - Subjective Subjective: IS BEING TREATED FOR ANEMIA AND A GI BLEED. TODAY, SHE IS ALERT AND ORIENTED, LYING IN BED ON MORNING ROUNDS. SHE HAS RECEIVED TWO UNITS OF PRBC THIS MORNING. SHE CONTINUES WITH COMPLAINTS OF WEAKNESS AND BLOOD IN STOOL. ON EXAMINATION, HEART IS REGULAR IN RATE AND RHYTHM. BILATERAL LUNGS ARE NOTED WITH DIMINSHED LUNG SOUND THROUGHOUT. ABDOMEN IS ROUND, SOFT, AND NON- TENDER WITH NORMAL BOWEL SOUNDS NOTED IN ALL QUADRANTS. HER VITALS THIS MORNING ARE: 98.5-72-18-100%-119/59. LABS WERE OBTAINED. ABNORMAL LAB VALUES INCLUDE THE FOLLOWING: RBC 3.05, HGB 9.4, HCT 27.2, PLT COUNT 144, GLUCOSE 193, CALCIUM 8.2, AST 12, ALT 9, TOTAL PROTEIN 5.2, ALBUMIN 2.6. SHE IS CURRENTLY RECEIVING NORMAL SALINE AT 50ML/HR, PROTONIX 40MG IV BID, PEPCID 20MG IV BID, HUMULIN R SLIDING SCALE, AND HOME MEDICATIONS WERE RESUMED WITH THE EXCEPTION OF THE ASPIRIN AND PLAVIX. WE WILL MONITOR H&H Q6H AND WILL MAKE ADJUSTMENTS IF NEEDED, ACCORDING TO LABS. OTHERWISE, WE WILL FOLLOW UP WITH AM LABS AND CONTINUE TO MONITOR. - Past Medical Family Social History Past Med/Fam/Surg Hx: No changes since H&P Allergies: Allergies Penicillins Allergy (Verified 09/20/19 19:42) prednisone Allergy (Verified 09/20/19 19:42) tramadol Allergy (Verified 09/20/19 19:42) - Review of Systems ROS: No change since H&P - Vital Signs and I&O's Vital Signs: Temperature 98.4 F Pulse Rate [Brachial] 74 Respiratory Rate 18 Blood Pressure [Right Calf] 170/70 Blood Pressure [Right Arm] 170/79 Blood Pressure [Left Arm] 128/60 Blood Pressure [Left Arm] 124/56 Blood Pressure [Right Arm] 128/58 Blood Pressure 112/59 O2 Sat by Pulse Oximetry 98 Intake and Output: Intake & Output 09/20/19 09/21/19 09/22/19 09/23/19 11:59 11:59 11:59 11:59 Intake Total 730 / 730 2550 / 2550 2620 / 2620 Output Total 0 / 0 1275 / 1275 1300 / 1300 Balance 730 / 730 1275 / 1275 1320 / 1320 - Physical Exam Oriented: Normal Eyes: Normal Ear: Normal Nose: Normal Throat: Normal Respiratory: Generalized, Diminished Cardiovascular: Normal : Normal Auscultation: Bowel Sounds: Normal Palpation: Normal Tenderness: Normal Skin: Normal Musculoskeletal: Normal Psychiatric: Normal Mood Description: Calm Affect: Normal Speech Pattern: Clear, Appropriate - Laboratory and Diagnostics Result Diagrams: 09/23/19 05:16 09/23/19 05:16 Labs: Laboratory WBC 7.5 X10^3/uL (3.6-10.0) 09/23/19 05:16 RBC 2.67 X10^6/uL (3.5-5.4) L 09/23/19 05:16 Hgb 8.3 g/dL (12.0-16.0) L 09/23/19 05:16 Hct 23.7 % (36.0-47.0) L 09/23/19 05:16 MCV 88.9 fL (80.0-100.0) 09/23/19 05:16 MCH 31.3 pg (27.0-34.0) 09/23/19 05:16 MCHC 35.2 g/dL (33.0-35.0) H 09/23/19 05:16 RDW 17.0 % (11.6-16.5) H 09/23/19 05:16 Plt Count 147 X10^3/uL (150.0-450.0) L 09/23/19 05:16 Plt Count Comment Adequate (ADEQUATE) 09/20/19 20:30 MPV 8.3 fL (7.4-11.0) 09/23/19 05:16 Neut % (Auto) 70.7 % (42.0-75.0) 09/23/19 05:16 Lymph % (Auto) 17.8 % (21.0-51.0) L 09/23/19 05:16 [place] % (Auto) 7.3 % (0.0-13.0) 09/23/19 05:16 Eos % (Auto) 3.9 % (0.9-2.9) H 09/23/19 05:16 Baso % (Auto) 0.3 % (0.2-1.0) 09/23/19 05:16 Neut # (Auto) 5.3 x10^3/uL (2.2-4.8) H 09/23/19 05:16 Lymph # (Auto) 1.3 X10^3/uL (1.3-2.9) 09/23/19 05:16 [place] # (Auto) 0.5 x10^3/uL (0.3-0.8) 09/23/19 05:16 Eos # (Auto) 0.3 x10^3/uL (0.0-0.2) H 09/23/19 05:16 Baso # (Auto) 0.0 X10^3/uL (0.0-0.1) 09/23/19 05:16 Absolute Nucleated RBC 0.1 /100WBC 09/23/19 05:16 Plt Morphology Comment Normal (NORMAL) 09/20/19 20:30 RBC Morphology Abnormal (NORMAL) A 09/20/19 20:30 Hypochromasia 1+ A 09/20/19 20:30 Anisocytosis 1+ A 09/20/19 20:30 Sodium 138 mmol/L (136-145) 09/23/19 05:16 Corrected Sodium 140 mmol/L (136-145) 09/23/19 05:16 Potassium 3.9 mmol/L (3.5-5.1) 09/23/19 05:16 Chloride 106 mmol/L (98-107) 09/23/19 05:16 Carbon Dioxide 24.1 mmol/L (21-32) 09/23/19 05:16 BUN 18 mg/dL (7-18) 09/23/19 05:16 Creatinine 0.83 mg/dL (0.55-1.02) 09/23/19 05:16 Est GFR (MDRD) Af Amer > 60 (>60) 09/23/19 05:16 Est GFR (MDRD) Non-Af > 60 (>60) 09/23/19 05:16 Glucose 193 mg/dL (65-99) H 09/23/19 05:16 POC Glucose (mg/dL) 194 mg/dL (65-99) H 09/23/19 11:15 Calcium 8.2 mg/dL (8.5-10.1) L 09/23/19 05:16 Corrected Calcium 9.3 mg/dL (8.5-10.1) 09/23/19 05:16 Magnesium 2.0 mg/dL (1.7-2.9) 09/23/19 05:16 Iron 42 ug/dL (50-175) L 09/20/19 20:30 Transferrin 216 mg/dL (202-364) 09/20/19 20:30 Ferritin 27 ng/mL (8-252) 09/20/19 20:30 Total Bilirubin 0.30 mg/dL (0.2-1.0) 09/23/19 05:16 AST 12 Units/L (15-37) L 09/23/19 05:16 ALT 9 Units/L (12-78) L 09/23/19 05:16 Alkaline Phosphatase 50 Units/L (46-116) 09/23/19 05:16 Total Protein 5.2 g/dL (6.4-8.2) L 09/23/19 05:16 Albumin 2.6 g/dL (3.4-5.0) L 09/23/19 05:16 Globulin 2.6 g/dL (2.5-4.5) 09/23/19 05:16 Albumin/Globulin Ratio 1.0 Ratio (1.1-2.1) L 09/23/19 05:16 Vitamin B12 1221 pg/mL (193-986) H 09/20/19 20:30 Folate 20.0 ng/mL (>8.6) 09/20/19 20:30 Specimen Type Clean catch urine 09/21/19 09:20 Urine Color Yellow (YELLOW) 09/21/19 09:20 Urine Appearance Clear (CLEAR) 09/21/19 09:20 Urine pH 5.0 (5.0 - 8.0) 09/21/19 09:20 Ur Specific [place] 1.010 (1.000-1.030) 09/21/19 09:20 Urine Protein Negative (NEGATIVE) 09/21/19 09: Urine Glucose (UA) Negative (NEGATIVE) 09/21/19 09:20 Urine Ketones 2+ (NEGATIVE) 09/21/19 09:20 Urine Occult Blood 3+ (NEGATIVE) 09/21/19 09:20 Urine Nitrite Positive (NEGATIVE) 09/21/19 09: Urine Bilirubin Negative (NEGATIVE) 09/21/19 09:20 Urine Urobilinogen Normal (NORMAL) 09/21/19 09:20 Ur Leukocyte Esterase 2+ (NEGATIVE) 09/21/19 09:20 Urine RBC 0-2 /HPF (0-3) 09/21/19 09:20 Urine WBC 0-2 /HPF (0-5) 09/21/19 09:20 Ur Squamous Epith Cells Moderate /HPF (NEGATIVE) 09/21/19 09:20 Urine Bacteria Trace /HPF (NEGATIVE) 09/21/19 09:20 Ur Culture Indicated? No/not indicated 09/21/19 09:20 Stool Description 20g informed tarry 09/23/19 11:10 Stl Occult Blood (IFOB) Negative (NEGATIVE) 09/23/19 11:10 Blood Type B POSITIVE 09/20/19 21:47 Antibody Screen Negative 09/20/19 21:47 Antibody ID Referred Anti-K 09/20/19 21:47 Crossmatch See Detail 09/20/19 21:47 - Plan (1) GI bleed Status: Acute Qualifiers: GI bleed type/associated pathology: anorectal hemorrhage Qualified Code(s): K62.5 - Hemorrhage of anus and rectum Plan: NORMAL SALINE AT 50ML/HR, PROTONIX 40MG IV BID, PEPCID 20MG IV BID, HUM ULIN R SLIDING SCALE, AND HOME MEDICATIONS WERE RESUMED WITH THE EXCEPTION OF THE ASPIRIN AND PLAVIX. CONTINUE TO MONITOR H&H (2) Anemia Status: Acute Qualifiers: Anemia type: iron deficiency Iron deficiency anemia type: chronic blood loss Qualified Code(s): D50.0 - Iron deficiency anemia secondary to blood loss (chronic) Plan: MONITOR H&H
[2019-09-23] MEDS: HumuLIN R SUBCUT PRN ×2 (11:52→20:51)
--- NOTE | 2019-09-23 12:14 | PCM.PROG ---
Progress Note - Progress Note for Day of Date of Exam: 09/23/19 - Subjective Subjective: IS BEING TREATED FOR ANEMIA AND A GI BLEED. TODAY, SHE IS ALERT AND ORIENTED, LYING IN BED ON MORNING ROUNDS. SHE HAS RECEIVED TWO UNITS OF PRBC SINCE ADMISSION. SHE CONTINUES WITH COMPLAINTS OF WEAKNESS AND BRIGHT RED BLOOD IN STOOL. 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 ON EXAMINATION, HEART IS REGULAR IN RATE AND RHYTHM. BILATERAL LUNGS ARE NOTED WITH DIMINSHED LUNG SOUND THROUGHOUT. ABDOMEN IS ROUND, SOFT, AND NON-TENDER WITH NORMAL BOWEL SOUNDS NOTED IN ALL QUADRANTS. HER VITALS THIS MORNING ARE: 98.4-74-18-98%-128/60. LABS WERE OBTAINED. ABNORMAL LAB VALUES INCLUDE THE FOLLOWING: RBC 2.67, HGB 8.3, HCT 23.7, GLUCOSE 193, CALCIUM 8.2, AST 12, ALT 9, TOTAL PROTEIN 5.2, ALBUMIN 2.6. SHE IS CURRENTLY RECEIVING NORMAL SALINE AT 50ML/HR, PROTONIX 40MG IV BID, PEPCID 20MG IV BID, HUMULIN R SLIDING SCALE, AND HOME MEDICATIONS WERE RESUMED WITH THE EXCEPTION OF THE ASPIRIN AND PLAVIX. WE WILL MONITOR H&H AND WILL MAKE ADJUSTMENTS IF NEEDED, ACCORDING TO LABS. OTHERWI SE, WE WILL FOLLOW UP WITH AM LABS AND CONTINUE TO MONITOR. - Past Medical Family Social History Past Med/Fam/Surg Hx: No changes since H&P Allergies: Allergies Penicillins Allergy (Verified 09/20/19 19:42) prednisone Allergy (Verified 09/20/19 19:42) tramadol Allergy (Verified 09/20/19 19:42) - Review of Systems ROS: No change since H&P - Vital Signs and I&O's Vital Signs: Temperature 98.4 F Pulse Rate [Brachial] 74 Respiratory Rate 18 Blood Pressure [Right Calf] 170/70 Blood Pressure [Right Arm] 170/79 Blood Pressure [Left Arm] 128/60 Blood Pressure [Left Arm] 124/56 Blood Pressure [Right Arm] 128/58 Blood Pressure 112/59 O2 Sat by Pulse Oximetry 98 Intake and Output: Intake & Output 09/21/19 09/22/19 09/23/19 09/24/19 11:59 11:59 11:59 11:59 Intake Total 730 / 730 2550 / 2550 2620 / 2620 Output Total 0 / 0 1275 / 1275 1300 / 1300 Balance 730 / 730 1275 / 1275 1320 / 1320 - Physical Exam Oriented: Normal Eyes: Normal Ear: Normal Nose: Normal Throat: Normal Respiratory: Generalized, Diminished Cardiovascular: Normal : Normal Auscultation: Bowel Sounds: Normal Palpation: Normal Tenderness: Normal Skin: Normal Musculoskeletal: Normal Psychiatric: Normal Mood Description: Calm Affect: Normal Speech Pattern: Clear, Appropriate - Laboratory and Diagnostics Result Diagrams: 09/23/19 05:16 09/23/19 05:16 Labs: Laboratory WBC 7.5 X10^3/uL (3.6-10.0) 09/23/19 05:16 RBC 2.67 X10^6/uL (3.5-5.4) L 09/23/19 05:16 Hgb 8.3 g/dL (12.0-16.0) L 09/23/19 05:16 Hct 23.7 % (36.0-47.0) L 09/23/19 05:16 MCV 88.9 fL (80.0-100.0) 09/23/19 05:16 MCH 31.3 pg (27.0-34.0) 09/23/19 05:16 MCHC 35.2 g/dL (33.0-35.0) H 09/23/19 05:16 RDW 17.0 % (11.6-16.5) H 09/23/19 05:16 Plt Count 147 X10^3/uL (150.0-450.0) L 09/23/19 05:16 Plt Count Comment Adequate (ADEQUATE) 09/20/19 20:30 MPV 8.3 fL (7.4-11.0) 09/23/19 05:16 Neut % (Auto) 70.7 % (42.0-75.0) 09/23/19 05:16 Lymph % (Auto) 17.8 % (21.0-51.0) L 09/23/19 05:16 [place] % (Auto) 7.3 % (0.0-13.0) 09/23/19 05:16 Eos % (Auto) 3.9 % (0.9-2.9) H 09/23/19 05:16 Baso % (Auto) 0.3 % (0.2-1.0) 09/23/19 05:16 Neut # (Auto) 5.3 x10^3/uL (2.2-4.8) H 09/23/19 05:16 Lymph # (Auto) 1.3 X10^3/uL (1.3-2.9) 09/23/19 05:16 [place] # (Auto) 0.5 x10^3/uL (0.3-0.8) 09/23/19 05:16 Eos # (Auto) 0.3 x10^3/uL (0.0-0.2) H 09/23/19 05:16 Baso # (Auto) 0.0 X10^3/uL (0.0-0.1) 09/23/19 05:16 Absolute Nucleated RBC 0.1 /100WBC 09/23/19 05:16 Plt Morphology Comment Normal (NORMAL) 09/20/19 20:30 RBC Morphology Abnormal (NORMAL) A 09/20/19 20:30 Hypochromasia 1+ A 09/20/19 20:30 Anisocytosis 1+ A 09/20/19 20:30 Sodium 138 mmol/L (136-145) 09/23/19 05:16 Corrected Sodium 140 mmol/L (136-145) 09/23/19 05:16 Potassium 3.9 mmol/L (3.5-5.1) 09/23/19 05:16 Chloride 106 mmol/L (98-107) 09/23/19 05:16 Carbon Dioxide 24.1 mmol/L (21-32) 09/23/19 05:16 BUN 18 mg/dL (7-18) 09/23/19 05:16 Creatinine 0.83 mg/dL (0.55-1.02) 09/23/19 05:16 Est GFR (MDRD) Af Amer > 60 (>60) 09/23/19 05:16 Est GFR (MDRD) Non-Af > 60 (>60) 09/23/19 05:16 Glucose 193 mg/dL (65-99) H 09/23/19 05:16 POC Glucose (mg/dL) 194 mg/dL (65-99) H 09/23/19 11:15 Calcium 8.2 mg/dL (8.5-10.1) L 09/23/19 05:16 Corrected Calcium 9.3 mg/dL (8.5-10.1) 09/23/19 05:16 Magnesium 2.0 mg/dL (1.7-2.9) 09/23/19 05:16 Iron 42 ug/dL (50-175) L 09/20/19 20:30 Transferrin 216 mg/dL (202-364) 09/20/19 20:30 Ferritin 27 ng/mL (8-252) 09/20/19 20:30 Total Bilirubin 0.30 mg/dL (0.2-1.0) 09/23/19 05:16 AST 12 Units/L (15-37) L 09/23/19 05:16 ALT 9 Units/L (12-78) L 09/23/19 05:16 Alkaline Phosphatase 50 Units/L (46-116) 09/23/19 05:16 Total Protein 5.2 g/dL (6.4-8.2) L 09/23/19 05:16 Albumin 2.6 g/dL (3.4-5.0) L 09/23/19 05:16 Globulin 2.6 g/dL (2.5-4.5) 09/23/19 05:16 Albumin/Globulin Ratio 1.0 Ratio (1.1-2.1) L 09/23/19 05:16 Vitamin B12 1221 pg/mL (193-986) H 09/20/19 20:30 Folate 20.0 ng/mL (>8.6) 09/20/19 20:30 Specimen Type Clean catch urine 09/21/19 09:20 Urine Color Yellow (YELLOW) 09/21/19 09:20 Urine Appearance Clear (CLEAR) 09/21/19 09:20 Urine pH 5.0 (5.0 - 8.0) 09/21/19 09:20 Ur Specific [place] 1.010 (1.000-1.030) 09/21/19 09:20 Urine Protein Negative (NEGATIVE) 09/21/19 09: Urine Glucose (UA) Negative (NEGATIVE) 09/21/19 09: Urine Ketones 2+ (NEGATIVE) 09/21/19 09:20 Urine Occult Blood 3+ (NEGATIVE) 09/21/19 09:20 Urine Nitrite Positive (NEGATIVE) 09/21/19 09: Urine Bilirubin Negative (NEGATIVE) 05/19/20 09:20 Urine Urobilinogen Normal (NORMAL) 09/21/19 09:20 Ur Leukocyte Esterase 2+ (NEGATIVE) 09/21/19 09:20 Urine RBC 0-2 /HPF (0-3) 09/21/19 09:20 Urine WBC 0-2 /HPF (0-5) 09/21/19 09:20 Ur Squamous Epith Cells Moderate /HPF (NEGATIVE) 09/21/19 09:20 Urine Bacteria Trace /HPF (NEGATIVE) 09/21/19 09:20 Ur Culture Indicated? No/not indicated 09/21/19 09:20 Stool Description 20g informed tarry 09/23/19 11:10 Stl Occult Blood (IFOB) Negative (NEGATIVE) 09/23/19 11:10 Blood Type B POSITIVE 09/20/19 21:47 Antibody Screen Negative 09/20/19 21:47 Antibody ID Referred Anti-K 09/20/19 21:47 Crossmatch See Detail 09/20/19 21:47 - Plan (1) GI bleed Status: Acute Qualifiers: GI bleed type/associated pathology: anorectal hemorrhage Qualified Code(s): K62.5 - Hemorrhage of anus and rectum Plan: NORMAL SALINE AT 50ML/HR, PROTONIX 40MG IV BID, PEPCID 20MG IV BID, HUMULIN R SLIDING SCALE, AND HOME MEDICATIONS WERE RESUMED WITH THE EXCEPTION OF THE ASPIRIN AND PLAVIX. CONTINUE TO MONITOR H&H (2) Anemia Status: Acute Qualifiers: Anemia type: iron deficiency Iron deficiency anemia type: chronic blood loss Qualified Code(s): D50.0 - Iron deficiency anemia secondary to blood loss (chronic) Plan: MONITOR H&H (3) COPD (chronic obstructive pulmonary disease) Status: Chronic Qualifiers: COPD type: unspecified COPD Qualified Code(s): J44.9 - Chronic obstructive pulmonary disease, unspecified (4) Chronic renal failure Status: Chronic Qualifiers: Chronic kidney disease stage: unspecified stage Qualified Code(s): N18.9 - Chronic kidney disease, unspecified (5) Depression Status: Chronic Qualifiers: Depression Type: major depressive disorder Major depression recurrence: recurrent Active/Remission status: remission status unspecified Qualified Code(s): F33.9 - Major depressive disorder, recurrent, unspecified (6) Diabetes mellitus type 2 in obese Status: Chronic (7) GERD (gastroesophageal reflux disease) Status: Chronic Qualifiers: Esophagitis presence: esophagitis presence not specified Qualified Code(s): K21.9 - Gastro-esophageal reflux disease without esophagitis (8) Hyperlipidemia Status: Chronic Qualifiers: Hyperlipidemia type: mixed hyperlipidemia Qualified Code(s): E78.2 - Mixed hyperlipidemia (9) Hypertension Status: Chronic Qualifiers: Hypertension type: essential hypertension Qualified Code(s): I10 - Essential (primary) hypertension (10) Hypothyroidism Status: Chronic Qualifiers: Hypothyroidism type: acquired Qualified Code(s): E03.9 - Hypothyroidism, unspecified
[2019-09-23 16:45] LABS: HEMATOCRIT 26.5 % (36.0-47.0)
[2019-09-23] MEDS: SNACK - Diabetic Appropriate PO SCH (20:00)
[2019-09-23] MEDS: DESYREL PO SCH (20:49)
[2019-09-23] MEDS: CRESTOR TAB 10 MG PO SCH (20:49)
[2019-09-23] MEDS: REQUIP PO PRN (21:53)
[2019-09-23] MEDS: ROXICODONE TAB 5 MG PO PRN (22:07)
[2019-09-24 06:27] LABS: BASOPHILS % (AUTO) 0.2 % (0.2-1.0); EOSINOPHILS # (AUTO) 0.3 x10^3/uL (0.0-0.2); EOSINOPHILS % (AUTO) 3.8 % (0.9-2.9); HEMATOCRIT 27.2 % (36.0-47.0); HEMOGLOBIN 9.3 g/dL (12.0-16.0); LYMPHOCYTES # (AUTO) 1.5 X10^3/uL (1.3-2.9); LYMPHOCYTES % (AUTO) 20.3 % (21.0-51.0); MEAN CORPUSCULAR HGB CONC 34.4 g/dL (33.0-35.0); MEAN CORPUSCULAR VOLUME 90.2 fL (80.0-100.0); MEAN PLATELET VOLUME 8.4 fL (7.4-11.0); MONOCYTES # (AUTO) 0.5 x10^3/uL (0.3-0.8); MONOCYTES % (AUTO) 7.1 % (0.0-13.0); NEUTROPHILS % (AUTO) 68.6 % (42.0-75.0); PLATELET COUNT 170 X10^3/uL (150.0-450.0); RED BLOOD COUNT 3.01 X10^6/uL (3.5-5.4); RED CELL DISTRIBUTION WIDTH 16.2 % (11.6-16.5); WHITE BLOOD COUNT 7.3 X10^3/uL (3.6-10.0)
[2019-09-24 06:41] LABS: ALANINE AMINOTRANSFERASE 12 Units/L (12-78); ALBUMIN 2.9 g/dL (3.4-5.0); ALKALINE PHOSPHATASE 56 Units/L (46-116); ASPARTATE AMINO TRANSFERASE 18 Units/L (15-37); BLOOD UREA NITROGEN 12 mg/dL (7-18); CALCIUM 8.7 mg/dL (8.5-10.1); CARBON DIOXIDE 27.6 mmol/L (21-32); CHLORIDE 107 mmol/L (98-107); COR CA(FOR HYPOALB) 9.6 mg/dL (8.5-10.1); SODIUM 140 mmol/L (136-145); eGFR NON BLACK RACES > 60 (>60)
[2019-09-24] MEDS: DITROPAN TAB 5 MG PO SCH (09:20)
[2019-09-24] MEDS: MICRO K EXTEN CAP 10 MEQ PO SCH (09:20)
[2019-09-24] MEDS: PROTONIX INJ 40 MG VIAL IVP SCH (09:20)
[2019-09-24] MEDS: ZYLOPRIM PO SCH (09:20)
[2019-09-24] MEDS: VITAMIN C PO SCH (09:20)
[2019-09-24] MEDS: CALCIUM CARBONATE VITAMIN D3 PO SCH (09:21)
[2019-09-24] MEDS: PEPCID 20 MG IV PREMIX* 20 MG/50 ML BAG IV SCH (09:21)
[2019-09-24] MEDS: NICOTINE PATCH TD SCH (09:22)
[2019-09-24] MEDS: SYNTHROID 100 mcg TAB PO SCH (09:22)
[2019-09-24] MEDS: NS 1000 ML 1,000 ML IV SCH (11:02)
[2019-09-24 12:06] VITALS: BP 166/68
== END 2019-09-24 13:32 | disposition home or self-care (01) | DRG 812 ==
LOC: MED/SURG → OBSVTOIN 19:22
PROVIDERS: ADMIT Internal Medicine; ATTEND Internal Medicine
DX: F33.9 Major depressive disorder, recurrent, unspecified; J44.9 Chronic obstructive pulmonary disease, unspecified; K21.9 Gastro-esophageal reflux disease without esophagitis; K62.5 Hemorrhage of anus and rectum; E03.8 Other specified hypothyroidism; E11.65 Type 2 diabetes mellitus with hyperglycemia; E78.2 Mixed hyperlipidemia; N18.9 Chronic kidney disease, unspecified; I12.9 Hypertensive chronic kidney disease with stage 1 through stage 4 chronic kidney disease, or unspecified chronic kidney disease; Z95.1 Presence of aortocoronary bypass graft; D50.0 Iron deficiency anemia secondary to blood loss (chronic)
CPT/HCPCS: 36415; 36430; 80053; 81001; 82270; 82607; 82728; 82746; 83540; 83735; 84466; 85014; 85018; 85025; 86850; 86870; 86880; 86900; 86901; 86902; 86904; 86920; 86922; 86970; A4222; C9113; J1200; J1815; J3475; J3490; J7030; J7050; P9016; S0028

== ENCOUNTER 2020-07-11 13:57 | Inpatient (IN) ==
[2020-07-11 14:12] VITALS: BMI 25.1
--- NOTE | 2020-07-11 14:28 | DR.GIBLEED ---
HPI Time Seen Time Seen by Provider: 07/11/20 14:16 Primary Care Physician Primary Care Physician: DR MENDOZA HPI Comment HPI Comment: PATIENT IS 75YR OLD FEMALE IN ER WITH TARRY STOOL TIMES 3 DAYS. SHE IS WEAK. DENIES DIZZINESS. BP LOW IN ER. PATIENT HAVE HISTORY OF ANEMIA, PUD, GE REFLUX AND PREVIOUS EPISODES OF GI BLEEDS. SHE HAVE HAD EGD AND COLONOSCOPY FOR THESE SYMPTOMS. SHE ALSO HAVE HISTORY OF MULTIPLE MEDICAL PROBLEMS INCLUDING DM AND HTN AND CAD AND SEIZURES. DENIES VOMITING OR DIARRHEA. DENIES CHEST PAIN. SHE HAS HAD BLOOD TRASFUSION PREVIOUSLY. Complaints Chief Complaint Doctors Comments: TARRY STOOL TIMES 3 DAYS. WEAK. Chief Complaint:: PT C/O DARK TARRY STOOLS X 3 DAYS COVID-19 Coronavirus risk:travel/contact w/high risk person: No Has patient experienced Coronavirus symptoms: No Reviewed Nurses Notes Reviewed: Yes Source History Provided: Patient and EMS Mode of Arrival Mode of Arrival: EMS Timing Onset of Chief Complaint: 07/08/20 Duration Bleeding: Currently Present Duration: Days Quality Vomitus: None Stools: Tarry Black History Of: GI Bleed Prehospital Care:: IV Fluids Severity Severity: Moderate Measure: Tablespoons Context Onset: Spontaneous Recent Use Of: None Associated Signs and Symptoms Associated Signs and Symptoms: Abdominal Pain PMH PMH Past Medical History: Yes Past Medical History: Anemia, Arthritis, Coronary Artery Disease, Diabetes and Hypertension Past Medical History Comment: CERVICAL CANCER Past Surgical History: Yes Surgical History: Cholecystectomy, Hysterectomy, Tonsillectomy and Lithotripsy Family History History of Family Medical Conditions: No Family Medical History: Diabetes Mellitus, Sudden Cardiac and Hypertension Social History Does patient currently use any type of tobacco product: Yes Have you used tobacco products in the last 12 months: Yes Type of Tobacco Use: Cigarettes Does any household member use tobacco: Yes Alcohol Use: None Do you use any recreational Drugs:: No Lives With: Family Lives Where: Home Travel Risk Coronavirus risk:travel/contact w/high risk person: No Has patient experienced Coronavirus symptoms: No Infectious screening In the last 2 months have you had wt loss of >10#?: NO Have you had fever, night sweats or hemotysis?: No Have you traveled outside the country in the last 6 months?: No Isolation: Standard ROS Review of Systems Constitutional: No Symptoms Reported, See HPI, Weakness and Fatigue; negative Fever Eyes: No Symptoms Reported and See HPI ENTM: No Symptoms Reported and See HPI; negative Nose Discharge and Nose Congestion Respiratoy: No Symptoms Reported and See HPI; negative Moist Cough, Short of Breath, Wheezing and Hemoptysis Cardiovascular: No Symptoms Reported and See HPI; negative Chest Pain Gastrointestinal/Abdominal: No Symptoms Reported, See HPI, Abdominal Pain and Other (RECTAL BLEEDING.) Genitourinary: No Symptoms Reported and See HPI Neurological: See HPI and Weakness; negative Headache and Dizziness Musculoskeletal: No Symptoms Reported and See HPI; negative Back Pain and Muscle Pain Integumentary: No Symptoms Reported and See HPI; negative Change in Color, Rash and Juandice Hematologic/Lymphatic: See HPI, Anemia and Easy Bruising Endocrine: No Symptoms Reported and See HPI; negative Increased Thirst and Increased Urine Psychiatric: No Symptoms Reported and See HPI All Other Systems: Reviewed and Negative PE Vital Signs Vitals: Temperature 98.1 F Pulse Rate 80 Respiratory Rate 34 Blood Pressure [Right Calf] 170/70 Blood Pressure [Right Arm] 170/79 Blood Pressure [Left Arm] 166/68 Blood Pressure 110/53 O2 Sat by Pulse Oximetry 100 General Limitations: No Limitations General Appearance: Alert and In No Apparent Distress Head Head Exam: Normal Inspection and Atraumatic Eyes Eye exam: Normal Appearance and PERRL; negative Scleral Icterus and Conjunctival Injection ENT ENT Exam: Normal Exam, Normal Oropharynx, Normal External Ear Exam and TM's Normal Bilaterally Neck Neck Exam: Normal Inspection and Trachea Midline; negative Tenderness and Lymphadenopathy Chest Chest Inspection: Normal Inspection and Symmetric Chest Wall Rise; negative Tenderness Respiratory Respiratory Exam: Normal Lung Sounds Bilat; negative Accessory Muscle Use, Chest Wall Tenderness and Respiratory Distress Respiratory Exam: Bilateral: Rhonchi and Lower: Rhonchi Cardiovascular Cardiovascular Exam: Regular Rate, Normal Rhythm and Normal Heart Sounds; negative Systolic Murmur and Diastolic Murmur Abdominal Exam Abdominal Exam: Normal Inspection, Normal Bowel Sounds and Soft; negative Tenderness Rectal Rectal Exam: Black Stool Extremities Extremities Exam: Normal Inspection and Normal Capillary Refill; negative Tenderness and Calf Tenderness Back Back Exam: Normal Inspection; negative (R) CVA Tenderness and (L) CVA Tenderness Neurologic Neurological Exam: Alert and Oriented X3; negative Motor Sensory Deficit Psychiatric Psychiatric Exam: Normal Affect and Normal Mood Skin Skin Exam: Dry DIFFERENTIAL DIAGNOSIS Additional Information Obtained Additional Information Obtained From: Old Records Differential Diagnosis Differential Diagnosis: Angiodysplasia, Bleeding diathesis, Diverticulosis, Infl ammatory BD and PUD Differential Diagnosis Comment: GI BLEEDING. COURSE Treatment Treatment: SEE ORDERS. PROTONIC DRIP. Consultation Consultation Comments: DR. MENDOZA WILL ADMIT PATIENT. Education/Counseling Education/Counseling: Patient Educated On: Diagnosis ROR Labs Reviewed Laboratory Results Reviewed?: Yes Result Diagrams: 07/13/20 04:55 07/13/20 04:55 Laboratory: WBC 11.2 X10^3/uL (3.6-10.0) H 07/11/20 14:58 RBC 1.64 X10^6/uL (3.5-5.4) L 07/11/20 14:58 Hgb 5.1 g/dL (12.0-16.0) L* 07/11/20 14:58 Hct 15.7 % (36.0-47.0) L* 07/11/20 14:58 MCV 95.6 fL (80.0-100.0) 07/11/20 14:58 MCH 31.3 pg (27.0-34.0) 07/11/20 14:58 MCHC 32.8 g/dL (33.0-35.0) L 07/11/20 14:58 RDW 15.4 % (11.6-16.5) 07/11/20 14:58 Plt Count 202 X10^3/uL (150.0-450.0) 07/11/20 14:58 MPV 9.1 fL (7.4-11.0) 07/11/20 14:58 Neut % (Auto) 82.0 % (42.0-75.0) H 07/11/20 14:58 Lymph % (Auto) 11.7 % (21.0-51.0) L 07/11/20 14:58 [place] % (Auto) 4.6 % (0.0-13.0) 07/11/20 14:58 Eos % (Auto) 1.2 % (0.9-2.9) 07/11/20 14:58 Baso % (Auto) 0.5 % (0.2-1.0) 07/11/20 14:58 Neut # (Auto) 9.1 x10^3/uL (2.2-4.8) H 07/11/20 14:58 Lymph # (Auto) 1.3 X10^3/uL (1.3-2.9) 07/11/20 14:58 [place] # (Auto) 0.5 x10^3/uL (0.3-0.8) 07/11/20 14:58 Eos # (Auto) 0.1 x10^3/uL (0.0-0.2) 07/11/20 14:58 Baso # (Auto) 0.1 X10^3/uL (0.0-0.1) 07/11/20 14:58 Absolute Nucleated RBC 0.1 /100WBC 07/11/20 14:58 PT 15.7 SECONDS (11.8-14.3) 07/11/20 14:58 INR Target Range - 07/11/20 14:58 INR 1.29 (0.8-1.3) 07/11/20 14:58 APTT 26.3 SECONDS (22.9-36.5) 07/11/20 14:58 PTT Comment - 07/11/20 14:58 Sodium 139 mmol/L (136-145) 07/11/20 14:58 Corrected Sodium 140 mmol/L (136-145) 07/11/20 14:58 Potassium 3.4 mmol/L (3.5-5.1) L 07/11/20 14:58 Chloride 106 mmol/L (98-107) 07/11/20 14:58 Carbon Dioxide 21.9 mmol/L (21-32) 07/11/20 14:58 BUN 54 mg/dL (7-18) H 07/11/20 14:58 Creatinine 1.42 mg/dL (0.55-1.02) H 07/11/20 14:58 Est GFR (MDRD) Af Amer 46 (>60) L 07/11/20 14:58 Est GFR (MDRD) Non-Af 38 (>60) L 07/11/20 14:58 Glucose 124 mg/dL (65-99) H 07/11/20 14:58 Calcium 8.3 mg/dL (8.5-10.1) L 07/11/20 14:58 Corrected Calcium 9.3 mg/dL (8.5-10.1) 07/11/20 14:58 Total Bilirubin 0.20 mg/dL (0.2-1.0) 07/11/20 14:58 AST 12 Units/L (15-37) L 07/11/20 14:58 ALT 17 Units/L (12-78) 07/11/20 14:58 Alkaline Phosphatase 49 Units/L (46-116) 07/11/20 14:58 Creatine Kinase 25 Units/L (26-192) L 07/11/20 14:58 CK-MB (CK-2) < 1.0 ng/mL (0-4.0) 07/11/20 14:58 CK/CKMB % Calc 4.0 % (<4) 07/11/20 14:58 Troponin I < 0.02 ng/mL (0-1.5) 07/11/20 14:58 Total Protein 5.6 g/dL (6.4-8.2) L 07/11/20 14:58 Albumin 2.8 g/dL (3.4-5.0) L 07/11/20 14:58 Globulin 2.8 g/dL (2.5-4.5) 07/11/20 14:58 Albumin/Globulin Ratio 1.0 Ratio (1.1-2.1) L 07/11/20 14:58 SARS CoV-2 RNA Rapid COREEN Negative (NEGATIVE) 07/11/20 15:49 Blood Type B POSITIVE 07/11/20 14:58 Antibody Screen Negative 07/11/20 14:58 Crossmatch See Detail 07/11/20 14:58 EKG Rate: 74 [place]: Normal Rhythm: NSR Block: None Hypertrophy: None Opioid Opioid Risk Tool Age (Esequiel box if 16-45): No History of Preadolescent Sexual Abuse: No Total: 0 Total Score Risk Category: Low Risk Copyright: Brice BAEZA predicting aberrant behaviors Diagnosis Discharge Problem: GI bleed Qualifiers: GI bleed type/associated pathology: melena Qualified Code(s): K92.1 - Melena Anemia Qualifiers: Anemia type: iron deficiency Iron deficiency anemia type: chronic blood loss Qualified Code(s): D50.0 - Iron deficiency anemia secondary to blood loss (chronic)
[2020-07-11] MEDS ORDERED: NS 1000 ML 1,000 ML ONE (14:43)
[2020-07-11] MEDS: NS 1000 ML 1,000 ML IV SCH ×2 (14:48→23:39)
[2020-07-11] MEDS: PROTONIX INJ 40 MG VIAL 80 MG in NS 100 ML IV 80 ML IV SCH (14:55)
[2020-07-11 15:19] LABS: EOSINOPHILS # (AUTO) 0.1 x10^3/uL (0.0-0.2); MEAN CORPUSCULAR HEMOGLOBIN 31.3 pg (27.0-34.0); MONOCYTES # (AUTO) 0.5 x10^3/uL (0.3-0.8)
[2020-07-11 15:25] LABS: BASOPHILS # (AUTO) 0.1 X10^3/uL (0.0-0.1); BASOPHILS % (AUTO) 0.5 % (0.2-1.0); EOSINOPHILS % (AUTO) 1.2 % (0.9-2.9); LYMPHOCYTES # (AUTO) 1.3 X10^3/uL (1.3-2.9); LYMPHOCYTES % (AUTO) 11.7 % (21.0-51.0); MEAN CORPUSCULAR HGB CONC 32.8 g/dL (33.0-35.0); MEAN CORPUSCULAR VOLUME 95.6 fL (80.0-100.0); MEAN PLATELET VOLUME 9.1 fL (7.4-11.0); MONOCYTES % (AUTO) 4.6 % (0.0-13.0); NEUTROPHILS # (AUTO) 9.1 x10^3/uL (2.2-4.8); PLATELET COUNT 202 X10^3/uL (150.0-450.0); RED BLOOD COUNT 1.64 X10^6/uL (3.5-5.4); RED CELL DISTRIBUTION WIDTH 15.4 % (11.6-16.5); WHITE BLOOD COUNT 11.2 X10^3/uL (3.6-10.0)
[2020-07-11 15:28] LABS: HEMOGLOBIN 5.1 g/dL (12.0-16.0)
[2020-07-11 15:29] LABS: HEMATOCRIT 15.7 % (36.0-47.0)
[2020-07-11 15:39] LABS: BLOOD UREA NITROGEN 54 mg/dL (7-18); CALCIUM 8.3 mg/dL (8.5-10.1); CARBON DIOXIDE 21.9 mmol/L (21-32); CHLORIDE 106 mmol/L (98-107); COR NA(FOR HYPERGLY) 140 mmol/L (136-145); CREATININE 1.42 mg/dL (0.55-1.02); SODIUM 139 mmol/L (136-145); TROPONIN I < 0.02 ng/mL (0-1.5); eGFR NON BLACK RACES 38 (>60)
[2020-07-11 15:41] LABS: ALANINE AMINOTRANSFERASE 17 Units/L (12-78); ALBUMIN 2.8 g/dL (3.4-5.0); ALKALINE PHOSPHATASE 49 Units/L (46-116); ASPARTATE AMINO TRANSFERASE 12 Units/L (15-37); COR CA(FOR HYPOALB) 9.3 mg/dL (8.5-10.1); CREATINE KINASE 25 Units/L (26-192); CREATINE KINASE MB < 1.0 ng/mL (0-4.0); TOTAL PROTEIN 5.6 g/dL (6.4-8.2)
[2020-07-11] MEDS ORDERED: BUTALBITAL ACETAMINOPHEN PO PRN ×2 (17:17→17:54)
[2020-07-11] MEDS ORDERED: HumuLIN R SC PRN (17:17)
[2020-07-11] MEDS ORDERED: OXYCODONE PO PRN ×2 (17:17→17:54)
[2020-07-11] MEDS ORDERED: FIORICET TAB PO PRN (18:02)
[2020-07-11] MEDS ORDERED: NIACIN 500 MG PO SCH ×2 (21:00)
[2020-07-11] MEDS ORDERED: ESZOPICLONE 1 MG PO SCH ×2 (21:00)
[2020-07-11] MEDS ORDERED: CORDARONE TAB 200 MG PO SCH (21:00)
[2020-07-11] MEDS ORDERED: PATIENT'S HOME MEDICATION (Alprazolam 0.5 mg tablet) PO SCH ×2 (21:00)
[2020-07-11 21:06] LABS: BILIRUBIN,URINE NEGATIVE (NEGATIVE); BLOOD/HEMOGLOBIN,URINE NEGATIVE (NEGATIVE); GLUCOSE, URINE NEGATIVE (NEGATIVE); KETONES,URINE NEGATIVE (NEGATIVE); LEUKOCYTE ESTERASE ,URINE NEGATIVE (NEGATIVE); NITRITES,URINE NEGATIVE (NEGATIVE); PROTEIN,URINE NEGATIVE (NEGATIVE); UROBILINOGEN,URINE NORMAL (NORMAL)
[2020-07-11 21:13] LABS: APPEARANCE,URINE CLEAR (CLEAR); COLOR,URINE STRAW (YELLOW)
[2020-07-11] MEDS: CRESTOR TAB 10 MG PO SCH (21:28)
[2020-07-11] MEDS: NEURONTIN CAP 100 MG PO SCH (21:28)
[2020-07-11] MEDS: CORDARONE TAB 200 MG PO SCH (21:29)
[2020-07-11] MEDS: NIASPAN ER TAB 500 MG PO SCH (21:30)
[2020-07-11] MEDS: XANAX PO SCH (21:30)
[2020-07-11] MEDS: MAG-OX TAB PO SCH (21:30)
[2020-07-11] MEDS: ROXICODONE TAB 5 MG PO PRN (22:42)
[2020-07-11 23:49] LABS: CKMB % 4.6 % (<4); CREATINE KINASE 22 Units/L (26-192); TROPONIN I < 0.02 ng/mL (0-1.5)
[2020-07-12] MEDS: PROTONIX INJ 40 MG VIAL 80 MG in NS 100 ML IV 80 ML IV SCH ×2 (01:15→12:48)
[2020-07-12] MEDS ORDERED: ZOFRAN INJ 4 MG VIAL ONE (03:59)
[2020-07-12] MEDS: ZOFRAN INJ 4 MG VIAL IVP PRN ×2 (04:05→14:03)
[2020-07-12] MEDS: NS 1000 ML 1,000 ML IV SCH ×5 (05:58→21:36)
[2020-07-12] MEDS: ROXICODONE TAB 5 MG PO PRN (06:43)
[2020-07-12] MEDS: DITROPAN TAB 5 MG PO SCH (08:46)
[2020-07-12] MEDS: ZYLOPRIM PO SCH (08:46)
[2020-07-12] MEDS: SYNTHROID 100 mcg TAB PO SCH (08:47)
[2020-07-12] MEDS: VITAMIN C PO SCH (08:47)
[2020-07-12] MEDS: MAG-OX TAB PO SCH ×2 (08:48→21:31)
[2020-07-12] MEDS: CORDARONE TAB 200 MG PO SCH ×2 (08:50→21:32)
[2020-07-12] MEDS: XANAX PO SCH ×2 (08:50→21:31)
[2020-07-12 08:51] LABS: BASOPHILS # (AUTO) 0.1 X10^3/uL (0.0-0.1); MEAN PLATELET VOLUME 8.9 fL (7.4-11.0); MONOCYTES # (AUTO) 0.7 x10^3/uL (0.3-0.8); NEUTROPHILS # (AUTO) 7.8 x10^3/uL (2.2-4.8); RED BLOOD COUNT 1.19 X10^6/uL (3.5-5.4)
[2020-07-12 08:55] LABS: BASOPHILS % (AUTO) 0.6 % (0.2-1.0); EOSINOPHILS % (AUTO) 0.3 % (0.9-2.9); LYMPHOCYTES % (AUTO) 18.9 % (21.0-51.0); MEAN CORPUSCULAR HEMOGLOBIN 32.3 pg (27.0-34.0); MEAN CORPUSCULAR HGB CONC 32.8 g/dL (33.0-35.0); MEAN CORPUSCULAR VOLUME 98.5 fL (80.0-100.0); MONOCYTES % (AUTO) 6.3 % (0.0-13.0); NEUTROPHILS % (AUTO) 73.9 % (42.0-75.0); PLATELET COUNT 204 X10^3/uL (150.0-450.0); RED CELL DISTRIBUTION WIDTH 15.6 % (11.6-16.5); WHITE BLOOD COUNT 10.6 X10^3/uL (3.6-10.0)
[2020-07-12 08:58] LABS: HEMATOCRIT 11.7 % (36.0-47.0); HEMOGLOBIN 3.9 g/dL (12.0-16.0)
[2020-07-12] MEDS ORDERED: CALCIUM CARBONATE VITAMIN D3 PO SCH ×2 (09:00)
[2020-07-12] MEDS ORDERED: VITAMIN C PO SCH (09:00)
[2020-07-12] MEDS ORDERED: [UNRECOGNIZED DRUG - OTHER] PO SCH ×2 (09:00)
[2020-07-12] MEDS ORDERED: ZYLOPRIM PO SCH (09:00)
[2020-07-12 09:04] LABS: ALBUMIN 2.5 g/dL (3.4-5.0); CALCIUM 7.9 mg/dL (8.5-10.1); CARBON DIOXIDE 15.4 mmol/L (21-32); COR CA(FOR HYPOALB) 9.1 mg/dL (8.5-10.1); CREATININE 1.46 mg/dL (0.55-1.02)
[2020-07-12] MEDS: OSCAL+D or CALTRATE+D PO SCH (09:26)
[2020-07-12] MEDS ORDERED: DOPAMINE IV PREMIX 400 MG/250 ML 400 MG/250 ML BAG IV PRN (10:16)
--- NOTE | 2020-07-12 11:50 | DR.H&P ---
H&P - History & Physical for Day of: H&P Date: 07/11/20 - Chief Complaint Chief Complaint: WEAKNESS, SOB, DARK/TARRY STOOLS - History of Present Illness History of Present Illness: IS A 75 YEAR OLD PATIENT OF OURS. SHE PRESENTED TO THE ER WITH COMPLAINTS OF MULTIPLE DARK, TARRY STOOLS FOR THE PAST 3-4 DAYS. SHE ALSO REPORTS GENERALIZED WEAKNESS AND SHORTNESS OF BREATH. SHE HAS BEEN HOSPITALIZED IN THE PAST FOR THE SAME COMPLAINTS. PMH INCLUDES: TIA, SEIZURES, CAD, CHF, HYPERLIPIDEMIA, HTN, CABG, PUD, UTIs, AVMs, DMII, ANEMIA, CERVICAL CANCER, AND MULTIPLE SURGERIES. ON ARRIVAL TO THE HOSPITAL, VITALS WERE 98.1-78-20-100%-92/76. LABS WERE OBTAINED. ABNORMAL LAB VALUES INCLUDE THE FOLLOWING: WBC 11.2, RBC 1.64, HGB 5.1, HCT 15.7, POTASSIUM 3.4, BUN 54, CREATININE 1.42, GLUCOSE 124, CALCIUM 8.3, AST 12, CREATINE KINASE 25, TOTAL PROTEIN 5.6, ALBUMIN 2.8. CARDIAC ENZYMES WERE WITHIN NORMAL LIMITS. URINALYSIS WAS OBTAINED AND IS UNREMARKABLE. STOOL IS POSITIVE FOR OCCULT BLOOD. AN EKG WAS OBTAINED AND REVEALED: SINUS RHYTHM WITH HR 74. DECISION WAS MADE TO ADMIT PATIENT FOR FURTHER EVALUATION AND TREATMENT OF GI BLEED AND SEVERE ANEMIA. SHE WAS STARED ON NORMAL SALINE AT 125ML/HR, A PROTONIX DRIP, PEPCID 20MG IV BID, HUMULIN R SLIDING SCALE, ZOFRAN 4MG IV Q6H PRN. HER HOME MEDICATIONS OF FIORICET, ZYLOPRIM, XANAX, AMIODARONE, ASCORBIC ACID, CALCIUM 1 TAB PO DAILY, NEURONTIN 300MG PO HS, LEVOTHYROXINE, MAX-OX, NIASPAN , DITROPAN, OXYCODONE, AND ROSUVASTATIN WERE RESUMED. WE WILL MONITOR H&H. WE WILL TYPE AND SCREEN AND CROSSMATCH FOUR UNITS OF PACKED RED BLOOD CELLS AND TRANSFUSE WHEN AVAILABLE. PATIENT IS KNOWN TO HAVE ANTIBODIES IN HER BLOOD, SO UNITS MAY NOT BE AVAILABLE UNTIL TOMORROW. OTHERWISE, WE PLAN TO FOLLOW UP WITH AM LABS AND CONTINUE TO MONITOR. TIME SPENT ON CLINICAL ASSESSMENT, REVIEWING LABS AND IMAGING, DECISION MAKING, AND DOCUMENTATION GREATER THAN 75 MINUTES. - Past Medical History Past Medical History: Coronary Artery Disease, Hypertension, Diabetes, Anemia, Arthritis Additional Medical History: PVD, AVM, TIA, HX CERVICAL CANCER - Past Surgical History Surgical History: CABG/Valve Surgery, Carotid Endarterectomy, Cholecystectomy, Hysterectomy, Tonsillectomy, Lithotripsy, Other Additional Surgical History: Sling on bladder, LEFT ARM AND LEFT LEG STENT, OPEN HEART SURGERY WITH 5 BYPASSES, RIGHT WRIST SURGERY - Family History Family Medical History: Diabetes Mellitus, Sudden Cardiac , Hypertension - Social History Does patient currently use any type of tobacco product: Yes Have you used tobacco products in the last 12 months: Yes Type of Tobacco Use: Cigarettes Does any household member use tobacco: No Alcohol Use: None Drug Use: Prescription Drugs - Medications Home Medications: Penicillins Allergy (Verified 09/20/19 19:42) prednisone Allergy (Verified 09/20/19 19:42) tramadol Allergy (Verified 09/20/19 19:42) CONTINUE taking the following medications alprazolam 0.5 mg PO BID MDD 2 07/11/20 [History] amiodarone 200 mg PO BID 07/11/20 [History] dicyclomine 10 mg PO TID PRN 07/11/20 [History] eszopiclone 1 mg PO HS 07/11/20 [History] - Review of Systems Constitutional: Weakness Eyes: No Symptoms Reported ENT: No Symptoms Reported Respiratory: Shortness of Breath Cardiovascular: Chest Pain Gastrointestinal: Melena Genitourinary: No Symptoms Reported Musculoskeletal: No Symptoms Reported Skin: No Symptoms Reported Neurological: See HPI, Weakness - Physical Exam Vital Signs: Temperature 98.2 F Pulse Rate [Left Brachial] 100 Pulse Rate 80 Respiratory Rate 20 Blood Pressure [Right Calf] 170/70 Blood Pressure [Right Arm] 80/50 Blood Pressure [Left Arm] 166/68 Blood Pressure 110/53 O2 Sat by Pulse Oximetry 99 Oriented: Normal Eyes: Normal Ear: Normal Nose: Normal Throat: Normal Respiratory: Diminished Throughout Cardiovascular: Normal : Normal Auscultation: Bowel Sounds: Normal Palpation: Normal Tenderness: Normal Skin: Normal Musculoskeletal: Normal Psychiatric: Normal Mood Description: Calm Affect: Normal Speech Pattern: Clear - Assessment/Plan (1) Anemia Qualifiers: Anemia type: iron deficiency Iron deficiency anemia type: chronic blood loss Qualified Code(s): D50.0 - Iron deficiency anemia secondary to blood loss (chronic) Status: Acute Plan: ADMIT, T&S/TRANSFUSE 4 UNITS PRBC WHEN AVAILABLE. NORMAL SALINE AT 125ML/HR, A PROTONIX DRIP, PEPCID 20MG IV BID, HUMULIN R SLIDING SCALE, ZOFRAN 4MG IV Q6H PRN. CONTINUE FIORICET, ZYLOPRIM, XANAX, AMIODARONE, ASCORBIC ACID, CALCIUM 1 TAB PO DAILY, NEURONTIN 300MG PO HS, LEVOTHYROXINE, MAX-OX, NIASPAN , DITROPAN, OXYCODONE, AND ROSUVASTATIN (2) GI bleed Qualifiers: GI bleed type/associated pathology: melena Qualified Code(s): K92.1 - Melena Status: Acute - Allergies Allergies/Adverse Reactions: Allergies Allergy/AdvReac Type Severity Reaction Status Date / Time Penicillins Allergy Verified 09/20/19 19:42 prednisone Allergy Verified 09/20/19 19:42 tramadol Allergy Verified 09/20/19 19:42
[2020-07-12] MEDS: HumuLIN R SC PRN ×3 (12:01→21:30)
[2020-07-12 12:04] LABS: CKMB % 5.7 % (<4); CREATINE KINASE MB 1.6 ng/mL (0-4.0); TROPONIN I 0.04 ng/mL (0-1.5)
[2020-07-12] MEDS ORDERED: TYLENOL 325 MG TAB PO ONE ×2 (15:03→15:07)
[2020-07-12] MEDS ORDERED: BENADRYL INJ 50 MG VIAL IVP ONE (15:03)
[2020-07-12] MEDS ORDERED: BENADRYL INJ 50 MG VIAL ONE (15:07)
[2020-07-12] MEDS ORDERED: NS 250 ML IV 250 ML IV ONE ×2 (15:23→23:23)
[2020-07-12] MEDS: CRESTOR TAB 10 MG PO SCH (21:29)
[2020-07-12] MEDS: NIASPAN ER TAB 500 MG PO SCH (21:31)
[2020-07-12] MEDS: NEURONTIN CAP 100 MG PO SCH (21:31)
[2020-07-13 05:21] LABS: BASOPHILS % (AUTO) 0.5 % (0.2-1.0); EOSINOPHILS # (AUTO) 0.2 x10^3/uL (0.0-0.2); EOSINOPHILS % (AUTO) 1.8 % (0.9-2.9); HEMATOCRIT 21.6 % (36.0-47.0); HEMOGLOBIN 7.1 g/dL (12.0-16.0); LYMPHOCYTES # (AUTO) 1.1 X10^3/uL (1.3-2.9); LYMPHOCYTES % (AUTO) 11.6 % (21.0-51.0); MEAN CORPUSCULAR HEMOGLOBIN 28.9 pg (27.0-34.0); MEAN CORPUSCULAR HGB CONC 32.9 g/dL (33.0-35.0); MEAN CORPUSCULAR VOLUME 87.9 fL (80.0-100.0); MEAN PLATELET VOLUME 8.7 fL (7.4-11.0); MONOCYTES # (AUTO) 0.6 x10^3/uL (0.3-0.8); MONOCYTES % (AUTO) 6.2 % (0.0-13.0); NEUTROPHILS # (AUTO) 7.9 x10^3/uL (2.2-4.8); NEUTROPHILS % (AUTO) 79.9 % (42.0-75.0); PLATELET COUNT 131 X10^3/uL (150.0-450.0); RED BLOOD COUNT 2.45 X10^6/uL (3.5-5.4); RED CELL DISTRIBUTION WIDTH 20.8 % (11.6-16.5); WHITE BLOOD COUNT 9.9 X10^3/uL (3.6-10.0)
[2020-07-13 05:30] LABS: ALBUMIN 2.2 g/dL (3.4-5.0); CALCIUM 7.6 mg/dL (8.5-10.1); CARBON DIOXIDE 19.8 mmol/L (21-32); CREATININE 1.24 mg/dL (0.55-1.02); TOTAL PROTEIN 4.4 g/dL (6.4-8.2)
[2020-07-13] MEDS: HumuLIN R SC PRN ×3 (05:39→20:55)
[2020-07-13 05:51] LABS: ANISOCYTOSIS 1+; PLATELET MORPHOLOGY COMMENT NORMAL (NORMAL); SPHEROCYTES 1+
[2020-07-13] MEDS: NS 1000 ML 1,000 ML IV SCH ×2 (07:31→23:55)
[2020-07-13] MEDS: DITROPAN TAB 5 MG PO SCH (09:03)
[2020-07-13] MEDS: XANAX PO SCH ×2 (09:03→20:53)
[2020-07-13] MEDS: OSCAL+D or CALTRATE+D PO SCH (09:04)
[2020-07-13] MEDS: ZYLOPRIM PO SCH (09:04)
[2020-07-13] MEDS: MAG-OX TAB PO SCH ×2 (09:05→20:52)
[2020-07-13] MEDS: VITAMIN C PO SCH (09:05)
[2020-07-13] MEDS: CORDARONE TAB 200 MG PO SCH ×2 (09:06→20:54)
[2020-07-13] MEDS: SYNTHROID 100 mcg TAB PO SCH (09:06)
[2020-07-13] MEDS ORDERED: BENADRYL INJ 50 MG VIAL IVP ONE (11:36)
[2020-07-13] MEDS ORDERED: TYLENOL 325 MG TAB PO ONE (11:36)
[2020-07-13] MEDS ORDERED: NS 250 ML IV 250 ML IV SCH (13:00)
[2020-07-13] MEDS: PROTONIX INJ 40 MG VIAL 80 MG in NS 100 ML IV 80 ML IV SCH ×3 (13:10)
[2020-07-13] MEDS: NIASPAN ER TAB 500 MG PO SCH (20:52)
[2020-07-13] MEDS: NEURONTIN CAP 100 MG PO SCH (20:53)
[2020-07-13] MEDS: CRESTOR TAB 10 MG PO SCH (20:53)
[2020-07-13 22:33] LABS: HEMATOCRIT 34.2 % (36.0-47.0); HEMOGLOBIN 11.3 g/dL (12.0-16.0)
[2020-07-14] MEDS ORDERED: ROBITUSSIN DM PO PRN (00:42)
[2020-07-14] MEDS ORDERED: BUTT CREAM (COMPOUND) TOP PRN (02:12)
[2020-07-14] MEDS ORDERED: BUTT CREAM (COMPOUND) ONE (02:13)
[2020-07-14] MEDS: PROTONIX INJ 40 MG VIAL 80 MG in NS 100 ML IV 80 ML IV SCH (04:33)
[2020-07-14 06:22] LABS: BASOPHILS % (AUTO) 0.3 % (0.2-1.0); EOSINOPHILS # (AUTO) 0.2 x10^3/uL (0.0-0.2); EOSINOPHILS % (AUTO) 2.3 % (0.9-2.9); HEMATOCRIT 31.9 % (36.0-47.0); HEMOGLOBIN 10.9 g/dL (12.0-16.0); LYMPHOCYTES # (AUTO) 1.3 X10^3/uL (1.3-2.9); LYMPHOCYTES % (AUTO) 12.8 % (21.0-51.0); MEAN CORPUSCULAR HEMOGLOBIN 29.2 pg (27.0-34.0); MEAN CORPUSCULAR HGB CONC 34.2 g/dL (33.0-35.0); MEAN CORPUSCULAR VOLUME 85.5 fL (80.0-100.0); MONOCYTES # (AUTO) 0.7 x10^3/uL (0.3-0.8); MONOCYTES % (AUTO) 6.3 % (0.0-13.0); NEUTROPHILS # (AUTO) 8.2 x10^3/uL (2.2-4.8); NEUTROPHILS % (AUTO) 78.3 % (42.0-75.0); PLATELET COUNT 120 X10^3/uL (150.0-450.0); RED BLOOD COUNT 3.73 X10^6/uL (3.5-5.4); RED CELL DISTRIBUTION WIDTH 19.6 % (11.6-16.5); WHITE BLOOD COUNT 10.5 X10^3/uL (3.6-10.0)
[2020-07-14 06:53] LABS: ALANINE AMINOTRANSFERASE 62 Units/L (12-78); ALBUMIN 2.2 g/dL (3.4-5.0); ALKALINE PHOSPHATASE 51 Units/L (46-116); ASPARTATE AMINO TRANSFERASE 62 Units/L (15-37); BLOOD UREA NITROGEN 22 mg/dL (7-18); CALCIUM 8.2 mg/dL (8.5-10.1); CARBON DIOXIDE 22.3 mmol/L (21-32); CHLORIDE 111 mmol/L (98-107); COR CA(FOR HYPOALB) 9.6 mg/dL (8.5-10.1); COR NA(FOR HYPERGLY) 144 mmol/L (136-145); CREATININE 1.08 mg/dL (0.55-1.02); SODIUM 140 mmol/L (136-145); TOTAL PROTEIN 4.7 g/dL (6.4-8.2); eGFR NON BLACK RACES 52 (>60)
[2020-07-14] MEDS: CORDARONE TAB 200 MG PO SCH (08:20)
[2020-07-14] MEDS: DITROPAN TAB 5 MG PO SCH (08:20)
[2020-07-14] MEDS: XANAX PO SCH (08:20)
[2020-07-14] MEDS: MAG-OX TAB PO SCH (08:26)
[2020-07-14] MEDS: ZYLOPRIM PO SCH (08:27)
[2020-07-14] MEDS: VITAMIN C PO SCH (08:27)
[2020-07-14] MEDS: SYNTHROID 100 mcg TAB PO SCH (08:27)
--- NOTE | 2020-07-14 08:52 | PCM.PROG ---
Progress Note - Progress Note for Day of Date of Exam: 07/13/20 - Subjective Subjective: IS BEING TREATED FOR SEVERE ANEMIA AND A GI BLEED. TODAY, SHE IS ALERT AND ORIENTED, LYING IN BED ON MORNING ROUNDS. SHE RECEIVED TWO UNITS OF PRBC THIS THROUGHOUT THE NIGHT. SHE CONTINUES WITH COMPLAINTS OF WEAKNESS AND INTERMITTENT SHORTNESS OF BREATH. ON EXAMINATION, HEART IS REGULAR IN RATE AND RHYTHM. BILATERAL LUNGS ARE NOTED WITH DIMINSHED LUNG SOUND THROUGHOUT. ABDOMEN IS ROUND, SOFT, AND NON-TENDER WITH NORMAL BOWEL SOUNDS NOTED IN ALL QUADRANTS. HER VITALS THIS MORNING ARE: 98.2-719-70-99-80/50. LABS WERE OBTAINED. ABNORMAL LAB VALUES INCLUDE THE FOLLOWING: RBC 2.45, HGB 7.1, HCT 21.6, PLT COUNT 131, CHLORIDE 111, BUN 22, CREATININE 1.08, GLUCOSE 261, CALCIUM 8.2, AST 62, TOTAL PROTEIN 4.7, ALBUMIN 2.2. SHE IS CURRENTLY RECEIVING NORMAL SALINE AT 125ML/HR, A PROTONIX DRIP, PEPCID 20MG IV BID, HUMULIN R SLIDING SCALE, ZOFRAN 4MG IV Q6H PRN. HER HOME MEDICATIONS OF FIORICET, ZYLOPRIM, XANAX, AMIODARONE, ASCORBIC ACID, CALCIUM 1 TAB PO DAILY, NEURONTIN 300MG PO HS, LEVOTHYROXINE, MAX-OX, NIASPAN , DITROPAN, OXYCODONE, AND ROSUVASTATIN WERE RESUMED. WE WILL TRANSFUSE TWO ADDITIONAL UNITS OF PRBC TODAY. OTHERWISE, WE WILL FOLLOW UP WITH AM LABS AND CONTINUE TO MONITOR. TIME SPENT ON CLINICAL ASSESSMENT, REVIEWING LABS AND IMAGING, DECISION MAKING, AND DOCUMENTATION GREATER THAN 45 MINUTES. - Past Medical Family Social History Past Med/Fam/Surg Hx: No changes since H&P Allergies: Allergies Penicillins Allergy (Verified 09/20/19 19:42) prednisone Allergy (Verified 09/20/19 19:42) tramadol Allergy (Verified 09/20/19 19:42) - Review of Systems ROS: No change since H&P - Vital Signs and I&O's Vital Signs: Temperature 98.5 F Pulse Rate [Left Brachial] 78 Pulse Rate 80 Respiratory Rate 20 Blood Pressure [Right Calf] 170/70 Blood Pressure [Right Arm] 146/71 Blood Pressure [Left Arm] 166/68 Blood Pressure 110/53 O2 Sat by Pulse Oximetry 98 Intake and Output: Intake & Output 07/11/20 07/12/20 07/13/20 07/14/20 11:59 11:59 11:59 11:59 Intake Total 3 / 3 4652 / 4652 2767 / 2767 Output Total 1300 / 1300 1200 / 1200 2550 / 2550 Balance 793 / 793 3452 / 3452 217 / 217 - Physical Exam Oriented: Normal Eyes: Normal Ear: Normal Nose: Normal Throat: Normal Cardiovascular: Normal : Normal Auscultation: Bowel Sounds: Normal Palpation: Normal Tenderness: Normal Skin: Normal Musculoskeletal: Normal Psychiatric: Normal Mood Description: Calm Affect: Normal Speech Pattern: Clear, Appropriate - Laboratory and Diagnostics Result Diagrams: 07/14/20 05:09 07/14/20 05:09 Labs: Laboratory WBC 10.5 X10^3/uL (3.6-10.0) H 07/14/20 05:09 RBC 3.73 X10^6/uL (3.5-5.4) 07/14/20 05:09 Hgb 10.9 g/dL (12.0-16.0) L 07/14/20 05:09 Hct 31.9 % (36.0-47.0) L 07/14/20 05:09 MCV 85.5 fL (80.0-100.0) 07/14/20 05:09 MCH 29.2 pg (27.0-34.0) 07/14/20 05:09 MCHC 34.2 g/dL (33.0-35.0) 07/14/20 05:09 RDW 19.6 % (11.6-16.5) H 07/14/20 05:09 Plt Count 120 X10^3/uL (150.0-450.0) L 07/14/20 05:09 Plt Count Comment Decreased (ADEQUATE) A 07/13/20 04:55 MPV 9.0 fL (7.4-11.0) 07/14/20 05:09 Neut % (Auto) 78.3 % (42.0-75.0) H 07/14/20 05:09 Lymph % (Auto) 12.8 % (21.0-51.0) L 07/14/20 05:09 [place] % (Auto) 6.3 % (0.0-13.0) 07/14/20 05:09 Eos % (Auto) 2.3 % (0.9-2.9) 07/14/20 05:09 Baso % (Auto) 0.3 % (0.2-1.0) 07/14/20 05:09 Neut # (Auto) 8.2 x10^3/uL (2.2-4.8) H 07/14/20 05:09 Lymph # (Auto) 1.3 X10^3/uL (1.3-2.9) 07/14/20 05:09 [place] # (Auto) 0.7 x10^3/uL (0.3-0.8) 07/14/20 05:09 Eos # (Auto) 0.2 x10^3/uL (0.0-0.2) 07/14/20 05:09 Baso # (Auto) 0.0 X10^3/uL (0.0-0.1) 07/14/20 05:09 Absolute Nucleated RBC 0.5 /100WBC 07/14/20 05:09 Plt Morphology Comment Normal (NORMAL) 07/13/20 04:55 RBC Morphology Abnormal (NORMAL) A 07/13/20 04:55 Dimorphic RBCs 1+ 07/13/20 04:55 Anisocytosis 1+ A 07/13/20 04:55 Spherocytes 1+ A 07/13/20 04:55 PT 15.7 SECONDS (11.8-14.3) 07/11/20 14:58 INR Target Range - 07/11/20 14:58 INR 1.29 (0.8-1.3) 07/11/20 14:58 APTT 26.3 SECONDS (22.9-36.5) 07/11/20 14:58 PTT Comment - 07/11/20 14:58 Sodium 140 mmol/L (136-145) 07/14/20 05:09 Corrected Sodium 144 mmol/L (136-145) 07/14/20 05:09 Potassium 3.8 mmol/L (3.5-5.1) 07/14/20 05:09 Chloride 111 mmol/L (98-107) H 07/14/20 05:09 Carbon Dioxide 22.3 mmol/L (21-32) 07/14/20 05:09 BUN 22 mg/dL (7-18) H 07/14/20 05:09 Creatinine 1.08 mg/dL (0.55-1.02) H 07/14/20 05:09 Est GFR (MDRD) Af Amer > 60 (>60) 07/14/20 05:09 Est GFR (MDRD) Non-Af 52 (>60) L 07/14/20 05:09 Glucose 261 mg/dL (65-99) H 07/14/20 05:09 POC Glucose (mg/dL) 182 mg/dL (65-99) H 07/14/20 05:46 Calcium 8.2 mg/dL (8.5-10.1) L 07/14/20 05:09 Corrected Calcium 9.6 mg/dL (8.5-10.1) 07/14/20 05:09 Total Bilirubin 0.40 mg/dL (0.2-1.0) 07/14/20 05:09 AST 62 Units/L (15-37) H 07/14/20 05:09 ALT 62 Units/L (12-78) 07/14/20 05:09 Alkaline Phosphatase 51 Units/L (46-116) 07/14/20 05:09 Creatine Kinase 28 Units/L (26-192) 07/12/20 11:30 CK-MB (CK-2) 1.6 ng/mL (0-4.0) 07/12/20 11:30 CK/CKMB % Calc 5.7 % (<4) 07/12/20 11:30 Troponin I 0.04 ng/mL (0-1.5) 07/12/20 11:30 Total Protein 4.7 g/dL (6.4-8.2) L 07/14/20 05:09 Albumin 2.2 g/dL (3.4-5.0) L 07/14/20 05:09 Globulin 2.5 g/dL (2.5-4.5) 07/14/20 05:09 Albumin/Globulin Ratio 0.9 Ratio (1.1-2.1) L 07/14/20 05:09 Specimen Type Catherized urine 07/11/20 20:25 Urine Color Straw (YELLOW) 07/11/20 20:25 Urine Appearance Clear (CLEAR) 07/11/20 20:25 Urine pH 5.0 (5.0 - 8.0) 07/11/20 20:25 Ur Specific [place] 1.015 (1.000-1.030) 07/11/20 20:25 Urine Protein Negative (NEGATIVE) 07/11/20 20:25 Urine Glucose (UA) Negative (NEGATIVE) 07/11/20 20:25 Urine Ketones Negative (NEGATIVE) 07/11/20 20:25 Urine Occult Blood Negative (NEGATIVE) 07/11/20 20:25 Urine Nitrite Negative (NEGATIVE) 07/11/20 20:25 Urine Bilirubin Negative (NEGATIVE) 07/11/20 20:25 Urine Urobilinogen Normal (NORMAL) 07/11/20 20:25 Ur Leukocyte Esterase Negative (NEGATIVE) 07/11/20 20:25 Stool Description Fob tube 07/11/20 17:35 Stl Occult Blood (IFOB) Positive (NEGATIVE) A 07/11/20 17:35 SARS CoV-2 RNA Rapid COREEN Negative (NEGATIVE) 07/11/20 15:49 Blood Type B POSITIVE 07/11/20 14:58 Antibody Screen Negative 07/11/20 14:58 Crossmatch See Detail 07/11/20 14:58 - Plan (1) Anemia Status: Acute Qualifiers: Anemia type: iron deficiency Iron deficiency anemia type: chronic blood loss Qualified Code(s): D50.0 - Iron deficiency anemia secondary to blood loss (chronic) Plan: TRANSFUSE 2 UNITS PRBC, NORMAL SALINE AT 125ML/HR, A PROTONIX DRIP, PEPCID 20MG IV BID, HUMULIN R SLIDING SCALE, ZOFRAN 4MG IV Q6H PRN. CONTINUE FIORICET, ZYLOPRIM, XANAX, AMIODARONE, ASCORBIC ACID, CALCIUM 1 TAB PO DAILY, NEURONTIN 300MG PO HS, LEVOTHYROXINE, MAX-OX, NIASPAN , DITROPAN, OXYCODONE, AND ROSU VASTATIN (2) GI bleed Status: Acute Qualifiers: GI bleed type/associated pathology: melena Qualified Code(s): K92.1 - Melena
[2020-07-14] MEDS ORDERED: CITRACAL + VITAMIN D PO SCH (09:00)
[2020-07-14 14:45] VITALS: BP 197/76
== END 2020-07-14 13:45 | disposition home health service (06) | DRG 812 ==
LOC: ER 13:57 → MED/SURG 17:02 → UNDODISIN 17:28 → MED/SURG 17:31
PROVIDERS: ADMIT Internal Medicine; ATTEND Internal Medicine